=== PATIENT | male | born 1970 | race Caucasian/White ===

== ENCOUNTER 2021-10-25 16:20 | Outpatient (CLI) | payer OTHER, SELFPAY ==
[2021-10-25 17:32] LABS: Albumin* 4.8 g/dL (3.3-5.0); Chloride* 105 mmol/L (96-114)
[2021-10-25 17:33] LABS: Potassium* 3.9 mmol/L (3.6-5.1); Sodium* 141 mmol/L (135-149)
[2021-10-25 17:35] LABS: Aspartate Amino Transferase* 31 U/L (12-35); Bilirubin Total* 0.6 mg/dL (0.1-1.5); Blood Urea Nitrogen* 24 mg/dL (5-24); Carbon Dioxide* 27 mmol/L (20-32); Cholesterol* 173 mg/dL (90-199); Creatinine* 1.1 mg/dL (0.5-1.5); Estimated Glomerular Filt Rate 82 ml/min; Glucose* 106 mg/dL (60-115); Total Protein* 7.4 g/dL (6.0-8.3)
[2021-10-25 17:36] LABS: Alanine Aminotransferase* 27 U/L (4-50); Alkaline Phosphatase* 71 U/L (40-150); Calcium* 9.8 mg/dL (8.4-10.6); HDL Cholesterol* 31 mg/dL (>=40)
[2021-10-25 17:52] LABS: Triglycerides* 677 mg/dL (40-149)
[2021-10-25 17:53] LABS: LDL Cholesterol Calculated 7 mg/dL (<100)
== END 2021-10-25 16:21 | disposition home or self-care (01) ==
PROVIDERS: PCP Internal Medicine; Visit Provider Internal Medicine
DX: Z01.818 Encounter for other preprocedural examination (principal); E78.5 Hyperlipidemia, unspecified; N52.9 Male erectile dysfunction, unspecified; N40.0 Benign prostatic hyperplasia without lower urinary tract symptoms; F41.0 Panic disorder [episodic paroxysmal anxiety]; K21.9 Gastro-esophageal reflux disease without esophagitis
CPT/HCPCS: 80053; 80061

== ENCOUNTER 2021-11-01 07:24 | Day surgery (SDC) | payer OTHER, SELFPAY ==
[2021-11-01] VITALS (10 sets, daily range): BP systolic 113–134; BP diastolic 78–92; PULSE 59–663; RESP 14–18; TEMP 36.3–36.6; O2SAT 92–97; BMI 39.4
[2021-11-01] MEDS: LACTATED RINGERS 1000 ML 1,000 ML 100 ML IV (08:00)
[2021-11-01] MEDS: SODIUM CHLORIDE 0.9 % (FLUSH) 10 ML SYRINGE IVF (08:01)
[2021-11-01] MEDS: CEFAZOLIN 1 GM inj 3 GM IVP (09:32)
--- NOTE | 2021-11-01 10:17 | PM.ORPRC ---
Procedure Note Date of procedure: 11/01/21 Procedure: SURGEON: Hemant Armstrong MD LICENSED FUNERAL DIRECTOR AND EMBALMER: JANELLE Dodge PREOPERATIVE DIAGNOSIS: Right knee medial pain POSTOPERATIVE DIAGNOSIS: Right knee medial compartment osteoarthritis, degenerative fraying of the leading edge of the anterior horn of the medial meniscus NAME OF OPERATION: Right knee diagnostic arthroscopy, partial medial meniscectomy, medial femoral condyle chondroplasty ANESTHESIA: Spinal ESTIMATED BLOOD LOSS: 0 mL COMPLICATIONS: None SPECIMENS: None DRAINS: None PREOPERATIVE ANTIBIOTICS: Ancef 3 g INDICATIONS: The patient is a 51-year-old male with a history of right knee medial pain. MRI scan is normal. Despite appropriate nonoperative management, including activity modification, antiinflammatories, [id number] pain medication, bracing, physical therapy, and injections they continue to have pain and disability. Operative intervention was offered. The risks, benefits and expected outcomes were discussed in detail. These included but were not limited to: Infection, bleeding, injury to blood vessel or nerve, venous thromboembolism. All questions were answered to their satisfaction. PROCEDURE: Spinal anesthesia was administered. The patient was placed supine on the operating room table. The right lower extremity was prepped and draped in the usual sterile fashion. The limb was exsanguinated with the Alan bandage. The pneumatic tourniquet was inflated to 300 mmHg. A standard anterolateral portal was established. The arthroscope was introduced. The working portal was established anteromedially. Diagnostic arthroscopy was performed with findings as follows: The suprapatellar pouch is normal. Articular surface on the patella is normal. Articular surface on the trochlea is normal. The medial gutter is normal. The medial compartment shows some degenerative fraying of the leading edge of the anterior horn of the medial meniscus. Otherwise, the medial meniscus is normal. There is no undersurface tearing, there is no root tear. The notch shows the ACL to be intact. The lateral compartment shows normal articular cartilage on the lateral femoral condyle and lateral tibial plateau. The lateral meniscus is normal. The lateral gutter is normal. The leading edge of the anterior horn of the medial meniscus was debrided with the shaver through both portals. Unstable chondral flaps on the medial femoral condyle were debrided with the shaver through both portals, taken to a stable base. Arthroscopic instruments were removed, the portal sites were Steri-Stripped closed, the knee was infiltrated with 30 mL of 0.25% Marcaine without epinephrine. A dry dressing was applied, the tourniquet was released. Sponge and needle counts were correct x 2. The patient tolerated the procedure well. There were no apparent complications. They were carefully transferred to the hospital bed and taken to the postanesthesia care unit in satisfactory condition. PLAN: The patient will be discharged to home. They may weightbear as tolerates. Range of motion will be unrestricted. They will follow up in the office next week for a wound check.
--- NOTE | 2021-11-01 10:23 | PC.NURSE ---
CONTINUOUS IRRIGATION WITH NORMAL SALINE DURING KNEE SCOPE
--- NOTE | 2021-11-01 10:27 | W.ANESCHARGE ---
Anesthesia Charges Start Date/Time Anesthesia Start Date: 11/01/21 Anesthesia Start Time: 09:25 Stop Date/Time Anesthesia Stop Date: 11/01/21 Anesthesia Stop Time: 10:23 Summary Emergency: No
--- NOTE | 2021-11-01 10:38 | W.ANESCHARGE ---
Anesthesia Charges Start Date/Time Anesthesia Start Date: 11/01/21 Anesthesia Start Time: 09:25 Stop Date/Time Anesthesia Stop Date: 11/01/21 Anesthesia Stop Time: 10:23 Summary Emergency: No
== END 2021-11-01 12:00 | disposition home or self-care (01) ==
PROVIDERS: PCP Internal Medicine; Visit Provider Orthopaedic Surgery
PROC: (CPT 29870; principal; 2021-11-01 09:30)
DX: M25.561 Pain in right knee (principal); M23.211 Derangement of anterior horn of medial meniscus due to old tear or injury, right knee; M17.11 Unilateral primary osteoarthritis, right knee
CPT/HCPCS: 29881; 01400; 97116; 97161; J0690; J2250; J2400; J2704; J3010; J7120

== ENCOUNTER 2021-12-12 19:32 | Outpatient (CLI) | payer OTHER, SELFPAY ==
--- NOTE | 2022-01-08 11:43 | W.PM.SLEEP ---
Sleep Study Details Details Interpreting Provider: Anirudh Chase MD Date of Sleep Study: 12/12/21 Sleep Study Details: STUDY TYPE:? Home ? BMI:? Not recorded ORDERING PROVIDER:? Carole INDICATION:? Concerns about sleep apnea ? SLEEP SUMMARY:? Study marred by low monitoring time of 83 minutes, total recording time 401 minutes RESPIRATORY SUMMARY:? AHI of 20.9 with minimal positional variation Low oxygen 68 2.7% of study oxygen less than 90%, 0.1% of study oxygen less than 85% Snoring % is 1.6 PERIODIC LIMB MOVEMENTS OF SLEEP:? Not recorded CARDIAC:? Range 60 to 99, mean 80.2 IMPRESSION:? Moderate obstructive sleep apnea. This study was marred by low monitoring time of 83 minutes. However I believe this is adequate to demonstrate at least moderate obstructive apnea. RECOMMENDATION: Treatment options would consist of AutoSet CPAP at a pressure of 4-17 versus dental appliance. Would favor CPAP.
== END 2021-12-12 19:33 | disposition home or self-care (01) ==
LOC: SLEEP 19:32
PROVIDERS: PCP Internal Medicine; Visit Provider Internal Medicine
DX: G47.33 Obstructive sleep apnea (adult) (pediatric) (principal)
CPT/HCPCS: 95806

== ENCOUNTER 2021-12-26 13:45 | Outpatient (RCR) | payer OTHER, SELFPAY | END 2022-01-31 16:36 | disposition home or self-care (01) | PROVIDERS: PCP Internal Medicine; Visit Provider Orthopaedic Surgery | DX: M25.561 Pain in right knee (principal); M70.71 Other bursitis of hip, right hip; M25.551 Pain in right hip; Z51.89 Encounter for other specified aftercare | CPT/HCPCS: 97110; 97140; 97161; 97530 ==

== ENCOUNTER 2022-02-21 06:57 | Outpatient (CLI) | payer OTHER, SELFPAY ==
[2022-02-21 07:04] VITALS: BP 143/85; PULSE 94; RESP 18; TEMP 36.9; O2SAT 98
--- NOTE | 2022-02-21 07:31 | P.ORPRC_ITS ---
Procedure Note Date of procedure: 02/21/22 Procedure: SURGEON: Hemant Armstrong MD CHART WRITER: Miriam Meza PA-C PREOPERATIVE DIAGNOSIS: Right hip abductor tendinopathy/greater trochanteric bursitis POSTOPERATIVE DIAGNOSIS: Right hip abductor tendinopathy/greater trochanteric bursitis NAME OF OPERATION: Percutaneous tenotomy ANESTHESIA: Local ESTIMATED BLOOD LOSS: 2 mL. COMPLICATIONS: None. SPECIMENS: None. DRAINS: None. PREOPERATIVE ANTIBIOTICS: None INDICATIONS: The patient is a 51-year-old male with a history of right hip pain secondary to the above diagnoses. Despite appropriate non operative management, they continue to have symptoms. Operative intervention was recommended. The risks, benefits and expected outcomes were discussed in detail. These included but were not limited to: Infection, bleeding, injury to blood vessel or nerve, venous thromboembolism. All questions were answered to their satisfaction. PROCEDURE: The patient was placed in the lateral decubitus position. The right hip was imaged in the long and short axes with the ultrasound transducer. No rmal acoustic landmarks were identified. We then sterilely prepped and draped the skin, and used a sterile probe cover with sterile gel. Local anesthesia was established with 10 mL of a solution con taining 2 % lidocaine without epinephrine, 0.5% Marcaine without epinephrine and sodium bicarbonate. An 11 blade was used to incise the skin. The Tenex TX 2 micro tip was used to treat the abductor tendon for a total of 4 minutes and 2 seconds. The incision was Steri-Stripped closed. A dry dressing was applied. Sponge and needle counts were correct x2. The patient tolerated the procedure well. There were no apparent complications. They were discharged to home in satisfactory condition. PLAN: The patient may weightbear as tolerates. Tylenol can be used for pain/discomfort. They may ramp up activity as the hip will allow. They will follow up in the office in 6 weeks to assess their progress.
[2022-02-21 07:34] VITALS: BP 118/80; PULSE 96; RESP 18; O2SAT 98
== END 2022-02-21 07:43 | disposition home or self-care (01) ==
PROVIDERS: PCP Internal Medicine; Visit Provider Orthopaedic Surgery
DX: M70.61 Trochanteric bursitis, right hip (principal)
CPT/HCPCS: 27006; 76942

== ENCOUNTER 2022-06-05 08:14 | Outpatient (CLI) | payer OTHER, SELFPAY ==
--- NOTE | 2022-06-05 08:15 | CRLHL7_ITS ---
For Patients: As a result of the Century Cures Act, medical imaging exams and procedure reports are released immediately into your electronic medical record. You may view this report before your referring provider. If you have questions, please contact your health care provider. Indication: Right hip pain Procedure : Informed consent was obtained. The site was marked. Time-out was performed. The skin of the right hip was cleansed with ChloraPrep. A sterile drape was placed. 8 cc of 1 percent lidocaine was administered for superficial anesthesia. Subsequently a 22 gauge spinal needle was introduced into the right hip joint under intermittent fluoroscopic guidance. Injection of 2 cc nonionic Omnipaque 240 contrast confirmed intra-articular location. Subsequently 11 cc of dilute gadolinium were injected. The needle was removed and hemostasis achieved with direct pressure. A dressing was placed. The patient tolerated the procedure well without immediate complication and was immediately sent to MRI for imaging. Total fluoroscopy time 50 seconds. Impression: Successful fluoroscopically guided right hip arthrogram for MRI. Note is made that the injection procedure was difficult due to patient discomfort and movement. Some of contrast extended into the iliopsoas bursa although there is still adequate intra-articular contrast present. Dictated by Kingsley Prasad MD @ 06/05/2022 10:31:20 AM (Electronically Signed)
--- NOTE | 2022-06-05 09:15 | MR_ITS ---
[address] [address] Phone:?[phone] Fax:?[phone] Referring Physician Information: Hemant Armstrong M.D. [address] [facility] [address] Phone:?[phone] Fax:?[phone] Patient:Flaquito Miramontes D.O.B:?1970 Sex:?Male Phone:?[phone] [facility] MRN:?[id number] Exam Date:?06/05/2022 ? EXAM: MR ARTHROGRAM of the RIGHT HIP CLINICAL INFORMATION: Male, 52 years old, with right hip pain. INDICATION: Evaluate for labral tear. PRIOR SURGERY: None reported. PLAIN FILMS: None available. COMPARISONS: No prior MRIs available. TECHNICAL INFORMATION: Exam performed after injection of gadolinium-based contrast into the right hip joint, reported separately. Using a 1.5T MR scanner: coronals: PD, T2, T1FS sagittals: PD, T2, T1FS axial obliques: PD axials: PDFS coronals of pelvis: T1, STIR SEDATION: None. CONTRAST: No intravenous contrast was administered. FINDINGS: Hip joint: Gadolinium-based contrast distends the hip joint, reflecting successful arthrography. Mild thinning of the articular cartilage is present throughout the superior and lateral aspects of the right hip joint, without full-thickness chondral defect/loss. No intra-articular bodies. Labrum: Fraying and irregularity of the anterior and anterosuperior labrum is present, without more well-defined labral tear. Proximal femur: No femoral occult fracture, stress injury, marrow edema or osteonecrosis. Mild loss of normal femoral head/neck junction offset, without convincing femoral cam morphology. No fibrocystic change. Minimal marginal osteophytosis. Based on oblique axial series 8 image 12 at approximately 1:30 o'clock anterosuperiorly, the maximum femoral alpha angle measures approximately 59?. Acetabulum: Mild to moderate marginal osteophytosis. Minimal reactive osseous changes are present in the periphery of the acetabulum. No stress/occult fracture or periacetabular ossicle. Version: Normal acetabular anteversion. Coverage: Right lateral center edge (CE) angle measures approximately 29? (normal 25?-39?), midline coronal series 6 image 18, corrected for pelvic obliquity. Ligamentum teres: Ligamentum teres is intact and unremarkable. Iliofemoral ligament: The iliofemoral ligament is intact without thickening. Pelvis osseous structures: Sacrum: No stress/insufficiency fractures or marrow edema/pathology. Sacroiliac joints: No demonstrable sacroiliitis. Pubic rami and pubic symphysis: Moderate edema-like signal is present in the left greater than right parasymphyseal pubic bodies, with mild hypertrophy and irregularity of the pubic symphysis. No stress/occult fracture. Myotendinous structures: Gluteus abductors: Mild to moderate gluteus medius tendinopathy, without tear (axial PDFS series 9 images 7-15). Mild gluteus minimus tendinopathy. Adductors: No demonstrable tendinopathy or strain/tear. Hamstrings: Mild bilateral common hamstrings tendinopathy, without tear. Flexors: Intact iliopsoas and rectus femoris, without strain/tear. External rotators: Intact, without demonstrable ischiofemoral impingement. Gluteal aponeurotic fascia and IT band: Unremarkable. Bursae: No demonstrable trochanteric, iliopsoas, or iliopectineal bursitis. Intrapelvic contents: Free fluid: No free fluid seen within the pelvis. Pelvic viscera: No discrete intrapelvic mass is identified. Lymph nodes: No lymphadenopathy by MRI size criteria. Neurovascular structures: No discrete cyst, mass or other compression upon the portions visualized of sciatic or femoral nerves. Lumbar spine:?The visualized portions of the lower lumbar spine are unremarkable. IMPRESSION: 1. Mild-moderate gluteus medius and mild gluteus minimus tendinopathy, without tear. 2. Fraying and irregularity of the anterior and anterosuperior labrum, without more well-defined labral tear. 3. Slight approaching mild osteoarthritis of the right hip joint. 4. Mild-moderate findings of osteitis pubis with mild pubic symphysis arthrosis. 5. No fracture or osseous stress reaction. BC Electronically signed on 06/05/2022 11:54:00 AM by Wilfrido Aguilar M.D.
== END 2022-06-05 08:15 | disposition home or self-care (01) ==
PROVIDERS: PCP Internal Medicine; Visit Provider Orthopaedic Surgery
DX: M25.551 Pain in right hip (principal); M16.11 Unilateral primary osteoarthritis, right hip
CPT/HCPCS: 73525; 73722; 77002; A9575; Q9966

== ENCOUNTER 2022-11-12 09:23 | Outpatient (CLI) | payer OTHER, SELFPAY | END 2022-11-12 09:24 | disposition home or self-care (01) | LOC: INJ CL 09:23 | PROVIDERS: PCP Internal Medicine; Visit Provider Family Medicine | DX: M54.16 Radiculopathy, lumbar region (principal); M51.26 Other intervertebral disc displacement, lumbar region | CPT/HCPCS: 64483; J1100; Q9966 ==

== ENCOUNTER 2022-12-12 07:40 | Day surgery (SDC) | payer OTHER, SELFPAY ==
[2022-12-12] VITALS (11 sets, daily range): BP systolic 96–130; BP diastolic 54–81; PULSE 54–66; RESP 16–20; TEMP 36.1–36.6; O2SAT 93–98; BMI 38.5
[2022-12-12] MEDS: SODIUM CHLORIDE 0.9 % (FLUSH) 10 ML SYRINGE IVF (07:30)
[2022-12-12] MEDS: LACTATED RINGERS 1000 ML 1,000 ML 100 ML IV (07:30)
--- NOTE | 2022-12-12 08:15 | REH.PT ---
Pts own crutches were adjusted. Reviewed amb, transfers and stair amb with axillary crutches. Able to demo ind. No Billing.
--- NOTE | 2022-12-12 09:44 | W.ANESCHARGE ---
Anesthesia Charges Start Date/Time Anesthesia Start Date: 12/12/22 Anesthesia Start Time: 10:00 Stop Date/Time Anesthesia Stop Date: 12/12/22 Anesthesia Stop Time: 11:43
[2022-12-12] MEDS: CEFAZOLIN 1 GM inj 3 GM IVP (10:15)
--- NOTE | 2022-12-12 11:21 | PM.ORPRC ---
Procedure Note Date of procedure: 12/12/22 Procedure: PREOPERATIVE DIAGNOSIS: Right knee medial meniscus root tear POSTOPERATIVE DIAGNOSIS: Right knee medial meniscus root tear NAME OF OPERATION: Right knee arthroscopic medial meniscus root repair SURGEON: Hemant Armstrong MD [employer] INSTRUMENT REPAIRER: JANELLE Dodge ANESTHESIA: Spinal ESTIMATED BLOOD LOSS: 0 mL COMPLICATIONS: None SPECIMENS: None DRAINS: None PREOPERATIVE ANTIBIOTICS: Ancef 3 gram INDICATIONS: The patient is a 52-year-old male with a history of right knee medial pain. MRI scan is consistent with a medial meniscus root tear. Despite appropriate nonoperative management, including activity modification, antiinflammatories, jpkf-oql-[id number] pain medication, bracing, physical therapy, and injections they continue to have pain and disability. Operative intervention was offered. The risks, benefits and expected outcomes were discussed in detail. These included but were not limited to: Infection, bleeding, injury to blood vessel or nerve, venous thromboembolism. All questions were answered to their satisfaction. PROCEDURE: Spinal anesthesia was administered. The patient was placed supine on the operating room table. The right lower extremity was prepped and draped in the usual sterile fashion. The limb was exsanguinated with the Alan bandage. The pneumatic tourniquet was inflated to 300 mmHg. A standard anterolateral portal was established. The arthroscope was introduced. The working portal was established anteromedially. Diagnostic arthroscopy was performed with findings as follows: The suprapatellar pouch is normal. Articular surface on the patella is normal. Articular surface on the trochlea is normal. The medial gutter is normal. The medial compartment shows diffuse grade 1/2 change on the medial femoral condyle and medial tibial plateau. The posterior horn of the medial meniscus is detached from the tibia. The notch shows the ACL to be intact. The lateral compartment shows normal articular cartilage on the lateral femoral condyle and lateral tibial plateau. The lateral meniscus is normal. The lateral gutter is normal. The knee scorpion was used to pass a fiber link x 2 in the posterior horn of the medial meniscus. The tibial drill guide was used over the footprint of the root. A longitudinal incision over the anteromedial face of the tibia was placed. The flip cutter was drilled into the footprint. The flip cutter was flipped and back cut 10 mm. It was removed and exchanged for a fiber stick. The fiber stick was brought out the anteromedial portal and was used to shuttle both of the fiber link luggage tag sutures on the posterior horn out the anteromedial tibia. We then tensioned the sutures and fixed them to the tibia with a SwiveLock anchor. This provided an excellent repair of the posterior tibial attachment of the medial meniscus to its anatomic footprint. The power pick was used to microfracture the notch both medially and laterally. Arthroscopic instruments were removed, the portal sites were Steri-Stripped closed, the incision over the tibia was closed with 3-0 Vicryl and 4-0 Monocryl, the knee was infiltrated with 30 mL of 0.25% Marcaine without epinephrine. A dry dressing was applied, the tourniquet was released. Sponge and needle counts were correct x 2. The patient tolerated the procedure well. There were no apparent complications. They were carefully transferred to the hospital bed and taken to the postanesthesia care unit in satisfactory condition. PLAN: The patient will be discharged to home. They will be strict nonweightbearing on the lower extremity for 6 weeks postoperatively. Range of motion will be allowed from 0-90 degrees x 2 weeks then unrestricted range of motion. They will follow up in 2 weeks for a wound check.
--- NOTE | 2022-12-12 11:43 | W.ANESCHARGE ---
Anesthesia Charges Start Date/Time Anesthesia Start Date: 12/12/22 Anesthesia Start Time: 10:00 Stop Date/Time Anesthesia Stop Date: 12/12/22 Anesthesia Stop Time: 11:43
--- NOTE | 2022-12-12 12:12 | SUR.PHASEI ---
patient met discharge criteria per anesthesia
== END 2022-12-12 13:10 | disposition home or self-care (01) ==
PROVIDERS: PCP Internal Medicine; Visit Provider Orthopaedic Surgery
PROC: (CPT 29882; principal; 2022-12-12 09:45)
DX: M23.221 Derangement of posterior horn of medial meniscus due to old tear or injury, right knee (principal)
CPT/HCPCS: 29882; 01400; C1713; J0690; J1100; J2250; J2405; J2704; J2795; J3010; J7120; L1833

== ENCOUNTER 2023-03-11 13:03 | Outpatient (CLI) | payer OTHER, SELFPAY | END 2023-03-11 13:04 | disposition home or self-care (01) | LOC: INJ CL 13:03 | PROVIDERS: PCP Internal Medicine; Visit Provider Family Medicine | DX: M54.16 Radiculopathy, lumbar region (principal); M51.26 Other intervertebral disc displacement, lumbar region | CPT/HCPCS: 62323; J0702; Q9966 ==

== ENCOUNTER 2023-05-27 07:14 | Outpatient (CLI) | payer OTHER, SELFPAY ==
--- OUTSIDE RECORDS SUMMARY | 2023-05-27 07:16 | XMS_ITS | Clinical Summary ---
Author Name Unknown Organization [facility] Address [place], [place] [address] Care Team Providers Care Ready Mix Truck Driver Name Role Phone Mayo Lam MD Primary Care Provider Allergies No known active allergies Medications Medication Sig Dispensed Refills Start Date End Date Status PRILOSEC OTC 20 MG TAB take 1 tablet (20mg) by oral route daily 0 Active tamsulosin (FLOMAX) 0.4 mg capsule 0 05/12/19 23 Active venlafaxine (EFFEXOR XR) 150 mg Extended-Release capsule 0 10/06/19 23 Active simvastatin (ZOCOR) 80 mg tablet 0 07/15/19 23 Active celecoxib (CELEBREX) 100 mg capsule 0 07/30/19 23 Active pregabalin (LYRICA) 75 mg capsuleIndication s:Lumbar radiculopathy Take 1 Capsule (75 mg) by mouth two times daily. 60 Capsule 2 05/07/19 24 Active CYCLOBENZAPRINE 10 MG TAB Take 1 tablet by mouth every 8 hours as needed for muscle spasms. 30 0 05/23/19 09 024 Discontinued(*M ed complete/Regime n complete/Level of care change) OXYCODONE SR 10 MG 12 HR TAB take 1 tablet (10 mg) by oral route every 12 hours 16 0 05/23/19 09 2 024 Discontinued(*M ed complete/Regime n complete/Level of care change) DOCUSATE SODIUM 100 MG CAP take 1 capsule (100 mg) by oral route BID 50 0 05/23/19 09 024 Discontinued(*M ed complete/Regime n complete/Level of care change) gabapentin (NEURONTIN) 300 mg capsuleIndication s:Lumbar radiculopathy Take 1 Capsule (300 mg) by mouth at bedtime. 30 Capsule 3 12/31/19 23 024 Discontinued oxyCODONE-acetami nophen (Percocet) 5-325 mg per tabletIndications :Lumbar disc herniation,Lumbar radiculopathy Take 1 Tablet by mouth every 6 hours if needed for Pain. Max acetaminophen dose: 4000mg in 24 hrs. 24 Tablet 0 02/22/20 23 024 Discontinued(*M ed complete/Regime n complete/Level of care change) gabapentin (NEURONTIN) 300 mg capsuleIndication s:Lumbar radiculopathy TAKE ONE CAPSULE BY MOUTH AT BEDTIME 30 Capsule 3 04/29/19 24 024 Discontinued(*M ed complete/Regime n complete/Level of care change) Active Problems No known active problems Encounters Date Type Department Care Team Description 05/13/2023 Telephone [facility] [address] [place] [address] Arnol Sorto MD Prior Authorization (pregabalin (LYRICA) 75 mg capsule PA not needed (WORK COMP)) 05/07/2023 10:20 AM [employer]IST [employer] Office Visit [facility] [address] [place] [address] Arnol Sorto MD [facility] Med (/Work comp lumbar and right hip injury date of injury:06/28/21 with [facility]//) 05/07/2023 Travel 04/28/2023 Refill [facility] [address] [place] [address] Arnol Sorto MD Refill Request (Gabapentin) 03/11/2023 1:40 PM [employer]IST [employer] Office Visit [facility] at [facility] [address] [facility] [place] [address] Arnol Sorto MD Procedure (L4-5 ILESI) 03/10/2023 1:20 PM [employer] Office Visit [facility] [address] [place] [address] Arnol Sorto MD [facility] Med (Work comp lumbar and right hip injury date of injury:06/28/21 with [facility]) 03/10/2023 Travel 02/26/2023 Telephone [facility] [address] [facility] [place] [place] [address] Arnol Sorto MD Questions from Last 3 Months Social History Tobacco Use Types Packs/Day Years Used Date Smoking Tobacco: Every Day Cigarettes 1 36.1 Started: 1987 Smokeless Tobacco: Never Tobacco Cessation:Ready to Q uit: No; Counseling Given: Yes Social Connections Answer Date Recorded Frequency of Communication with Friends and Fami ly Not on file 10/09/2022 Sex and Gender Information Value Date Recorded Sex Assigned at Not on file Gender Identity Not on file Sexual Orientation Not on file Obstetrics History Last Filed Vital Signs Vital Sign Reading Time Taken Comments Blood Pressure 167/98 05/07/2023 10:28 AM [employer] Pulse 94 05/07/2023 10:28 AM [employer] Temperature 36.6 ??C (97.8 ??F) 05/07/2023 1 0:28 AM [employer] Respiratory Rate 14 05/23/2008 1:05 PM [employer] Oxygen Saturation 97% 05/07/2023 10: 28 AM [employer] Inhaled Oxygen Concentration - - Weight 139.1 kg (306 lb 9.6 oz) 05/07/2023 10:28 AM [employer]IST [employer] work boots on Height 187 cm (6' 1.62) 05/23/2008 5:0 0 AM [employer]IST [employer] Body Mass Index - - Plan of Treatment Upcoming Encounters Date Type Department Care Team (Late st Contact Info) Description 05/27/2023 7:40 AM [employer]IST [employer] Office Visit [facility] at [facility] [address] [place] [address] Arnol Sorto MD [address] [place] [address] 07/03/2023 10:00 AM CDT Office Visit [facility] [address] [place] [address] Arnol Sorto MD [address] [place] [address] Health Maintenance Due Date Last Done Comments Pneumococcal series for age 6-64 (1 of 2 - PCV) 1978 Tdap 1983 Depression screening for age 12+ 1984 HIV for age 15-65 1987 BMI (ht and wt on same day) for age 18+ 1990 Hepatitis C screening for age 18-79 1990 Tetanus booster 1992 Colonoscopy through age 75 2017 Lipids for age 45-75 2017 02/16/2010 Zoster (shingles) series for age 50+ (1 of 2) 2022 COVID-19 vaccine series (2022- season) 2022 08/25/2020, 08/04/2020 Influenza for age 50-64 12/13/2022 Medical Devices Implanted Type Area Wood Engraver Device Identifier Shelf Expiration Date Model / Serial / Lot Peek Tenodesis Screw 8x12 [[id number] Implanted:Qty: 1 on 05/23/2008 at [facility] Right: Shoulder [id number] / / [id number] Description:PEEK TENODESIS S CREW 8X12 Procedures Procedure Name Priority Date/Time Associated Diagnosis Comments AMB EPIDURAL STEROID INJECTION Routine 03/11/2023 12:00 AM [employer] Lumbar disc herniation Lumbar radiculopathy from Last 3 Months Results * AMB EPIDURAL STEROID INJECTION (03/11/2023 12:00 AM [employer]) Arnol Sorto MD NEUROLOGY ORD from Last 3 Months Advance Directives Latest Code Status on File Code Status Date Activated Date Inactivated Comments Full Code 05/23/2008 5:20 AM 05/23/2008 3:37 PM Care Teams Ready Mix Truck Driver Relationship Specialty Start Date End Date Mayo Lam MD [address] [place] [address] PCP - General Internal Medicine 10/09/22
== END 2023-05-27 07:15 | disposition home or self-care (01) ==
LOC: INJ CL 07:15
PROVIDERS: PCP Internal Medicine; Visit Provider Family Medicine
DX: M54.16 Radiculopathy, lumbar region (principal); M51.36 Other intervertebral disc degeneration, lumbar region
CPT/HCPCS: 62323; J0702; Q9966

== ENCOUNTER 2023-06-30 16:15 | Outpatient (RCR) | payer OTHER, SELFPAY ==
--- NOTE | 2023-05-14 13:58 | PT.OPDNX ---
PT [place] Outpatient Daily Note PROGRESS NOTE PT [facility] Daily Note Start: 12/19/22 11:43 Freq: Status: Active Protocol: Document 05/14/23 10:06 GULSHAN (Rec: 05/14/23 13:57 GULSHAN [id number]) E-signed By Darryl Baker DPT PT OP Daily Progress Note Visit Information Note Type Daily Note,Recert/Progress Note Visit Number [id number] Insurance Authorized Visits 12 +8 on 04/01/23 = 20 Insurance Information Insurance Name Maday See Medical Diagnosis Rt MMRR on 12/12/22 Treating Diagnosis Rt knee pain muscle weakness Referring MD Slater Subjective Subjective Ed comes in saying the knee is still very limited and he overall feels like 'something is not right in the knee' and states he feels like he needs an MRI. States he has more posterior knee pain along with buckling symptoms. States he has been doing therapy HEP once a day and exercises prescribed from 3-4 time a weeks but, does not feel like anything has changed at all. Pain Comments 11/21 Precautions Treatment Precautions/Contraindications na Weight Bearing Status Full Weight Bearing Home Exercise Home Exercise Comments [id number] Objective Other/Pertinent Objective GAIT/FUNCTIONAL MOBILITY step up- increased UE assisted needed as pt increased load on quad ambulates with decreased heel strike- landing more on toes ( could explain increased calf pain/cramping) R knee rom: 8-115 with overpressure RLE strength with slr lacks as he gets to 10 reps ~15-20 degrees extensor lag palpation- increased hamstring tenderness on medial side Functional Test Performed & Score 05/14/23- 22/80 ~27.5% LEFS Patient Instructed in Risks/Benefits Yes Therapeutic Exercise Therapeutic Exercise Minutes (minutes) 25 Therapeutic Exercise: To Restore SAQ x 20 Functional Status SLR flexion x 15 knee ext stretch with quad sets x 2 min heel slides x 10, with belt x10 step up 8 inch x 12 Treatment Minutes Untimed Code Treatment Minutes 15 Timed Code Treatment Minutes 25 Total Treatment Time 40 Billing Units Therapeutic Exercise Units 2 Assessment/Impression Assessment/Impression Patient is a 52 year old male that presents with R knee pain post meniscus surgery. Patient's LEFS scored 22/80 ~ 27.5%. Patient has shown minimal improvement in PT demonstrating increased range of motion with over pressure , and minimal increase in tolerance to activity. Patient continues to present with pain, decreased end range ROM, decreased objective strength and functional strength, and decreased tolerance to activity. Plan of Care Physical Therapy Goals STG Patient will demonstrate/ report ability to walk for 15- 20 minutes without AD pain level <1/10, to allow for community and household ambulation within 6-8 weeks nm (when walking pain 3/10) Patient will be able to demonstrate knee AROM 0-120 degrees without pain within 6- 8 weeks to allow for normal knee mechanics nm Patient will be able to demonstrate SLR knee flexion x 15 without lag within 6-8 weeks to demonstrate improved knee strength and control nm LTG Patient will demonstrate/ report ability to walk for 45- 60 minutes without AD pain level <1/10, to allow for community and household ambulation within 12-14 weeks nm Patient will demonstrate/ report ability to climb 12 steps with handrail in reciprocal fashion, to allow for household and community ambulation within 12-14 weeks nm (perform one at a time going sideways) Pt will be able to demonstrate / report ability to lift #30- 50 from floor to counter height without pain within 12- 14weeks, for household and work activity. nm Pt will be independent with HEP within 12-14 weeks to allow for independence and continued improvement past formal therapy Daily Plan of Care Continue per POC Discharge Note Date of First Visit for Therapy 12/19/22 Initial Primary Functional Limitations walking stairs lifting, driving Initial Pain Level 8/10
== END 2023-08-14 14:12 | disposition home or self-care (01) ==
PROVIDERS: PCP Internal Medicine; Visit Provider Orthopaedic Surgery
DX: M25.561 Pain in right knee (principal); M62.81 Muscle weakness (generalized); Z51.89 Encounter for other specified aftercare
CPT/HCPCS: 97110; 97112; 97116; 97140; 97161; 97535

== ENCOUNTER 2023-09-09 16:53 | Outpatient (CLI) | payer OTHER, SELFPAY ==
--- OUTSIDE RECORDS SUMMARY | 2023-09-10 07:26 | XMS_ITS | Clinical Summary ---
Author Organization [facility] Address [place], [place] [address] Care Team Providers Care Dock Worker Name Role Phone Mayo Lam MD Primary Care Provider Allergies No known active allergies Medications Medication Sig Dispensed Refills Start Date End Date Status PRILOSEC OTC 20 MG TAB take 1 tablet (20mg) by oral route daily Active tamsulosin (FLOMAX) 0.4 mg capsule 05/12/2022 Active venlafaxine (EFFEXOR XR) 150 mg Extended-Release capsule 10/05/2022 Active simvastatin (ZOCOR) 80 mg tablet 07/14/2022 Active celecoxib (CELEBREX) 100 mg capsule 07/29/2022 Active pregabalin (LYRICA) 75 mg capsuleIndications:Lum bar radiculopathy 1 po qam, 2 oral at bedtime. 90 Capsule 2 07/03/2023 Active Active Problems No known active problems Encounters Date Type Department Care Team Description 07/03/2023 10:00 AM CDT Office Visit [facility] [address] [place] [address] Arnol Sorto MD Follow Up (WC right hip injury); Occ Med 07/03/2023 Travel 06/24/[address] [facility] [address] [place] [address] Arnol Sorto MD Questions from Last 3 Months Social History Tobacco Use Types Packs/Day Years Used Date Smoking Tobacco: Every Day Cigarettes 1 36.4 Started: 1987 Smokeless Tobacco: Never Tobacco Cessation:Ready [...] Sign Reading Time Taken Comments Blood Pressure 139/89 07/03/2023 10:03 AM CDT Pulse 96 07/03/2023 10:03 AM CDT Temperature 36.6 ??C (97.8 ??F) 05/07/2023 10:[address] Respiratory Rate 14 05/23/2008 1:05 PM CROZER Oxygen Saturation 98% 07/03/2023 10:03 AM CDT Inhaled Oxygen Concentration - - Weight 138.3 kg (305 lb) 07/03/2023 10:03 AM CDT Height 187 cm (6' 1.62) 05/23/2008 5:00 AM CROZER Body Mass Index - - Plan of Treatment Health Maintenance Due Date Last Done Comments [...] 2022 08/25/2020, 08/04/2020 Influenza for age 50-64 12/14/2023 Medical Devices Implanted Type Area Crystal Inspector Device Identifier Shelf Expiration Date Model / Serial / Lot Peek Tenodesis Screw 8x12 [[id number] Implanted:Qty: 1 on 05/23/[address] [facility] Right: Shoulder [id number] / / [id number] Description:PEEK TENODESIS S CREW 8X12 Procedures Procedure Name Priority Date/Time Associated Diagnosis Comments LDL CHOLESTEROL,DIRECT Timed 02/16/2010 9:50 AM CDT from Last 3 Months or Most Recently Relevant to Health Maintenance Results * LDL CHOLESTEROL,DIRECT (02/16/2010 9:50 AM CDT) LDL CHOLESTEROL,D IRECT 56 Undefined mg/dL [facility] Comment: ?RISK CATEGORY LDL GOAL ?(mg/dL) ? Vascular disease and/or diabetes (<100) ? Multiple (2+) risk factors ? (<130) ? 0-1 risk factor ?(<160) 02/16/2010 9:50 AM CDT 02/16/2010 7:47 PM CDT Wing Kohli MD CHEMISTRY [facility] INTERNAL ZIP [address] [place] [id number] from Last 3 Months or Most Recently Relevant to Health Maintenance Advance Directives * Full Code (Latest Code Status on File) Date Activated Date Inactivated Comments 05/23/2008 5:20 AM 05/23/2008 3:37 PM Care Teams Dock Worker Relationship Specialty Start Date End Date Mayo Lam MD [address] [place] [address] PCP - General Internal Medicine 10/09/22
== END 2023-09-09 16:54 | disposition home or self-care (01) ==
LOC: NFLDREF 09-10 07:23
PROVIDERS: PCP Internal Medicine; Referring Provider Internal Medicine; Visit Provider Internal Medicine
DX: Z00.00 Encounter for general adult medical examination without abnormal findings (principal); D12.6 Benign neoplasm of colon, unspecified; E78.5 Hyperlipidemia, unspecified; I10 Essential (primary) hypertension; Z13.9 Encounter for screening, unspecified; Z12.5 Encounter for screening for malignant neoplasm of prostate
CPT/HCPCS: 80053; 80061; G0103

== ENCOUNTER 2023-11-10 07:02 | Emergency (ER) | payer OTHER, SELFPAY ==
[2023-11-10 07:06] VITALS: BP 164/91; PULSE 86; RESP 18; TEMP 36.6; O2SAT 98; BMI 39.6
--- NOTE | 2023-11-10 07:21 | ED_ITS ---
HPI - General Adult General Chief complaint: Abdominal Pain Stated complaint: coughing up blood Time Seen by Provider: 11/10/23 07:21 History of Present Illness HPI narrative: 53-year-old male with a past medical history of tobacco use, COPD, GERD, hypertension, osteoarthritis, BPH, hyperlipidemia Related Data Previous Rx's ?Medication ?Instructions ?Recorded omeprazole 40 mg capsule,delayed 40 mg PO DAILY GERD #90 caps 12/02/22 release simvastatin 80 mg tablet 80 mg PO DAILY Hyperlipidemia #90 12/02/22 tabs venlafaxine 150 mg 150 mg PO QDAY #90 caps 02/17/23 capsule,extended release 24 hr gemfibrozil 600 mg tablet 600 mg PO QDAY #30 tabs 09/12/23 tamsulosin 0.4 mg capsule 0.8 mg (2 x 0.4 mg) PO DAILY #180 09/19/23 caps Allergies Allergy/AdvReac Type Severity Reaction Status Date / Time No Known Allergies Allergy Verified 09/09/23 16:31 [facility] Medical History (Updated 09/09/23 @ 17:18 by Mayo Lam MD) Healthcare maintenance ?Z00.00 - Encounter for general adult medical examination without abnormal findings (ICD-10) HTN (hypertension) ?I10 - Essential (primary) hypertension (ICD-10) Screening due ?Z13.9 - Encounter for screening, unspecified (ICD-10) Tobacco use (02/16/10) ?Z72.0 - Tobacco use (ICD-10) Panic attack ?F41.0 - Panic disorder [episodic paroxysmal anxiety] (ICD-10) Obstructive sleep apnea syndrome ?G47.33 - Obstructive sleep apnea (adult) (pediatric) (ICD-10) Obesity with body mass index greater than 30 ?E66.9 - Obesity, unspecified (ICD-10) Hyperlipidemia ?E78.5 - Hyperlipidemia, unspecified (ICD-10) Generalized anxiety disorder ?F41.1 - Generalized anxiety disorder (ICD-10) Gastroesophageal reflux disease (06/18/11) ?K21.9 - Gastro-esophageal reflux disease without esophagitis (ICD-10) Erectile dysfunction ?N52.9 - Male erectile dysfunction, unspecified (ICD-10) Depression ?F32.A - Depression, unspecified (ICD-10) Carpal tunnel syndrome ?G56.00 - Carpal tunnel syndrome, unspecified upper limb (ICD-10) Benign prostatic hyperplasia ?N40.0 - Benign prostatic hyperplasia without lower urinary tract symptoms (ICD-10) Adenomatous polyp of colon ?D12.6 - Benign neoplasm of colon, unspecified (ICD-10) Surgical History Status post medial meniscus repair of right knee (12/12/22) ?Z98.890 - Other specified postprocedural states (ICD-10) Status post hip surgery (02/21/22) ?Z98.890 - Other specified postprocedural states (ICD-10) S/P right knee arthroscopy ?Z98.890 - Other specified postprocedural states (ICD-10) S/P arthroscopic partial medial meniscectomy (11/01/21) ?Z98.890 - Other specified postprocedural states (ICD-10) History of hernia repair (02/16/10) ?Z98.890 - Other specified postprocedural states (ICD-10) ?Z87.19 - Personal history of other diseases of the digestive system (ICD-10) History of cholecystectomy (02/16/10) ?Z90.49 - Acquired absence of other specified parts of digestive tract (ICD- 10) History of appendectomy (02/16/10) ?Z90.49 - Acquired absence of other specified parts of digestive tract (ICD- 10) Family History Mother Colon cancer Social History (Updated 09/10/23 @ 08:26 by Amy Thompson ~ [facility]) 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, 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, 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, no EtOH, , 2 kids What is your current living situation?: I presently have a place to live Problems where you live: no known problems In the past 12 months, utilities in danger of being shut off: no In past 12 months, lack of transportation kept you from medical appts, meetings, work, or getting things needed for daily living: no In the past 12 mos, have been you worried that your food would run out before you had money to buy more?: never true In the past 12 mos, the food you bought just didn't last and you didn't have money to buy more?: never true Smoking Status: Current every day smoker Do you use any of these nicotine containing products: None Second hand tobacco smoke exposure: Yes How often do you have a drink containing alcohol: never AUDIT-C Alcohol total score: 0 Non-prescribed substance use: denies use Caffeine: Yes How often does anyone, including family, friends and others, physically hurt you : never How often does anyone, including family, friends and others, insult or talk down to you: never How often does anyone, including family, friends and others, threaten you with harm: never How often does anyone, including family, friends and others, scream or curse at you: never Little interest or pleasure in doing things: not at all Feeling down, depressed, or hopeless: not at all Exam Const: Vital Signs, click to edit/add: Vital Signs - 24 hr 11/10/23 07:06 Temperature 97.8 F Pulse Rate [Right] 86 Respiratory Rate 18 Blood Pressure [Ri ght Upper Arm] 164/91 H Pulse Oximetry 98 Oxygen Delivery Me thod Room Air Course Vital Signs Vital signs: Initial Vital Signs Temperature 97.8 F 11/10/23 07:06 Temperature Source Temporal Artery Scan 11/10/23 07:06 Pulse Rate 86 11/10/23 07:06 Respiratory Rate 18 11/10/23 07:06 Blood Pressure 164/91 H 11/10/23 07:06 Blood Pressure Mean 115 H 11/10/23 07:06 Blood Pressure Position Sitting 11/10/23 07:06 Pulse Oximetry 98 11/10/23 07:06 Oxygen Delivery Method Room Air 11/10/23 07:06 Vital Signs Temperature 97.8 F 11/10/23 07:06 Pulse Rate 86 11/10/23 07:06 Respiratory Rate 18 11/10/23 07:06 Blood Pressure 164/91 H 11/10/23 07:06 Pulse Oximetry 98 11/10/23 07:06 Oxygen Delivery Method Room Air 11/10/23 07:06 Temperature 97.8 F 11/10/23 07:06 Pulse Rate 86 11/10/23 07:06 Respiratory Rate 18 11/10/23 07:06 Blood Pressure 164/91 H 11/10/23 07:06 Pulse Oximetry 98 11/10/23 07:06 Oxygen Delivery Method Room Air 11/10/23 07:06 Discharge Plan Discharge Prescriptions: No Action simvastatin 80 mg tablet 80 mg PO DAILY Qty: 90 3RF omeprazole 40 mg capsule,delayed release(DR/EC) 40 mg PO DAILY Qty: 90 2RF venlafaxine 150 mg capsule,extended release 24hr 150 mg PO QDAY Qty: 90 3RF Rx Instructions: Take with venlafaxine 75mg to equal total daily dose of 225mg. gemfibrozil 600 mg tablet 600 mg PO QDAY Qty: 30 4RF tamsulosin 0.4 mg capsule 0.8 mg PO DAILY Qty: 180 6RF Follow Up/Referrals: Mayo Lam MD [Primary Care Provider] -
--- NOTE | 2023-11-10 08:05 | CRLHL7_ITS ---
For Patients: As a result of the Cures Act, medical imaging exams and procedure reports are released immediately into your electronic medical record. You may view this report before your referring provider. If you have questions, please contact your health care provider. Indication: Abdominal pain. Technique: Two view(s) of the chest. Comparison: 09/09/2016. Findings: Unchanged cardiomediastinal silhouette and pulmonary vasculature. Lungs are well inflated. Unchanged hyperdense 9 mm nodule in the right lower lung, likely calcified granuloma. No focal consolidation, pleural effusion or pneumothorax. No acute osseous abnormality. Impression: No acute cardiopulmonary abnormality identified. No significant change from prior. Dictated by Lolita Sapp MD @ 11/10/2023 8:40:13 AM (Electronically Signed)
--- NOTE | 2023-11-10 08:06 | ED.GENADULT ---
HPI - General Adult General Chief complaint: Abdominal Pain Stated complaint: coughing up blood Time Seen by Provider: 11/10/23 07:21 History of Present Illness HPI narrative: This 53-year-old male comes in reporting cough that is productive of phlegm that has some blood mixed in at times. He has noted this over the past 3 weeks or so. He also reports chest discomfort when coughing. He also has reflux symptoms and is taking Prilosec 20 mg twice daily. He has a long history of smoking but quit smoking a month or 2 ago except he reports that he has taken a few cigarettes here and there since then. He did have a colonoscopy about 5 years ago which showed a sessile polyp and is scheduled to have a repeat colonoscopy soon. He does not report any fevers. He does not have nausea, vomiting, lightheadedness, shortness of breath, or exertional symptoms. Related Data Previous Rx's ?Medication ?Instructions ?Recorded omeprazole 40 mg capsule,delayed 40 mg PO DAILY GERD #90 caps 12/02/22 release simvastatin 80 mg tablet 80 mg PO DAILY Hyperlipidemia #90 12/02/22 tabs venlafaxine 150 mg 150 mg PO QDAY #90 caps 02/17/23 capsule,extended release 24 hr gemfibrozil 600 mg tablet 600 mg PO QDAY #30 tabs 09/12/23 tamsulosin 0.4 mg capsule 0.8 mg (2 x 0.4 mg) PO DAILY #180 09/19/23 caps pantoprazole 20 mg tablet,delayed 40 mg (2 x 20 mg) PO DAILY #20 tabs 11/10/23 release (Protonix) Allergies Allergy/AdvReac Type Severity Reaction Status Date / Time No Known Allergies Allergy Verified 09/09/23 16:31 Review of Systems Status of ROS: Reports: 10 or more systems reviewed and unremarkable except as noted in History and below Narrative: Constitutional: No fevers, no weight gain or loss. Eyes: No discharge. No vision changes. HENT: No congestion, no sore throat, no ear pain. Cardiovascular: No palpitations. Respiratory: No shortness of breath, no wheezes. He reports a productive cough. Gastrointestinal: No abdominal pain, no vomiting, no diarrhea. Genitourinary: No dysuria, no hematuria. Musculoskeletal: Normal range of motion. Skin: No rashes, no pruritis. Neurological: No dizziness, weakness, sensory change, speech change. Endo/Heme/Allergies: No bruising or bleeding. No polydipsia. Pysch: no suicidality, no anxiety, no insomnia. All other systems reviewed and are negative. [facility] Medical History (Updated 11/10/23 @ 09:29 by Saqib Goldstein MD) Healthcare maintenance ?Z00.00 - Encounter for general adult medical examination without abnormal findings (ICD-10) HTN (hypertension) ?I10 - Essential (primary) hypertension (ICD-10) Screening due ?Z13.9 - Encounter for screening, unspecified (ICD-10) Tobacco use (02/16/10) ?Z72.0 - Tobacco use (ICD-10) Panic attack ?F41.0 - Panic disorder [episodic paroxysmal anxiety] (ICD-10) Obstructive sleep apnea syndrome ?G47.33 - Obstructive sleep apnea (adult) (pediatric) (ICD-10) Obesity with body mass index greater than 30 ?E66.9 - Obesity, unspecified (ICD-10) Hyperlipidemia ?E78.5 - Hyperlipidemia, unspecified (ICD-10) Generalized anxiety disorder ?F41.1 - Generalized anxiety disorder (ICD-10) Gastroesophageal reflux disease (06/18/11) ?K21.9 - Gastro-esophageal reflux disease without esophagitis (ICD-10) Erectile dysfunction ?N52.9 - Male erectile dysfunction, unspecified (ICD-10) Depression ?F32.A - Depression, unspecified (ICD-10) Carpal tunnel syndrome ?G56.00 - Carpal tunnel syndrome, unspecified upper limb (ICD-10) Benign prostatic hyperplasia ?N40.0 - Benign prostatic hyperplasia without lower urinary tract symptoms (ICD-10) Adenomatous polyp of colon ?D12.6 - Benign neoplasm of colon, unspecified (ICD-10) Surgical History Status post medial meniscus repair of right knee (12/12/22) ?Z98.890 - Other specified postprocedural states (ICD-10) Status post hip surgery (02/21/22) ?Z98.890 - Other specified postprocedural states (ICD-10) S/P right knee arthroscopy ?Z98.890 - Other specified postprocedural states (ICD-10) S/P arthroscopic partial medial meniscectomy (11/01/21) ?Z98.890 - Other specified postprocedural states (ICD-10) History of hernia repair (02/16/10) ?Z98.890 - Other specified postprocedural states (ICD-10) ?Z87.19 - Personal history of other diseases of the digestive system (ICD-10) History of cholecystectomy (02/16/10) ?Z90.49 - Acquired absence of other specified parts of digestive tract (ICD-10) History of appendectomy (02/16/10) ?Z90.49 - Acquired absence of other specified parts of digestive tract (ICD-10) Family History Mother Colon cancer Social History (Updated 09/10/23 @ 08:26 by Amy Thompson ~ [facility]) 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, 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, 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, no EtOH, , 2 kids What is your current living situation?: I presently have a place to live Problems where you live: no known problems In the past 12 months, utilities in danger of being shut off: no In past 12 months, lack of transportation kept you from medical appts, meetings, work, or getting things needed for daily living: no In the past 12 mos, have been you worried that your food would run out before you had money to buy more?: never true In the past 12 mos, the food you bought just didn't last and you didn't have money to buy more?: never true Smoking Status: Current every day smoker Do you use any of these nicotine containing products: None Second hand tobacco smoke exposure: Yes How often do you have a drink containing alcohol: never AUDIT-C Alcohol total score: 0 Non-prescribed substance use: denies use Caffeine: Yes How often does anyone, including family, friends and others, physically hurt you: never How often does anyone, including family, friends and others, insult or talk down to you: never How often does anyone, including family, friends and others, threaten you with harm: never How often does anyone, including family, friends and others, scream or curse at you: never Little interest or pleasure in doing things: not at all Feeling down, depressed, or hopeless: not at all Exam Narrative: Exam Narrative: Constitutional: Well-developed, well-nourished, no acute distress. HEENT: Normocephalic, atraumatic. Neck: Normal range of motion. Nontender. Supple. Heart: Regular. No murmurs. Normal rate. Intact distal pulses. Lungs: Clear to auscultation. No chest discomfort. No wheezes, rhonchi, or rales. Abdomen: Normal bowel sounds. Nontender. No rebound tenderness. Genitalia: Deferred. Back: No midline tenderness. Normal range of motion. Extremities: Normal range of motion. No injury. Skin: Intact. No rash. Warm. No erythema or pallor. Neurologic: No altered sensation. No weakness. Alert and oriented. Psychiatric: No suicidality. No anxiety or depression. No insomnia. Nursing notes and vitals signs are reviewed. Const: Vital Signs, click to edit/add: Vital Signs - 24 hr 11/10/23 07:06 11/10/23 08:56 Temperature 97.8 F Pulse Rate [Right] 86 80 Respiratory Rate 18 18 Blood Pressure [Ri ght Upper Arm] 164/91 H 152/99 H Pulse Oximetry 98 95 Oxygen Delivery Me thod Room Air Room Air Course Vital Signs Vital signs: Initial Vital Signs Temperature 97.8 F 11/10/23 07:06 Temperature Source Temporal Artery Scan 11/10/23 07:06 Pulse Rate 86 11/10/23 07:06 Respiratory Rate 18 11/10/23 07:06 Blood Pressure 164/91 H 11/10/23 07:06 Blood Pressure Mean 115 H 11/10/23 07:06 Blood Pressure Position Sitting 11/10/23 07:06 Pulse Oximetry 98 11/10/23 07:06 Oxygen Delivery Method Room Air 11/10/23 07:06 Vital Signs Temperature 97.8 F 11/10/23 07:06 Pulse Rate 86 11/10/23 07:06 Respiratory Rate 18 11/10/23 07:06 Blood Pressure 164/91 H 11/10/23 07:06 Pulse Oximetry 98 11/10/23 07:06 Oxygen Delivery Method Room Air 11/10/23 07:06 Temperature 97.8 F 11/10/23 07:06 Pulse Rate 80 11/10/23 08:56 Respiratory Rate 18 11/10/23 08:56 Blood Pressure 152/99 H 11/10/23 08:56 Pulse Oximetry 95 11/10/23 08:56 Oxygen Delivery Method Room Air 11/10/23 08:56 Medications Administered Medications: Discontinued Medications Generic Name Dose Route Start Last Admin Trade Name Fadumo PRN Reason Stop Dose Admin Lidocaine/Aluminum/Magnesium/Simeth 30 ml 11/10/23 08:49 11/10/23 09:02 Gi Cocktail (Visc Lido/Antacid) 30 Ml PO 11/10/23 08:50 30 ml ONCE ONE Administration Medical Decision Making MDM Narrative Medical decision making narrative: This patient comes in reporting productive cough and states that there is occasions with her some blood mixed in. He also reports reflux symptoms and has been taking omeprazole 40 mg daily. He has quit smoking except for a few occasions where he has admitted to smoking some. He arrives here with normal vital signs. Chest x-ray is negative. Labs also are reassuring. The patient received a GI cocktail which brought great relief to his symptoms. This would indicate his primary symptoms are related to reflux esophagitis. He does have a follow-up appointment with Dr. Lam for a routine colonoscopy. I stated that if symptoms are not improving he may benefit from an upper GI endoscopy. He did receive a prescription for Protonix and I advised him to continue with the omeprazole in the morning intake Protonix in the evening for additional benefit hopefully of his reflux symptoms. I encouraged him to continue smoking cessation. Lab Data Labs: Lab Results 11/10/23 11/10/23 Range/Units 07:30 08:05 WBC 8.80 (4.50-11.00) K/uL RBC 4.91 (4.30-5.90) m/uL Hgb 14.4 (13.5-17.5) gm/dL Hct 44.1 (37.0-53.0) % MCV 90 (80-100) fL MCH 29 (26-34) pg MCHC 33 (32-36) gm/dL RDW Coeff of Negro 13.3 (11.5-15.5) % Plt Count 216 (140-440) K/uL Neut % (Auto) 65.9 (42.0-72.0) % Lymph % (Auto) 23.0 (20-44) % [place] % (Auto) 6.5 (0.0-11.0) % Eos % (Auto) 3.0 (0.0-7.0) % Baso % (Auto) 0.7 (0.0-3.0) % Neut # (Auto) 5.81 (1.7-7.0) K/uL Lymph # (Auto) 2.02 (0.90-2.90) K/uL [place] # (Auto) 0.60 (0.00-0.90) K/UL Eos # (Auto) 0.26 (0.00-0.50) K/uL Baso # (Auto) 0.06 (0.00-0.30) K/uL Abs Immat Gran (auto) 0.08 (0.00-0.30) K/uL Imm/Tot Granulo (auto) 0.9 % POC Troponin I 0.00 L (0.01-0.04) ng/ml Imaging Data Chest x-ray: Radiologist's impression: No acute cardiopulmonary abnormality identified. No significant change from prior. Discharge Plan Discharge Clinical Impression: Esophagitis, reflux Patient Disposition: Home, Self-Care Condition: Improved Additional Instructions: Take Protonix as prescribed. Continue other current medications. Follow up with MD as scheduled return if worsening. Prescriptions: New pantoprazole [Protonix] 20 mg tablet,delayed release (DR/EC) 40 mg PO DAILY Qty: 20 2RF No Action simvastatin 80 mg tablet 80 mg PO DAILY Qty: 90 3RF omeprazole 40 mg capsule,delayed release(DR/EC) 40 mg PO DAILY Qty: 90 2RF venlafaxine 150 mg capsule,extended release 24hr 150 mg PO QDAY Qty: 90 3RF Rx Instructions: Take with venlafaxine 75mg to equal total daily dose of 225mg. gemfibrozil 600 mg tablet 600 mg PO QDAY Qty: 30 4RF tamsulosin 0.4 mg capsule 0.8 mg PO DAILY Qty: 180 6RF Follow Up/Referrals: Mayo Lam MD [Primary Care Provider] - Stand Alone Forms: [employer] Info Instructions
--- OUTSIDE RECORDS SUMMARY | 2023-11-10 08:12 | XMS_ITS | Clinical Summary ---
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 Oxygen Saturation 98% 07/03/2023 10:03 AM CDT Inhaled Oxygen Concentration - - Weight 138.3 kg (305 lb) 07/03/2023 10:03 AM CDT Height 187 cm (6' 1.62) 05/23/2008 5:00 AM CASE LOADER OPERATOR Body Mass Index - - Plan of [...] (1 of 2) 2022 COVID-19 vaccine series (2022-24 season) 2022 08/25/2020, 08/04/2020 Influenza for age 50-64 12/14/2023 Medical Devices Implanted Type Area Supervisor Doping Device Identifier Shelf Expiration Date Model / Serial / Lot Peek Tenodesis Screw 8x12 [[id number]][ Implanted:Qty: 1 on 05/23/2008 at [facility] Right: Shoulder [id number] / / [id number] Description:PEEK TENODESIS S CREW 8X12 Procedures Procedure Name Priority Date/Time Associated Diagnosis Comments LDL CHOLESTEROL,DIRECT Timed 02/16/2010 9:50 AM CDT from Last 3 Months or Most Recently Relevant to Health Maintenance Results * LDL CHOLESTEROL,DIRECT (02/16/2010 9:50 AM CDT) LDL CHOLESTEROL,D IRECT 56 Undefined mg/dL [facility] Comment: ?RISK CATEGORY LDL GOAL ?(mg/dL) ? Vascular disease and/or diabetes (<100) ? Multiple (2+) risk factors ? (<130) ? 0-1 risk factor ?(<160) 02/16/2010 9:50 AM CDT 02/16/2010 7:47 PM CDT Wing Kohli MD CHEMISTRY [facility] INTERNAL [place] [id number] [place] [id number] from Last 3 Months or Most Recently Relevant to Health Maintenance Insurance Payer Benefit Plan / Group Subscriber ID Effective Dates Phone Address Type WC WORKERS COMP [employer] BILL PROCESSING [id number] 2022-Pres ent WC [employer]-INNOVATIVE CLAIM STRATEGIES [address] [facility] [phone] [place] [address] WC WORKERS COMP WC WORKERS COMP [id number] 2006-Pre sent [phone] [id number] [address] [address] [place] [address] WC WORKERS COMP WC [employer] BILL PROCESSING [id number] 2021-Pre sent WC TBG-INNOVATIVE CLAIM STRATEGIES [address] [facility] [phone] [place] [address] [facility] [id number] 2023-11/11 [address] [address] [place] [address] Advance Directives * Full Code (Latest Code Status on File) Date Activated Date Inactivated Comments 05/23/2008 5:20 AM 05/23/2008 3:37 PM Care Teams Electric Sign Assembler Relationship Specialty Start Date End Date Mayo Lam MD [address] [place] [address] PCP - General Internal Medicine 10/09/22
[2023-11-10 08:28] LABS: Basophils Absolute Auto 0.06 K/uL (0.00-0.30); Basophils Percent Auto 0.7 % (0.0-3.0); Eosinophils Absolute Auto 0.26 K/uL (0.00-0.50); Hematocrit 44.1 % (37.0-53.0); Hemoglobin* 14.4 gm/dL (13.5-17.5); Immature Granulocytes Abs Auto 0.08 K/uL (0.00-0.30); Immature Granulocytes Pct Auto 0.9 %; Lymphocytes Absolute Auto 2.02 K/uL (0.90-2.90); Mean Corpuscular HGB Conc 33 gm/dL (32-36); Mean Corpuscular Hemoglobin 29 pg (26-34); Mean Corpuscular Volume 90 fL (80-100); Monocytes Percent Auto 6.5 % (0.0-11.0); Neutrophils Absolute Auto 5.81 K/uL (1.7-7.0); Neutrophils Percent Auto 65.9 % (42.0-72.0); Platelet Count* 216 K/uL (140-440); RDW Coefficient of Variation % 13.3 % (11.5-15.5); Red Blood Count 4.91 m/uL (4.30-5.90)
[2023-11-10 08:33] LABS: Slide Review Reflex No
[2023-11-10 08:38] LABS: Chloride* 105 mmol/L (96-114); Sodium* 137 mmol/L (135-149)
[2023-11-10 08:41] LABS: Anion Gap 11 mEq/L (7-15); Blood Urea Nitrogen* 17 mg/dL (7-30); Carbon Dioxide* 21 mmol/L (20-32); Creatinine* 0.9 mg/dL (0.5-1.5); Est. Creatinine Clearance* 109.74; Estimated Glomerular Filt Rate 103 ml/min; Glucose* 173 mg/dL (60-115)
[2023-11-10 08:42] LABS: Calcium* 9.3 mg/dL (8.4-10.6)
[2023-11-10 08:56] VITALS: BP 152/99; PULSE 80; RESP 18; O2SAT 95
[2023-11-10] MEDS: GI COCKTAIL (VISC LIDO/ANTACID) 30 ML PO (09:02)
== END 2023-11-10 10:43 | disposition home or self-care (01) ==
PROVIDERS: Emergency Provider Emergency Medicine Emergency Medical Services; PCP Internal Medicine
DX: K21.00 Gastro-esophageal reflux disease with esophagitis, without bleeding (principal)
CPT/HCPCS: 36415; 71046; 80048; 84484; 85025; 99283; 99284; A9270

== ENCOUNTER 2023-12-09 11:10 | Outpatient (CLI) | payer OTHER, SELFPAY ==
--- OUTSIDE RECORDS SUMMARY | 2023-12-12 07:13 | XMS_ITS | Clinical Summary ---
Author Organization [facility] Address [place], [place] [address] Care Team Providers Care Ham Facer Name Role Phone Mayo Lam MD Primary [...] Date Smoking Tobacco: Every Day Cigarettes 1 36.7 Started: 1987 Smokeless Tobacco: Never Tobacco Cessation:Ready [...] ST Respiratory Rate 14 05/23/2008 1:05 PM NURSING TECHNICIAN Oxygen Saturation 98% 07/03/2023 10:03 AM CDT Inhaled Oxygen Concentration - - Weight 138.3 kg (305 lb) 07/03/2023 10:03 AM CDT Height 187 cm (6' 1.62) 05/23/2008 5:00 AM NURSING TECHNICIAN Body Mass Index - - Plan of [...] 50-64 12/14/2023 Medical Devices Implanted Type Area Laborer Construction Or Leak Gang Device Identifier Shelf Expiration Date Model / Serial / Lot Peek Tenodesis Screw 8x12 [[id number]][ Implanted:Qty: 1 on 05/23/2008 at [facility] Right: Shoulder [id number] / / [id number] Description:PEEK TENODESIS S CREW 8X12 Procedures Procedure Name Priority Date/Time Associated Diagnosis Comments LDL CHOLESTEROL,DIRECT Timed 02/16/2010 9:50 AM CDT from Last 3 Months or Most Recently Relevant to Health Maintenance Results * LDL CHOLESTEROL,DIRECT (02/16/2010 9:50 AM CDT) LDL CHOLESTEROL,D IRECT 56 Undefined mg/dL [facility] Comment: ?RISK CATEGORY LDL GOAL ?(mg/dL) ? Vascular disease and/or diabetes (<100) ? Multiple (2+) risk factors ? (<130) ? 0-1 risk factor ?(<160) 02/16/2010 9:50 AM CDT 02/16/2010 7:47 PM CDT Wing Kohli MD CHEMISTRY [facility] INTERNAL [address] [address] from Last 3 Months or Most Recently Relevant to Health Maintenance Advance Directives * Full Code (Latest Code Status on File) Date Activated Date Inactivated Comments 05/23/2008 5:20 AM 05/23/2008 3:37 PM Care Teams Ham Facer Relationship Specialty Start Date End Date Mayo Lam MD [address] [place] [address] PCP - General Internal Medicine 10/09/22
== END 2023-12-09 11:11 | disposition home or self-care (01) ==
LOC: NFLDREF 12-12 07:11
PROVIDERS: PCP Internal Medicine; Referring Provider Internal Medicine; Visit Provider Internal Medicine
DX: E78.5 Hyperlipidemia, unspecified (principal)
CPT/HCPCS: 80061

== ENCOUNTER 2024-01-08 11:16 | Outpatient (CLI) | payer OTHER, SELFPAY ==
--- OUTSIDE RECORDS SUMMARY | 2024-01-08 11:18 | XMS_ITS | Clinical Summary ---
Author Organization [facility] Address [place], [place] [address] Care Team Providers Care Exercise Rider Name Role Phone Mayo Lam MD Primary Care Provider [phone] Allergies No known active allergies Medications Medication [...] ST Respiratory Rate 14 05/23/2008 1:05 PM ANALYTICS DEVELOPER Oxygen Saturation 98% 07/03/2023 10:03 AM CDT Inhaled Oxygen Concentration - - Weight 138.3 kg (305 lb) 07/03/2023 10:03 AM CDT Height 187 cm (6' 1.62) 05/23/2008 5:00 AM ANALYTICS DEVELOPER Body Mass Index - - Plan of [...] (1 of 2) 2022 COVID-19 vaccine series (2023- season) 2023 08/25/2020, 08/04/2020 Influenza for age 50-64 12/14/2023 Medical Devices Implanted Type Area Direct Mail Coordinator Device Identifier Shelf Expiration Date Model / Serial / Lot Peek Tenodesis Screw 8x12 [[id number]][ Implanted:Qty: 1 on 05/23/2008 at [facility] Right: Shoulder AR-[id number] / / [id number] Description:PEEK TENODESIS S CREW 8X12 Procedures Procedure Name Priority Date/Time Associated Diagnosis Comments LDL CHOLESTEROL,DIRECT Timed 02/16/2010 9:50 AM CDT from Last 3 Months or Most Recently Relevant to Health Maintenance Results * LDL CHOLESTEROL,DIRECT (02/16/2010 9:50 AM CDT) LDL CHOLESTEROL,D IRECT 56 Undefined mg/dL [facility] Comment: ?RISK CATEGORY LDL GOAL ?(mg/dL) ? Vascular disease and/or diabetes (<100) ? Multiple (2+) risk factors ? (<130) ? 0-1 risk factor ?(<160) 02/16/2010 9:50 AM CDT 02/16/2010 7:47 PM CDT Wing Kohli MD CHEMISTRY [facility] INTERNAL ZIP [address] [address] from Last 3 Months or Most Recently Relevant to Health Maintenance Advance Directives * Full Code (Latest Code Status on File) Date Activated Date Inactivated Comments 05/23/2008 5:20 AM 05/23/2008 3:37 PM Care Teams Exercise Rider Relationship Specialty Start Date End Date Mayo Lam MD [address] [place] [address] PCP - General Internal Medicine 10/09/22
--- NOTE | 2024-01-08 12:03 | W.ANESCHARGE ---
Anesthesia Charges Start Date/Time Anesthesia Start Date: 01/08/24 Anesthesia Start Time: 12:00 Stop Date/Time Anesthesia Stop Date: 01/08/24 Anesthesia Stop Time: 12:47
--- NOTE | 2024-01-08 12:54 | W.ANESCHARGE ---
Anesthesia Charges Start Date/Time Anesthesia Start Date: 01/08/24 Anesthesia Start Time: 12:00 Stop Date/Time Anesthesia Stop Date: 01/08/24 Anesthesia Stop Time: 12:47
== END 2024-01-08 11:17 | disposition home or self-care (01) ==
LOC: OP CLINIC 11:16
PROVIDERS: PCP Internal Medicine; Visit Provider Surgery
DX: R19.8 Other specified symptoms and signs involving the digestive system and abdomen (principal)
CPT/HCPCS: 00813; 43239; 45385; 88305; J2704; J3010

== ENCOUNTER 2024-01-20 06:30 | Emergency (ER) | payer OTHER, SELFPAY ==
[2024-01-20 06:39] VITALS: BP 142/92; PULSE 90; RESP 18; TEMP 36.7; O2SAT 98; BMI 36.9
--- NOTE | 2024-01-20 06:40 | ED.GENADULT ---
HPI - General Adult General Time Seen by Provider: 06:40 <Sterling Dubose MD - Last Filed: 01/20/24 08:09> Date Seen: 01/20/24 <Sterling Dubose MD - Last Filed: 01/20/24 08:09> Chief complaint: Sore Throat <Sterling Dubose MD - Last Filed: 01/20/24 08:09> Stated complaint: Hard to breathe, headaches, throat swelling <Sterling Dubose MD - Last Filed: 01/20/24 08:09> Time Seen by Provider: 01/20/24 06:39 <Sterling Dubose MD - Last Filed: 01/20/24 08:09> Source: patient, RN notes reviewed and old records reviewed <Sterling Dubose MD - Last Filed: 01/20/24 08:09> Mode of arrival: ambulatory <Sterling Dubose MD - Last Filed: 01/20/24 08:09> Limitations: no limitations <Sterling Dubose MD - Last Filed: 01/20/24 08:09> History of Present Illness HPI narrative: 53-year-old male who presents today with about 6 weeks of hoarse voice, sore throat, headaches. Has been seen by GI for this and EGD which is normal. Scheduled to see ENT. Has been on antibiotics with no improvement. Denies weight loss, does have a history of smoking. Presents today with ongoing symptoms but no specific change in symptoms. <Sterling Dubose MD - Last Filed: 01/20/24 08:09> Related Data Home medications: Previous Rx's ?Medication ?Instructions ?Recorded venlafaxine 150 mg 150 mg PO QDAY #90 caps 02/17/23 capsule,extended release 24 hr gemfibrozil 600 mg tablet 600 mg PO QDAY #30 tabs 09/12/23 tamsulosin 0.4 mg capsule 0.8 mg (2 x 0.4 mg) PO DAILY #180 09/19/23 caps pantoprazole 20 mg tablet,delayed 40 mg (2 x 20 mg) PO DAILY #20 tabs 11/10/23 release (Protonix) omeprazole 40 mg capsule,delayed 40 mg PO DAILY GERD #90 caps 11/21/23 release simvastatin 80 mg tablet 80 mg PO DAILY Hyperlipidemia #90 12/22/23 tabs peg 3350-electrolytes 236 240 ml PO ONCE #4,000 mL 01/05/24 gram-22.74 gram-6.74 gram-5.86 gram solution (Golytely) albuterol sulfate 90 mcg/actuation 2 puff inhalation Q6H PRN 01/06/24 aerosol inhaler shortness of breath or wheezing #6.7 grams prednisone 20 mg tablet See Rx Instructions PO QDAY Cough 01/06/24 #12 tabs <Sterling Dubose MD - Last Filed: 01/20/24 08:09> Allergies/adverse reactions: Allergies Allergy/AdvReac Type Severity Reaction Status Date / Time No Known Allergies Allergy Verified 01/20/24 07:42 <Sterling Dubose MD - Last Filed: 01/20/24 08:09> [facility] Medical History: Medical History (Updated 01/20/24 @ 08:10 by Sterling Dubose MD) Healthcare maintenance ?Z00.00 - Encounter for general adult medical examination without abnormal findings (ICD-10) HTN (hypertension) ?I10 - Essential (primary) hypertension (ICD-10) Screening due ?Z13.9 - Encounter for screening, unspecified (ICD-10) Tobacco use (02/16/10) ?Z72.0 - Tobacco use (ICD-10) Panic attack ?F41.0 - Panic disorder [episodic paroxysmal anxiety] (ICD-10) Obstructive sleep apnea syndrome ?G47.33 - Obstructive sleep apnea (adult) (pediatric) (ICD-10) Obesity with body mass index greater than 30 ?E66.9 - Obesity, unspecified (ICD-10) Hyperlipidemia ?E78.5 - Hyperlipidemia, unspecified (ICD-10) Generalized anxiety disorder ?F41.1 - Generalized anxiety disorder (ICD-10) Gastroesophageal reflux disease (06/18/11) ?K21.9 - Gastro-esophageal reflux disease without esophagitis (ICD-10) Erectile dysfunction ?N52.9 - Male erectile dysfunction, unspecified (ICD-10) Depression ?F32.A - Depression, unspecified (ICD-10) Carpal tunnel syndrome ?G56.00 - Carpal tunnel syndrome, unspecified upper limb (ICD-10) Benign prostatic hyperplasia ?N40.0 - Benign prostatic hyperplasia without lower urinary tract symptoms (ICD-10) Adenomatous polyp of colon ?D12.6 - Benign neoplasm of colon, unspecified (ICD-10) <Sterling Dubose MD - Last Filed: 01/20/24 08:09> Surgical History: Surgical History Status post medial meniscus repair of right knee (12/12/22) ?Z98.890 - Other specified postprocedural states (ICD-10) Status post hip surgery (02/21/22) ?Z98.890 - Other specified postprocedural states (ICD-10) S/P right knee arthroscopy ?Z98.890 - Other specified postprocedural states (ICD-10) S/P arthroscopic partial medial meniscectomy (11/01/21) ?Z98.890 - Other specified postprocedural states (ICD-10) History of hernia repair (02/16/10) ?Z98.890 - Other specified postprocedural states (ICD-10) ?Z87.19 - Personal history of other diseases of the digestive system (ICD-10) History of cholecystectomy (02/16/10) ?Z90.49 - Acquired absence of other specified parts of digestive tract (ICD-10) History of appendectomy (02/16/10) ?Z90.49 - Acquired absence of other specified parts of digestive tract (ICD-10) <Sterling Dubose MD - Last Filed: 01/20/24 08:09> Family History: Family History Mother Colon cancer <Sterling Dubose MD - Last Filed: 01/20/24 08:09> Social History: Social History (Updated 09/10/23 @ 08:26 by Amy Thompson ~ CTA) 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, 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, 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, no 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, , 2 kids What is your current living situation?: I presently have a place to live Problems where you live: no known problems In the past 12 months, utilities in danger of being shut off: no In past 12 months, lack of transportation kept you from medical appts, meetings, work, or getting things needed for daily living: no In the past 12 mos, have been you worried that your food would run out before you had money to buy more?: never true In the past 12 mos, the food you bought just didn't last and you didn't have money to buy more?: never true Smoking Status: Current every day smoker What tobacco products do you use: cigarettes Smoking packs per day: 1 Smoking cigarettes per day: 20.0 Do you use any of these nicotine containing products: None Second hand tobacco smoke exposure: Yes How often do you have a drink containing alcohol: never AUDIT-C Alcohol total score: 0 Non-prescribed substance use: denies use Caffeine: Yes How often does anyone, including family, friends and others, physically hurt you: never How often does anyone, including family, friends and others, insult or talk down to you: never How often does anyone, including family, friends and others, threaten you with harm: never How often does anyone, including family, friends and others, scream or curse at you: never Little interest or pleasure in doing things: not at all Feeling down, depressed, or hopeless: not at all service: No <Sterling Dubose MD - Last Filed: 01/20/24 08:09> Exam Narrative: Exam Narrative: General: Well-developed and well-nourished, no acute distress Head: Atraumatic and normocephalic Eyes: Pupils are equal reactive, extraocular motions intact, conjunctiva clear ENT: External nose and ears are normal, posterior pharynx without erythema or exudate, hoarse voice Neck: No midline cervical tenderness, full spontaneous range of motion the neck, trachea midline, no adenopathy Heart: Regular rate and rhythm no murmurs or thrills Lungs: Clear to auscultation bilaterally without wheezes or crackles Abdomen: Soft, nontender, nondistended with active bowel sounds Musculoskeletal: No tenderness, deformity, or edema Neurologic: Awake, alert, and oriented x3, no gross focal neurologic deficits, cranial nerves intact as tested Psych: Mood and affect are appropriate Skin: No rashes <Sterling Dubose MD - Last Filed: 01/20/24 08:09> Const: Vital Signs, click to edit/add: Vital Signs - 24 hr 01/20/24 06:39 01/20/24 07:53 Temperature 98.1 F 98.1 F Pulse Rate [Pulse Oximeter] 90 78 Respiratory Rate 18 16 Blood Pressure [Le ft Upper Arm] 142/92 H 132/85 Pulse Oximetry 98 97 Oxygen Delivery Me thod Room Air Room Air <Sterling Dubose MD - Last Filed: 01/20/24 08:09> Vital Signs, click to edit/add: Vital Signs - 24 hr 01/20/24 06:39 01/20/24 07:53 Temperature 98.1 F 98.1 F Pulse Rate [Pulse Oximeter] 90 78 Respiratory Rate 18 16 Blood Pressure [Le ft Upper Arm] 142/92 H 132/85 Pulse Oximetry 98 97 Oxygen Delivery Me thod Room Air Room Air <lEias Gutierrez MD - Last Filed: 01/20/24 09:11> Course Course ED Course: Patient seen examined, presents today with several weeks of hoarse voice, headaches, sore throat. Pain with swallowing. On exam here, voice is hoarse, no breathing or swallowing difficulty, no stridor. Labs ordered along with CT scan of the head neck. Will also perform at bedside fiberoptic exam. <Sterling Dubose MD - Last Filed: 01/20/24 08:09> Reevaluation(s) Time of Reevaluation #1: 07:01 <Sterling Dubose MD - Last Filed: 01/20/24 08:09> Reevaluation #1: Procedure- fiberoptic nasal laryngoscopy to evaluate for hoarseness. Viscous lidocaine swish and swallow was given as well as Uro jet in the right nostril. 3.8 mm fiberoptic scope was introduced in the right nostril and advanced. Unable to see past the base of the tongue, patient was pushing my hands away and moving his head, procedure terminated due to poor patient tolerance of the procedure. <Sterling Dubose MD - Last Filed: 01/20/24 08:09> Time of Reevaluation #2: 07:37 <Sterling Dubose MD - Last Filed: 01/20/24 08:09> Reevaluation #2: Labs ordered and independently interpreted by me with normal basic panel, mild leukocytosis. CT scan of the chest independently interpreted by me demonstrates the mediastinal mass causing displacement of the trachea to the left. 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 Updated findings in introduced patient to Dr. Gutierrez who will be taking over care, they would like to go to [facility] for further evaluation. <Sterling Dbuose MD - Last Filed: 01/20/24 08:09> Vital Signs Vital signs: Initial Vital Signs Temperature 98.1 F 01/20/24 06:39 Temperature Source Temporal Artery Scan 01/20/24 06:39 Pulse Rate 90 01/20/24 06:39 Respiratory Rate 18 01/20/24 06:39 Blood Pressure 142/92 H 01/20/24 06:39 Blood Pressure Mean 108 H 01/20/24 06:39 Blood Pressure Position Sitting 01/20/24 06:39 Pulse Oximetry 98 01/20/24 06:39 Oxygen Delivery Method Room Air 01/20/24 06:39 Vital Signs Temperature 98.1 F 01/20/24 06:39 Pulse Rate 90 01/20/24 06:39 Respiratory Rate 18 01/20/24 06:39 Blood Pressure 142/92 H 01/20/24 06:39 Pulse Oximetry 98 01/20/24 06:39 Oxygen Delivery Method Room Air 01/20/24 06:39 Temperature 98.1 F 01/20/24 07:53 Pulse Rate 78 01/20/24 07:53 Respiratory Rate 16 01/20/24 07:53 Blood Pressure 132/85 01/20/24 07:53 Pulse Oximetry 97 01/20/24 07:53 Oxygen Delivery Method Room Air 01/20/24 07:53 <Sterling Dubose MD - Last Filed: 01/20/24 08:09> Initial Vital Signs Temperature 98.1 F 01/20/24 06:39 Temperature Source Temporal Artery Scan 01/20/24 06:39 Pulse Rate 90 01/20/24 06:39 Respiratory Rate 18 01/20/24 06:39 Blood Pressure 142/92 H 01/20/24 06:39 Blood Pressure Mean 108 H 01/20/24 06:39 Blood Pressure Position Sitting 01/20/24 06:39 Pulse Oximetry 98 01/20/24 06:39 Oxygen Delivery Method Room Air 01/20/24 06:39 Vital Signs Temperature 98.1 F 01/20/24 06:39 Pulse Rate 90 01/20/24 06:39 Respiratory Rate 18 01/20/24 06:39 Blood Pressure 142/92 H 01/20/24 06:39 Pulse Oximetry 98 01/20/24 06:39 Oxygen Delivery Method Room Air 01/20/24 06:39 Temperature 98.1 F 01/20/24 07:53 Pulse Rate 78 01/20/24 07:53 Respiratory Rate 16 01/20/24 07:53 Blood Pressure 132/85 01/20/24 07:53 Pulse Oximetry 97 01/20/24 07:53 Oxygen Delivery Method Room Air 01/20/24 07:53 <Elias Gutierrez MD - Last Filed: 01/20/24 09:11> Medications Administered Medications: Discontinued Medications Generic Name Dose Route Start Last Admin Trade Name Freq PRN Reason Stop Dose Admin Dexamethasone 10 mg 01/20/24 07:04 01/20/24 07:12 Dexamethasone 10 Mg/Ml Inj IVP 01/20/24 07:05 10 mg ONCE ONE Administration Ketorolac Tromethamine 15 mg 01/20/24 07:04 01/20/24 07:12 Ketorolac 15 Mg/Ml Inj IVP 01/20/24 07:05 15 mg ONCE ONE Administration Lidocaine HCl 6 ml 01/20/24 06:49 01/20/24 06:54 Lidocaine Hcl 2 % Jelly (Top) Sterile TOPICAL 01/20/24 06:50 6 ml ONCE ONE Administration Lidocaine HCl 15 ml 01/20/24 06:49 01/20/24 06:51 Lidocaine Viscous 2% 15 Ml Solution SWISH/SWAL 01/20/24 06:50 15 ml ONCE ONE Administration <Sterling Dubose MD - Last Filed: 01/20/24 08:09> Discontinued Medications Generic Name Dose Route Start Last Admin Trade Name Freq PRN Reason Stop Dose Admin Dexamethasone 10 mg 01/20/24 07:04 01/20/24 07:12 Dexamethasone 10 Mg/Ml Inj IVP 01/20/24 07:05 10 mg ONCE ONE Administration Ketorolac Tromethamine 15 mg 01/20/24 07:04 01/20/24 07:12 Ketorolac 15 Mg/Ml Inj IVP 01/20/24 07:05 15 mg ONCE ONE Administration Lidocaine HCl 6 ml 01/20/24 06:49 01/20/24 06:54 Lidocaine Hcl 2 % Jelly (Top) Sterile TOPICAL 01/20/24 06:50 6 ml ONCE ONE Administration Lidocaine HCl 15 ml 01/20/24 06:49 01/20/24 06:51 Lidocaine Viscous 2% 15 Ml Solution SWISH/SWAL 01/20/24 06:50 15 ml ONCE ONE Administration <Elias Gutierrez MD - Last Filed: 01/20/24 09:11> Medical Decision Making MDM Narrative Medical decision making narrative: Dr. Gutierrez took over care of this patient at shift change-8:[address] scans show signs concerning for malignancy which is a new diagnosis for the patient. He has a mediastinal mass and mediastinal lymphadenopathy and also a possible endobronchial tumor in the lung. Needs oncology workup. Discussed with the patient and his family. They would prefer oncology at [facility]. We called down to the [facility] transfer line. The [facility] is at capacity and not except any inpatient transfers. The [facility] transfer line will not allow me to consult with Oncology even for an outpatient follow-up. I was able to get through to the [facility] physician referral line. I discussed with staff through the referral line who put me through to the [facility] pulmonology triage center. I spoke with Ranulfo from the pulmonology triage center [phone]. We were able to transmit the patient's CT scans electronically to [facility]. Ranulfo will have the dural mechanic from [facility] review the images. That person will then contact the patient on his home cellphone number to arrange a follow-up plan for this patient. Although he does have a mediastinal mass with some compression his trachea, he has been having the symptoms now for the past several weeks. He is not having any difficulty breathing, stridor, hypoxia. There is no signs of any impending airway compromise that would necessitate hospitalization today. However it is clear that he needs expeditious outpatient workup (within the next couple of days, not weeks). Discussed the plan in detail with the patient, his , his daughter. They will be sure to answer the phone call from [facility] this morning. I provided them with the [facility] pulmonology clinic triage number so that if [facility] fails to call by lunch, and the patient will call [facility] himself. I also informed the patient's primary care provider here in [place]. <Elias Gutierrez MD - Last Filed: 01/20/24 09:11> Lab Data Labs: Lab Results 01/20/24 Range/Units 07:02 WBC 11.30 H (4.50-11.00) K/uL RBC 4.71 (4.30-5.90) m/uL Hgb 13.6 (13.5-17.5) gm/dL Hct 41.7 (37.0-53.0) % MCV 89 (80-100) fL MCH 29 (26-34) pg MCHC 33 (32-36) gm/dL RDW Coeff of Negro 13.1 (11.5-15.5) % Plt Count 282 (140-440) K/uL Neut % (Auto) 72.1 H (42.0-72.0) % Lymph % (Auto) 16.9 L (20-44) % Adams % (Auto) 6.6 (0.0-11.0) % Eos % (Auto) 3.7 (0.0-7.0) % Baso % (Auto) 0.6 (0.0-3.0) % Neut # (Auto) 8.10 H (1.7-7.0) K/uL Lymph # (Auto) 1.90 (0.90-2.90) K/uL Adams # (Auto) 0.70 (0.00-0.90) K/UL Eos # (Auto) 0.40 (0.00-0.50) K/uL Baso # (Auto) 0.10 (0.00-0.30) K/uL Abs Immat Gran (auto) 0.00 (0.00-0.30) K/uL Imm/Tot Granulo (auto) 0.1 % Sodium 140 (135-149) mmol/L Potassium 4.0 (3.6-5.1) mmol/L Chloride 107 (96-114) mmol/L Carbon Dioxide 23 (20-32) mmol/L Anion Gap 10 (7-15) mEq/L BUN 16 (7-30) mg/dL Creatinine 0.8 (0.5-1.5) mg/dL Estimated Creat Clear 123.46 Estimated GFR 107 ml/min Glucose 135 H (60-115) mg/dL Calcium 9.7 (8.4-10.6) mg/dL <Sterling Dubose MD - Last Filed: 01/20/24 08:09> Lab Results 01/20/24 Range/Units 07:02 WBC 11.30 H (4.50-11.00) K/uL RBC 4.71 (4.30-5.90) m/uL Hgb 13.6 (13.5-17.5) gm/dL Hct 41.7 (37.0-53.0) % MCV 89 (80-100) fL MCH 29 (26-34) pg MCHC 33 (32-36) gm/dL RDW Coeff of Negro 13.1 (11.5-15.5) % Plt Count 282 (140-440) K/uL Neut % (Auto) 72.1 H (42.0-72.0) % Lymph % (Auto) 16.9 L (20-44) % Adams % (Auto) 6.6 (0.0-11.0) % Eos % (Auto) 3.7 (0.0-7.0) % Baso % (Auto) 0.6 (0.0-3.0) % Neut # (Auto) 8.10 H (1.7-7.0) K/uL Lymph # (Auto) 1.90 (0.90-2.90) K/uL Adams # (Auto) 0.70 (0.00-0.90) K/UL Eos # (Auto) 0.40 (0.00-0.50) K/uL Baso # (Auto) 0.10 (0.00-0.30) K/uL Abs Immat Gran (auto) 0.00 (0.00-0.30) K/uL Imm/Tot Granulo (auto) 0.1 % Sodium 140 (135-149) mmol/L Potassium 4.0 (3.6-5.1) mmol/L Chloride 107 (96-114) mmol/L Carbon Dioxide 23 (20-32) mmol/L Anion Gap 10 (7-15) mEq/L BUN 16 (7-30) mg/dL Creatinine 0.8 (0.5-1.5) mg/dL Estimated Creat Clear 123.46 Estimated GFR 107 ml/min Glucose 135 H (60-115) mg/dL Calcium 9.7 (8.4-10.6) mg/dL <Elias Gutierrez MD - Last Filed: 01/20/24 09:11> Discharge Plan Discharge Clinical Impression: Hoarseness of voice, History of cigarette smoking, Mediastinal mass, Pulmonary nodules <Sterling Dubose MD - Last Filed: 01/20/24 08:09> Patient Disposition: Home, Self-Care <Sterling Dubose MD - Last Filed: 01/20/24 08:09> Condition: Stable <Sterling Dubose MD - Last Filed: 01/20/24 08:09> Additional Instructions: Your CT scan this morning shows signs that you have a mass as well as some lymph nodes in your chest cavity. This is very concerning for some form of cancer, possibly a lung cancer or possibly a lymphoma. It is very important for you to have follow-up and further workup for this. You should receive a phone call from the pulmonology Department at the [facility] this morning to arrange your follow-up. If you do not receive a phone call from them by noon, call [phone]. We have electronically transmitted your CT scans to the [facility] already. I have also printed at digital copy of your CT on a disc. Keep this disc with you and bring it with you to your appointments. Also please paper copies of your lab tests to your appointment. monitor your condition carefully. If you are having worsening trouble breathing, worsening cough, trouble swallowing, chest pain, high fever, or any problems, either see your doctors immediately or return to the ER. <Sterling Dubose MD - Last Filed: 01/20/24 08:09> Prescriptions: No Action prednisone 20 mg tablet See Rx Instructions PO QDAY Qty: 12 0RF Rx Instructions: 3 po as single dose days 1-2, 2 po as single dose days 3-4, 1 po days 5-6, then discontinue. albuterol sulfate 90 mcg/actuation HFA aerosol inhaler 2 puff inhalation Q6H PRN (Reason: shortness of breath or wheezing) Qty: 6.7 0RF pantoprazole [Protonix] 20 mg tablet,delayed release (DR/EC) 40 mg PO DAILY Qty: 20 2RF venlafaxine 150 mg capsule,extended release 24hr 150 mg PO QDAY Qty: 90 3RF Rx Instructions: Take with venlafaxine 75mg to equal total daily dose of 225mg. gemfibrozil 600 mg tablet 600 mg PO QDAY Qty: 30 4RF tamsulosin 0.4 mg capsule 0.8 mg PO DAILY Qty: 180 6RF omeprazole 40 mg capsule,delayed release(DR/EC) 40 mg PO DAILY Qty: 90 0RF simvastatin 80 mg tablet 80 mg PO DAILY Qty: 90 3RF peg 3350-electrolytes [Golytely] 236-22.74-6.74 -5.86 gram recon soln 240 ml PO ONCE Qty: 4000 0RF Rx Instructions: 4pm day prior to procedure. Drink 8oz glass every 15 minutes until 1/2 of solution is gone. 6 hours prior to procedure drink 8 oz glass every 15 minutes until remaining solution gone. <Sterling Dubose MD - Last Filed: 01/20/24 08:09> Follow Up/Referrals: Mayo Lam MD [Primary Care Provider] - <Sterling Dubose MD - Last Filed: 01/20/24 08:09> Stand Alone Forms: [employer] Info Instructions <Sterling Dubose MD - Last Filed: 01/20/24 08:09>
--- NOTE | 2024-01-20 06:49 | CRLHL7_ITS ---
For Patients: As a result of the Century Cures Act, medical imaging exams and procedure reports are released immediately into your electronic medical record. You may view this report before your referring provider. If you have questions, please contact your health care provider. INDICATION: Sore throat. Hoarse voice. History of smoking. TECHNIQUE: Performed with IV contrast. Contrast: 137 cc of Isovue 370. COMPARISON: CT chest from the same day. FINDINGS: There is bulky hypoenhancing right paratracheal lymphadenopathy which protrudes cephalad behind the right thyroid lobe and trachea at the level of the thoracic inlet, with mild transverse narrowing of the trachea to a diameter of 10 mm. No additional lymphadenopathy is identified in the neck. There is mild asymmetry of the vocal folds, without evidence for discrete laryngeal mass. No mucosal pathology is identified in the pharynx or larynx. The parotid and submandibular glands are symmetric and unremarkable. No additional abnormal contrast enhancement is identified. No worrisome skeletal lesions are identified. The visualized portions of the intracranial contents are unremarkable. IMPRESSION: 1. Right paratracheal lymphadenopathy, bulging cephalad into the base of the neck posterior to the right thyroid lobe. The lower cervical trachea is displaced laterally towards the left, and is narrowed in its transverse dimension to 10 mm. 2. Asymmetry of the vocal folds. Please note that all CT scans at this facility use dose modulation, iterative reconstruction, and/or weight-based dosing when appropriate to reduce radiation dose to as low as reasonably achievable. Dictated by Douglas Martins MD @ 01/20/2024 8:42:42 AM (Electronically Signed)
--- NOTE | 2024-01-20 06:49 | CT_ITS ---
Patient: CAROLE MUÑIZ Facility:?[facility] Patient ID:?[id number] Site Patient ID:?[id number]. Site :?[id number] Study:?CT-Chest 137CC ISOVUE 370-01/20/2024 7:41:40 AM Ordering Physician:Guillermo Katz Final Report: INDICATION: Sore throat. Hoarse voice. Tobacco use history COMPARISON: None TECHNIQUE: : CT examination of the chest was performed following the uneventful intravenous administration of 137 cc of Isovue 3 7.Thin axial sections were obtained from the thoracic inlet through the lung bases. Please note that all CT scans at this facility use dose modulation, iterative reconstruction, and/or weight-based dosing when appropriate to reduce radiation dose to as low as reasonably achievable. FINDINGS: : HEART and MEDIASTINUM: The heart size is normal. There is no pericardial effusion. There is a hiatal hernia noted. There is extensive mediastinal lymphadenopathy or mass. This extends from approximately the level of the thoracic inlet to the level of the oskar. This either represents central mass or more likely metastatic lymphadenopathy. The mass has mild mass effect and narrowing of the trachea is specially at the thoracic inlet LUNGS and PLEURAL SPACES: There is a COPD pattern. There are too numerous to count bilateral nodules. Some of these are tree-in-bud nodules which may be inflammatory. However, I favor that the majority of them are malignant associated with widespread metastatic disease likely of a lung primary. The largest nodules surround the right. For example, right upper lobe image 17, 7 millimeters. There is also a cylindrical structure identified in the right lower lobe that corresponds to either the bronchi or the vasculature. This is probably endobronchial tumor within lower lobe bronchi though it is possible that this is intravascular tumor emboli. VISUALIZED UPPER ABDOMEN: Hepatic steatosis. The adrenal glands as visualized appear normal. The gallbladder is surgically absent OSSEOUS STRUCTURES: No destructive process of bone TUBES and LINES: None. IMPRESSION: 1. Extensive mediastinal lymphadenopathy/mass extending from the thoracic inlet to the level of the right hilum. This either represents central tumor as can be seen in small-cell carcinoma or malignant lymphadenopathy. 2. Too numerous to count lung nodules bilaterally probably extensive metastatic disease probably of a lung primary. Normal pleural spaces 3. Branching cylindrical structure in the superior segment of the right lower lobe favored to represent intra bronchiolar tumor rather than intravascular tumor emboli. 4. No visible metastatic disease to bone or the limited visualized upper abdomen. Please note that all CT scans at this facility use dose modulation, iterative reconstruction, and/or weight-based dosing when appropriate to reduce radiation dose to as low as reasonably achievable. Dictated by Wilfrido Levine MD @ 01/20/2024 7:51:30 AM Signed by:?Wilfrido Levine MD @01/20/2024 7:51:30 AM (Electronic Signature)
[2024-01-20] MEDS: lidocaine HCL 2 % JELLY (TOP) STERILE 6 ML TOPICAL (06:54)
[2024-01-20 07:09] LABS: Basophils Percent Auto 0.6 % (0.0-3.0); Eosinophils Percent Auto 3.7 % (0.0-7.0); Hematocrit 41.7 % (37.0-53.0); Hemoglobin* 13.6 gm/dL (13.5-17.5); Immature Granulocytes Pct Auto 0.1 %; Lymphocytes Percent Auto 16.9 % (20-44); Mean Corpuscular HGB Conc 33 gm/dL (32-36); Mean Corpuscular Hemoglobin 29 pg (26-34); Mean Corpuscular Volume 89 fL (80-100); Monocytes Percent Auto 6.6 % (0.0-11.0); Neutrophils Percent Auto 72.1 % (42.0-72.0); Platelet Count* 282 K/uL (140-440); RDW Coefficient of Variation % 13.1 % (11.5-15.5); Red Blood Count 4.71 m/uL (4.30-5.90)
--- OUTSIDE RECORDS SUMMARY | 2024-01-20 07:10 | XMS_ITS | Clinical Summary ---
Author Organization [facility] Address [place], [place] [address] Care Team Providers Care Project Management It Specialist Name Role Phone Mayo Lam MD Primary Care Provider [phone] Allergies No known active allergies Medications Medication [...] Date Smoking Tobacco: Every Day Cigarettes 1 36.8 Started: 1987 Smokeless Tobacco: Never Tobacco Cessation:Ready [...] ST Respiratory Rate 14 05/23/2008 1:05 PM [facility] [employer] Oxygen Saturation 98% 07/03/2023 10:03 AM CDT Inhaled Oxygen Concentration - - Weight 138.3 kg (305 lb) 07/03/2023 10:03 AM CDT Height 187 cm (6' 1.62) 05/23/2008 5:00 AM [facility] [employer] [facility] Body Mass Index - - Plan of [...] 50-64 12/14/2023 Medical Devices Implanted Type Area Carton Forming Machine Helper Device Identifier Shelf Expiration Date Model / Serial / Lot Peek Tenodesis Screw 8x12 [[id number]][ Implanted:Qty: 1 on 05/23/2008 at [facility] Right: Shoulder [id number] / / [id number] Description:PEEK TENODESIS S CREW 8X12 Procedures Procedure Name Priority Date/Time Associated Diagnosis Comments LDL CHOLESTEROL,DIRECT Timed 02/16/2010 9:50 AM CDT from Last 3 Months or Most Recently Relevant to Health Maintenance Results * LDL CHOLESTEROL,DIRECT (02/16/2010 9:50 AM CDT) LDL CHOLESTEROL,D IRECT 56 Undefined mg/dL [facility] Comment: ?RISK CATEGORY LDL GOAL ?(mg/dL) ? Vascular disease and/or diabetes (<100) ? Multiple (2+) risk factors ? (<130) ? 0-1 risk factor ?(<160) 02/16/2010 9:50 AM CDT 02/16/2010 7:47 PM CDT Wing Kohli MD CHEMISTRY [facility] INTERNAL ZIP [phone] [address] from Last 3 Months or Most Recently Relevant to Health Maintenance Advance Directives * Full Code (Latest Code Status on File) Date Activated Date Inactivated Comments 05/23/2008 5:20 AM 05/23/2008 3:37 PM Care Teams Project Management It Specialist Relationship Specialty Start Date End Date Mayo Lam MD [address] [place] [address] PCP - General Internal Medicine 10/09/22
[2024-01-20] MEDS: KETOROLAC 15 MG/ML inj IVP (07:12)
[2024-01-20] MEDS: dexAMETHasone 10 MG/ML inj IVP (07:12)
[2024-01-20 07:18] LABS: Slide Review Reflex No
[2024-01-20 07:23] LABS: Chloride* 107 mmol/L (96-114); Sodium* 140 mmol/L (135-149)
[2024-01-20 07:26] LABS: Anion Gap 10 mEq/L (7-15); Blood Urea Nitrogen* 16 mg/dL (7-30); Carbon Dioxide* 23 mmol/L (20-32); Creatinine* 0.8 mg/dL (0.5-1.5); Est. Creatinine Clearance* 123.46; Estimated Glomerular Filt Rate 107 ml/min; Glucose* 135 mg/dL (60-115)
[2024-01-20 07:27] LABS: Calcium* 9.7 mg/dL (8.4-10.6)
[2024-01-20 07:53] VITALS: BP 132/85; PULSE 78; RESP 16; TEMP 36.7; O2SAT 97
== END 2024-01-20 09:22 | disposition home or self-care (01) ==
PROVIDERS: Family Medicine; Emergency Provider Emergency Medicine; PCP Internal Medicine
DX: R49.0 Dysphonia (principal); R93.89 Abnormal findings on diagnostic imaging of other specified body structures; R91.1 Solitary pulmonary nodule; Z87.891 Personal history of nicotine dependence
CPT/HCPCS: 36415; 70491; 71260; 80048; 85025; 96374; 96375; 99284; 99285; A9270; J1100; J1885; Q9967

== ENCOUNTER 2024-04-09 20:59 | Emergency (ER) | payer OTHER, SELFPAY ==
[2024-04-09] VITALS (13 sets, daily range): BP systolic 116–138; BP diastolic 78–100; PULSE 88–120; RESP 14–28; TEMP 36.6; O2SAT 93–98; BMI 33.0
--- NOTE | 2024-04-09 21:22 | CRLHL7_ITS ---
For Patients: As a result of the Century Cures Act, medical imaging exams and procedure reports are released immediately into your electronic medical record. You may view this report before your referring provider. If you have questions, please contact your health care provider. INDICATION: Lung cancer, shortness of breath. TECHNIQUE: CT chest PE was acquired with 100 cc Omnipaque 350 IV contrast. COMPARISON: Chest CT 01/20/2024. FINDINGS: Heart and vasculature: Contrast opacification of the pulmonary arterial tree is adequate. No sign of pulmonary embolism. Heart size is normal. Thoracic aorta and pulmonary artery are normal in caliber. Lungs and pleura: 1 cm right upper lobe pulmonary nodule, slightly increased in size compared to the prior exam (50). Unchanged 5 mm subpleural pulmonary nodule within the posterior right upper lobe (52). 8 mm pulmonary nodule within the right lower lobe superior segment, again suspicious for an intrabronchial lesion (). Multiple calcified granulomata in the right lower lobe. No pleural effusion or pneumothorax. Lymph nodes/mediastinum: Interval increased size of a right paratracheal mass extending from the thoracic inlet to the right hilum, measuring up to 5.5 x 4.9 cm in greatest transaxial dimension (previously 4.0 x 4.2 cm). The mass causes severe focal narrowing of the trachea. Multiple calcified right hilar lymph nodes. Chest wall: No masses. Upper abdomen: Prior cholecystectomy. Bones: Unremarkable for age. IMPRESSION: 1. No pulmonary embolism. 2. Interval enlargement of a right paratracheal mass extending from the thoracic inlet to the right hilum, now measuring up to 5.5 x 4.9 cm causing severe focal narrowing of the trachea. Findings compatible with worsened malignancy/metastatic disease. 3. Unchanged 8 mm nodule within the right lower lobe superior segment, again suspicious for an intrabronchial lesion/tumor. 4. Multiple additional scattered pulmonary nodules throughout the lungs,, some of which may represent metastatic disease. Recommend attention on follow-up imaging. Please note that all CT scans at this facility use dose modulation, iterative reconstruction, and/or weight-based dosing when appropriate to reduce radiation dose to as low as reasonably achievable. Dictated by Elias Jones MD @ 04/09/2024 11:08:22 PM (Electronically Signed)
--- NOTE | 2024-04-09 21:45 | ED_ITS ---
HPI - General Adult General Date Seen: 04/09/24 Chief complaint: Shortness of Breath/Dyspnea Stated complaint: Difficulty breathing Time Seen by Provider: 04/09/24 21:17 Source: patient History of Present Illness HPI narrative: Patient is a 53-year-old male here for shortness of breath which he says started yesterday and his family feels it got worse today. He does have a diagnosis of lung cancer, started chemotherapy plea a couple of weeks ago at [facility] I believe. He has had some hoarseness for quite a while, this looks like it is related to his lung cancer and he says it actually seems a little bit better than usual. No immediate airway concerns. He denies fevers, minimal cough, has a little bit of pain in his back when he coughs. He has not had any lower extremity swelling or pain, denies prior history of DVT or PE, denies prior cardiac history. He quit smoking in January. Related Data Previous Rx's ?Medication ?Instructions ?Recorded venlafaxine 150 mg 150 mg PO QDAY #90 caps 02/17/23 capsule,extended release 24 hr gemfibrozil 600 mg tablet 600 mg PO QDAY #30 tabs 09/12/23 tamsulosin 0.4 mg capsule 0.8 mg (2 x 0.4 mg) PO DAILY #180 09/19/23 caps pantoprazole 20 mg tablet,delayed 40 mg (2 x 20 mg) PO DAILY #20 tabs 11/10/23 release (Protonix) omeprazole 40 mg capsule,delayed 40 mg PO DAILY GERD #90 caps 11/21/23 release simvastatin 80 mg tablet 80 mg PO DAILY Hyperlipidemia #90 12/22/23 tabs peg 3350-electrolytes 236 240 ml PO ONCE #4,000 mL 01/05/24 gram-22.74 gram-6.74 gram-5.86 gram solution (Golytely) albuterol sulfate 90 mcg/actuation 2 puff inhalation Q6H PRN 01/06/24 aerosol inhaler shortness of breath or wheezing #6.7 grams Allergies Allergy/AdvReac Type Severity Reaction Status Date / Time No Known Allergies Allergy Verified 01/20/24 07:42 Review of Systems Status of ROS: Reports: 10 or more systems reviewed and unremarkable except as noted in History and below [facility] Medical History Healthcare maintenance ?Z00.00 - Encounter for general adult medical examination without abnormal findings (ICD-10) HTN (hypertension) ?I10 - Essential (primary) hypertension (ICD-10) Screening due ?Z13.9 - Encounter for screening, unspecified (ICD-10) Tobacco use (02/16/10) ?Z72.0 - Tobacco use (ICD-10) Panic attack ?F41.0 - Panic disorder [episodic paroxysmal anxiety] (ICD-10) Obstructive sleep apnea syndrome ?G47.33 - Obstructive sleep apnea (adult) (pediatric) (ICD-10) Obesity with body mass index greater than 30 ?E66.9 - Obesity, unspecified (ICD-10) Hyperlipidemia ?E78.5 - Hyperlipidemia, unspecified (ICD-10) Generalized anxiety disorder ?F41.1 - Generalized anxiety disorder (ICD-10) Gastroesophageal reflux disease (06/18/11) ?K21.9 - Gastro-esophageal reflux disease without esophagitis (ICD-10) Erectile dysfunction ?N52.9 - Male erectile dysfunction, unspecified (ICD-10) Depression ?F32.A - Depression, unspecified (ICD-10) Carpal tunnel syndrome ?G56.00 - Carpal tunnel syndrome, unspecified upper limb (ICD-10) Benign prostatic hyperplasia ?N40.0 - Benign prostatic hyperplasia without lower urinary tract symptoms (ICD-10) Adenomatous polyp of colon ?D12.6 - Benign neoplasm of colon, unspecified (ICD-10) Surgical History Status post medial meniscus repair of right knee (12/12/22) ?Z98.890 - Other specified postprocedural states (ICD-10) Status post hip surgery (02/21/22) ?Z98.890 - Other specified postprocedural states (ICD-10) S/P right knee arthroscopy ?Z98.890 - Other specified postprocedural states (ICD-10) S/P arthroscopic partial medial meniscectomy (11/01/21) ?Z98.890 - Other specified postprocedural states (ICD-10) History of hernia repair (02/16/10) ?Z98.890 - Other specified postprocedural states (ICD-10) ?Z87.19 - Personal history of other diseases of the digestive system (ICD-10) History of cholecystectomy (02/16/10) ?Z90.49 - Acquired absence of other specified parts of digestive tract (ICD- 10) History of appendectomy (02/16/10) ?Z90.49 - Acquired absence of other specified parts of digestive tract (ICD- 10) Family History Mother Colon cancer Social History 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, 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, 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, no 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, , 2 k ids What is your current living situation?: I presently have a place to live Problems where you live: no known problems In the past 12 months, utilities in danger of being shut off: no In past 12 months, lack of transportation kept you from medical appts, meetings, work, or getting things needed for daily living: no In the past 12 mos, have been you worried that your food would run out before you had money to buy more?: never true In the past 12 mos, the food you bought just didn't last and you didn't have money to buy more?: never true Smoking Status: Former smoker What tobacco products do you use: cigarettes Smoking packs per day: 1.5 Smoking cigarettes per day: 30.0 Smoking quit date/years: <= 15 years ago Do you use any of these nicotine containing products: None Second hand tobacco smoke exposure: Yes How often do you have a drink containing alcohol: never AUDIT-C Alcohol total score: 0 Non-prescribed substance use: denies use Caffeine: Yes How often does anyone, including family, friends and others, physically hurt you : never How often does anyone, including family, friends and others, insult or talk down to you: never How often does anyone, including family, friends and others, threaten you with harm: never How often does anyone, including family, friends and others, scream or curse at you: never service: No Exam Narrative: Exam Narrative: Vital signs reviewed In general, alert, nontoxic male, looks older than his stated age, breathing is mildly labored. Head: Normocephalic, atraumatic. Eyes: Sclera clear. Pupils equal and reactive. ENT: Mucous membranes moist. Neck: Supple without adenopathy. Heart: Regular rate and rhythm without murmur. Lungs: Breath sounds are decreased, particularly on the right, but I do not hear wheezing or crackles. Abdomen: Soft, nontender to palpation. Extremities: Well perfused, pulses intact. No significant edema. Neurologic: Alert, conversant. Speech fluent, face symmetric. Moves all extremities equally. Skin: Warm, dry well perfused. Affect: Normal. Const: Vital Signs, click to edit/add: Vital Signs - 24 hr 04/09/24 21:03 04/09/24 21:30 04/09/24 22:00 Temperature 97.9 F Pulse Rate Pulse Rate [Pulse Oximeter] 120 H 90 Respiratory Rate 28 H 14 Blood Pressure Blood Pressure [Ri ght Upper Arm] 118/89 138/100 H Pulse Oximetry 98 96 96 Oxygen Delivery Me thod Room Air 04/09/24 22:36 04/09/24 22:37 04/09/24 22:38 Temperature Pulse Rate 93 105 H 91 Pulse Rate [Pulse Oximeter] Respiratory Rate 16 Blood Pressure 128/89 Blood Pressure [Ri ght Upper Arm] Pulse Oximetry 94 93 94 Oxygen Delivery Me thod Room Air 04/09/24 22:45 04/09/24 23:00 04/09/24 23:02 Temperature Pulse Rate 91 90 88 Pulse Rate [Pulse Oximeter] Respiratory Rate 16 Blood Pressure 125/88 Blood Pressure [Ri ght Upper Arm] Pulse Oximetry 96 94 95 Oxygen Delivery Me thod Room Air 04/09/24 23:15 04/09/24 23:30 04/09/24 23:32 Temperature Pulse Rate 88 89 91 Pulse Rate [Pulse Oximeter] Respiratory Rate Blood Pressure 116/78 Blood Pressure [Ri ght Upper Arm] Pulse Oximetry 96 95 95 Oxygen Delivery Me thod 04/09/24 23:45 04/10/24 00:00 04/10/24 00:02 Temperature Pulse Rate 89 89 88 Pulse Rate [Pulse Oximeter] Respiratory Rate Blood Pressure 114/73 Blood Pressure [Ri ght Upper Arm] Pulse Oximetry 95 96 94 Oxygen Delivery Me thod 04/10/24 00:02 04/10/24 00:02 04/10/24 00:15 Temperature Pulse Rate 88 88 90 Pulse Rate [Pulse Oximeter] Respiratory Rate Blood Pressure 114/73 114/73 Blood Pressure [Ri ght Upper Arm] Pulse Oximetry 94 94 95 Oxygen Delivery Me thod 04/10/24 00:30 04/10/24 00:32 04/10/24 00:46 Temperature Pulse Rate 95 93 93 Pulse Rate [Pulse Oximeter] Respiratory Rate Blood Pressure 138/100 H Blood Pressure [Ri ght Upper Arm] Pulse Oximetry 97 96 95 Oxygen Delivery Me thod 04/10/24 00:47 Temperature Pulse Rate Pulse Rate [Pulse Oximeter] Respiratory Rate 20 Blood Pressure 127/72 Blood Pressure [Ri ght Upper Arm] Pulse Oximetry Oxygen Delivery Me thod Documenting provider has reviewed patient's vital signs: yes Course Course ED Course: EKG by my review shows a mild sinus tachycardia ventricular rate of 102. He has a QT corrected of 427 milliseconds and a normal ND, no acute ST segment changes, T-waves are unremarkable. I reviewed prior records including visit from last January when his cancer was found. Diagnostic considerations would include pneumonia, pleural effusion, pulmonary embolism, congestive heart failure, anemia, sepsis among others. Trachea was somewhat compressed by this mass back in January, but this apparently had not been causing problems with breathing. Labs and imaging to include CT scan of the chest to rule out PE are ordered. He is oxygenating well at this time and appears to be breathing comfortably after resting for a little bit. Workup here showed overall reassuring labs. White blood cell count was 4.7, hemoglobin of 10.8. He has a sodium of 136, potassium is low at 3.1. BUN creatinine are unremarkable. Blood sugar 150, normal LFTs, normal procalcitonin, BNP less than 20. COVID negative. Point of care troponin 0. CT scan read by myself shows no evidence of PE, no consolidation. He has this central mass with compression of the trachea. Final radiology read was reviewed, they describes severe narrowing of the trachea, and comparison with his CT scan from January shows that the trachea has decreased in patency since that time. Following this, images were sent to [facility], I called and spoke with Dr. Fonseca initially who was on-call for the oncology service. He then spoke with the ICU service, and ultimately I was called back by Dr. Vickers, ICU, who accepted the patient for transfer there. We did speak about this significantly narrowed trachea and whether airway management prior to transfer would be prudent. The compressed area is below the vocal cords but above the oskar, however, I have significant concerns about intubation into such a narrow space with possible damage to the trachea, bleeding, and more immediate obstruction. Given that he is breathing comfortably, oxygen saturations are no rmal, I think it is more yun to transfer him to a larger center where if airway management needs to be entertained there are more options. This is understanding that there is a small risk that he could obstruct EN route, and if so our only option would be to tried intubated at that time. I did give dexamethasone 10 mg IV here, there may be a component of edema around this in terms of inflammation related to response to chemotherapy. Patient will be transferred Code 3 to the [facility] ICU. Vital Signs Vital signs: Initial Vital Signs Temperature 97.9 F 04/09/24 21:03 Temperature Source Temporal Artery Scan 04/09/24 21:03 Pulse Rate 120 H 04/09/24 21:03 Respiratory Rate 28 H 04/09/24 21:03 Blood Pressure 118/89 04/09/24 21:03 Blood Pressure Mean 98 04/09/24 21:03 Blood Pressure Position Sitting 04/09/24 21:03 Pulse Oximetry 98 04/09/24 21:03 Oxygen Delivery Method Room Air 04/09/24 21:03 Vital Signs Temperature 97.9 F 04/09/24 21:03 Pulse Rate 120 H 04/09/24 21:03 Respiratory Rate 28 H 04/09/24 21:03 Blood Pressure 118/89 04/09/24 21:03 Pulse Oximetry 98 04/09/24 21:03 Oxygen Delivery Method Room Air 04/09/24 21:03 Temperature 97.9 F 04/09/24 21:03 Pulse Rate 93 04/10/24 00:46 Respiratory Rate 20 04/10/24 00:47 Blood Pressure 127/72 04/10/24 00:47 Pulse Oximetry 95 04/10/24 00:46 Oxygen Delivery Method Room Air 04/09/24 23:02 Medications Administered Medications: Generic Name Dose Route Start Last Admin Trade Name Freq PRN Reason Stop Dose Admin Dexamethasone 4 mg 04/10/24 00:21 04/10/24 00:30 Dexamethasone 4 Mg/Ml Vial IV 04/10/24 00:22 4 mg ONCE ONE Administration Sodium Chloride 500 mls @ 500 mls/hr 04/09/24 22:48 04/09/24 23:31 0.9 % Sodium Chloride 500 Ml IV 04/09/24 23:47 Infused .Q1H ONE Infusion Medical Decision Making Lab Data Labs: Lab Results 04/09/24 04/09/24 Range/Units 21:22 21:35 WBC 4.71 (4.50-11.00) K/uL RBC 3.79 L (4.30-5.90) m/uL Hgb 10.8 L (13.5-17.5) gm/dL Hct 32.6 L (37.0-53.0) % MCV 86 (80-100) fL MCH 29 (26-34) pg MCHC 33 (32-36) gm/dL RDW Coeff of Negro 15.3 (11.5-15.5) % Plt Count 147 (140-440) K/uL Neut % (Auto) 54.4 (42.0-72.0) % Lymph % (Auto) 38.4 (20-44) % Gilchrist % (Auto) 5.1 (0.0-11.0) % Eos % (Auto) 1.1 (0.0-7.0) % Baso % (Auto) 0.6 (0.0-3.0) % Neut # (Auto) 2.56 (1.7-7.0) K/uL Lymph # (Auto) 1.81 (0.90-2.90) K/uL Gilchrist # (Auto) 0.20 (0.00-0.90) K/UL Eos # (Auto) 0.05 (0.00-0.50) K/uL Baso # (Auto) 0.03 (0.00-0.30) K/uL Abs Immat Gran (auto) 0.02 (0.00-0.30) K/uL Imm/Tot Granulo (auto) 0.4 % Sodium 136 (135-149) mmol/L Potassium 3.1 L (3.6-5.1) mmol/L Chloride 102 (96-114) mmol/L Carbon Dioxide 24 (20-32) mmol/L Anion Gap 10 (7-15) mEq/L BUN 5 L (7-30) mg/dL Creatinine 0.7 (0.5-1.5) mg/dL Estimated Creat Clear 141.09 Estimated GFR 112 ml/min Glucose 150 H (60-115) mg/dL Calcium 8.7 (8.4-10.6) mg/dL Total Bilirubin 0.7 (0.1-1.5) mg/dL Direct Bilirubin 0.2 (0.0-0.5) mg/dL AST 22 (12-35) U/L ALT 24 (4-50) U/L Alkaline Phosphatase 74 (40-150) U/L NT-Pro-B Natriuret Pep < 20 pg/mL Total Protein 7.0 (6.0-8.3) g/dL Albumin 3.9 (3.3-5.0) g/dL Procalcitonin 0.09 (<0.50) ng/mL SARS-CoV-2 (PCR) Negative SARS-CoV-2 (Negative) Influenza Type A (PCR) Negative PCR FLU A (Negative) Influenza Type B (PCR) Negative PCR FLU B (Negative) RSV (PCR) Negative PCR RSV (Negative) POC Troponin I 0.00 L (0.01-0.04) ng/ml Imaging Data CT scan - chest: Attestation: I have reviewed the pertinent imaging results. Radiologist's impression: Patient: CAROLE MUÑIZ Facility: [facility] . Site : 1970 Study: CT-Chest Angio PE W/IV-04/09/2024 10:11:26 PM Ordering Physician: Susanne Flynn Final Report: INDICATION: Lung cancer, shortness of breath. TECHNIQUE: CT chest PE was acquired with 100 cc Omnipaque 350 IV contrast. COMPARISON: Chest CT 01/20/2024. FINDINGS: Heart and vasculature: Contrast opacification of the pulmonary arterial tree is adequate. No sign of pulmonary embolism. Heart size is normal. Thoracic aorta and pulmonary artery are normal in caliber. Lungs and pleura: 1 cm right upper lobe pulmonary nodule, slightly increased in size compared to the prior exam (). Unchanged 5 mm subpleural pulmonary nodule within the posterior right upper lobe (). 8 mm pulmonary nodule within the right lower lobe superior segment, again suspicious for an intrabronchial lesion (). Multiple calcified granulomata in the right lower lobe. No pleural effusion or pneumothorax. Lymph nodes/mediastinum: Interval increased size of a right paratracheal mass extending from the thoracic inlet to the right hilum, measuring up to 5.5 x 4.9 cm in greatest transaxial dimension (previously 4.0 x 4.2 cm). The mass causes severe focal narrowing of the trachea. Multiple calcified right hilar lymph nodes. Chest wall: No masses. Upper abdomen: Prior cholecystectomy. Bones: Unremarkable for age. IMPRESSION: 1. No pulmonary embolism. 2. Interval enlargement of a right paratracheal mass extending from the thoracic inlet to the right hilum, now measuring up to 5.5 x 4.9 cm causing severe focal narrowing of the trachea. Findings compatible with worsened malignancy/metastatic disease. 3. Unchanged 8 mm nodule within the right lower lobe superior segment, again suspicious for an intrabronchial lesion/tumor. 4. Multiple additional scattered pulmonary nodules throughout the lungs,, some of which may represent metastatic disease. Recommend attention on follow-up imaging. Please note that all CT scans at this facility use dose modulation, iterative reconstruction, and/or weight-based dosing when appropriate to reduce radiation dose to as low as reasonably achievable. Discharge Plan Discharge Clinical Impression: Tracheal compression, Lung mass Patient Disposition: Xfer [facility] Condition: Guarded Prescriptions: No Action albuterol sulfate 90 mcg/actuation HFA aerosol inhaler 2 puff inhalation Q6H PRN (Reason: shortness of breath or wheezing) Qty: 6.7 0RF pantoprazole [Protonix] 20 mg tablet,delayed release (DR/EC) 40 mg PO DAILY Qty: 20 2RF venlafaxine 150 mg capsule,extended release 24hr 150 mg PO QDAY Qty: 90 3RF Rx Instructions: Take with venlafaxine 75mg to equal total daily dose of 225mg. gemfibrozil 600 mg tablet 600 mg PO QDAY Qty: 30 4RF tamsulosin 0.4 mg capsule 0.8 mg PO DAILY Qty: 180 6RF omeprazole 40 mg capsule,delayed release(DR/EC) 40 mg PO DAILY Qty: 90 0RF simvastatin 80 mg tablet 80 mg PO DAILY Qty: 90 3RF peg 3350-electrolytes [Golytely] 236-22.74-6.74 -5.86 gram recon soln 240 ml PO ONCE Qty: 4000 0RF Rx Instructions: 4pm day prior to procedure. Drink 8oz glass every 15 minutes until 1/2 of solution is gone. 6 hours prior to procedure drink 8 oz glass every 15 minutes until remaining solution gone. Stand Alone Forms: [employer] Info Instructions
[2024-04-09 21:49] LABS: Basophils Absolute Auto 0.03 K/uL (0.00-0.30); Basophils Percent Auto 0.6 % (0.0-3.0); Eosinophils Absolute Auto 0.05 K/uL (0.00-0.50); Eosinophils Percent Auto 1.1 % (0.0-7.0); Hematocrit 32.6 % (37.0-53.0); Hemoglobin* 10.8 gm/dL (13.5-17.5); Immature Granulocytes Abs Auto 0.02 K/uL (0.00-0.30); Immature Granulocytes Pct Auto 0.4 %; Lymphocytes Absolute Auto 1.81 K/uL (0.90-2.90); Lymphocytes Percent Auto 38.4 % (20-44); Mean Corpuscular HGB Conc 33 gm/dL (32-36); Mean Corpuscular Hemoglobin 29 pg (26-34); Mean Corpuscular Volume 86 fL (80-100); Monocytes Percent Auto 5.1 % (0.0-11.0); Neutrophils Absolute Auto 2.56 K/uL (1.7-7.0); Neutrophils Percent Auto 54.4 % (42.0-72.0); Platelet Count* 147 K/uL (140-440); RDW Coefficient of Variation % 15.3 % (11.5-15.5); Red Blood Count 3.79 m/uL (4.30-5.90); White Blood Count* 4.71 K/uL (4.50-11.00)
[2024-04-09 21:58] LABS: Slide Review Reflex No
[2024-04-09 22:03] LABS: Albumin* 3.9 g/dL (3.3-5.0); Chloride* 102 mmol/L (96-114); Potassium* 3.1 mmol/L (3.6-5.1); Sodium* 136 mmol/L (135-149)
[2024-04-09 22:05] LABS: Creatinine* 0.7 mg/dL (0.5-1.5); Est. Creatinine Clearance* 141.09; Estimated Glomerular Filt Rate 112 ml/min
[2024-04-09 22:06] LABS: Alanine Aminotransferase* 24 U/L (4-50); Alkaline Phosphatase* 74 U/L (40-150); Anion Gap 10 mEq/L (7-15); Aspartate Amino Transferase* 22 U/L (12-35); Bilirubin Direct* 0.2 mg/dL (0.0-0.5); Bilirubin Total* 0.7 mg/dL (0.1-1.5); Blood Urea Nitrogen* 5 mg/dL (7-30); Carbon Dioxide* 24 mmol/L (20-32); Glucose* 150 mg/dL (60-115)
[2024-04-09 22:07] LABS: Calcium* 8.7 mg/dL (8.4-10.6)
[2024-04-09 22:22] LABS: Procalcitonin* 0.09 ng/mL (<0.50)
[2024-04-09 22:25] LABS: PCR FLU A Negative PCR FLU A (Negative); PCR FLU B Negative PCR FLU B (Negative); PCR RSV Negative PCR RSV (Negative); SARS PCR* Negative SARS-CoV-2 (Negative)
[2024-04-09 22:41] LABS: NT Pro B Type NatriureticPept* < 20 pg/mL
[2024-04-09] MEDS: 0.9 % SODIUM CHLORIDE 500 ML 500 ML IV (23:00)
[2024-04-10] VITALS (7 sets, daily range): BP systolic 114–138; BP diastolic 72–100; PULSE 88–95; RESP 20; O2SAT 94–97
[2024-04-10] MEDS: dexAMETHasone 4 MG/ML VIAL IV (00:30)
== END 2024-04-10 01:21 | disposition short-term general hospital (02) ==
PROVIDERS: Emergency Provider Emergency Medicine; PCP Internal Medicine
DX: J39.8 Other specified diseases of upper respiratory tract (principal); R91.8 Other nonspecific abnormal finding of lung field
CPT/HCPCS: 36415; 71275; 80048; 80076; 83880; 84145; 84484; 85025; 87631; 93005; 94761; 96374; 99284; 99285; J1100; J7030; Q9967

== ENCOUNTER 2024-04-10 01:16 | Outpatient (CLI) | payer OTHER, SELFPAY | END 2024-04-10 01:17 | disposition home or self-care (01) | LOC: AMB 04-11 11:34 | PROVIDERS: PCP Internal Medicine; Visit Provider Family Medicine | DX: R22.1 Localized swelling, mass and lump, neck (principal) | CPT/HCPCS: A0425; A0429 ==

== ENCOUNTER 2024-09-26 06:13 | Outpatient (CLI) | payer OTHER, SELFPAY | END 2024-09-26 06:14 | disposition home or self-care (01) | PROVIDERS: PCP Internal Medicine; Visit Provider Family Medicine | DX: R06.09 Other forms of dyspnea (principal) | CPT/HCPCS: A0425; A0427 ==

== ENCOUNTER 2024-09-26 06:45 | Emergency (ER) | payer OTHER, SELFPAY ==
--- OUTSIDE RECORDS SUMMARY | 2001-12-01 19:00 | XMS_ITS | Continuity of Care Document ---
Author Organization [facility] Address [address] [address] [place] [address] Phone Care Team Providers Care Asset Card Clerk Name Role Phone Tariq Conn MD Unavailable Unavailable Advance Directives Directive Yes / No Effective Date File Name No Information Encounters Encounter Description Practice Location Reason(s) For Visit Diagnoses Date Provider Providers Copied on Encounter [facility], [address] [address], [place], [place], [id number], [place] tel:[phone] [facility] No Information Senia Potter. [address] [facility], [facility] [address], [place], [place], [id number], [place]. tel:[phone] Family History Family Member Type Diagnosis Age At Onset No Information Payers Payer name Insurance type Covered alliance party ID Authoriza tion(s) No Information Social History Type Description Quantity Date Captured Comments Sex Male Smoking Status No Information Chief Complaint And Reason For Visit No Information Reason For Referral Reason For Referral No Information History Of Present Illness Encounter Date Complaint History Of Prese nt Illness No Information Functional Status Date Functional Assessmen t No Information Instructions Date Instruction Additional Infor mation No Information Assessments Type Assessment Date No Information Patient Care Teams Name Effective Dates (start - stop) Status Members No Information
--- OUTSIDE RECORDS SUMMARY | 2024-06-14 16:00 | XMS_ITS | Encounter Summary ---
Author Organization [facility] Address [address] [place] [id number] Care Team Providers Care Cistern Room Operator Name Role Phone Unavailable Primary Care Provider Unavailabl e Reason for Referral * MRI/CAT/PET Scan (Routine) - Closed Specialty Diagnoses / Procedures Referred By Lyleac t Referred To Contact Radiology Diagnoses Malignant Neoplasm Of Lung Lower Lobe Or Bronchus Right (HCC) Procedures CT Chest without IV Contrast Elizabeth Warner APRN, C.N.P., M.S. [address] [place] [phone] Phone: tel: fax: [facility] Referral ID Status Reason Start Date Expiration Date Visits Re quested Visits Authorized [id number] Closed 06/15/2024 09/15/2025 1 1 SIVE MIXER HELPER * Outpatient (Routine) - Closed Specialty Diagnoses / Procedures Referred By Contac t Referred To Contact Oncology Elizabeth Warner APRN, C.N.P., M.S. [address] [place] [phone] Phone: tel: fax: Elizabeth Warner APRN, C.N.P., M.S. [address] [place] [phone] Phone: tel: fax: Referral ID Status Reason Start Date Expiration Date Visits Re quested Visits Authorized [id number] Closed 06/15/2024 12/15/2025 1 1 Scheduling Instructions Timmy (RUBA alone OK) or Samantha SIVE MIXER HELPER Reason for Visit * Outpatient (Routine) - Closed Specialty Diagnoses / Procedures Referred By Contadia t Referred To Contact Oncology Elizabeth Warner APRN, C.N.P., M.S. [address] [place] [phone] Phone: tel: fax: Elizabeth Warner APRN, C.N.Hilaria., M.S. [address] [place] [phone] Phone: tel: fax: Referral ID Status Reason Start Date Expiration Date Visits Re quested Visits Authorized [id number] Closed 04/26/2024 10/26/2025 1 1 Encounter Details Date Type Department Care Team (Latest Contact Info) Description 06/14/2024 3:00 PM ABRASIVE MIXER HELPER Office Visit Department of Oncology in [address] [phone] Elizabeth Warner APRN, C.N.P., M.S. [address] [place] [phone] Malignant Neoplasm Of Lung Lower Lobe Or Bronchus Right (HCC) (Primary Dx); Medication Therapy Intermediate Not 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 Social History Tobacco Use Types Packs/Day Years Used Date Smoking Tobacco: Former Cigarettes 1 35 0 04/14/2023 - 01/20/2024 Passive Smoke Exposure: Never Smokeless Tobacco: Never Alcohol Use Standard Drinks/Week Comments Never 0 (1 standard drink = 0.6 oz pur e alcohol) [facility] Utilities Answer Date Recorded In the past 12 months has [employer], gas, oil, or water [employer] threatened to shut off services in your home? No 05/16/2024 Humiliation, Afraid, Rape, and Kick questionnair e Answer Date Recorded Within the last year, have y ou been afraid of your partner or ex-partner? No 04/10/2024 Within the last year, have y ou been humiliated or emotionally abused in other ways by your partner or ex-partner? No Within the last year, have y ou been kicked, hit, slapped, or otherwise physically hurt by your partner or ex-partner? No 04/10/2024 Within the last year, have y ou been raped or forced to have any kind of sexual activity by your partner or ex-partner? No 04/10/2024 Exercise Vital Sign Answer Date Recorde d On average, how many days pe r week do you engage in moderate to strenuous exercise (like a brisk walk)? 3 days 05/16/2024 On average, how many minutes do you engage in exercise at this level? 30 min 05/16/2024 Hunger Vital Sign Answer Date Recorded Within the past 12 months, y ou worried that your food would run out before you got the money to buy more. Never true 05/16/19 25 Within the past 12 months, t he food you bought just didn't last and you didn't have money to get more. Never true 05/16/2024 PRAPARE - Transportation Answer Date Re corded In the past 12 months, has l ack of transportation kept you from medical appointments or from getting medications? No 05/2024 In the past 12 months, has l ack of transportation kept you from meetings, work, or from getting things needed for daily living? No 05/16/2024 Nutrition Answer Date Recorded On average, how many serving s of fruits and vegetables do you eat per day (serving size is equal to 1 cup or approximately the size of a tennis ball)? 0-2 05/16/2024 Dental Answer Date Recorded Dental: Regular Dentist Yes 05/16/19 Employment Answer Date Recorded Employment status Employed but not working due t o illness or injury 05/16/2024 Housing Stability Answer Date Recorded What is your living situation today? I have a [facility] place to live 05/16/2024 Sex and Gender Information Value Date Recorded Sex Assigned at Male 01/28/2024 10:26 AM CDT Legal Sex Male 10:09 PM ABRASIVE MIXER HELPER Gender Identity Male 01/28/2024 10:26 AM CDT Sexual Orientation Straight 01/28/2024 10 :26 AM CDT documented as of this encounter Last Filed Vital Signs Vital Sign Reading Time Taken Comments Blood Pressure 124/88 06/14/2024 2:57 PM ABRASIVE MIXER HELPER Pulse 108 06/14/2024 2:57 PM ABRASIVE MIXER HELPER Temperature 36 C (96.8 F) 06/14/2024 2:57 PM ABRASIVE MIXER HELPER Respiratory Rate 17 06/14/2024 2:57 PM ABRASIVE MIXER HELPER Oxygen Saturation 96% 06/14/2024 2:57 PM ABRASIVE MIXER HELPER Inhaled Oxygen Concentration - - Weight 115 kg (253 lb 8.5 oz) 06/14/2024 2:57 PM ABRASIVE MIXER HELPER Height - - Body Mass Index 34.19 04/20/2024 10:49 AM ABRASIVE MIXER HELPER documented in this encounter Progress Notes * Elizabeth Warner APRN, C.N.P., M.S. - 06/14/2024 3:00 PM CST CHIEF COMPLAINT/PURPOSE OF VISIT Primary Oncology Team (Lung Care Team RED): Elizabeth Warner APRN, C.N.P., M.S. Marquise Singh M.D. 1. 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 SUBJECTIVE HISTORY OF PRESENT ILLNESS Mr. Miramontes is a 54 y.o. former smoker with an approximate 35 pack year history (quit January 2024). Medical history includes: GERD, anxiety, hyperlipidemia. Oncology history is as follows: Oncology History Malignant Neoplasm Of Lung Lower Lobe Or Bronchus Right (HCC) 12/06/2023 Initial Diagnosis Developed acute dysphonia. He was treated with antibiotics for presumed infectious etiology. Therewas mild improvement in symptoms followed by worsening. Ultimately, workup led to CT chest on 01/20/2024 demonstrating bulky thoracic adenopathy and bilateral pulmonary nodules. 01/16/2024 Genetic Testing and Tumor Genotyping PD-L1 TPS: 5% 01/22/2024 Critical Imaging PET-CT: Intensely FDG avid bulky lymphadenopathy and a moderate FDG avid right pulmonary nodularity; Asymmetric FDG uptake of the left vocal cord without masslike lesion suggests right cord paralysissecondary to bulky right mediastinal lymphadenopathy. 01/23/[address] Head: no evidence of intracranial mass (MR unable to perform due to claustrophobia). 01/26/2024 Biopsy/Pathology Lymph node, station 4R, EBUS FNA: positive for squamous cell carcinoma. 01/26/2024 Clinical Stage Staging form: Lung, AJCC 8th Edition - Clinical stage from 01/26/2024: Stage IIIB (cT4, cN2, cM0) Histopathologic type: Squamous cell carcinoma, NOS Stage prefix: Initial diagnosis 01/28/2024 Tumor Board Review of imaging with consensus of proceeding with induction systemic therapy followed by consolidation radiation treatment pending response. Noted symptom of dysphagia which may require work-up / palliation. 02/02/2024 Genetic Testing and Tumor Genotyping Irwxtgic599: TP53 R158L, CDKN2A A100P, TS 02/11/2024 - 03/23/2024 Chemotherapy Carboplatin AUC 6 / Paclitaxel / Pembrolizumab (Lung) Start Date: 02/11/2024 (Planned) Carboplatin AUC 5 Paclitaxel empirically dose reduced to 160 mg/m2 (high BSA) 03/23/24: Cycle 3 04/09/2024 Progression/Relapse Pt presented to his local ER with stridor and difficulty breathing on exertion. CTA showed no PE but progression of a large paratracheal mass causing tracheal stenosis. PET-CT from 04/13/2024 showed a mixed response to systemic therapy with improvement of his 4R disease and RLL nodule but progression of a large paratracheal mass. MR brain from the same day showed nointracranial disease. 04/12/2024 Surgery and Procedures Bronchoscopy and tracheal stent placement with biopsies of paratracheal mass pending (4R). However,tracheal stent was displaced same day and repeat bronchoscopy on 04/13/2024 was performed to removethe stent. No stent was replaced due to risk of migration. Biopsy of large paratracheal mass also pe rformed. A. Lymph node, Station 4 right, fine needle aspiration (ThinPrep/cell block): Atypical. Rare groupsof atypical squamous cells, cannot rule out involvement by carcinoma. Scanty cellularity. Immunohistochemical stains were performed at [facility] (block A1). p40 highlights predominately benign elements within the cell block. 04/13/2024 Tumor Board Discussion at tumor board recommended definitive chemoradiation given no distant recurrence, limited systemic options due to squamous cell histology. 04/13/2024 Surgery and Procedures Bronchoscopy with removal of migrated stent was performed. A. Lung, Right paratracheal mass, fine needle aspiration (ThinPrep/cell block): Positive for malignancy. Squamous cell carcinoma. Immunohistochemical stains were performed at [facility] (block A1). p40 is immunoreactive in neoplastic cells. TTF1 is negative. 04/13/2024 Genetic Testing and Tumor Genotyping Insufficient tissue for Tempus 04/20/2024 - 2024 Radiation Therapy Radiation Therapy Treatment Details (04/20/2024 - 2024) Site: Right Lung Fractions: 30 Technique: IMRT Dose: 6600 cGy Goal: Curative Planned Treatment Start Date: 04/20/2024 04/21/2024 - 05/27/2024 Chemotherapy CARBOplatin AUC 2 Weekly / PACLitaxel 50 mg/m2 ( with Radiation ) ( Lung ) Start Date: 04/21/2024 06/14/2024 - Chemotherapy Pembrolizumab ( Every 3 weeks ) ( Oncology ) Start Date: 06/14/2024 (Planned) INTERVAL HISTORY Mr. Miramontes presents today accompanied by his , daughter, and mother following imaging. He completed chemoradiation (weekly carboplatin + paclitaxel) on 2024 under the direction of colleagues at [facility]. Reports ongoing discomfort with swallowing for which he is using first mouthwash and oxycodone 10 mg as needed (taking 1-2 doses per 24 hours). He lost weight during treatment. Appetite is slowly improving. Shortness of breath has improved and stridor resolved. ROS Pertinent items are noted in HPI; all other systems reviewed and negative. OBJECTIVE No data recorded VITAL SIGNS Vitals: 06/14/24 1457 BP: 124/88 BP Location: Right arm Patient Position: Sitting Cuff Size: Large Pulse: 108 Resp: 17 Temp: 36 ??C TempSrc: Tympanic SpO2: 96% Weight: 115 kg PHYSICAL EXAM General: Alert, oriented. Responds appropriately to questions. No acute distress. Skin: No rashes. No jaundice. Complete alopecia. Eyes: Anicteric. Lymph: No palpable cervical or supraclavicular lymphadenopathy. Heart: S1, S2. Regular rate and rhythm. No murmurs or extra sounds appreciated. Lungs: Clear to auscultation bilaterally. DIAGNOSTICS Laboratory studies of 06/14/[address] chest of 06/13/2024 demonstrates response to therapy with decrease in mediastinal adenopathy. Pulmonary nodules are stable. 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 Miramontes ws diagnosed with squamous cell carcinoma of the lung in January 2024 and received three cycles of induction carboplatin, paclitaxel, pembrolizumab. In March 2024 (after 3 cycles of therapy), he was hospitalized from 04/10-04/15/2024 with respiratory distress and stridor due to progression of mediastinal adenopathy. Tracheal stent placement was attempted, however, stent subsequently migrated and was removed. Imaging demonstrated progression of bulky right paratracheal adenopathy with narrowing of trachea, though decrease in right lower lobe endobronchial lesion and mixed changes in bilateral pulmonary nodules. He proceeded to chemoradiation with weekly carboplatin + paclitaxel ( 6000 cGy in 30 fractions), completed 2024. We reviewed together images demonstrating partial response to therapy with decrease in thoracic adenopathy. There is no clear evidence of progressive disease. Clinically, stridor has resolved and shortness of breath improved. I reviewed the case with Dr. Singh, Mr. Miramontes's staff oncologist. Will proceed with adjuvant immunotherapy, treating with pembrolizumab as he received this during induction. Would consider at least 12 months of therapy and may wish to continue through 24 months (query metastatic disease with bilateral pulmonary nodules). He will receive therapy in [place], returning to [place] for imaging approximately every 3 months. PLAN -begin adjuvant pembrolizumab (received pembrolizumab with chemotherapy at diagnosis) for a [id number] months of therapy -treatment in [place] -return to [place] in ~3 months for imaging Cancer Staging Malignant Neoplasm Of Lung Lower Lobe Or Bronchus Right (HCC) Staging form: Lung, AJCC 8th Edition - Clinical stage from 01/26/2024: Stage IIIB (cT4, cN2, cM0) Current Therapy: Pembrolizumab ( Every 3 weeks ) ( Oncology ) Current Disease Status: Responding ECOG Performance Status: 1 Intent of Therapy: Control Intent to Change Therapy: Yes-other PATIENT EDUCATION Ready to learn, no apparent learning barriers were identified; learning preferences include listening. Explained diagnosis and treatment plan; patient expressed understanding of the content. I personally spent 45 minutes in care of the patient today. Time includes both sax-zedw-bo-face gumrlse-ui-dbek patient care. SIVE MIXER HELPER documented in this encounter Plan of Treatment Upcoming Encounters Date Type Department Care Team (Latest Contact Info) Description 09/28/2024 3:20 PM CDT Office Visit Division of Gastroenterology in [address] [phone] Pratik Fishman M.D. [address] [place] [phone] 10/18/2024 10:15 AM CDT Clinical Communication Virtual Review in [address] [phone] 10/18/2024 11:45 AM CDT Appointment Division of Gastroenterology in [address] [phone] Torres Estrella M.D., Ph.D. [address] [place] [phone] 10/20/2024 1:15 PM CDT Appointment Department of Radiology, [facility], in [address] [phone] Elizabeth Warner APRN, C.N.Hilaria., M.S. [address] [place] [phone] 10/20/2024 3:00 PM CDT Office Visit Department of Palliative Care in [address] [phone] Jacinda Cruz M.D. [address] [place] [phone] 10/21/2024 7:50 AM CDT Appointment Department of Laboratory Medicine and Pathology, [facility], in [place], [place] [address] [place] [phone] Elizabeth Warner APRN, C.N.P., M.S. [address] [place] [phone] 10/21/2024 10:20 AM CDT Office Visit Department of Oncology in [place], [place] [address] [place] [phone] Marquise Singh M.D. [address] [place] [phone] 10/25/2024 12:00 PM CDT Virtual Visit Division of Gastroenterology in [place], [place] [address] [place] [phone] Torres Estrella M.D., Ph.D. [address] [place] [phone] Scheduled Referrals Name Type Priority Associated Diagnoses Orde r Schedule Oncology office visit (clinic) Outpatient Referral Routine Expected: 09/15/2024 (Approximate), Expires: 09/15/2025 documented as of this encounter Results * (ABNORMAL) Thyroid Function Taylor (08/26/2024 12:02 PM CDT) TSH, Sensitive <0.01(L) 0.3 - 4.2 mIU/L 08/26/2024 1:20 PM CDT DTL Blood (Blood, Venous) 08/26/2024 12:02 PM CDT 08/26/2024 12:45 PM CDT Elizabeth Warner APRN, C.N.P., M.S. LAB BLOOD ADD -ON Final Result [facility] - [facility] [address] [place] [address], [facility] DTL [facility] [address] [place] [address] * (ABNORMAL) Comprehensive Metabolic Panel (08/26/2024 12:02 PM CDT) [facility] Potassium, S 3.5(L) 3.6 - 5.2 mmol/L 08/26/2024 1:20 PM CDT DTL Sodium, S 141 135 - 145 mmol/L 08/26/2024 1:20 PM CDT DTL Chloride, S 106 98 - 107 mmol/L 08/26/2024 1:20 PM CDT DTL Bicarbonate, S 26 22 - 29 mmol/L 08/26/2024 1:20 PM CDT DTL Anion Gap 9 7 - 15 08/26/2024 1:20 PM CDT DTL BUN (Blood Urea Nitrogen), S 9 8 - 24 mg/dL 08/26/2024 1:20 PM CDT DTL Creatinine 0.83 0.74 - 1.35 mg/dL 08/26/2024 1:20 PM CDT DTL Estimated GFR (eGFR) >90 >=60 mL/min/BS A 08/26/2024 1:20 PM CDT DTL Comment: Estimated GFR calculated using the 2020 CKD_EPI creatinine equation. Calcium, Total, S 9.3 8.6 - 10.0 mg/dL 08/26/2024 1:20 PM CDT DTL Glucose, S 98 70 - 140 mg/dL 08/26/2024 1:20 PM CDT DTL Protein, Total, S 6.1(L) 6.3 - 7.9 g/dL 08/26/2024 1:20 PM CDT DTL Albumin, S 4.1 3.5 - 5.0 g/dL 08/26/2024 1:20 PM CDT DTL Aspartate Aminotransferase (AST), S 18 8 - 48 U/L 08/26/2024 1:20 PM CDT DTL Alkaline Phosphatase, S 60 40 - 129 U/L 08/26/2024 1:20 PM CDT DTL Alanine Aminotransferase (ALT), S 18 7 - 55 U/L 08/26/2024 1:20 PM CDT DTL Bilirubin, Total, S 0.5 0.0 - 1.2 mg/dL 08/26/2024 1:20 PM CDT DTL Blood (Blood, Venous) 08/26/2024 12:02 PM CDT 08/26/2024 12:45 PM CDT us Elizabeth Warner APRN, C.N.P., M.S. LAB BLOOD ADD -ON Final Result [facility] [address] [place] [address], [facility] [address] [place] [address] * (ABNORMAL) CBC with Differential, Blood (08/26/2024 12:02 PM CDT) Pathologist [facility] Hemoglobin 11.3(L) 13.2 - 16.6 g/dL 08/26/2024 12:43 PM CDT DTL Hematocrit 35.3(L) 38.3 - 48.6 % 08/26/2024 12:43 PM CDT DTL Erythrocytes 3.82(L) 4.35 - 5.65 x10(12)/L 08/26/2024 12:43 PM CDT DTL MCV 92.4 78.2 - 97.9 fL 08/26/2024 12:43 PM CDT DTL RBC Distrib Width 12.3 11.8 - 14.5 % 08/26/2024 12:43 PM CDT DTL Platelet Count 172 135 - 317 x10(9)/L 08/26/2024 12:43 PM CDT DTL Leukocytes 3.7 3.4 - 9.6 x10(9)/L 08/26/2024 12:43 PM CDT DTL Neutrophils 2.21 1.56 - 6.45 x10(9)/L 08/26/2024 12:42 PM CDT DHPM Lymphocytes 0.85(L) 0.95 - 3.07 x10(9)/L 08/26/2024 12:43 PM CDT DTL Monocytes 0.50 0.26 - 0.81 x10(9)/L 08/26/2024 12:43 PM CDT DTL Eosinophils 0.13 0.03 - 0.48 x10(9)/L 08/26/2024 12:43 PM CDT DTL Basophils 0.04 0.01 - 0.08 x10(9)/L 08/26/2024 12:43 PM CDT DTL Blood (Blood, Venous) 08/26/2024 12:02 PM CDT 08/26/2024 12:31 PM CDT us Elizabeth Warner APRN, C.N.P., M.S. LAB BLOOD ADD -ON Final Result [facility] [address] [place] [address], [facility] DTL [facility] [address] [place] [address] DHPM [facility] [address] [place] [address] * CT Chest without IV Contrast (08/26/2024 11:46 AM CDT) Anatomical Region Laterality Modality Chest, Thoracic RST LOS, Tho racic ARZ LOS, Thoracic FLA LOS N/A Computed Tomography, Compute d Tomography Impressions 08/26/2024 12:51 PM CDT 1. Multiple bilateral pulmonary nodules two of which have increased in size. 2. Extensive right paratracheal adenopathy has not changed significantly. 3. New small right pleural effusion and small pericardial effusion. 4. New radiation pneumonitis in the medial right lung. Narrative 08/26/2024 12:51 PM CDT EXAM: CT CHEST WITHOUT IV CONTRAST COMPARISON: CT chest 06/13/2024 FINDINGS: Multiple bilateral pulmonary nodules. The 5 mm nodule in the right upper lobe posterolaterally (series 3, image 227) measured 3 mm on 06/13/2024 and the 4 mm nodule in the left lower lobe posteriorly (image 499) measured 2 mm previously. Remainder of the bilateral pulmonary nodules have not changed significantly. Calcified granulomas. New patchy groundglass, reticular and consolidative opacities in the right mid and upper lung medially with new associated bronchial wall thickening in these regions. Emphysematous changes bilaterally. Extensive right paratracheal adenopathy is stable to minimally decreased. Some of the nodes are partially calcified. No new adenopathy in the chest. Calcified right hilar and subcarinal nodes. Coronary artery calcification. New small right pleural effusion. New small pericardial effusion. Cholecystectomy. Negative adrenal glands. Mild hypertrophic changes in the spine. 3D maximum intensity projection (MIP) images were created on a dependent workstation as ordered by the treating provider and reviewed by the radiologist to increase sensitivity for detection of pulmonary nodules. Procedure Note Finesse Glaser M.D. - 08/26/2024 EXAM: CT CHEST WITHOUT IV CONTRAST COMPARISON: CT chest 06/13/2024 FINDINGS: Multiple bilateral pulmonary nodules. The 5 mm nodule in the right upperlobe posterolaterally (series 3, image 227) measured 3 mm on 06/13/2024 andthe 4 mm nodule in the left lower lobe posteriorly (image 499) measured 2mm previously. Remainder of the bilateral pulmonary nodules have not changed significantly. Calcifiedgranulomas. New patchy groundglass, reticular and consolidative opacities in the rightmid and upper lung medially with new associated bronchial wall thickeningin these regions. Emphysematous changes bilaterally. Extensive right paratracheal adenopathy is stable to minimally decreased.Some of the nodes are partially calcified. No new adenopathy in the chest.Calcified right hilar and subcarinal nodes. Coronary arterycalcification. New small right pleural effusion. New small pericardial effusion.Cholecystectomy. Negative adrenal glands. Mild hypertrophic changes in the spine. 3D maximum intensity projection (MIP) images were created on a dependentworkstation as ordered by the treating provider and reviewed by theradiologist to increase sensitivity for detection of pulmonary nodules. IMPRESSION: 1. Multiple bilateral pulmonary nodules two of which have increased insize. 2. Extensive right paratracheal adenopathy has not changedsignificantly. 3. New small right pleural effusion and small pericardial effusion. 4. New radiation pneumonitis in the medial right lung. us Elizabeth Warner APRN CMicaelaN.P., M.S. 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)- Primary Medication Therapy Honest [employer] Member Not 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 Malignant Neoplasm Of Lung Lower Lobe Or Bronchus Right (HCC) documented in this encounter
--- OUTSIDE RECORDS SUMMARY | 2024-08-19 15:30 | XMS_ITS | Encounter Summary ---
Author Organization [facility] Address [address] [place] [address] Care Team Providers Care Assembly Line Inspector Name Role Phone Unavailable Primary Care Provider Unavailabl e Reason for Visit * Reason Onset Date Comments Pre-visit Intake 08/19/2024 Encounter Details Date Type Department Care Team (Latest Contact Info) Description 08/19/2024 3:30 PM CDT Clinical Communication Virtual Review in [place], [place] [address] [place] [phone] Pre-visit Intake Social History Tobacco Use Types Packs/Day Years Used Date Smoking Tobacco: Former Cigarettes 1 35 0 04/14/2023 - 01/20/2024 Passive Smoke Exposure: Never Smokeless Tobacco: Never Alcohol Use Standard Drinks/Week Comments Not Currently 0 (1 standard drink = 0.6 oz pur e alcohol) [facility] Utilities Answer Date Recorded In the past 12 months has [facility] [employer], gas, oil, or water [employer] threatened to shut off services in your [...] your living situation today? 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 [address] [place] [phone] 10/18/2024 10:15 AM CDT Clinical Communication Virtual Review in [place], [place] [address] [place] [phone] 10/18/2024 11:45 AM CDT Appointment Division of Gastroenterology in [place], [place] [address] [place] [phone] Torres Estrella M.D., Ph.D. [address] [place] [phone] 10/20/2024 1:15 PM CDT Appointment Department of Radiology, [facility], in [place], [place] [address] [place] [phone] Elizabeth Warner APRN, C.N.P., M.S. [address] [place] [phone] 10/20/2024 3:00 PM CDT Office Visit Department of Palliative Care in [place], [place] [address] [place] [phone] Jacinda Cruz M.D. [address] [place] [phone] 10/21/2024 7:50 AM CDT Appointment Department of Laboratory Medicine and Pathology, [facility], in [address] [phone] Elizabeth Warner APRN, C.N.P., M.S. [address] [place] [phone] 10/21/2024 10:20 AM CDT Office Visit Department of Oncology in [place], [place] [address] [place] [phone] Marquise Singh M.D. [address] [place] [phone] 10/25/2024 12:00 PM CDT Virtual Visit Division of Gastroenterology in [place], [place] [address] [place] [phone] Torres Estrella M.D., Ph.D. [address] [place] [phone] documented as of this encounter Visit Diagnoses Not on filedocumented in this encounter
--- OUTSIDE RECORDS SUMMARY | 2024-08-23 13:00 | XMS_ITS | Encounter Summary ---
Author Organization [facility] Address [address] [place] [phone] Care Team Providers Care Wool And Pelt Grader Name Role Phone Unavailable Primary Care Provider Unavailabl e Reason for Referral * Outpatient (Routine) - Closed Specialty Diagnoses / Procedures Referred By Cinthia trinidad Referred To Contact Palliative Medicine Emperatriz Gonzales APRN, C.N.P., D.N.P. [address] [place] [phone] Phone: tel: fax: [facility] Referral ID Status Reason Start Date Expiration Date Visits Re quested Visits Authorized [id number] Closed 08/23/2024 02/22/2026 1 1 Scheduling Instructions Make f2f for now to coordinate with onc appts but if appts change, ok to see virtually. 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 [address] [place] [phone] Phone: tel: fax: [facility] Referral ID Status Reason Start Date Expiration Date Visits Re quested Visits Authorized [id number] Closed 08/23/2024 11/23/2025 1 1 Reason for Visit * Outpatient (Routine) - Closed Specialty Diagnoses / Procedures Referred By Cinthia trinidad Referred To Contact Palliative Medicine Diagnoses Malignant Neoplasm Of Lung Lower Lobe Or Bronchus Right (HCC) Ariella Ruiz APRN, C.N.PMicaela, D.N.P. [address] [place] [phone] Phone: tel: fax: [facility] Referral ID Status Reason Start Date Expiration Date Visits Re quested Visits Authorized [id number] Closed 08/05/2024 02/04/2026 1 1 Encounter Details Date Type Department Care Team (Latest Contact Info) Description 08/23/2024 1:00 PM CDT Comprehensive Visit Department of Palliative Care in [place], [place] [address] [place] [phone] Emperatriz Gonzales APRN, C.N.PMicaela, D.N.P. [address] [place] [phone] Zoe Olivares R.N. [address] [place] [phone] Odynophagia; Edema; Malignant Neoplasm Of Lung Lower Lobe Or Bronchus Right (HCC); Palliative Care; Hyperthyroidism; Anxiety Social History Tobacco Use Types Packs/Day Years Used Date Smoking Tobacco: Former Cigarettes 1 35 0 04/14/2023 - 01/20/2024 Passive Smoke Exposure: Never Smokeless Tobacco: Never Alcohol Use Standard Drinks/Week Comments Not Currently 0 (1 standard drink = 0.6 oz pur e alcohol) [facility] Utilities Answer Date Recorded In the past 12 months has e [employer], gas, oil, or water [employer] threatened to shut off services in your [...] money to buy more. Never true 05/16/19 Within the past 12 months, t he [...] your living situation today? 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 - 08/23/2024 1:00 PM CDT PAIN STOP oxycodone Start Acetaminophen 500 mg tablet 1-2 tablets every six hours as needed ( Max of 6 tablets, 3000 mgper day) Ultrasound neck, Thursday 08/24 Emperatriz to follow up with Medical Oncology to see if able to move up appointments Will reach out to get to EGD scheduled documented in this encounter Progress Notes * Zoe Olivares RMicaelaN. - 08/23/2024 1:00 PM CDT Palliative Care Introduction I introduced the patient and spouse to role of palliative medicine in the care of patients with serious illness, namely expertise in pain and non-pain symptom management, psychosocial, and spiritual support for patients and families as well as assistance in broader medical decision making. Palliative Medicine Clinic team sheet and contact information was reviewed with the patient. Chief Complaint/Purpose of Visit Patient was here for patient education. Patient was referred by Emperatriz Gonzales DNP Impression/Report/Plan Please see After Visit Summary for specific patient instructions. Patient Education: Education provided to patient and spouse For details involving the learning needs assessment, teaching methods used, and evaluation of learning, please refer to the patient education flowsheet. Education topics covered in this visit include: Clinic Care Team/Contacting the Clinic, Pain, and Clinic Integrative and Supportive Therapies Palliative Medicine Clinic face sheet & contact information, Palliative Care: Care for People with Serious Illness [id number] and Integrative and Supportive Therapies for Palliative Care Patients [id number] provided at this visit. Follow-up as per the consult note of Emperatriz Gonzales DNP Provider follow-up on September 15. documented in this encounter Consult Notes * Emperatriz Gonzales APRN, C.N.P., D.N.P. - 08/23/2024 1:00 PM CDT Images from the original note were not included. [facility] Outpatient Palliative Care Consult Note Patient: Rene Miramontes; 54 y.o.male REFERRING SERVICE Radiation Oncology LOCATION [facility] SUBJECTIVE CHIEF COMPLAINT / REASON FOR CONSULT Rene Miramontes is a 54 y.o. male with localized lung cancer s/p chemoradiation with restaging scheduled for 09/15 Reason for referral includes symptom management and providing support to patient/family. HISTORY OF PRESENT ILLNESS Mr. Miramontes present with acute dysphonia in November 2023 which led to diagnosis of squamous cell carcinoma. Received carboplatin, paclitaxel, and pembrolizumab. Restaging found a large paratracheal mass. Was treated with 30 fractions of curative intent treatment to right lung completed 2024, given concurrently with carboplatin and paclitaxel. Was on pembrolizumab, held due to hyperthyroidism referred to endocrinology but has not yet heard about scheduling. Continues to have upper esophagealpain with swallowing. Deferred EGD in favor of swallow study which finds normal swallow mechanism but moderate esophageal dysmotility. Was referred to palliative care by radiation oncology to assist with chronic pain and anxiety. Mr. Miramontes indicates feeling terrible. Describes feeling nauseated much of the time, unsettled (?anxiety), and has ongoing pain with swallowing. Nausea resolves with use of antiemetic but is worried about ongoing use as he does not want to become constipated. Denies vomiting. Pain with swallowing has been an ongoing concern. Describes feeling like a chronic sore throat witha stretching sensation when food bolus passes. Uses oxycodone 10 mg intermittently, generally once daily at this time. Unclear if this is beneficial for pain but in general leaves him feeling better. Denies pain in other locations today. EMR does indicate a prior work related lumbar and right hip injury (06/2021) with epidural steroid injections and neuropathic use. Has longstanding history of anxiety. On Effexor XR 150 mg once daily for past 6- 7 years managed by primary care, Dr. Lam with [facility]. The following portions of the patient's history were reviewed and updated as appropriate: Allergies, Current Medications, Medical History, Surgical History, Family History, and Social History Patient's Primary Caregiver: Spouse or Partner. Advance Care Planning Documents No documents on file. Did not discuss today Palliative Functional Assessment 100%-Full ambulation, Normal activity and work with no evidence of disease, Full self-care, Normal intake, Full level of consciousness OBJECTIVE PHYSICAL EXAM Temperature: [36.8 ??C] 36.8 ??C Blood Pressure: (140)/(84) 140/84 SpO2: [99 %] 99 % Pulse Rate: [102] 102 Neck Cardiovascular Rate and Rhythm: Regular rhythm. Tachycardia present. Pulmonary Effort: Pulmonary effort is normal. Musculoskeletal Cervical back: Normal range of motion. Edema present. Lymphadenopathy Cervical: No cervical adenopathy. Skin General: Skin is warm. Neurological General: No focal deficit present. Mental Status: He is alert and oriented to person, place, and time. Psychiatric Mood and Affect: Mood normal. 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 At this time, I do not recommend ongoing use of oxycodone for pain with swallowing. I further instructed to discontinue attempts with Magic Mouthwash. I do recommend he reconsider EGD to better understand etiology of pain, consider stricture, esophagitis, gastritis, candidiasis s/p radiation, etc. During visit I visualized edema of mid to left lower neck, most noticeable when patient is turning head toward the right. Soft to palpation, without pain. Mild lymphadenopathy. Contacted radiation oncologist, Dr. Moss to discuss case given recent radiation; consider soft tissue edema, disease progression, less likely superior vena cava syndrome. Attempts to contact oncology for further work-up ([place]) unsuccessful today. Ordered neck ultrasound as first step to be obtained in 1 day. Consider restaging sooner than 09/15 but defer to oncology. In terms of hyperthyroidism, I spoke with endocrinology doctor of the day who recommended repeat TSH as she was unable to see labs beyond 06/14/2024 collection showing TSH 0.2. Repeat today indicates TSH <0.01. Patient today is symptomatic (nausea, anxiety) with tachycardia and hypertension. I seeorder pended for endocrinology to open for scheduling in 1 day. Again, left message for Dr. Perry to consider expediting the endocrinology consult. RECOMMENDATIONS: Pain: - Continue Tylenol 1000 mg three times daily as needed - Hold oxycodone at this time - Continue a soft diet taking small bites - Apply ice to neck as needed, do not place ice directly on skin - continue omeprazole 40 mg taken first thing in the morning on an empty stomach at least 30 minutes before first meal - EGD per oncology Nausea: - ok to continue antiemetic Hyperthyroidism: - agree with endocrinology consult Thank you for the opportunity to see this patient. Patient has our contact information and understands to call with new/worsening symptoms or concerns. We will work alongside the primary outpatient team to address these issues. Palliative care outpatient clinic will continue to follow along. The palliative care nursing team has been directed to provide ongoing assessment, education, and therapy for symptom management according to the plan of care I have outlined. Follow up visit: 3 weeks Total time spent was 108 minutes. Emperatriz Gonzales APRN, C.N.P., D.N.P. documented in this encounter Plan of Treatment Upcoming Encounters Date Type Department Care Team (Latest Contact Info) Description 09/28/2024 3:20 PM CDT Office Visit Division of Gastroenterology in [place], [place] [address] [place] [phone] Pratik Fishman M.D. [address] [place] [phone] 10/18/2024 10:15 AM CDT Clinical Communication Virtual Review in [place], [place] 200 [place] [phone] 10/18/2024 11:45 AM CDT Appointment Division of Gastroenterology in [place], [place] [address] [place] [phone] Torres Estrella M.D., Ph.D. [address] [place] [phone] 10/20/2024 1:15 PM CDT Appointment Department of Radiology, [facility], in [place], [place] [address] [place] [phone] Elizabeth Warner APRN, C.N.P., M.S. [address] [place] [phone] 10/20/2024 3:00 PM CDT Office Visit Department of Palliative Care in [place], [place] [address] [place] [phone] Jacinda Cruz M.D. [address] [place] [phone] 10/21/2024 7:50 AM CDT Appointment Department of Laboratory Medicine and Pathology, [facility], in [place], [place] [address] [place] [phone] Elizabeth Warner APRN, C.N.P., M.S. [address] [place] [phone] 10/21/2024 10:20 AM CDT Office Visit Department of Oncology in [place], [place] [address] [place] [phone] Marquise Singh M.D. [address] [place] [phone] 10/25/2024 12:00 PM CDT Virtual Visit Division of Gastroenterology in [place], [place] [address] [place] [phone] Torres Estrella M.D., Ph.D. [address] [place] [phone] Scheduled Referrals Name Type Priority Associated Diagnoses Order Schedule Palliative Care office visit (clinic) Outpatient Referral Routine Expected: 09/15/2024, Expires: 11/23/2025 documented as of this encounter Results * US Head Neck Soft Tissue (08/24/2024 8:55 AM CDT) Anatomical Region Laterality Modality Head and Neck, Ultrasound RS T LOS, Ultrasound ARZ LOS, Ultrasound FLA LOS N/A Ultrasound Impressions 08/24/2024 9:04 AM CDT No cervical adenopathy. No findings explaining new left neck edema. Narrative 08/24/2024 9:04 AM CDT EXAM: US HEAD NECK SOFT TISSUE COMPARISON: None Procedure Note Jhonatan Ponce M.D. - 08/24/2024 EXAM: US HEAD NECK SOFT TISSUE COMPARISON: None IMPRESSION: No cervical adenopathy. No findings explaining new left neck edema. Emperatriz Gonzales APRN, C.N.P., D.N.P. IM US WA OCEDURES Final Result * (ABNORMAL) Thyroid Function [place] (08/23/2024 2:42 PM CDT) TSH, Sensitive <0.01(L) 0.3 - 4.2 mIU/L 08/23/2024 3:42 PM CDT DTL Blood (Blood, Venous) 08/23/2024 2:42 PM CDT 08/23/2024 3:18 PM CDT us Emperatriz Gonzales APRN, C.N.P., D.N.P. LAB BLOOD ADD-ON Final Result [facility] [place] [address] [place] [address], [facility] DTL [facility] [address] [place] [address] documented in this encounter Visit Diagnoses Diagnosis Odynophagia Edema Malignant Neoplasm Of Lung Lower Lobe Or Bronchus Right (HCC) Palliative Care Hyperthyroidism Anxiety Malignant Neoplasm Of Lung Lower Lobe Or Bronchus Right (HCC) Edema documented in this encounter
--- OUTSIDE RECORDS SUMMARY | 2024-08-23 14:27 | XMS_ITS | Encounter Summary ---
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 [address] [phone] Malignant Neoplasm Of Lung Lower Lobe Or Bronchus Right (HCC); Hyperthyroidism Discharge Disposition: Home or Self Care Social History Tobacco Use Types Packs/Day Years Used Date Smoking Tobacco: Former Cigarettes 1 35 0 04/14/2023 - 01/20/2024 Passive Smoke Exposure: Never Smokeless Tobacco: Never Alcohol Use Standard Drinks/Week Comments Not Currently 0 (1 standard drink = 0.6 oz pur e alcohol) [facility] Utilities Answer Date Recorded In the past 12 months has e electric, gas, oil, or water company threatened to shut off services in your [...] your living situation today? 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 8 g 3 01/23/2024 OLANZapine (ZyPREXA) 5 mg tabletIndication s:Medication Therapy Machine Setup Operator Not 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,Ma lignant Neoplasm Of Lung Lower Lobe Or Bronchus Right (HCC) Take 1 tablet (5 mg total) by mouth as directed. Take daily starting at bedtime first day of chemotherapy continuing for 4 days after each chemotherapy dose. May take as needed at bedtime after fourth day if nausea/vomiting persists. If you experience nausea/vomiting during Cycle 1, start the night prior to chemotherapy for Cycle 2 and beyond. 30 tablet 3 02/10/2024 omeprazole (PriLOSEC) [address] capsule Take 40 mg by mouth 2 (two) times a day before morning and evening meals. 11/21/2023 ondansetron (Zofran) 8 mg tabletIndication s:Medication Therapy Nursing Home Not 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,Ma lignant Neoplasm Of Lung Lower Lobe Or Bronchus Right (HCC) Take 1 tablet (8 mg total) by mouth every 8 (eight) hours as needed for nausea or vomiting (use second for nausea). 30 tablet 3 02/10/2024 5 prochlorperazine (Compazine) 10 mg tabletIndication s:Medication Therapy Machine Setup Operator Not 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,Ma lignant Neoplasm Of Lung Lower Lobe Or Bronchus Right (HCC) Take 1 tablet (10 mg total) by mouth every 6 (six) hours as needed for nausea or vomiting (use first nausea). 30 tablet 3 02/10/2024 5 sodium chloride (NebuSaL) 3 % nebulizer solution Inhale 4 mL by nebulization 3 (three) times a day. 750 mL 11 04/15/2024 tiotropium (Spiriva Respimat) 2.5 mcg/actuation inhaler Inhale 2 puffs daily. 4 g 3 01/23/2024 venlafaxine XR (Effexor-XR) 150 mg 24 hr capsule Take 150 mg by mouth daily with morning meal. 10/05/2022 documented as of this encounter Plan of Treatment Upcoming Encounters Date Type Department Care Team (Latest Contact Info) Description 09/28/2024 3:20 PM CDT Office Visit Division of Gastroenterology in [place], [place] [address] [place] [phone] Pratik Fishman M.D. [address] [place] [phone] 10/18/2024 10:15 AM CDT Clinical Communication Virtual Review in [place], [place] 200 [place] [phone] 10/18/2024 11:45 AM CDT Appointment Division of Gastroenterology in [place], [place] [address] [place] [phone] Torres Estrella M.D., Ph.D. [address] [place] [phone] 10/20/2024 1:15 PM CDT Appointment Department of Radiology, [facility], in [place], [place] [address] [place] [phone] Elizabeth Warner APRN, C.N.P., M.S. [address] [place] [phone] 10/20/2024 3:00 PM CDT Office Visit Department of Palliative Care in [place], [place] [address] [place] [phone] Jacinda Cruz M.D. [address] [place] [phone] 10/21/2024 7:50 AM CDT Appointment Department of Laboratory Medicine and Pathology, [facility], in [place], [place] [address] [place] [phone] Elizabeth Warner APRN, C.N.P., M.S. [address] [place] [phone] 10/21/2024 10:20 AM CDT Office Visit Department of Oncology in [place], [place] [address] [place] [phone] Marquise Singh M.D. [address] [place] [phone] 10/25/2024 12:00 PM CDT Virtual Visit Division of Gastroenterology in [place], [place] [address] [place] [phone] Torres Estrella M.D., Ph.D. [address] [place] [phone] documented as of this encounter Procedures Procedure Name Priority Date/Time Associated Diagnosis Comments ME T4 FREE Routine 08/23/2024 2:42 PM CDT THYROID FUNCTION CASCADE, S Routine 08/23/2024 2:42 PM CDT Malignant Neoplasm Of Lung Lower Lobe Or Bronchus Right (HCC) Hyperthyroidism documented in this encounter Results * (ABNORMAL) T4 (Thyroxine), Free, Serum (08/23/2024 2:42 PM CDT) T4 (Thyroxine), Free, S 3.2(H) 0.9 - 1.7 ng/dL 08/23/2024 4:02 PM CDT DTL Blood 08/23/2024 2:42 PM CDT 08/23/2024 3:18 PM CDT Emperatriz Gonzales APRN, C.N.P., D.N.P. LAB BLOOD ADD-ON Final Result [facility] [address] [place] [address], [facility] 200 [place] [address] * (ABNORMAL) Thyroid Function [place] (08/23/2024 2:42 PM CDT) TSH, Sensitive <0.01(L) 0.3 - 4.2 mIU/L 08/23/2024 3:42 PM CDT DTL Blood (Blood, Venous) 08/23/2024 2:42 PM CDT 08/23/2024 3:18 PM CDT Emperatriz Gonzales APRN, C.N.P., D.N.P. LAB BLOOD ADD-ON Final Result [facility] [address] [place] [address], [facility] DTL [facility] [address] [place] [address] documented in this encounter Visit Diagnoses Diagnosis Malignant Neoplasm Of Lung Lower Lobe Or Bronchus Right (HCC) Hyperthyroidism documented in this encounter
--- OUTSIDE RECORDS SUMMARY | 2024-08-24 08:21 | XMS_ITS | Encounter Summary ---
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 [address] [place] [phone] Phone: tel: fax: [facility] Referral ID Status Reason Start Date Expiration Date Visits Re quested Visits Authorized [id number] Closed 08/23/2024 11/23/2025 1 1 Encounter Details Date Type Department Care Team (Latest Contact Info) Description 08/24/2024 8:21 AM CDT - 08/24/2024 11:59 PM CDT Hospital Encounter Department of Radiology, [facility], in [place], [place] 200 [place] [address] Emperatriz Gonzales APRN, C.N.P., D.N.P. 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 8 g 3 01/23/2024 OLANZapine (ZyPREXA) 5 mg tabletIndication s:Medication Therapy Information Clerk Not 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,Ma lignant Neoplasm Of Lung Lower [...] ondansetron (Zofran) 8 mg tabletIndication s:Medication Therapy Skilled Nursing Not 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,Ma lignant Neoplasm Of Lung Lower Lobe Or Bronchus Right (HCC) Take 1 tablet (8 mg total) by mouth every 8 (eight) hours as needed for nausea or vomiting (use second for nausea). 30 tablet 3 02/10/2024 5 prochlorperazine (Compazine) 10 mg tabletIndication s:Medication Therapy Skilled Nursing Not 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,Ma lignant Neoplasm Of Lung Lower Lobe Or Bronchus Right (HCC) Take 1 tablet (10 mg total) by mouth every 6 (six) hours as needed for nausea or vomiting (use first nausea). 30 tablet 3 02/10/2024 sodium chloride (NebuSaL) 3 % nebulizer solution [...] CDT Office Visit Division of Gastroenterology in [address] [phone] Pratik Fishman M.D. [address] [place] [phone] 10/18/2024 10:15 AM CDT Clinical Communication Virtual Review in [place], [place] 200 [place] [phone] 10/18/2024 11:45 AM CDT Appointment Division of Gastroenterology in [address] [phone] Torres Estrella M.D., Ph.D. [address] [place] [phone] 10/20/2024 1:15 PM CDT Appointment Department of Radiology, [facility], in [place], [place] [address] [place] [phone] Elizabeth Warner APRN, Itzel.N.P., M.S. [address] [place] [phone] 10/20/2024 3:00 PM CDT Office Visit Department of Palliative Care in [place], [place] [address] [place] [phone] Jacinda Cruz M.D. [address] [place] [phone] 10/21/2024 7:50 AM CDT Appointment Department of Laboratory Medicine and Pathology, [facility], in [place], [place] [address] [place] [phone] Elizabeth Warner APRN, C.N.P., M.S. [address] [place] [phone] 10/21/2024 10:20 AM CDT Office Visit Department of Oncology in [address] [phone] Marquise Singh M.D. [address] [place] [phone] 10/25/2024 12:00 PM CDT Virtual Visit Division of Gastroenterology in [address] [phone] Torres Estrella M.D., Ph.D. 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 us Emperatriz Gonzales APRN, C.N.P., D.N.P. 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
--- OUTSIDE RECORDS SUMMARY | 2024-08-26 10:43 | XMS_ITS | Encounter Summary ---
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 [address] [place] [phone] Phone: tel: fax: [facility] Referral ID Status Reason Start Date Expiration Date Visits Re quested Visits Authorized [id number] Closed 06/15/2024 09/15/2025 1 1 Encounter Details Date Type Department Care Team (Latest Contact Info) Description 08/26/2024 10:43 AM CDT - 08/26/2024 11:44 AM CDT Hospital Encounter Department of Radiology, [facility] in [place], [place] [address] [place] [phone] Elizabeth Warner APRN, C.N.P., M.S. 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 8 g 3 01/23/2024 OLANZapine (ZyPREXA) 5 mg tabletIndication s:Medication Therapy Long-Term Not 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,Ma lignant Neoplasm Of Lung Lower [...] ondansetron (Zofran) 8 mg tabletIndication s:Medication Therapy Long-Term Not 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,Ma lignant Neoplasm Of Lung Lower Lobe Or Bronchus Right (HCC) Take 1 tablet (8 mg total) by mouth every 8 (eight) hours as needed for nausea or vomiting (use second for nausea). 30 tablet 3 02/10/2024 5 prochlorperazine (Compazine) 10 mg tabletIndication s:Medication Therapy Long-Term Not 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,Ma lignant Neoplasm Of Lung Lower [...] CDT Office Visit Division of Gastroenterology in [place], [place] [address] [place] [phone] Pratik Fishman M.D. [address] [place] [phone] 10/18/2024 10:15 AM CDT Clinical Communication Virtual Review in [place], [place] 200 [place] [phone] 10/18/2024 11:45 AM CDT Appointment Division of Gastroenterology in [place], [place] [address] [place] [phone] Torres Estrella M.D., Ph.D. [address] [place] [phone] 10/20/2024 1:15 PM CDT Appointment Department of Radiology, [facility], in [place], [place] [address] [place] [phone] Elizabeth Warner APRN, C.N.P., M.S. [address] [place] [phone] 10/20/2024 3:00 PM CDT Office Visit Department of Palliative Care in [place], [place] [address] [place] [phone] Jacinda Cruz M.D. [address] [place] [phone] 10/21/2024 7:50 AM CDT Appointment Department of Laboratory Medicine and Pathology, [facility], in [place], [place] [address] [place] [phone] Elizabeth Warner APRN, C.N.P., M.S. [address] [place] [phone] 10/21/2024 10:20 AM CDT Office Visit Department of Oncology in [place], [place] [address] [place] [address] [place] [phone] Marquise Singh M.D. [address] [place] [phone] 10/25/2024 12:00 PM CDT Virtual Visit Division of Gastroenterology in [place], [place] [address] [place] [phone] Torres Estrella M.D., Ph.D. 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 No new cervical mass lesions or cervical adenopathy. No venous thrombosis or external compression of the veins of the neck. 2. The previously seen right paratracheal mass has decreased in size compared to PET/CT 04/13/2024. The trachea is displaced to the left without significant narrowing. Narrative 08/26/2024 12:57 PM CDT EXAM: CT NECK SOFT TISSUE WITH IV CONTRAST COMPARISON: PET/CT 04/13/2024. CT scan of the neck 01/20/2024. FINDINGS: The large right paratracheal mass has decreased in size compared to PET/CT 04/13/2024 with less mass effect on the trachea which, along with the esophagus, remains deviated to the left. Obliteration of the fat planes between the mass lesion, trachea, and esophagus. No other cervical mass lesions or enlarged lymph nodes. No venous thrombosis or external compression. Arteries of the neck are widely patent. Subcentimeter areas of decreased enhancement within the thyroid lobes bilaterally. Visualized intracranial contents are normal. Membrane thickening throughout the paranasal sinuses without air-fluid levels. Procedure Note Shannon Chavez M.D. - 08/26/2024 EXAM: CT NECK SOFT TISSUE WITH IV CONTRAST COMPARISON: PET/CT 04/13/2024. CT scan of the neck 01/20/2024. FINDINGS: The large right paratracheal mass has decreased in size comparedto PET/CT 04/13/2024 with less mass effect on the trachea which, alongwith the esophagus, remains deviated to the left. Obliteration of the fatplanes between the mass lesion, trachea, and esophagus. No other cervical mass lesions or enlarged lymphnodes. No venous thrombosis or external compression. Arteries of the neckare widely patent. Subcentimeter areas of decreased enhancement within thethyroid lobes bilaterally. Visualized intracranial contents are normal. Membrane thickeningthroughout the paranasal sinuses without air-fluid levels. IMPRESSION: 1. No new cervical mass lesions or cervical adenopathy. No venousthrombosis or external compression of the veins of the neck. 2. The previously seen right paratracheal mass has decreased in sizecompared to PET/CT 04/13/2024. The trachea is displaced to the leftwithout significant narrowing. Elizabeth Warner APRN, C.N.P., M.S. IMG CT PROCED URES Final Result * CT Chest without IV Contrast (08/26/2024 [...] medial right lung. us Elizabeth Warner APRN C.N.P., M.S. 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) documented in this encounter Administered Medications Inactive Administered Medications - up to 3 most recent administrations Medication Order MAR Action Action Date Dose Rate Site iohexoL 300 mg iodine/mL solution 1-200 mL (Omnipaque) 1-200 mL, intravenous, Once in imaging, contrast, Starting on Michelle 08/26/24 at 1107, For 1 dose, Imaging Protocol Orders, Dose per Radiant Medication Guidelines Given 08/26/2024 11:10 AM CDT 120 mL sodium chloride (PF) 0.9 % injection 1-100 mL 1-100 mL, intravenous, Once, On Michelle 08/26/24 at 1130, For 1 dose, Imaging Protocol Orders, Dose per Radiant Medication Guidelines Given 08/26/2024 11:10 AM CDT 35 mL documented in this encounter
--- OUTSIDE RECORDS SUMMARY | 2024-08-26 11:45 | XMS_ITS | Encounter Summary ---
Author Organization [facility] Address [address] [place] [address] Care Team Providers Care Cafeteria Supervisor Name Role Phone Unavailable Primary Care Provider Unavailabl e Encounter Details Date Type Department Care Team (Latest Contact Info) Description 08/26/2024 11:45 AM CDT - 08/26/2024 11:59 PM CDT Hospital Encounter Department of Laboratory Medicine and Pathology, [facility] in [place], [place] [address] [place] [phone] Elizabeth Warner APRN, C.N.P., M.S. 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 8 g 3 01/23/2024 OLANZapine (ZyPREXA) 5 mg tabletIndication s:Medication Therapy Tea Tree Farmer Not 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,Ma lignant Neoplasm Of Lung Lower [...] ondansetron (Zofran) 8 mg tabletIndication s:Medication Therapy Prison Not 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,Ma lignant Neoplasm Of Lung Lower Lobe Or Bronchus Right (HCC) Take 1 tablet (8 mg total) by mouth every 8 (eight) hours as needed for nausea or vomiting (use second for nausea). 30 tablet 3 02/10/2024 5 prochlorperazine (Compazine) 10 mg tabletIndication s:Medication Therapy Tea Tree Farmer Not 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,Ma lignant Neoplasm Of Lung Lower [...] CDT Office Visit Division of Gastroenterology in [place], [place] [address] [place] [phone] Pratik Fishman M.D. [address] [place] [phone] 10/18/2024 10:15 AM CDT Clinical Communication Virtual Review in [place], [place] 200 [place] [phone] 10/18/2024 11:45 AM CDT Appointment Division of Gastroenterology in [place], [place] [address] [place] [phone] Torres Estrella M.D., Ph.D. [address] [place] [phone] 10/20/2024 1:15 PM CDT Appointment Department of Radiology, [facility], in [place], [place] [address] [place] [phone] Elizabeth Warner APRN, C.N.P., M.S. [address] [place] [phone] 10/20/2024 3:00 PM CDT Office Visit Department of Palliative Care in [place], [place] [address] [place] [phone] Jacinda Cruz M.D. [address] [place] [phone] 10/21/2024 7:50 AM CDT Appointment Department of Laboratory Medicine and Pathology, [facility], in [place], [place] [address] [place] [phone] Elizabeth Warner APRN, C.N.P., M.S. [address] [place] [phone] 10/21/2024 10:20 AM CDT Office Visit Department of Oncology in [place], [place] [address] [place] [phone] Marquise Singh M.D. [address] [place] [phone] 10/25/2024 12:00 PM CDT Virtual Visit Division of Gastroenterology in [place], [place] [address] [place] [phone] Torres Estrella M.D., Ph.D. 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 LAB BLOOD ADD -ON Final Result [facility] 200 [place] [address], [facility] 200 [place] [address] * (ABNORMAL) Thyroid Function [place] (08/26/2024 12:02 PM CDT) Pathologist [facility] [place] TSH, Sensitive <0.01(L) 0.3 - 4.2 mIU/L 08/26/2024 1:20 PM CDT DTL Blood (Blood, Venous) 08/26/2024 12:02 PM CDT 08/26/2024 12:45 PM CDT Elizabeth Warner APRN, C.N.P., M.S. LAB BLOOD ADD -ON Final Result Performing Organization Address City/State/[facility] Co de Phone Number [facility] 200 [place] [address], [facility] 200 [place] [address] * (ABNORMAL) Comprehensive Metabolic Panel (08/26/2024 12:02 PM CDT) Pathologist [facility] [place] Potassium, S 3.5(L) 3.6 - 5.2 mmol/L [...] M.S. LAB BLOOD ADD -ON Final Result [facility] [address] [place] [address], [facility] [address] [place] [address] * (ABNORMAL) CBC with Differential, Blood (08/26/2024 12:02 PM CDT) Hemoglobin 11.3(L) 13.2 - 16.6 g/dL 08/26/2024 [...] M.S. 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
--- OUTSIDE RECORDS SUMMARY | 2024-08-26 13:40 | XMS_ITS | Encounter Summary ---
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 [address] [place] [phone] Phone: tel: fax: Elizabeth Warner APRN, C.N.P., M.S. [address] [place] [phone] Phone: tel: fax: Referral ID Status Reason Start Date Expiration Date Visits Re quested Visits Authorized [id number] Closed 08/29/2024 02/28/2026 1 1 Scheduling Instructions Timmy phone visit to dis uss path results. Please suppress from portal and I will call, as able. * Gastrointestinal (Routine) - Closed Specialty Diagnoses / Procedures Referred By Cinthia trinidad Referred To Contact Diagnoses Dysphagia Procedures EGD (EsophagoGastroDuodenoscopy) Elizabeth Warner APRN, C.N.P., M.S. [address] [place] [phone] Phone: tel: fax: [facility] Referral ID Status Reason Start Date Expiration Date Visits Re quested Visits Authorized [id number] Closed 08/26/2024 11/26/2025 1 1 Reason for Visit * Outpatient (Routine) - Closed Specialty Diagnoses / Procedures Referred By Contadia t Referred To Contact Oncology Elizabeth Warner APRN, C.N.P., M.S. [address] [place] [phone] Phone: tel: fax: Elizabeth Warner APRN, C.N.P., M.S. [address] [place] [phone] Phone: tel: fax: Referral ID Status Reason Start Date Expiration Date Visits Re quested Visits Authorized [id number] Closed 06/15/2024 12/15/2025 1 1 Encounter Details Date Type Department Care Team (Late st Contact Info) Description 08/26/2024 1:40 PM CDT Office Visit Department of Oncology in [address] [phone] Elizabeth Warner APRN, C.N.P., M.S. [address] [place] [phone] Malignant Neoplasm Of Lung Lower Lobe Or Bronchus Right (HCC) (Primary Dx); Dysphagia; Medication Therapy Half-Way Not 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; Fatigue; Hyperthyroidism Social History Tobacco Use Types Packs/Day Years Used Date Smoking Tobacco: Former Cigarettes 1 35 0 04/14/2023 - 01/20/2024 Passive Smoke Exposure: Never Smokeless Tobacco: Never Alcohol Use Standard Drinks/Week Comments Not Currently 0 (1 standard drink = 0.6 oz pur e alcohol) [facility] Utilities Answer Date Recorded In the past 12 months has [employer], gas, oil, or water [employer] threatened to shut off services in your [...] your living situation today? 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 Gender Identity Male 01/28/2024 10:26 AM CDT Sexual Orientation Straight 01/28/2024 10 :26 AM CDT documented as of this encounter Last Filed Vital Signs Vital Sign Reading Time Taken Comments Blood Pressure 138/82 08/26/2024 1:33 PM CDT Pulse 11 08/26/2024 1:33 PM CDT Temperature 37 C (98.6 F) 08/26/2024 1:33 PM CDT Respiratory Rate - - Oxygen Saturation 96% 08/26/2024 1:33 PM CDT Inhaled Oxygen Concentration - - Weight 118 kg (260 lb 5.8 oz) 08/26/2024 1:33 PM CDT Height - - Body Mass Index 35.11 04/20/2024 10:49 AM 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 - 08/26/2024 1:40 PM CDT CHIEF COMPLAINT/PURPOSE OF VISIT Primary Oncology Team [...] treated with antibiotics for presumed infectious etiology. There was mild improvement in symptoms followed by worsening. [...] palliation. 02/02/2024 Genetic Testing and Tumor Genotyping [id number]: TP53 R158L, CDKN2A A100P, TS 02/11/2024 - [...] Scanty cellularity. Immunohistochemical stains were performed at [facility] (block A1). p40 highlights predominately benign elements [...] cell carcinoma. Immunohistochemical stains were performed at [facility] (block A1). p40 is immunoreactive in neoplastic cells. TTF1 is negative. 04/13/2024 Genetic Testing and Tumor Genotyping Insufficient tissue for Tempus 04/20/2024 - 2024 Radiation Therapy Radiation Therapy Treatment Details (04/20/2024 - 2024) Site: Right Lung Fractions: 30 Technique: IMRT Dose: 6600 cGy Goal: Curative 04/21/2024 - 05/27/2024 Chemotherapy CARBOplatin AUC 2 Weekly / PACLitaxel 50 mg/m2 ( with Radiation ) ( Lung ) Start Date: 04/21/2024 Under the care of Dr. Perry 06/13/[address] Chest IMPRESSION: 1. Slight decrease in the extensive right paratracheal adenopathy is since prior exam. 2. Overall stable pulmonary nodules with decrease in the right lower lobe endobronchial lesion. 3. Resolution of the previously noted subtle hazy groundglass opacities in both lungs. 06/14/2024 - Chemotherapy Pembrolizumab ( Every 3 weeks ) ( Oncology ) Start Date: 06/14/2024 (Planned) INTERVAL HISTORY Mr. Miramontes presents today accompanied by his earlier than scheduled after reporting neck swelling and dysphagia to colleagues in palliative medicine earlier this week. He is receiving consolidative pembrolizumab per direction of colleagues at [facility]. History of Present Illness Reports difficulty swallowing, describing this as painful and sore, primarily on the left side. Thepain worsens with head movement and feels tender and scratchy, especially during eating or drinking. He experiences a sensation of gagging and increased swallowing even when not eating. Weight is largely stable. He is not using any pain medications or magic mouthwash for the discomfort. He remains on omeprazole 40 mg once daily; he sometimes takes this twice daily. Most recent cycle of pembrolizumab was omitted for thyroid dysfunction; suppressed TSH with elevated free T4. Denies anxiety, diaphorases, unintentional weight loss, palpitations. He has intermittentloose stools, no more that 2 per day. He reports feeling generally unwell and fatigued. He experiences diarrhea with loose stools a couple of times a day, no bowel movements overnight, and no blood or mucus in the stools. Socially, he works part-time and wishes to maintain his work schedule while managing his health issues. He feels supported by his workplace, which accommodates his medical appointments. ROS Pertinent items are noted in HPI; all other systems reviewed and negative. OBJECTIVE No data recorded VITAL SIGNS Vitals: 08/26/24 1333 BP: 138/82 BP Location: Right arm Patient Position: Sitting Pulse: (!) 11 Temp: 37 ??C TempSrc: Tympanic SpO2: 96% Weight: 118 kg PHYSICAL EXAM General: Alert, oriented. Responds appropriately to questions. No acute distress. Skin: No rashes. No jaundice. Eyes: Anicteric. ENT: Oral mucosa pink and moist. No oral lesions. No evidence of oral candidiasis. Lymph: No palpable cervical or supraclavicular lymphadenopathy. Heart: S1, S2. Regular rate and rhythm. No murmurs or extra sounds appreciated. Lungs: Clear to auscultation bilaterally. DIAGNOSTICS Laboratory studies of 08/26/[address] neck and chest of 08/26/2024 reviewed and demonstrates stability of right paratracheal adenopathy. There is minimal increase in at least 2 bilateral pulmonary nodules and new, small pleural and pericardial effusions, indeterminate. There is radiation change in medial right lung. 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 Miramontes was diagnosed with squamous cell carcinoma of the lung in January 2024 and received three cycles of induction carboplatin, paclitaxel, pembrolizumab. In March 2024 (after 3 cycles of therapy), he was hospitalized from 04/10-04/15/2024 with respiratory distress and stridor due to progression of mediastinal adenopathy. Tracheal stent placement was attempted, however, stent subsequentlymigrated and was removed. Imaging demonstrated progression of bulky right paratracheal adenopathy with narrowing of trachea, though decrease in right lower lobe endobronchial lesion and mixed changesin bilateral pulmonary nodules. He proceeded to chemoradiation with weekly carboplatin + paclitaxel (6000 cGy in 30 fractions), completed 2024. He resumed pembrolizumab as consolidative therapy in June 2024. We reviewed together CT images demonstrating no clear etiology of dysphagia and odynophagia. There is stability of right paratracheal adenopathy and new medial right lung pneumonitis. New small rightpleural and pericardial effusions are stable. Majority of known bilateral pulmonary nodules are stable, two have minimally increased in size. These are worrisome for metastatic disease Prior to the visit, I reviewed the case at thoracic oncology tumor board. Present were colleagues from thoracic radiology, radiation oncology, pulmonary medicine, and medical oncology. There is ricky structural or anatomic abnormality to explain odynophagia and dysphagia. I reviewed the case and imaging with Dr. Gil, my collaborating physician. Will proceed with EGD to evaluate for tumor invasion, infection, immunotherapy esophagitis (less likely). If no evidence of progressive malignancy or immunotherapy toxicity, would continue pembrolizumab with imaging in [facility] 2 months. Our team will abi Mr. Miramontes with EGD pathology results, once available. PLAN -EGD to evaluate for tumor invasion, infection, and immunotherapy induce esophagitis (less likely).Please obtain random biopsies if no visualized abnormalities. -phone call to discuss EGD results -if no evidence of tumor invasion, will continue immunotherapy for 2 additional months followed by imaging in [place] #Hyperthyroidism Asymptomatic; will not begin beta blockade. Likely related to immunotherapy. Common presentation isasymptomatic hyperthyroidism followed by rebound hypothyroidism requiring replacement. Levothyroxine replacement is then generally required lifelong. Free T4 is mildly downtrending. He has consultation with colleagues in endocrinology next week. Would not hold immunotherpy for asymptotic hyperthyroidism. Cancer Staging Malignant Neoplasm Of Lung Lower Lobe Or Bronchus Right (HCC) Staging form: Lung, AJCC 8th Edition - Clinical stage from 01/26/2024: Stage IIIB (cT4, cN2, cM0) Current Therapy: Pembrolizumab ( Every 3 weeks ) ( Oncology ) Current Disease Status: Stable ECOG Performance Status: 1 Intent of Therapy: Palliative Intent to Change Therapy: No PATIENT EDUCATION Ready to learn, no apparent learning barriers were identified; learning preferences include listening. Explained diagnosis and treatment plan; patient expressed understanding of the content. I personally spent 75 minutes in care of the patient today. Time includes both [id number] [id number] patient care. documented in this encounter Plan of Treatment Upcoming Encounters Date Type Department Care Team (Latest Contact Info) Description 09/28/2024 3:20 PM CDT Office Visit Division of Gastroenterology in [address] [phone] Pratik Fishman M.D. [address] [place] [phone] 10/18/2024 10:15 AM CDT Clinical Communication Virtual Review in [address] [phone] 10/18/2024 11:45 AM CDT Appointment Division of Gastroenterology in [address] [phone] Torres Estrella M.D., Ph.D. [address] [place] [phone] 10/20/2024 1:15 PM CDT Appointment Department of Radiology, [facility], in [address] [phone] Elizabeth Warner APRN, C.N.P., M.S. [address] [place] [phone] 10/20/2024 3:00 PM CDT Office Visit Department of Palliative Care in [address] [phone] Jacinda Cruz M.D. [address] [place] [phone] 10/21/2024 7:50 AM CDT Appointment Department of Laboratory Medicine and Pathology, [facility], in [place], [place] [address] [place] [phone] Elizabeth Warner APRN, C.N.P., M.S. [address] [place] [phone] 10/21/2024 10:20 AM CDT Office Visit Department of Oncology in [place], [place] [address] [place] [phone] Marquise Singh M.D. [address] [place] [phone] 10/25/2024 12:00 PM CDT Virtual Visit Division of Gastroenterology in [place], [place] [address] [place] [phone] Torres Estrella M.D., Ph.D. [address] [place] [phone] Scheduled Referrals Name Type Priority Associated Diagnoses Orde r Schedule Oncology office visit (clinic) Outpatient Referral Routine Expected: 09/02/2024, Expires: 11/29/2025 documented as of this encounter Procedures Procedure Name Priority Date/Time Associated Diagnosis Comments CORTISOL, S Routine 08/26/2024 12:00 PM CDT Malignant Neoplasm Of Lung Lower Lobe Or Bronchus Right (HCC) Medication Therapy Half-Way Not 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 Fatigue documented in this encounter Results * Cortisol (08/26/2024 12:00 PM CDT) Cortisol, Random, S 7.8 mcg/dL 08/26/2024 3:08 PM CDT DTL Comment: ----REFERENCE VALUE---- AM ([id number]): 4.8-20 PM ([phone]): 2.5-12 Blood (Blood, Venous) 08/26/2024 12:00 PM CDT 08/26/2024 2:32 PM CDT us Elizabeth Warner APRN C.N.P., M.S. LAB BLOOD ADD -ON Final Result [facility] [address] [place] [address], [facility] DTL [facility] [address] [place] [address] documented in this encounter Visit Diagnoses Diagnosis Malignant Neoplasm Of Lung Lower Lobe Or Bronchus Right (HCC)- Primary Dysphagia Medication Therapy Half-Way Not 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 Fatigue Hyperthyroidism documented in this encounter
--- OUTSIDE RECORDS SUMMARY | 2024-08-30 12:13 | XMS_ITS | Encounter Summary ---
Author Organization [facility] Address [address] [place] [id number] Care Team Providers Care Song Plugger Name Role Phone Unavailable Primary Care Provider Unavailabl e Reason for Referral * Gastrointestinal (Routine) - Closed Specialty Diagnoses / Procedures Referred By Cinthia trinidad Referred To Contact Diagnoses Dysphagia Procedures EGD (EsophagoGastroDuodenoscopy) Elizabeth Warner APRN, C.N.P., M.S. [address] [place] [phone] Phone: tel: fax: [facility] Referral ID Status Reason Start Date Expiration Date Visits Re quested Visits Authorized [id number] Closed 08/26/2024 11/26/2025 1 1 Reason for Visit * Gastrointestinal (Routine) - Closed Specialty Diagnoses / Procedures Referred By Cinthia trinidad Referred To Contact Diagnoses Dysphagia Procedures EGD (EsophagoGastroDuodenoscopy) Elizabeth Warner APRN, C.N.P., M.S. [address] [place] [phone] Phone: tel: fax: [facility] Referral ID Status Reason Start Date Expiration Date Visits Re quested Visits Authorized [id number] Closed 08/26/2024 11/26/2025 1 1 Encounter Details Date Type Department Care Team (Latest Contact Info) Description 08/30/2024 12:13 PM CDT - 08/30/2024 11:59 PM CDT Hospital Encounter Division of Gastroenterology in [place], [place] [address] [place] [address] Elizabeth Warner APRN C.N.P., M.S. [address] [place] [address] Dysphagia Discharge Disposition: Home or Self Care Social History Tobacco Use Types Packs/Day Years Used Date Smoking Tobacco: Former Cigarettes 1 35 0 04/14/2023 - 01/20/2024 Passive Smoke Exposure: Never Smokeless Tobacco: Never Alcohol Use Standard Drinks/Week Comments Not Currently 0 (1 standard drink = 0.6 oz pur e alcohol) [facility] [employer] Answer Date Recorded In the past 12 months has e [employer] gas, oil, or water [employer] threatened to shut off services in your [...] your living situation today? 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 Gender Identity Male 01/28/2024 10:26 AM CDT Sexual Orientation Straight 01/28/2024 10 :26 AM CDT documented as of this encounter Last Filed Vital Signs Vital Sign Reading Time Taken Comments Blood Pressure 120/80 08/30/2024 2:52 PM CDT Pulse 87 08/30/2024 2:52 PM CDT Temperature 36.5 C (97.7 F) 08/30/2024 2:22 PM CDT Respiratory Rate 19 08/30/2024 2:52 PM CDT Oxygen Saturation 95% 08/30/2024 2:52 PM CDT Inhaled Oxygen Concentration - - Weight - - Height - - Body Mass Index - - documented in this encounter Medications at Time of Discharge albuterol 90 mcg/actuation inhaler Inhale 2 puffs every 6 (six) hours as needed for wheezing. 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 10/05/2022 documented as of this encounter H&P Notes * Wilfrido Wilburn M.D. - 08/30/2024 1:15 PM CDT ASSESSMENT / PLAN Patient Name: Rene Miramontes Upper Endoscopy Procedure Department : DIVISION OF GASTROENTEROLOGY IN [place], [place] SUBJECTIVE Medical History[1] Surgical History[2] Social History[3] OBJECTIVE Pain Score: 0 - No pain Consents Obtained: written The benefits, risks and alternatives of sedation or anesthesia, as well as the names, roles, and responsibilities of the healthcare team members, were discussed with the patient and/or decision maker: yes Procedure / Reason for visit: The planned surgery or procedure was verified with the patient and/ordecision maker The following portions of the patient's history were reviewed and updated as appropriate: allergies, current medications, family history, medical history, surgical history, social history and problemlist. yes Review of systems: pertinent ROS negative Mallampati: III - soft palate, base of uvula visible Heart: normal Lung: normal General / Constitutional: normal ASA physical exam: Class 3 - patient with severe systemic disease Patient seen, evaluated and approved for sedation Sedation plan: moderate sedation Baseline Behavior: Psychosocial (WDL): Within Defined Limits Abdominal Exam: Gastrointestinal (WDL): Within Defined Limits Abdomen Inspection: Soft [1] Past Medical History: Diagnosis Date Anxiety Gastroesophageal Reflux Disease Hyperlipidemia [2] Past Surgical History: Procedure Laterality Date ARTHROSCOPY KNEE MENISCUS Right 02/2023 BRONCHOSCOPY FLEXIBLE: EBUS TBNA ENDOBRONCHIAL ULTRASOUND NEEDLE ASPIRATION N/A 04/12/2024 Procedure: BRONCHOSCOPY FLEXIBLE: ENDOBRONCHIAL ULTRASOUND GUIDED TRANSBRONCHIAL NEEDLE ASPIRATION;Surgeon: Mac Coreas M.D.; Location: [facility] OR BRONCHOSCOPY RIGID N/A 04/12/2024 Procedure: BRONCHOSCOPY RIGID, stent placement, jet ventilation; Surgeon: Mac Coreas M.D.; Location: [facility] BRONCHOSCOPY RIGID N/A 04/13/2024 Procedure: BRONCHOSCOPY RIGID - stent explantation, EBUS; Surgeon: Mac Coreas M.D.; Location: [facility] OR OTHER SURGICAL HISTORY [3] Social History Socioeconomic History Marital status: Tobacco Use Smoking status: Former Current packs/day: 0.00 Average packs/day: 1 pack/day for 35.0 years (35.0 ttl pk-yrs) Types: Cigarettes Start date: 04/14/2023 Quit date: 01/20/2024 Years since quittin.6 Passive exposure: Never Smokeless tobacco: Never Vaping Use Vaping status: never used Substance and Sexual Activity Alcohol use: Not Currently Drug use: Not Currently Sexual activity: Yes Partners: Female control/protection: I.U.D. documented in this encounter Nursing Notes * Jeannette Beaulieu, R.N. - 08/30/2024 1:[address] Wilburn (doctor of the day) notified about pt's procedure. 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 Pt denies any breathing difficulties and hasn't used inhaler in 3 weeks. 02 96% on room air. Per Dr. Wilburn ok to proceed with moderate sedation for EGD on Gonda 9. documented in this encounter Plan of Treatment Upcoming Encounters Date Type Department Care Team (Latest Contact Info) Description 09/28/2024 3:20 PM CDT Office Visit Division of Gastroenterology in [address] [phone] Pratik Fishman M.D. [address] [place] [phone] 10/18/2024 10:15 AM CDT Clinical Communication Virtual Review in [address] [phone] 10/18/2024 11:45 AM CDT Appointment Division of Gastroenterology in [address] [phone] Torres Estrella M.D., Ph.D. [address] [place] [phone] 10/20/2024 1:15 PM CDT Appointment Department of Radiology, [facility], in [address] [phone] Elizabeth Warner APRN, C.N.P., M.S. [address] [place] [phone] 10/20/2024 3:00 PM CDT Office Visit Department of Palliative Care in [address] [phone] Jacinda Cruz M.D. [address] [place] [phone] 10/21/2024 7:50 AM CDT Appointment Department of Laboratory Medicine and Pathology, [facility] in [place], [place] [address] [place] [phone] Elizabeth Warner APRN, C.NMicaelaP., M.S. [address] [place] [phone] 10/21/2024 10:20 AM CDT Office Visit Department of Oncology in [place], [place] [address] [place] [phone] Marquise Singh M.D. [address] [place] [phone] 10/25/2024 12:00 PM CDT Virtual Visit Division of Gastroenterology in [place], [place] [address] [place] [phone] Torres Estrella M.D., Ph.D. [address] [place] [phone] documented as of this encounter Procedures Procedure Name Priority Date/Time Associated Diagnosis Comments SURGICAL PATHOLOGY Routine 08/30/2024 2: 08 PM CDT UPPER GI ENDOSCOPY Routine 08/30/2024 12 :51 PM CDT Dysphagia EGD (ESOPHAGOGASTRODUOD ENOSCOPY) Routine 08/30/2024 12:51 PM CDT Dysphagia documented in this encounter Results * Surgical Pathology (08/30/2024 2:08 PM CDT) 08/31/2024 1:57 PM CDT DTL Report electronically signed by Debra Jo M.D. I verify that I have examined all relevant slides/materials for the specimen(s) and rendered or confirmed the diagnosis. 08/31/2024 1:57 PM CDT DTL Gross Description A: Received in formalin labeled with the patient's name, medical record number, and duodenum, second part, duodenal bulb are fourpale isaacs-pink irregular soft tissues, ranging from 0.2-0.3 cm in greatest dimension. The specimens are submitted en toto in cassette A1.Grossed by AJD. B: Received in formalin labeled with the patient's name, medical record number, and esophagus, random sites are five pink-translucentir regular soft tissues, ranging from 0.3-0.5 cm in greatest dimension. The specimens are submitted en toto in cassette B1. Grossed byMARK. 08/31/2024 1:57 PM CDT DTL Interpretation FINAL DIAGNOSIS A. Duodenum, 2nd part, Duodenal bulb, endoscopic biopsy: Partially blunted duodenal mucosa with patchy increased intraepithelial lymphocytes (40 lymphocytes per 100 epithelial cells). Plasma cells are present. See comment. COMMENT These changes are not entirely specific, but suggest celiac sprue in the appropriate clinical context after exclusion of other possibilities including; medication induced (including NSAIDS and immune check point inhibitors), hypersensitivity reaction to non-gluten proteins, tropical sprue, or protein calorie malnutrition among others. B. Esophagus, Random sites, Lower third, Middle third, endoscopic biopsy: Hyperplastic squamous esophageal mucosa with intraepithelial eosinophils (28 per high power field). This pattern is somewhat nonspecific and could represent eosinophilic esophagitis, reflux esophagitis, or other forms of esophageal injury. See synoptic report Synoptic Report Peak eosinophil count: Grade 2 Stage 1 Basal hyperplasia: Grade 2 Stage 1 Dilated intercellular spaces: Grade 1 Stage 1 Lamina propria fibrosis: Grade 0 Stage 0 Eosinophilic abscesses: Not identified Surface layering: Not identified Sum of EoEHSS 6/24 Additional Information Remission is achieved for Index Scores < 0.125 and Peak eosinophil count of < 15/hpf EoEHSS Index Scores less than 4 are likely to be in remission. Digital imaging was used in the diagnostic assessment of this case. 08/31/2024 1:57 PM CDT DTL Biopsy (Duodenum) 08/30/2024 2:08 PM CDT Biopsy (Esophagus) 08/30/2024 2:10 PM CDT us Pratik Fishman M.D. LAB SURG PATH ORDERABLES Fi nal Result [facility] [address] [place] [address], [facility] [address] [place] [address] * Upper GI Endoscopy (08/30/2024 12:51 PM CDT) 08/30/2024 12:5 1 PM CDT Impressions [facility] - 08/30/2024 2:25 PM CDT Post-op Diagnoses: - Erythematous and congested duodenal mucosa. Biopsied. - Normal stomach. - Normal esophagus, no clear areas of compression, obstruction or abnormal mucosa. Biopsied. Narrative [facility] - 08/30/2024 2:25 PM CDT Gonda 9 GI GI Patient Name: Rene Miramontes Date of : 1970 Age: 54 Procedure Date: 08/30/2024 Procedure: Upper GI endoscopy Providers: Jamison Wilburn MD, Pratik Fishman MD (Fellow) Referring Provider: Elizabeth Warner Pre-op Diagnoses: Dysphagia Recommendation: - Await pathology results. - Return to referring provider as previously scheduled. Findings: Patchy mildly erythematous and congested/edematous mucosa was found in the entire duodenum. Biopsies for histology were taken with a cold forceps for evaluation of celiac disease from the bulb and second portion (bottle A). The entire examined stomach was normal. The examined esophagus was normal with no areas of abnormal mucosa or clear extrinsic compression noted. GE junction and diaphragmatic pinch both at 45 cm. Biopsies were taken with a cold forceps for histology from the entire esophagus. Procedural Details: The patient was seen, evaluated, history reviewed, airway and heart-lung exams were performed by licensed provider and were satisfactory for planned level of sedation care. The risks, benefits and alternatives for the procedure and sedation were discussed and informed consent was obtained. A procedural pause was conducted in the presence of assisting personnel to verify the correct patient identity and procedure to be performed. Throughout the procedure, the patient's blood pressure, pulse, and oxygen saturations were monitored continuously. The Gastroscope was introduced under direct vision through the mouth, and advanced to the second part of duodenum. The upper GI endoscopy was accomplished without difficulty. The patient tolerated the procedure. Estimated Blood Loss: Estimated blood loss: none. Complications: No immediate complications. Sedation: Moderate (conscious) sedation was administered by the nurse and supervised by the endoscopist. The patient's oxygen saturation, heart rate, blood pressure and response to care were monitored. Total physician intraservice time was 20 minutes. Attending Participation: I was present and participated during the entire procedure, including non-ledesma portions. Jamison Wilburn MD 08/30/2024 2:25:36 PM This report has been signed electronically. Number of Addenda: 0 us Elizabeth Warner APRN, C.N.P., M.S. GI PROCEDURE ORDERABLES Final Result [facility] NA documented in this encounter Visit Diagnoses Diagnosis Dysphagia documented in this encounter Administered Medications Inactive Administered Medications - up to 3 most recent administrations Medication Order MAR Action Action Date Dose Rate Site fentaNYL injection (Sublimaze) intravenous, As needed, Starting on Fri08/30/24 at 1357, Intra-Op Given 08/30/2024 1:57 PM CDT 50 mcg fentaNYL injection (Sublimaze) intravenous, As needed, Starting on Fri08/30/24 at 1359, Intra-Op Given 08/30/2024 1:59 PM CDT 25 mcg fentaNYL injection (Sublimaze) intravenous, As needed, Starting on Fri08/30/24 at 1402, Intra-Op Given 08/30/2024 2:02 PM CDT 25 mcg fentaNYL injection (Sublimaze) intravenous, As needed, Starting on Fri08/30/24 at 1403, Intra-Op Given 08/30/2024 2:03 PM CDT 25 mcg fentaNYL injection (Sublimaze) intravenous, As needed, Starting on Fri08/30/24 at 1406, Intra-Op Given 08/30/2024 2:06 PM CDT 25 mcg midazolam (PF) injection (Versed) As needed, Starting on Fri08/30/24 at 1357, Intra-Op Given 08/30/2024 1:57 PM CDT 3 mg midazolam (PF) injection (Versed) As needed, Starting on Fri08/30/24 at 1359, Intra-Op Given 08/30/2024 1:59 PM CDT 2 mg midazolam (PF) injection (Versed) As needed, Starting on Fri08/30/24 at 1403, Intra-Op Given 08/30/2024 2:03 PM CDT 2 mg midazolam (PF) injection (Versed) As needed, Starting on Fri08/30/24 at 1406, Intra-Op Given 08/30/2024 2:06 PM CDT 2 mg midazolam (PF) injection (Versed) As needed, Starting on Fri08/30/24 at 1409, Intra-Op Given 08/30/2024 2:09 PM CDT 1 mg sodium chloride 0.9 % injection As needed, Starting on Fri08/30/24 at 1357, Intra-Op Given 08/30/2024 1:57 PM CDT 3 mL sodium chloride 0.9 % injection As needed, Starting on Fri08/30/24 at 1359, Intra-Op Given 08/30/2024 1:59 PM CDT 3 mL sodium chloride 0.9 % injection As needed, Starting on Fri08/30/24 at 1409, Intra-Op Given 08/30/2024 2:09 PM CDT 3 mL documented in this encounter
--- OUTSIDE RECORDS SUMMARY | 2024-08-30 12:55 | XMS_ITS | Encounter Summary ---
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 Name Role Phone Unavailable Primary Care Provider Unavailabl e Encounter Details Date Type Department Care Team (Latest Contact Info) Description 08/30/2024 12:55 PM CDT Ancillary Procedure Department of Gastroenterology Social History Tobacco Use Types Packs/Day Years Used Date Smoking Tobacco: Former Cigarettes 1 35 0 04/14/2023 - 01/20/2024 Passive Smoke Exposure: Never Smokeless Tobacco: Never Alcohol Use Standard Drinks/Week Comments Not Currently 0 (1 standard drink = 0.6 oz pur e alcohol) [facility] Utilities Answer Date Recorded In the [...] your living situation today? 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 [address] [place] [phone] 10/18/2024 10:15 AM CDT Clinical Communication Virtual Review in [place], [place] [address] [place] [phone] 10/18/2024 11:45 AM CDT Appointment Division of Gastroenterology in [place], [place] [address] [place] [phone] Torres Estrella M.D., Ph.D. [address] [place] [phone] 10/20/2024 1:15 PM CDT Appointment Department of Radiology, [facility], in [place], [place] [address] [place] [address] Elizabeth Warner APRN, C.N.P., M.S. [address] [place] [phone] 10/20/2024 3:00 PM CDT Office Visit Department of Palliative Care in [place], [place] [address] [place] [phone] Jacinda Cruz M.D. [address] [place] [phone] 10/21/2024 7:50 AM CDT Appointment Department of Laboratory Medicine and Pathology, [facility] in [place], [place] [address] [place] [phone] Elizabeth Warner APRN, C.N.P., M.S. [address] [place] [phone] 10/21/2024 10:20 AM CDT Office Visit Department of Oncology in [place], [place] [address] [place] [phone] Marquise Singh M.D. [address] [place] [phone] 10/25/2024 12:00 PM CDT Virtual Visit Division of Gastroenterology in [place], [place] [address] [place] [phone] Torres Estrella M.D., Ph.D. [address] [place] [address] documented as of this encounter Procedures Procedure Name Priority Date/Time Associated Diagnosis Comments GASTROENTEROLOGY IMAGE EXAM Routine 08/30/2024 12:55 PM CDT documented in this encounter Results * Upper GI endoscopy-Gastroenterology Image Exam (08/30/2024 12:55 PM CDT) 08/30/2024 12:5 1 PM CDT Narrative [facility] - 08/30/2024 2:36 PM CDT This order has been created and auto-finalized to support the import of images acquired without order. The clinical documentation to support these images can be found on the encounter that produced images. us Provider Not In System IMG NON RAD IMAGING PROCE DURES Final Result [facility] NA documented in this encounter Visit Diagnoses Not on filedocumented in this encounter
--- OUTSIDE RECORDS SUMMARY | 2024-08-31 09:30 | XMS_ITS | Encounter Summary ---
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 [address] [place] [address] Phone: tel: fax: [facility] Referral ID Status Reason Start Date Expiration Date Visits Re quested Visits Authorized [id number] Closed 08/17/2024 02/16/2026 1 1 Encounter Details Date Type Department Care Team (Latest Contact Info) Description 08/31/2024 9:30 AM CDT Comprehensive Visit Division of Endocrinology in [place], [place] [address] [place] [address] Svetlana Perry M.D. [address] [place] [address] Shira Méndez M.D. 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 Utilities Answer Date Recorded In the past 12 months has e [employer], gas, oil, or water [employer] threatened to shut off services in your [...] your living situation today? I have a elemr place to live 05/16/2024 Sex and Gender Information Value Date Recorded Sex Assigned at Male 01/28/2024 10:26 AM CDT Legal Sex Male 10:09 PM [employer] Gender Identity Male 01/28/2024 10:26 AM CDT Sexual Orientation Straight 01/28/2024 10 :26 AM CDT documented as of this encounter Consult Notes * Shira Méndez M.D. - 08/31/2024 9:30 AM CDT Images from the original note were not included. [facility] Endocrinology, Diabetes, and Nutrition Thyroid Clinic SUBJECTIVE HISTORY OF PRESENT ILLNESS Rene Miramontes is a 54 y.o. male who presents for evaluation of thyrotoxicosis. 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 First diagnosed due to dysphonia which did not improve with antibiotics leading to imaging of chest 01/20/2024 that showed pulmonary nodules and adenopathy. Lymph node, station 4R, EBUS FNA: positive for squamous cell c arcinoma. Started on chemotherapy and ICI with pembrolizumab -03/2024. Had mixed response went onthe have radiation to right lung restarted on chemotherapy and immunotherapy 06/14/2024. He was seen due to neck swelling and dysphagia Last pembrolizumab was held due to thyroid function tests being abnormal Plan was to obtain EGD to elucidate cause of the dysphagia Patient reports he received two doses of pembrolizumab and then they halted due to concern regarding the thyroid lab tests. Thyroid history: Denies known prior thyroid history Latest Reference Range & Units 02/10/24 15:57 03/02/24 11:07 03/23/24 07:37 04/20/24 08:05 06/14/24 12:41 08/23/24 14:42 08/26/24 12:00 08/26/24 12:02 TSH, Sensitive 0.3 - 4.2 mIU/L 1.0 0.8 1.0 1.0 0.2 (L) <0.01 (L) <0.01 (L) T4 (Thyroxine), Free, S 0.9 - 1.7 ng/dL 1.0 3.2 (H) 2.7 (H) Thyrotropin Receptor Ab, S 0.00 - 1.75 IU/L <1.10 (L): Data is abnormally low (H): Data is abnormally high Review of symptoms: Anterior neck pain or swelling: right side sensitive where radiation occurred Dysphagia: endorses and is having ongoing workup with EGD Dysphonia: better than at the time of diagnosis Fatigue: endorses Weight change: Wt Readings from Last 3 Encounters: 08/26/24 118 kg 08/05/24 120 kg 06/14/24 115 kg Appetite: reduced Cold/heat intolerance: once in a while heat intolerance Palpitations: denies Tremor: denies Changes in bowel habits: denies Additional history: History of radiation to the head/neck: yes for his sq ca mets Prior history of neck surgery: denies Family history of thyroid disease: hyperthyroidism sister took methimzaole and mother unknown Smoking History: former 35 pck year Recent exposure to contrast: 08/26/2024 Recent viral illness: denies Use of thyrotoxic medications: denies amiodarone or lithium Relevant imaging: CT neck 08/26/2024 Subcentimeter areas of decreased enhancement within the thyroid lobes bilaterally. 202 OBJECTIVE VITAL SIGNS There were no vitals taken for this visit. PHYSICAL EXAMINATION General Examination: The patient examined in the clinic noted to be in no obvious distress and is comfortable at rest. 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 -Muscle mass normal -No tremors HEENT: No proptosis Neck: Supple, anterior neck symmetric in appearance. No discrete nodules are palpable Cardiovascular: HR 90s Respiratory: Respirations are non-labored on room air. DIAGNOSTICS Pertinent labs and imaging as per HPI. ASSESSMENT / PLAN # Immune checkpoint inhibitor induced thyrotoxicosis Mr Miramontes is asymptomatic in the setting of hyperthyroxinemia outside of potentially some tachycardia that is not bothersome to the patient. He has received pembrolizumab for his squamous cell carcinoma of the lung and they had stopped it due to abnormal thyroid lab values. We discussed that given he was euthyroid and TRAb was negative it is likely the abnormalities in thyroid labs are due to use of an ICI. It is not uncommon and for hyperthyroidism/thyrotoxicosis our approach generally is to treat what is symptomatic and then consider anti-thyroid drugs/glucocorticoids if there is severe/symptomatic disease. Fortunately, the patient is essentially asymptomatic. As such, we would favor a low dose beta charline. Patient reports he is using his albuterol 1/week so heis aware that if his respiratory symptoms worsen on a beta charline he should cease taking the beta charline given theoretical interaction. We plan to recheck labs in 3-4 weeks when he returns for his next labs before his next cycle of pembrolizumab. 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 Patient expressed satisfaction and is in agreement with the plan. Patient staffed with Dr Charlton Signed: Shira Méndez M.D. Endocrinology fellow PGY-4 Cosigned by Ghulam Charlton M.D. at 08/31/2024 12:09 PM CDT * Ghulam Charlton M.D. - 08/31/2024 9:30 AM CDT SUBJECTIVE Supervising Dr. Méndez in Thyroid Clinic. I have reviewed history and interviewed patient. REASON FOR CONSULT Rene Miramontes is a 54-year-old patient who is referred by Dr. Svetlana Perry for a Thyroid consultation. HISTORY OF PRESENT ILLNESS He is currently treated with pembrolizumab for metastatic lung CA. Recent abnormal thyroid test results likely related to this treatment. TSH is 0.01, and free T4 2.7, consistent with mild hyperthyroidism. He has few or no symptoms of hyperthyroidism. His anticancer therapy was discontinued because of thyroid dysfunction. ASSESSMENT / PLAN Our recommendations are summarized by Dr. Méndez, but we feel that Oncology can proceed with treatment of cancer and continue pembrolizumab; recheck thyroid tests [id number] month; and start betablocker for the time being. No need for ATD therapy now, but should be followed closely. 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 CT CT Job ID: [id number] documented in this encounter Plan of Treatment Upcoming Encounters Date Type Department Care Team (Latest Contact Info) Description 09/28/2024 3:20 PM CDT Office Visit Division of Gastroenterology in [address] [phone] Pratik Fishman M.D. [address] [place] [phone] 10/18/2024 10:15 AM CDT Clinical Communication Virtual Review in [address] [address] 10/18/2024 11:45 AM CDT Appointment Division of Gastroenterology in [address] [phone] Torres Estrella M.D., Ph.D. [address] [place] [phone] 10/20/2024 1:15 PM CDT Appointment Department of Radiology, [facility], in [address] [phone] Elizabeth Warner, ADRI, C.N.P., M.S. [address] [place] [phone] 10/20/2024 3:00 PM CDT Office Visit Department of Palliative Care in [place], [place] [address] [place] [address] Jacinda Cruz M.D. [address] [place] [phone] 10/21/2024 7:50 AM CDT Appointment Department of Laboratory Medicine and Pathology, [facility] in [place], [place] [address] [place] [address] Elizabeth Warner, ADRI, C.N.P., M.S. [address] [place] [phone] 10/21/2024 10:20 AM CDT Office Visit Department of Oncology in [place], [place] [address] [place] [address] Marquise Singh M.D. [address] [place] [phone] 10/25/2024 12:00 PM CDT Virtual Visit Division of Gastroenterology in [place], [place] [address] [place] [address] Torres Estrella M.D., Ph.D. 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
--- OUTSIDE RECORDS SUMMARY | 2024-09-02 14:00 | XMS_ITS | Encounter Summary ---
Author Organization [facility] Address [address] [place] [address] Care Team Providers Care Color Shop Helper Name Role Phone Unavailable Primary Care Provider Unavailabl e Reason for Referral * Outpatient (Routine) - Authorized Specialty Diagnoses / Procedures Referred By Contac t Referred To Contact Oncology Brody Araya APRN, C.N.P., M.S. [address] [place] [phone] Phone: tel: fax: Brody Araya APRN, C.N.P., M.S. 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 [address] [place] [phone] Phone: tel: fax: [facility] Referral ID Status Reason Start Date Expiration Date V isits Requested Visits Authorized [id number] Authorized 09/02/2024 03/04/2026 1 1 Scheduling Instructions GIH consult should be scheduled after all testing Reason for Visit * Outpatient (Routine) - Closed Specialty Diagnoses / Procedures Referred By Cinthia t Referred To Contact Oncology Brody Araya APRN, C.N.P., M.S. [address] [place] [phone] Phone: tel: fax: Brody Araya APRN, C.N.P., M.S. [address] [place] [phone] Phone: tel: fax: Referral ID Status Reason Start Date Expiration Date Visits Re quested Visits Authorized [id number] Closed 08/29/2024 02/28/2026 1 1 Encounter Details Date Type Department Care Team (Late st Contact Info) Description 09/02/2024 2:00 PM CDT Virtual Visit Department of Oncology in [place], [place] [address] [place] [phone] Brody Araya APRN, C.N.P., M.S. 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 Utilities Answer Date Recorded In the past 12 months has th e electric, gas, oil, or water [employer] threatened to shut off services in your [...] your living situation today? 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 Miramontes to discuss results of EGD performed on 08/30/2024 for workup of dysphagia and odynophagia. The procedural report describes normal esophagus and stomach. There was mildlyerythematous and congested/edematous mucosa in entire duodenum. Pathology from duodenal biopsy demonstrated partially blunted mucosa with patchy increase intraepithelial lymphocytes. Plasma cells present. Pathology from random esophagus biopsies demonstrated hyperplastic squamous esophageal mucosa with intraepithelial eosinophils. Findings are nonspecific from both sites and could represent immunotherapy toxicity. Within the differential is celiac disease and eosinophilic esophagitis; these diagnoses could also be related to cancer immunotherapy (pembrolizumab). Will obtain celiac serology and HLA testing and refer for GI consultation. As further workup and management impacts management of underlying malignancy, will work to expedite consultation. Would holdimmunotherapy until there is further diagnostic clarity. If immune checkpoint inhibitor toxicity is diagnosed, would treat with high dose steroids and consider second line chemotherapy. Our team will see Mr. Miramontes following GI consultation. Total Time: 8 minutes spent in conversation with patient over the phone (11:05-11:13). ADDENDUM 16:30 I discussed the case with the oncall GI physician, Dr. Farias. Appreciate assistance expediting consultation. Dr. 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 Nursing will call Mr. Miramontes to provide education and instructions, including drinkslowly, twice daily after breakfast and at bedtime, with nothing to eat or drink for two hours afterward. This will be filled at a [place] pharmacy. Mr. Miramontes will let our team know if budesonide is cost-prohibitive. Will draw celiac serologies. If negative, will refer to general GI (instead of celiac clinic). documented in this encounter Miscellaneous Notes * Addendum Note - Brody Araya APRN, C.N.P., M.S. - 09/02/2024 2:00 PM CDT Addended by: BRODY ARAYA on: 09/02/2024 04:45 PM Modules accepted: Orders documented in this encounter Plan of Treatment Upcoming Encounters Date Type Department Care Team (Latest Contact Info) Description 09/28/2024 3:20 PM CDT Office Visit Division of Gastroenterology in [address] [phone] Pratik Fishman M.D. [address] [place] [phone] 10/18/2024 10:15 AM CDT Clinical Communication Virtual Review in [address] [phone] 10/18/2024 11:45 AM CDT Appointment Division of Gastroenterology in [address] [phone] Torres Estrella M.D., Ph.D. [address] [place] [phone] 10/20/2024 1:15 PM CDT Appointment Department of Radiology, [facility], in [address] [phone] Brody Araya APRN, C.N.P., M.S. [address] [place] [phone] 10/20/2024 3:00 PM CDT Office Visit Department of Palliative Care in [place], [place] [address] [place] [phone] Jacinda Cruz M.D. [address] [place] [phone] 10/21/2024 7:50 AM CDT Appointment Department of Laboratory Medicine and Pathology, [facility] in [place], [place] [address] [place] [phone] Brody Araya APRN, C.N.P., M.S. [address] [place] [phone] 10/21/2024 10:20 AM CDT Office Visit Department of Oncology in [place], [place] [address] [place] [phone] Marquise Singh M.D. [address] [place] [phone] 10/25/2024 12:00 PM CDT Virtual Visit Division of Gastroenterology in [address] [phone] Torres Estrella M.D., Ph.D. 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) Medication Therapy Unemployment Examiner Not 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 Esophagitis Eosinophilic Toxicity Drug Initial Dysphagia Expected: 09/02/2024, Expires: 12/03/2025 Oncology office visit (clinic) Outpatient Referral Routine 1 Occurrences starting 09/02/2024 until 12/03/2025 documented as of this encounter Results * Zinc (09/07/2024 1:54 PM CDT) Zinc, S 68 60 - 106 mcg/dL 09/08/2024 11:11 AM CDT [facility] Comment: ----ADDITIONAL INFORMATION---- This test was developed and its performance characteristics determined by [facility] in a manner consistent with CLIA requirements. This test has not been cleared or approved by the U.S. Food and Drug Administration. Blood (Blood, Venous) 09/07/2024 1:54 PM CDT 09/08/2024 7:32 AM CDT Itzel Subramanian APRN.Frida.Hilaria., M.S. LAB BLOOD NON ADD-ON Final Result Performing Organization Address City/[facility]/ZIP Co de Phone Number [facility] [address] [place] [address] [facility] [address] [place] [address] [place] [address] * Vitamin B12 Assay (09/07/2024 1:54 PM CDT) Pathologist [facility] Vitamin B12 Assay, S 536 232 - 1245 ng/L 09/07/2024 5:19 PM CDT [facility] Comment: Biotin has been identified by the senior group manager as a potential interfering substance. Higher concentrations of biotin may be found in multivitamins, hair/nail supplements, and workout supplements. If the result does not match clinical observations, repeat testing after patient refrains from the use of supplements for at least 12 hours. Blood (Blood, Venous) 09/07/2024 1:54 PM CDT 09/07/2024 4:37 PM CDT us Itzel Subramanian APRN.N.Hilaria., M.S. LAB BLOOD ADD -ON Final Result Performing Organization Address City/[facility]/ZIP Co de Phone Number [facility] [address] [place] [address], [facility] in [address] [address] * (ABNORMAL) Vitamin A and Vitamin E (09/07/2024 1:54 PM CDT) Vitamin A 41.7 32.5 - 78.0 mcg/dL 09/09/2024 7:59 PM CDT [facility] Comment: ----ADDITIONAL INFORMATION---- This test was developed and its performance characteristics determined by [facility] in a manner consistent with CLIA requirements. This test has not been cleared or approved by the U.S. Food and Drug Administration. A-Tocopherol, Vitamin E 20.7(H) 5.5 - 17.0 mg/L 09/09/2024 10:54 AM CDT [facility] Blood (Blood, Venous) 09/07/2024 1:54 PM CDT 09/08/2024 10:51 AM CDT us Itzel Subramanian APRN.N.Hilaria., M.S. LAB BLOOD NON ADD-ON Final Result [facility] [address] [place] [address] [facility] [address] [place] [address] [place] [address] * Folate (09/07/2024 1:54 PM CDT) Folate, S 12.6 >=4.0 mcg/L 09/07/2024 5:19 PM CDT [facility] Comment: Biotin has been identified by the senior group manager as a potential interfering substance. Higher concentrations of biotin may be found in multivitamins, hair/nail supplements, and workout supplements. If the result does not match clinical observations, repeat testing after patient refrains from the use of supplements for at least 12 hours. Blood (Blood, Venous) 09/07/2024 1:54 PM CDT 09/07/2024 4:37 PM CDT us Itzel Subramanian APRN.N.Hilaria., M.S. LAB BLOOD ADD -ON Final Result Performing Organization Address City/[facility]/ZIP Co de Phone Number [facility] [address] [place] [address], [place] [facility] in [place] [address] [place] [address] * Copper (09/07/2024 1:54 PM CDT) Copper, S 84 73 - 129 mcg/dL 09/08/2024 11:11 AM CDT [facility] Comment: ----ADDITIONAL INFORMATION---- This test was developed and its performance characteristics determined by [facility] in a manner consistent with CLIA requirements. This test has not been cleared or approved by the U.S. Food and Drug Administration. Blood (Blood, Venous) 09/07/2024 1:54 PM CDT 09/08/2024 7:32 AM CDT Brody Araya APRN C.N.P., M.S. LAB BLOOD NON ADD-ON Final Result [facility] [address] [place] [address] [facility] [address] [place] [address] [place] [address] * 25-Hydroxyvitamin D2 and D3 (09/07/2024 1:54 PM CDT) 25-Hydroxy D2 <4.0 ng/mL 09/12/2024 3:14 PM CDT [facility] 25-Hydroxy D3 30 ng/mL 09/12/2024 3:14 PM CDT [facility] 25-Hydroxy D Total 30 ng/mL 2024 3:14 PM CDT [facility] Comment: ----REFERENCE VALUE---- 25-HYDROXY D TOTAL (D2+D3) Optimum levels in the healthy population are 20-50. ----ADDITIONAL INFORMATION---- This test was developed and its performance characteristics determined by [facility] in a manner consistent with CLIA requirements. This test has not been cleared or approved by the U.S. Food and Drug Administration. Blood (Blood, Venous) 09/07/2024 1:54 PM CDT 09/08/2024 7:29 AM CDT us Brody Araya APRN, C.N.P., M.S. LAB BLOOD ADD -ON Final Result [facility] [address] [place] [address] [facility] [address] [place] [address] [place] [address] * (ABNORMAL) Iron and Total Iron-Binding Capacity (09/07/2024 1:53 PM CDT) Iron 40(L) 50 - 150 mcg/dL 09/07/2024 5:07 PM CDT [facility] Total Iron Binding Capacity 270 250 - 400 mcg/dL 09/07/2024 5:07 PM CDT [facility] Percent Saturation 15 14 - 50 % 09/07/2024 5:07 PM CDT [facility] Blood (Blood, Venous) 09/07/2024 1:53 PM CDT 09/07/2024 4:37 PM CDT us Brody Araya APRN, C.N.P., M.S. LAB BLOOD ADD -ON Final Result Performing Organization Address City/[facility]/ZIP Co de Phone Number [facility] [address] [place] [address], [facility] [place] [address] * Ferritin (09/07/2024 1:53 PM CDT) Ferritin, S 356 31 - 409 mcg/L 09/07/2024 5:07 PM CDT [facility] Comment: Biotin has been identified by the senior group manager as a potential interfering substance. Higher concentrations of biotin may be found in multivitamins, hair/nail supplements, and workout supplements. If the result does not match clinical observations, repeat testing after patient refrains from the use of supplements for at least 12 hours. Blood (Blood, Venous) 09/07/2024 1:53 PM CDT 09/07/2024 4:37 PM CDT us Brody Araya APRN C.N.P., M.S. LAB BLOOD ADD -ON Final Result [facility] [address] [place] [address], [facility] [place] [address] [place] [address] * Celiac Disease Gluten-Free Wesley (09/07/2024 1:53 PM CDT) HLA-DQA1 Locus Molecular 01:02, 02:01 Not Applicable 09/12/2024 8:32 PM CDT [facility] HLA-DQB1 Locus Molecular 02:02, 06:02 Not Applicable 09/12/2024 8:32 PM CDT [id number] Comment: DQ Serologic Equivalent: 2, 6 Celiac Gene Pairs Present? Equivocal 09/12/2024 8:32 PM CDT [id number] Comment: Method: Molecular typing of HLA antigens performed using reverse SSOP and/or sequencing methods, reported as serological equivalents and low to intermediate resolution molecular values. For convenience, when not defined in the WHO Nomenclature a laboratory defined serologic equivalent has been provided. Based on the catalog of common, intermediate, and well-documented alleles in the world population(CIWD 3.0 Tonie FERMIN et.al, HLA. 2020:516-531), certain intermediate or common alleles in some ethnicities may not be resolved. Kindly contact laboratory if ethnic specific resolution is required. This test has been modified from the manufacturers instructions. Its performance characteristics were determined by [facility] in a manner consistent with CLIA requirements. This test has not been cleared or approved by the U.S. Food and Drug Administration. CLIA: [id number] CLIA Population Health Coach: MARILY KINSEY,Ph.D. Celiac Disease Interpretation See Comment: Celiac disease possible. Consider biopsy. 09/13/2024 10:38 PM CDT [facility] Blood (Blood, Venous) 09/07/2024 1:53 PM CDT 09/08/2024 8:08 AM CDT Narrative [facility] - 09/13/2024 10:38 PM CDT Specimen Information: Specimen ID: [id number] Specimen Type: Blood Specimen Collection Start Date: 09/07/2024 1:53 PM Specimen Received Date: 09/08/2024 8:08 AM Specimen ID: [id number] Specimen Type: Blood Specimen Collection Start Date: 09/07/2024 1:53 PM Specimen Received Date: 09/08/2024 6:27 AM Brody Araya APRN, C.N.P., M.S. LAB BLOOD NON ADD-ON Final Result [facility] [address] [place] [address] [id number] [address] [place] [address] [facility] [address] [place] [address] [place] [address] * Celiac Disease Serology Wesley (09/07/2024 1:53 PM CDT) [facility] Immunoglobulin A (IgA), S 104 61 - 356 mg/dL 09/08/2024 1:42 PM CDT [facility] Celiac Disease Interpretation See Comment: Negative serology. Celiac disease unlikely. However, approximately 10% of patients with celiac disease are seronegative. Also, patients who are already adhering to a gluten-free diet may be seronegative. If celiac disease is highly clinically suspected, consider HLA-DQ typing. 09/08/2024 10:41 PM CDT [facility] Blood (Blood, Venous) 09/07/2024 1:53 PM CDT 09/08/2024 6:27 AM CDT Narrative [facility] - 09/08/2024 10:41 PM CDT Specimen Information: Specimen ID: [id number] Specimen Type: Blood Specimen Collection Start Date: 09/07/2024 1:53 PM Specimen Received Date: 09/08/2024 6:27 AM Specimen ID: [id number] Specimen Type: Blood Specimen Collection Start Date: 09/07/2024 1:53 PM Specimen Received Date: 09/08/2024 6:29 AM Brody Araya APRN C.N.P., M.S. LAB BLOOD ADD -ON Final Result [facility] [address] [place] [address] [facility] [address] [place] [address] [facility] [address] [place] [address] 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
--- OUTSIDE RECORDS SUMMARY | 2024-09-07 13:42 | XMS_ITS | Encounter Summary ---
Author Organization [facility] Address [address] [place] [address] Care Team Providers Care Clay Preparation Supervisor Name Role Phone Unavailable Primary Care Provider Unavailabl e Encounter Details Date Type Department Care Team (Latest Contact Info) Description 09/07/2024 1:42 PM CDT - 09/07/2024 11:59 PM CDT Hospital Encounter Department of Laboratory Medicine in [place], [place] [address] [place] [phone] Elizabeth Warner APRN, C.N.P., M.S. 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 8 g 3 01/23/2024 atenoloL (Tenormin) 25 mg tablet Take 1 tablet (25 mg total) by mouth daily. 90 tablet 3 08/31/2024 budesonide (Pulmicort) 1 mg/2 mL nebulizer solution Inhale 2 mL (1 mg total) by nebulization 2 (two) times a day. Rinse mouth with water after use to reduce aftertaste and incidence of candidiasis. Do not swallow. 120 mL 09/03/2024 budesonide 3 mg/10 mL (0.03%) oral suspension Swish and swallow 10 mL 2 (two) times a day. Swallow 10 ml slowly by mouth two times a day (after breakfast and at bedtime).Rinse with water and spit.Do not eat/drink for 2 hours. 280 mL 2 09/02/2024 OLANZapine (ZyPREXA) 5 mg tabletIndication s:Medication Therapy Gunner'S Mate M Not 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,Ma lignant Neoplasm Of Lung Lower [...] ondansetron (Zofran) 8 mg tabletIndication s:Medication Therapy Care Home Not 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,Ma lignant Neoplasm Of Lung Lower Lobe Or Bronchus Right (HCC) Take 1 tablet (8 mg total) by mouth every 8 (eight) hours as needed for nausea or vomiting (use second for nausea). 30 tablet 3 02/10/2024 prochlorperazine (Compazine) 10 mg tabletIndication s:Medication Therapy Care Home Not 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,Ma lignant Neoplasm Of Lung [...] CDT Office Visit Division of Gastroenterology in [address] [phone] Pratik Fishman M.D. [address] [place] [phone] 10/18/2024 10:15 AM CDT Clinical Communication Virtual Review in [place], [place] 200 [place] [address] 10/18/2024 11:45 AM CDT Appointment Division of Gastroenterology in [address] [phone] Torres Estrella M.D., Ph.D. [address] [place] [phone] 10/20/2024 1:15 PM CDT Appointment Department of Radiology, [facility], in [address] [phone] Elizabeth Warner APRN, C.N.P., M.S. [address] [place] [phone] 10/20/2024 3:00 PM CDT Office Visit Department of Palliative Care in [address] [phone] Jacinda Cruz M.D. [address] [place] [phone] 10/21/2024 7:50 AM CDT Appointment Department of Laboratory Medicine and Pathology, [facility], in [place], [place] [address] [place] [phone] Elizabeth Warner APRN, C.NMiley., M.S. [address] [place] [phone] 10/21/2024 10:20 AM CDT Office Visit Department of Oncology in [place], [place] [address] [place] [phone] Marquise Singh M.D. [address] [place] [phone] 10/25/2024 12:00 PM CDT Virtual Visit Division of Gastroenterology in [place], [place] [address] [place] [phone] Torres Estrella M.D., Ph.D. 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) Medication Therapy Gunner'S Mate M Not 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 Esophagitis Eosinophilic Toxicity Drug Initial Dysphagia COPPER, S Routine 09/07/2024 1:54 PM CDT Malignant Neoplasm Of Lung Lower Lobe Or Bronchus Right (HCC) Medication Therapy Care Home Not 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 Esophagitis Eosinophilic Toxicity Drug Initial Dysphagia ZINC, S Routine 09/07/2024 1:54 PM CDT Malignant Neoplasm Of Lung Lower Lobe Or Bronchus Right (HCC) Medication Therapy Gunner'S Mate M Not 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 Esophagitis Eosinophilic Toxicity Drug Initial Dysphagia 25-HYDROXYVITAMIN D2 AND D3, S Routine 09/07/2024 1:54 PM CDT Malignant Neoplasm Of Lung Lower Lobe Or Bronchus Right (HCC) Medication Therapy Gunner'S Mate M Not 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 Esophagitis Eosinophilic Toxicity Drug Initial Dysphagia FOLATE, S Routine 09/07/2024 1:54 PM CDT Malignant Neoplasm Of Lung Lower Lobe Or Bronchus Right (HCC) Medication Therapy Gunner'S Mate M Not 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 Esophagitis Eosinophilic Toxicity Drug Initial Dysphagia VITAMIN B12 ASSAY, S Routine 09/07/2024 1:54 PM CDT Malignant Neoplasm Of Lung Lower Lobe Or Bronchus Right (HCC) Medication Therapy Gunner'S Mate M Not 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 Esophagitis Eosinophilic Toxicity Drug Initial Dysphagia CELIAC DISEASE SEROLOGY CASCADE, S Routine 09/07/2024 1:53 PM CDT Malignant Neoplasm Of Lung Lower Lobe Or Bronchus Right (HCC) Medication Therapy Gunner'S Mate M Not 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 Esophagitis Eosinophilic Toxicity Drug Initial Dysphagia CELIAC DISEASE GLUTEN-FREE CASCADE Routine 09/07/2024 1:53 PM CDT Malignant Neoplasm Of Lung Lower Lobe Or Bronchus Right (HCC) Medication Therapy Care Home Not 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 Esophagitis Eosinophilic Toxicity Drug Initial Dysphagia GLIADIN (DEAMIDATED) AB, IGG, S Routine 09/07/2024 1:53 PM CDT GLIADIN (DEAMIDATED) AB, IGA, S Routine 09/07/2024 1:53 PM CDT IRON AND TOT IRON-BINDING CAPACITY, S/P Routine 09/07/2024 1:53 PM CDT Malignant Neoplasm Of Lung Lower Lobe Or Bronchus Right (HCC) Medication Therapy Gunner'S Mate M Not 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 Esophagitis Eosinophilic Toxicity Drug Initial Dysphagia TISSUE TRANSGLUTAMINASE (TTG) AB, IGA, S Routine 09/07/2024 1:53 PM CDT TISSUE TRANSGLUTAMINASE (TTG) AB, IGG, S Routine 09/07/2024 1:53 PM CDT FERRITIN, S Routine 09/07/2024 1:53 PM CDT Malignant Neoplasm Of Lung Lower Lobe Or Bronchus Right (HCC) Medication Therapy Gunner'S Mate M Not 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 Esophagitis Eosinophilic Toxicity Drug Initial Dysphagia documented in this encounter Results * Zinc (09/07/2024 1:54 PM CDT) Zinc, S 68 60 - 106 mcg/dL 09/08/2024 11:11 AM CDT [facility] Comment: ----ADDITIONAL INFORMATION---- This test was developed and its performance characteristics determined by [facility] in a manner consistent with CLIA requirements. This test has not been cleared or approved by the U.S. Food and Drug Administration. Blood (Blood, Venous) 09/07/2024 1:54 PM CDT 09/08/2024 7:32 AM CDT Itzel Subramanian APRN.N.Hilaria., M.S. LAB BLOOD NON ADD-ON Final Result [facility] [address] [place] [address] [facility] [address] [place] [address] [place] [address] * Vitamin B12 Assay (09/07/2024 1:54 PM CDT) Vitamin B12 Assay, S 536 232 - 1245 ng/L 09/07/2024 5:19 PM CDT TO Comment: Biotin has been identified by the wet mixer as a potential interfering substance. Higher concentrations of biotin may be found in multivitamins, hair/nail supplements, and workout supplements. If the result does not match clinical observations, repeat testing after patient refrains from the use of supplements for at least 12 hours. Blood (Blood, Venous) 09/07/2024 1:54 PM CDT 09/07/2024 4:37 PM CDT Itzel Subramanian APRN.N.Hilaria., M.S. LAB BLOOD ADD -ON Final Result [facility] [address] [place] [address], [facility] MKTO [facility] in [place] [address] [place] [address] * (ABNORMAL) Vitamin A and Vitamin E (09/07/2024 1:54 PM CDT) Vitamin A 41.7 32.5 - 78.0 mcg/dL 09/09/2024 7:59 PM CDT [facility] Comment: ----ADDITIONAL INFORMATION---- This test was developed and its performance characteristics determined by [facility] in a manner consistent with CLIA requirements. This test has not been cleared or approved by the U.S. Food and Drug Administration. A-Tocopherol, Vitamin E 20.7(H) 5.5 - 17.0 mg/L 09/09/2024 10:54 AM CDT [facility] Blood (Blood, Venous) 09/07/2024 1:54 PM CDT 09/08/2024 10:51 AM CDT us Familia Subramanian APRNN.Hilaria., M.S. LAB BLOOD NON ADD-ON Final Result [facility] [address] [place] [address] [facility] [address] [place] [address] [place] [address] * Folate (09/07/2024 1:54 PM CDT) Folate, S 12.6 >=4.0 mcg/L 09/07/2024 5:[address] [facility] Comment: Biotin has been identified by the wet mixer as a potential interfering substance. Higher concentrations of biotin may be found in multivitamins, hair/nail supplements, and workout supplements. If the result does not match clinical observations, repeat testing after patient refrains from the use of supplements for at least 12 hours. Blood (Blood, Venous) 09/07/2024 1:54 PM CDT 09/07/2024 4:37 PM CDT us Elizabeth Warner APRN, C.N.P., M.S. LAB BLOOD ADD -ON Final Result [facility] [address] [place] [address], [place] MKTO [facility] in [place] [address] [place] [address] * Copper (09/07/2024 1:54 PM CDT) Pathologist [facility] Copper, S 84 73 - 129 mcg/dL 09/08/2024 11:11 AM CDT [facility] Comment: ----ADDITIONAL INFORMATION---- This test was developed and its performance characteristics determined by [facility] in a manner consistent with CLIA requirements. This test has not been cleared or approved by the U.S. Food and Drug Administration. Blood (Blood, Venous) 09/07/2024 1:54 PM CDT 09/08/2024 7:32 AM CDT us Elizabeth Warner APRN, C.N.P., M.S. LAB BLOOD NON ADD-ON Final Result [facility] [place] [address] [place] [address] [facility] [address] [place] [address] [place] [address] * 25-Hydroxyvitamin D2 and D3 (09/07/2024 1:54 PM CDT) 25-Hydroxy D2 <4.0 ng/mL 09/12/2024 3:14 PM CDT SDS 25-Hydroxy D3 30 ng/mL 09/12/2024 3:14 PM CDT SDS 25-Hydroxy D Total 30 ng/mL 2024 3:14 PM CDT [facility] Comment: ----REFERENCE VALUE---- 25-HYDROXY D TOTAL (D2+D3) Optimum levels in the healthy population are 20-50. ----ADDITIONAL INFORMATION---- This test was developed and its performance characteristics determined by [facility] in a manner consistent with CLIA requirements. This test has not been cleared or approved by the U.S. Food and Drug Administration. Blood (Blood, Venous) 09/07/2024 1:54 PM CDT 09/08/2024 7:29 AM CDT Susan Subramanian APRN.Hilaria., M.S. LAB BLOOD ADD -ON Final Result Performing Organization Address City[facility] Co de Phone Number [facility] [address] [place], [place] [phone] [place] [address] [place] [address] [place] [address] * Gliadin (Deamidated) Antibody, IgA (09/07/2024 1:53 PM CDT) Gliadin(Deamida saundra) Ab, IgA, S <10.0 <20.0 (Negative) U 09/13/2024 8:13 PM CDT [facility] Blood 09/07/2024 1:53 PM CDT 09/13/2024 12:49 PM CDT Itzel Subramanian APRN.N.Hilaria., M.S. LAB BLOOD ADD -ON Final Result Performing Organization Address [facility] Co de Phone Number [facility] [address] [place] [address] [facility] [address] [place] [address] * (ABNORMAL) Gliadin (Deamidated) Antibody, IgG (09/07/2024 1:53 PM CDT) Gliadin(Deamid ated) Ab, IgG, S 21.8(H) <20.0 (Negative) U 09/13/2024 8:13 PM CDT [facility] Comment:Interpretation: Weak Positive (20.0-30.0) Blood 09/07/2024 1:53 PM CDT 09/13/2024 12:49 PM CDT Elizabeth Warner APRN, C.N.P., M.S. LAB BLOOD ADD -ON Final Result [facility] [address] [place] [address] [facility] [address] [place] [address] * (ABNORMAL) tTG (Tissue Transglutaminase) Antibody, IgG (09/07/2024 1:53 PM CDT) Tissue Transglutaminase Ab, IgG, S 7.7(H) <6.0 (Negative ) U/mL 09/13/2024 5:04 PM CDT [facility] Comment:Interpretation: Weak Positive (6.0-9.0) Blood 09/07/2024 1:53 PM CDT 09/08/2024 1:51 PM CDT Familia Subramanian APRNNMiley., M.S. LAB BLOOD ADD -ON Final Result Performing Organization Address City/[facility]/ZIP Co de Phone Number [facility] [address] [place] [address] [facility] [address] [place] [address] * tTG (Tissue Transglutaminase), Antibody, IgA (09/07/2024 1:53 PM CDT) Tissue Transglutaminase Ab, IgA, S 1.6 <4.0 (Negative ) U/mL 09/08/2024 7:42 PM CDT [facility] Blood 09/07/2024 1:53 PM CDT 09/08/2024 1:51 PM CDT Familia Subramanian APRNNMiley., M.S. LAB BLOOD ADD -ON Final Result [facility] [address] [place] [address] [facility] [address] [place] [address] * (ABNORMAL) Iron and Total Iron-Binding Capacity (09/07/2024 1:53 PM CDT) Iron 40(L) 50 - 150 mcg/dL 09/07/2024 5:07 PM CDT MKTO Total Iron Binding Capacity 270 250 - 400 mcg/dL 09/07/2024 5:07 PM CDT MKTO Percent Saturation 15 14 - 50 % 09/07/2024 5:07 PM CDT MKTO Blood (Blood, Venous) 09/07/2024 1:53 PM CDT 09/07/2024 4:37 PM CDT Itzel Subramanian APRN.N.Hilaria., M.S. LAB BLOOD ADD -ON Final Result Performing Organization Address [facility] [place] [address] * Ferritin (09/07/2024 1:53 PM CDT) Ferritin, S 356 31 - 409 mcg/L 09/07/2024 5:07 PM CDT MKTO Comment: Biotin has been identified by the wet mixer as a potential interfering substance. Higher concentrations of biotin may be found in multivitamins, hair/nail supplements, and workout supplements. If the result does not match clinical observations, repeat testing after patient refrains from the use of supplements for at least 12 hours. Blood (Blood, Venous) 09/07/2024 1:53 PM CDT 09/07/2024 4:37 PM CDT us Itzel Subramanian APRN.N.P., M.S. LAB BLOOD ADD -ON Final Result Performing Organization Address [facility] Co de Phone Number [facility] [address] [place] [address], [place] [address] * Celiac Disease Gluten-Free [place]quin (09/07/2024 1:53 PM CDT) HLA-DQA1 Locus Molecular [...] world population(CIWD 3.0 Tonie FERMIN et.al, HLA. 2020:911-531), certain intermediate or common alleles in some ethnicities may not be resolved. Kindly contact laboratory if ethnic specific resolution is required. This test has been modified from the manufacturers instructions. Its performance characteristics were determined by [facility] in a manner consistent with CLIA requirements. This test has not been cleared or approved by the U.S. Food and Drug Administration. CLIA: [id number] CLIA Consumer Experience Consultant: MARILY KINSEY,Ph.D. Celiac Disease Interpretation See Comment: Celiac disease possible. Consider biopsy. 09/13/2024 10:38 PM CDT [facility] Blood (Blood, Venous) 09/07/2024 1:53 PM CDT 09/08/2024 8:08 AM CDT Narrative [facility] - 09/13/2024 10:38 PM CDT Specimen Information: Specimen ID: [id number] Specimen Type: Blood Specimen Collection Start Date: 09/07/2024 1:53 PM Specimen Received Date: 09/08/2024 8:08 AM Specimen ID: [id number] Specimen Type: Blood Specimen Collection Start Date: 09/07/2024 1:53 PM Specimen Received Date: 09/08/2024 6:27 AM us Elizabeth J Schwecke BUSINESS BROKER, C.N.P., M.S. LAB BLOOD NON ADD-ON Final Result [facility] [address] [place] [address] [id number] [facility] [address] [place] [address] [facility] [address] [place] [address] [place] [address] * Celiac Disease Serology Manquin (09/07/2024 1:53 PM CDT) [facility] Immunoglobulin A (IgA), S 104 61 - 356 mg/dL 09/08/2024 1:42 PM CDT [facility] Celiac Disease Interpretation See Comment: Negative serology. Celiac disease unlikely. However, approximately 10% of patients with celiac disease are seronegative. Also, patients who are already adhering to a gluten-free diet may be seronegative. If celiac disease is highly clinically suspected, consider HLA-DQ typing. 09/08/2024 10:41 PM CDT [facility] Blood (Blood, Venous) 09/07/2024 1:53 PM CDT 09/08/2024 6:27 AM CDT Narrative [facility] - 09/08/2024 10:41 PM CDT Specimen Information: Specimen ID: [id number] Specimen Type: Blood Specimen Collection Start Date: 09/07/2024 1:53 PM Specimen Received Date: 09/08/2024 6:27 AM Specimen ID: [id number] Specimen Type: Blood Specimen Collection Start Date: 09/07/2024 1:53 PM Specimen Received Date: 09/08/2024 6:29 AM us Elizabeth Warner APRN, C.N.P., M.S. LAB BLOOD ADD -ON Final Result [facility] [address] [place] [address] [facility] [address] [place] [address] [facility] [address] 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
--- OUTSIDE RECORDS SUMMARY | 2024-09-15 08:00 | XMS_ITS | Encounter Summary ---
Author Organization [facility] Address [address] [place] [address] Care Team Providers Care Front Desk Associate Name Role Phone Unavailable Primary Care Provider Unavailabl e Reason for Referral * Outpatient (Routine) - Authorized Specialty Diagnoses / Procedures Referred By Cinthia trinidad Referred To Contact Palliative Medicine Ana Gupta B.M.B.S., Mratín, B.Ch. [address] [place] [phone] Phone: tel: fax: [facility] Referral ID Status Reason Start Date Expiration Date V isits Requested Visits Authorized [id number] Authorized 09/15/2024 03/17/2026 1 1 Scheduling Instructions F/u 3-4 weeks, try to co-ordinate with other appointments in [place] Reason for Visit * Outpatient (Routine) - Closed Specialty Diagnoses / Procedures Referred By Cinthia trinidad Referred To Contact Palliative Medicine Emperatriz Gonzales APRN, C.N.P., D.N.P. [address] [place] [phone] Phone: tel: fax: [facility] Referral ID Status Reason Start Date Expiration Date Visits Re quested Visits Authorized [id number] Closed 08/23/2024 02/22/2026 1 1 Encounter Details Date Type Department Care Team (Late st Contact Info) Description 09/15/2024 8:00 AM CDT Office Visit Department of Palliative Care in [place], [place] 200 [place] [address] Ana Gupta B.M.B.S., B.M., B.Ch. 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 - 09/15/2024 8:00 AM CDT [facility] OUTPATIENT PALLIATIVE CARE PROGRESS NOTE PATIENT: Rene Miramontes; 54 y.o.male LOCATION: Palliative Care Clinic SUBJECTIVE CHIEF COMPLAINT/REASON FOR VISIT Rene Miramontes is a 54 y.o. male with localized lung cance who is followed in the outpatient Palliative Care Clinic for non-pain symptoms and pain and providing support for pt/family. Date of Last Visit: 08/23/2024 INTERVAL HISTORY: At last visit, plan was pt to go forward with EGD to ascertain etiology for his dysphagia/odynophagia. EGD was done 08/30. 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 GI has recommended budesonide solution but due to costs, he was then prescribed budesonide nebulizer. He has just filled this and only started using this yesterday. Has not noticed a significant difference yet Continues to report pain when swallowing. Has tried tylenol, oxycodone but has found neither helpful. He still manages to keep up on oral intake and does not feel dehydrated. Has not noticed any weight loss. The following portions of the patient's history were reviewed and updated as appropriate: Allergies, Current Medications, Medical History, Surgical History, Family History, and Social History Additionally, if completed, [facility] Reviewed as relevant to current encounter. OBJECTIVE PHYSICAL EXAMINATION Temperature: [36.6 ??C] 36.6 ??C Blood Pressure: (148)/(92) 148/92 SpO2: [98 %] 98 % Pulse Rate: [78] 78 Physical Exam Gen: sitting in chair, not in acute distress Neuro: awake, alert Resp: non-labored breathing able to converse, hoarse voice Psych: calm demeanor PALLIATIVE FUNCTIONAL ASSESSMENT: 70%-Reduced ambulation, Unable to do normal job/work with significant evidence of disease, Full self-care, Normal or reduced intake, Full level of consciousness DIAGNOSTICS MEDICATIONS/DIAGNOSTICS: Relevant results for this consult include Cr 0.83 ASSESSMENT / PLAN Rene Miramontes is a 54 y.o. male with localized lung cancer who is followed in the outpatient Palliative Care Clinic for non-pain symptoms and pain and providing support for pt/family. 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 Has only started the budesonide nebulizer yesterday, and has not noted an improvement yet. Encouraged him to use this as prescribed (BID); he is also waiting to hear if he is able to obtain the budenoside solution. Will plan to call him early next week-- if pain is improved with budesonide nebulizers, we may not need to add any further analgesics. If pain is not improved, would consider using an agent like transdermal Butrans patch. OPIOID SUMMARY: Opioid Need: This patient has a condition that necessitates treatment with an opioid for longer than 7 days. Additionally, a non-opioid alternative was not appropriate or inadequate to manage patient???s pain. We have reviewed risks, benefits and alternatives related to opioid prescribing as well as relevant mitigation strategies. Diagnosis related to controlled substance prescribing: lung cancer [place] [employer] P[employer] Review: We have reviewed the patient's record in the [place] prescription monitoring program 09/15/2024. Opioid Toxicity Review: We have reviewed the risks of opioid therapy and completed an assessment oftoxicities. Opioid Aberrant Use Concerns: None Opioid Risk Score: Naloxone prescribed: no, MEDD< 90 and no concurrent sedating medications Thank you for the opportunity to see [...] the plan of care I have outlined. Follow-up visit: provider 3-4 weeks, clinic visit Juan M Sutherland., B.M., B.Ch. documented in this encounter Plan of Treatment Upcoming Encounters Date Type Department Care Team (Latest Contact Info) Description 09/28/2024 3:20 PM CDT Office Visit Division of Gastroenterology in [place], [place] [address] [place] [phone] Pratik Fishman M.D. [address] [place] [phone] 10/18/2024 10:15 AM CDT Clinical Communication Virtual Review in [place], [place] 200 [place] [address] 10/18/2024 11:45 AM CDT Appointment Division of Gastroenterology in [address] [phone] Torres Estrella M.D., Ph.D. [address] [place] [phone] 10/20/2024 1:15 PM CDT Appointment Department of Radiology, [facility], in [place], [place] [address] [place] [address] Elizabeth Warner APRN, C.N.P., M.S. [address] [place] [phone] 10/20/2024 3:00 PM CDT Office Visit Department of Palliative Care in [place], [place] [address] [place] [address] Jacinda Cruz M.D. [address] [place] [phone] 10/21/2024 7:50 AM CDT Appointment Department of Laboratory Medicine and Pathology, [facility], in [place], [place] [address] [place] [address] Elizabeth Warner APRN, C.N.P., M.S. [address] [place] [phone] 10/21/2024 10:20 AM CDT Office Visit Department of Oncology in [place], [place] [address] [place] [address] Marquise Singh M.D. [address] [place] [phone] 10/25/2024 12:00 PM CDT Virtual Visit Division of Gastroenterology in [place], [place] [address] [place] [address] Torres Estrella M.D., Ph.D. [address] [place] [phone] Scheduled Referrals Name Type Priority Associated Diagnoses Order Schedule Palliative Care office visit (clinic) Outpatient Referral Routine Expected: 10/15/2024 (Approximate), Expires: 12/16/2025 documented as of this encounter Visit Diagnoses Diagnosis Malignant Neoplasm Of Lung Lower Lobe Or Bronchus Right (HCC)- Primary Odynophagia documented in this encounter
--- OUTSIDE RECORDS SUMMARY | 2024-09-16 13:00 | XMS_ITS | Encounter Summary ---
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 [address] [place] [phone] Phone: tel:[phone] fax:[phone] [facility] Referral ID Status Reason Start Date Expiration Date Visits Re quested Visits Authorized [id number] Closed 09/16/2024 03/18/2026 1 1 Scheduling Instructions GIH consult should be scheduled after all testing Reason for Visit * Outpatient (Routine) - Closed Specialty Diagnoses / Procedures Referred By Contac t Referred To Contact Oncology Brody Araya APRN, C.N.P., M.S. [address] [place] [phone] Phone: tel: fax: ONC NURSE LUNG RED 01 ROGO Referral ID Status Reason Start Date Expiration Date Visits Re quested Visits Authorized [id number] Closed 09/09/2024 03/11/2026 1 1 Encounter Details Date Type Department Care Team ([facility] st Contact Info) Description 09/16/2024 1:00 PM CDT Virtual Visit Department of Oncology in [place], [place] 200 [place] [phone] Brody Araya, ADRI, C.N.P., M.S. 200 [place] [phone] Karina Chavarria R.N. Malignant Neoplasm Of Unspecified Part Of Lung Laterality Unknown Squamous Cell (HCC) (Primary Dx); Esophagitis Eosinophilic; Dysphagia Social History Tobacco Use Types Packs/Day Years Used Date Smoking Tobacco: Former Cigarettes 1 35 0 04/14/2023 - 01/20/2024 Passive Smoke Exposure: Never Smokeless Tobacco: Never Alcohol Use Standard Drinks/Week Comments Not Currently 0 (1 standard drink = 0.6 oz pur e alcohol) [facility] [employer] Answer Date Recorded In the past 12 months has [facility] [employer], gas, oil, or water [employer] threatened to shut off services in your [...] your living situation today? 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 He is still having some trouble with swallowing, particularly with eating. I shared with Rene that I would discuss this with the care team and we would be in touch with himbalain on how to proceed. Juanitoanabelle was agreeable to this plan and was thankful for the call. documented in this encounter Miscellaneous Notes * Addendum Note - Brody Araya APRN, C.N.P., M.S. - 09/16/2024 1:00 PM CDT Addended by: BRODY ARAYA on: 09/16/2024 03:30 PM Modules accepted: Orders documented in this encounter Plan of Treatment Upcoming Encounters Date Type Department Care Team (Latest Contact Info) Description 09/28/2024 3:20 PM CDT Office Visit Division of Gastroenterology in [address] [phone] Pratik Fishman M.D. [address] [place] [phone] 10/18/2024 10:15 AM CDT Clinical Communication Virtual Review in [address] [phone] 10/18/2024 11:45 AM CDT Appointment Division of Gastroenterology in [address] [phone] Torres Estrella M.D., Ph.D. [address] [place] [phone] 10/20/2024 1:15 PM CDT Appointment Department of Radiology, [facility], in [address] [phone] Brody Araya APRN, C.N.P., M.S. [address] [place] [phone] 10/20/2024 3:00 PM CDT Office Visit Department of Palliative Care in [address] [phone] Jacinda Cruz M.D. [address] [place] [phone] 10/21/2024 7:50 AM CDT Appointment Department of Laboratory Medicine and Pathology, [facility] in [place], [place] [address] [place] [address] Brody Araya, ADRI CMicaelaN.P., M.S. [address] [place] [phone] 10/21/2024 10:20 AM CDT Office Visit Department of Oncology in [place], [place] [address] [place] [phone] Marquise Singh M.D. [address] [place] [phone] 10/25/2024 12:00 PM CDT Virtual Visit Division of Gastroenterology in [place], [place] [address] [place] [phone] Torres Estrella M.D., Ph.D. [address] [place] [phone] Scheduled Referrals Name Type Priority Associated Diagnoses Order Schedule Gastroenterology and Hepatology - Eosinophilic esophagitis consult (clinic) Outpatient Referral Routine Malignant Neoplasm Of Unspecified Part Of Lung Laterality Unknown Squamous Cell (HCC) Esophagitis Eosinophilic Dysphagia Expected: 09/17/2024, Expires: 12/17/2025 documented as of this encounter Visit Diagnoses Diagnosis Malignant Neoplasm Of Unspecified Part Of Lung Laterality Unknown Squamous Cell (HCC)- Primary Esophagitis Eosinophilic Dysphagia documented in this encounter
--- OUTSIDE RECORDS SUMMARY | 2024-09-20 10:40 | XMS_ITS | Encounter Summary ---
Author Organization [facility] Address [address] [place] [address] Care Team Providers Care Manager Exchange Name Role Phone Unavailable Primary Care Provider Unavailabl e Reason for Referral * Outpatient (Routine) - Authorized Specialty Diagnoses / Procedures Referred By Contact Referred To Contact Gastroenterology and Hepatology Torres Estrella M.D., Ph.D. [address] [place] [phone] Phone: tel: fax: [facility] Referral ID Status Reason Start Date Expiration Date V isits Requested Visits Authorized [id number] Authorized 09/20/2024 03/22/2026 1 1 * Gastrointestinal (Routine) - Authorized Specialty Diagnoses / Procedures Referred By Contac t Referred To Contact Diagnoses Dysphagia Procedures EGD (EsophagoGastroDuodenoscopy) Restricted Torres Estrella M.D., Ph.D. [address] [place] [phone] Phone: tel: fax: [facility] Referral ID Status Reason Start Date Expiration Date V isits Requested Visits Authorized [id number] Authorized 09/20/2024 12/21/2025 1 1 Reason for Visit * Outpatient (Routine) - Closed Specialty Diagnoses / Procedures Referred By Contact Referred To Contact Gastroenterology and Hepatology Diagnoses Malignant Neoplasm Of Unspecified Part Of Lung Laterality Unknown Squamous Cell (HCC) Esophagitis Eosinophilic Dysphagia Elizabeth Warner APRN, C.N.P., M.S. [address] [place] [phone] Phone: tel:[phone] fax:[phone] [facility] Referral ID Status Reason Start Date Expiration Date Visits Re quested Visits Authorized [id number] Closed 09/16/2024 03/18/2026 1 1 Encounter Details Date Type Department Care Team (Latest Contact Info) Description 09/20/2024 10:40 AM CDT Virtual Visit Division of Gastroenterology in [place], [place] [address] [place] [phone] Elizabeth Warner APRN, C.N.P., M.S. [address] [place] [phone] Torres Estrella M.D., Ph.D. [address] [place] [phone] Malignant Neoplasm Of Unspecified Part Of Lung Laterality Unknown Squamous Cell (HCC); Esophagitis Eosinophilic; Dysphagia Social History Tobacco Use Types Packs/Day Years Used Date Smoking Tobacco: Former Cigarettes 1 35 0 04/14/2023 - 01/20/2024 Passive Smoke Exposure: Never Smokeless Tobacco: Never Alcohol Use Standard Drinks/Week Comments Not Currently 0 (1 standard drink = 0.6 oz pur e alcohol) [facility] Utilities Answer Date Recorded In the past 12 months has [facility] [employer], gas, oil, or water [employer] threatened to shut off services in your [...] your living situation today? 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 - 09/20/2024 10:40 AM CDT Referring Provider: Elizabeth Warner APRN C.N.P., M.S. Primary Care Provider: No primary care provider on file. Subjective: Chief Complaint/Reason for Consult: Issue Odynophagia 2. Celiac disease - HLA celiac genotyping equivocal - TTG 7.7 and Deaminated Gliadin 21.8 IgA 104 - Duodenal Hp 08/30/24: partially blunted duodenal mucosa. Increased intra- epithelial lymphocytes. Plasma cells present. HPI: I had the pleasure of reviewing Rene Miramontes. Mode of Consultation: This consultation was initially scheduled as a video visit; however, due to technical difficulties,it was conducted via telephone. 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 He received three cycles of carboplatin and paclitaxel from January through March 2024. A PET-CT performed in March demonstrated a mixed response to systemic therapy. His course was complicated by the development of a large paratracheal mass causing tracheal stenosis, necessitating bronchoscopy with tracheal stent placement. He subsequently underwent definitive radiation therapy (30 fractions) from April through mid-May 2024, along with concurrent chemotherapy. Pembrolizumab was reinitiated in June 2024 following completion of chemoradiation. Approximately 2-3 weeks following the completion of radiation, he began experiencing localized irritation near the sternal notch, particularly associated with odynophagia. He describes sharp discomfort with both solids and liquids, more pronounced with cold temperatures. Lukewarm food and drink are better tolerated. He denies dysphagia, regurgitation, or chest spasms. His weight has remained stable over the past 3 months at approximately 250 lbs. He has trialed magic mouthwash as well as PPI therapy which has not helped with his symptoms. He has also trialed peppermint with limited benefit. He was commenced on Budesonide 1mg BID via nebulized solution that was commenced 1 week ago. Previous Investigations and Interventions: Esophagram and Videofluoroscopic Swallow Study: Demonstrated a normal swallowing mechanism, but moderate esophageal dysmotility was noted. Findings included breakup of the primary peristaltic wave and tertiary contractions in the distal esophagus. A 13 mm tablet passed without delay. EGD (August 2024): Normal esophageal mucosa with no evidence of stricture, compression, or obstructivelesion. Duodenal mucosa was mildly erythematous and congested. Biopsies showed partially blunted villi with increased intraepithelial lymphocytosis (40 lymphocytes per 100 epithelial cells) and plasma cells, suggestive of mild duodenitis. No evidence of eosinophilic esophagitis was seen. Past GI History: The patient has a longstanding history of gastroesophageal reflux disease, managed with omeprazole 40 mg twice daily for over 3-5 years with good symptomatic control. He reports adherence to reflux precautions including avoiding late meals and elevating the head of the bed. Patient Active Problem List Diagnosis Date Noted Odynophagia 09/15/2024 Medication Therapy Institutional Commodity Analyst Not 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 06/03/2024 Respiratory Failure With Hypoxia (HCC) 04/10/2024 Medication Therapy Institutional Commodity Analyst Not 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 02/02/2024 Malignant Neoplasm Of Lung Lower Lobe Or Bronchus Right (HCC) 01/28/2024 Allergies[1] Prior to Admission medications Medication Sig Start Date End Date Taking? Authorizing Provider albuterol 90 mcg/actuation inhaler Inhale 2 puffs every 6 (six) hours as needed for wheezing. 01/23/24 Leroy Coreas APRN, C.N.P., D.N.P. atenoloL (Tenormin) 25 mg tablet Take 1 tablet (25 mg total) by mouth daily. 08/31/24 Shira Méndez M.D. budesonide (Pulmicort) 1 mg/2 mL nebulizer solution Inhale 2 mL (1 mg total) by nebulization 2 (two) times a day. Rinse mouth with water after use to reduce aftertaste and incidence of candidiasis. Do not swallow. 09/03/24 Akil Savage M.D. budesonide 3 mg/10 mL (0.03%) oral suspension Swish and swallow 10 mL 2 (two) times a day. Swallow 10 ml slowly by mouth two times a day (after breakfast and at bedtime).Rinse with water and spit.Do not eat/drink for 2 hours. 09/02/24 Elizabeth Warner APRN, C.N.P., M.S. OLANZapine (ZyPREXA) 5 mg tablet Take 1 tablet (5 mg total) by mouth as directed. Take daily starting at bedtime first day of chemotherapy continuing for 4 days after each chemotherapy dose. May takeas needed at bedtime after fourth day if nausea/vomiting persists. If you experience nausea/vomiting during Cycle 1, start the night prior to chemotherapy for Cycle 2 and beyond. Patient not taking: Reported on 09/15/2024 02/10/24 Elizabeth Warner APRN, C.N.P., M.S. omeprazole (PriLOSEC) [address] capsule Take 40 mg by mouth 2 (two) times a day before morning and evening meals. 11/21/23 Provider, Historical ondansetron (Zofran) 8 mg tablet Take 1 tablet (8 mg total) by mouth every 8 (eight) hours as needed for nausea or vomiting (use second for nausea). Patient not taking: Reported on 09/15/2024 02/10/24 02/09/25 Elizabeth Warner APRN, Itzel.N.P., M.S. prochlorperazine (Compazine) 10 mg tablet Take 1 tablet (10 mg total) by mouth every 6 (six) hours as needed for nausea or vomiting (use first nausea). Patient not taking: Reported on 09/15/2024 02/10/24 02/09/25 Elizabeth Warner APRN, Itzel.N.P., M.S. sodium chloride (NebuSaL) 3 % nebulizer solution Inhale 4 mL by nebulization 3 (three) times a day.04/15/24 Brent Iqbal M.D. tiotropium (Spiriva Respimat) 2.5 mcg/actuation inhaler Inhale 2 puffs daily. 01/23/24 Leroy Coreas APRN, C.N.P., D.N.P. venlafaxine XR (Effexor-XR) 150 mg 24 hr capsule Take 150 mg by mouth daily with morning meal. 10/05/22 Provider, Historical Assessment/Plan: I discussed this case with Dr Maloney. The overall clinic appointment was limited by being a phone call as the first review in the esophageal clinic. This is a patient with post-radiation esophageal irritation contributing to odynophagia, particularly with cold substances. There is no evidence of structural obstruction or mucosal ulceration on EGD. Our plan is to trial the Pulmicort for another 1-2 months and then reassess with upper endoscopy. I suspect his raised eosinophils is consistent with general non-specific inflammation most likely inthe context of his previous treatment for his lung SCC. Pembrolizumab associated esophagitis remains a differential however there was no evidence of active inflammation seen on upper endoscopy. We suspect that his symptoms will improve over time; however if it does not we would increase his budesonide therapy or trial him on Carafate. I wanted to trial Carafate today however Rene Miramontes is limited by financial constraints. Of note there was suggestion of developing dysmotility on barium esophagram however a 13mm tablet was able to pass. Rene Miramontes did not want to have further testing for this given financial limitations currently due to his ongoing treatment for lung squamous cell cancer. Currently based on his symptoms I do not suspect a dysmotility disorder however esophageal manometry may need to be considered in the future to characterise the dysmotility that was seen on his esophagram. . Rene Miramontes has returned equivocal HLA genotyping, very mildly raised celiac serology and evidence of partial villous blunting. This may all be consistent with celiac disease. In this context I would advise him to be on a strict gluten free diet and repeat serology and upper endsocopy in6 months time. In the interim all his first degree relatives should be screened for celiac disease.This will need to be re-discussed at the next appointment, as it was not adequately covered due to the limitations of our phone consultation. I will follow him up following all of his investigations. Electronically signed by: Torres Estrella M.D., Ph.D. 09/20/2024 7:22 AM CDT [1] No Known Allergies * Douglas Maloney M.D. - 09/20/2024 10:40 AM CDT SUBJECTIVE HISTORY OF PRESENT ILLNESS Mr. Miramontes's virtual consult did not work, it was done by phone. He discussed this with Dr. Estrella. I discussed the case with Dr. Estrella. I did not specifically talk to the patient. In summary, he is a patient with T4N2 squamous cell carcinoma of the lung, got chemotherapy, a couple weeks into radiation therapy, he began to develop odynophagia where it was uncomfortable to swallow. Warm liquids were the best. This continued throughout his radiation course and continued throughhis immunotherapy course unaltered. He has been on Magic mouthwash and his omeprazole increased from 40 mg once a day to 40 mg b.i.d. without benefit. A swallowing study was normal, video swallow wasnormal. Esophagram did show some tertiary contractions, questionable esophageal motility disorder. Upper endoscopy of the esophagus looked fairly normal. Biopsy showed 32 eos per high- power field. Hehas been on Pulmicort 3 mg b.i.d. now for a week without improvement. ASSESSMENT / PLAN #1 Odynophagia It really sounds to me like this is radiation induced by the timing of it and it certainly would bethe most likely possibility. Immunotherapy can certainly cause odynophagia, but the timing was not right. There is no evidence of pill esophagitis and no evidence of infection, particularly herpes grossly looking at the esophagus or on biopsy. We discussed the possibly of Carafate. Patient was not interested due to the cost. I think giving him a month of steroid therapy and then reviewing his situation with him and possibly consider another repeat endoscopy. This would be a very unusual story for eosinophilic esophagitis. Douglas Maloney M.D. CT CT Job ID: [id number] documented in this encounter Plan of Treatment Upcoming Encounters Date Type Department Care Team (Latest Contact Info) Description 09/28/2024 3:20 PM CDT Office Visit Division of Gastroenterology in [address] [phone] Pratik Fishman M.D. [address] [place] [phone] 10/18/2024 10:15 AM CDT Clinical Communication Virtual Review in [place], [place] 200 [place] [phone] 10/18/2024 11:45 AM CDT Appointment Division of Gastroenterology in [place], [place] [address] [place] [phone] Torres Estrella M.D., Ph.D. [address] [place] [phone] 10/20/2024 1:15 PM CDT Appointment Department of Radiology, [facility], in [place], [place] [address] [place] [phone] Elizabeth Warner APRN, C.N.P., M.S. [address] [place] [phone] 10/20/2024 3:00 PM CDT Office Visit Department of Palliative Care in [place], [place] [address] [place] [phone] Jacinda Cruz M.D. [address] [place] [phone] 10/21/2024 7:50 AM CDT Appointment Department of Laboratory Medicine and Pathology, [facility] in [place], [place] [address] [place] [phone] Elizabeth Warner APRN, C.N.P., M.S. [address] [place] [phone] 10/21/2024 10:20 AM CDT Office Visit Department of Oncology in [place], [place] [address] [place] [phone] Marquise Singh M.D. [address] [place] [phone] 10/25/2024 12:00 PM CDT Virtual Visit Division of Gastroenterology in [place], [place] [address] [place] [phone] Torres Estrella M.D., Ph.D. [address] [place] [phone] Scheduled Orders Name Type Priority Associated Diagnoses Orde r Schedule EGD (EsophagoGastroDuodenoscop y) Restricted GI Routine Dysphagia Expected: 10/20/2024, Expires: 12/21/2025 Scheduled Referrals Name Type Priority Associated Diagnoses Order Schedule Gastroenterology and Hepatology office visit (clinic) Outpatient Referral Routine 1 Occurrences starting 09/20/2024 until 12/21/2025 documented as of this encounter Visit Diagnoses Diagnosis Malignant Neoplasm Of Unspecified Part Of Lung Laterality Unknown Squamous Cell (HCC) Esophagitis Eosinophilic Dysphagia documented in this encounter Additional Health Concerns Active Problems Noted Date Diagnosed Date Autogenerated Problem 09/20/2024 documented as of this encounter
[2024-09-26] VITALS (7 sets, daily range): BP systolic 136; BP diastolic 86; PULSE 85–95; RESP 14–16; TEMP 36.6; O2SAT 93–94; BMI 34.3
--- OUTSIDE RECORDS SUMMARY | 2024-09-26 06:47 | XMS_ITS | Encounter Summary ---
Author Organization [facility] Address [address] [place] [address] Care Team Providers Care Soap Tender Name Role Phone Unavailable Primary Care Provider Unavailabl e Encounter Details Date Type Department Care Team (Late st Contact Info) Description 08/24/2024 Results Follow-Up Department of Palliative Care in [place], [place] [address] [place] [phone] Emperatriz Gonzales, ADRI, C.N.P., D.N.P. [address] [place] [phone] Head Neck Soft Tissue, Thyroid Function [place] Social History Tobacco Use Types Packs/Day Years Used Date Smoking Tobacco: Former Cigarettes 1 35 0 04/14/2023 - 01/20/2024 Passive Smoke Exposure: Never Smokeless Tobacco: Never Alcohol Use Standard Drinks/Week Comments Not Currently 0 (1 standard drink = 0.6 oz pur e alcohol) [facility] Utilities Answer Date Recorded In the past 12 months has [employer], gas, oil, or water [employer] threatened to shut off services in your [...] your living situation today? 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 [address] [place] [phone] 10/18/2024 10:15 AM CDT Clinical Communication Virtual Review in [place], [place] 200 [place] [phone] 10/18/2024 11:45 AM CDT Appointment Division of Gastroenterology in [place], [place] [address] [place] [phone] Torres Estrella M.D., Ph.D. [address] [place] [phone] 10/20/2024 1:15 PM CDT Appointment Department of Radiology, [facility], in [place], [place] [address] [place] [phone] Elizabeth Warner APRN, C.N.P., M.S. [address] [place] [phone] 10/20/2024 3:00 PM CDT Office Visit Department of Palliative Care in [place], [place] [address] [place] [phone] Jacinda Cruz M.D. [address] [place] [phone] 10/21/2024 7:50 AM CDT Appointment Department of Laboratory Medicine and Pathology, [facility] in [place], [place] [address] [place] [phone] Elizabeth Warner APRN, C.N.P., M.S. [address] [place] [phone] 10/21/2024 10:20 AM CDT Office Visit Department of Oncology in [place], [place] [address] [place] [phone] Marquise Singh M.D. [address] [place] [phone] 10/25/2024 12:00 PM CDT Virtual Visit Division of Gastroenterology in [place], [place] [address] [place] [phone] Torres Estrella M.D., Ph.D. [address] [place] [phone] documented as of this encounter Visit Diagnoses Not on filedocumented in this encounter
--- OUTSIDE RECORDS SUMMARY | 2024-09-26 06:47 | XMS_ITS | Encounter Summary ---
Author Organization [facility] Address [address] [place] [address] Care Team Providers Care Mineralogy Professor Name Role Phone Unavailable Primary Care Provider Unavailabl e Reason for Referral * MRI/CAT/PET Scan (Routine) - Closed Specialty Diagnoses / Procedures Referred By Contac t Referred To Contact Radiology Diagnoses Malignant Neoplasm Of Lung Lower Lobe Or Bronchus Right (HCC) Procedures CT Neck Soft Tissue with IV Contrast Elizabeth Warner APRN, C.N.P., M.S. [address] [place] [phone] Phone: tel: fax: [facility] Referral ID Status Reason Start Date Expiration Date Visits Re quested Visits Authorized [id number] Closed 08/25/2024 11/25/2025 1 1 Encounter Details Date Type Department Care Team (Late st Contact Info) Description 08/25/2024 Clinical Communication Department of Oncology in [place], [place] [address] [place] [phone] Elizabeth Warner APRN, C.N.P., M.S. [address] [place] [phone] Social History Tobacco Use Types Packs/Day Years Used Date Smoking Tobacco: Former Cigarettes 1 35 0 04/14/2023 - 01/20/2024 Passive Smoke Exposure: Never Smokeless Tobacco: Never Alcohol Use Standard Drinks/Week Comments Not Currently 0 (1 standard drink = 0.6 oz pur e alcohol) [facility] Utilities Answer Date Recorded In the past 12 months has e [employer], gas, oil, or water [employer] threatened to shut off services in your [...] Answer Date Recorded Dental: Regular Dentist Yes 02/02/20 25 Employment Answer Date Recorded Employment status Employed but not working due t o illness or injury 05/16/2024 Housing Stability Answer Date Recorded What is your living situation today? 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 [address] [place] [phone] 10/18/2024 10:15 AM CDT Clinical Communication Virtual Review in [place], [place] 200 [place] [phone] 10/18/2024 11:45 AM CDT Appointment Division of Gastroenterology in [address] [phone] Torres Estrella M.D., Ph.D. [address] [place] [phone] 10/20/2024 1:15 PM CDT Appointment Department of Radiology, [facility], in [place], [place] [address] [place] [phone] Elizabeth Warner, ADRI, C.N.P., M.S. [address] [place] [phone] 10/20/2024 3:00 PM CDT Office Visit Department of Palliative Care in [address] [phone] Jacinda Cruz M.D. [address] [place] [phone] 10/21/2024 7:50 AM CDT Appointment Department of Laboratory Medicine and Pathology, [facility], in [place], [place] [address] [place] [phone] Elizabeth Warner APRN, C.N.P., M.S. [address] [place] [phone] 10/21/2024 10:20 AM CDT Office Visit Department of Oncology in [place], [place] [address] [place] [phone] Marquise Singh M.D. [address] [place] [phone] 10/25/2024 12:00 PM CDT Virtual Visit Division of Gastroenterology in [place], [place] [address] [place] [phone] Torres Estrella M.D., Ph.D. [address] [place] [phone] documented as of this encounter Results * CT Neck Soft Tissue with IV Contrast (08/26/2024 11:46 AM CDT) Anatomical Region Laterality Modality Neck, Neuroradiology [facility] , Neuroradiology [facility], Neuroradiology [facility] N/A Computed Tomography, Compute d Tomography 08/26/2024 [...] Lower Lobe Or Bronchus Right (HCC)- Primary Malignant Neoplasm Of Lung Lower Lobe Or Bronchus Right (HCC) documented in this encounter
--- OUTSIDE RECORDS SUMMARY | 2024-09-26 06:47 | XMS_ITS | Encounter Summary ---
Author Organization [facility] Address [address] [place] [address] Care Team Providers Care Machinist Mate Name Role Phone Unavailable Primary Care Provider Unavailabl e Encounter Details Date Type Department Care Team (Late st Contact Info) Description 07/13/2024 Clinical Communication Department of Radiation Oncology in [place], [place] [address] [place] [phone] Wilfrido Chua M.D. [address] [place] [phone] Social History Tobacco Use Types Packs/Day Years Used Date Smoking Tobacco: Former Cigarettes 1 35 0 04/14/2023 - 01/20/2024 Passive Smoke Exposure: Never Smokeless Tobacco: Never Alcohol Use Standard Drinks/Week Comments Never 0 (1 standard drink = 0.6 oz pur e alcohol) [facility] Utilities Answer Date Recorded In the past 12 months has [facility] [employer], [employer], oil, or water [employer] threatened to shut off services in your [...] your living situation today? 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 Pharmacy to send the prescription to: [facility] in [place] Patient preferences for being notified when prescription is sent to the pharmacy: The patient does not wish to be notified. documented in this encounter Plan of Treatment Upcoming Encounters Date Type Department Care Team (Latest Contact Info) Description 09/28/2024 3:20 PM CDT Office Visit Division of Gastroenterology in [address] [phone] Pratik Fishman M.D. [address] [place] [phone] 10/18/2024 10:15 AM CDT Clinical Communication Virtual Review in [place], [place] [address] [place] [address] 10/18/2024 11:45 AM CDT Appointment Division of Gastroenterology in [address] [phone] Torres Estrella M.D., Ph.D. [address] [place] [phone] 10/20/2024 1:15 PM CDT Appointment Department of Radiology, [facility], in [address] [phone] Elizabeth Warner, ACQUISITION SPECIALIST, C.N.P., M.S. [address] [place] [phone] 10/20/2024 3:00 PM CDT Office Visit Department of Palliative Care in [address] [phone] Jacinda Cruz M.D. [address] [place] [phone] 10/21/2024 7:50 AM CDT Appointment Department of Laboratory Medicine and Pathology, [facility] in [place], [place] [address] [place] [phone] Elizabeth Warner, ADRI, C.N.P., M.S. [address] [place] [phone] 10/21/2024 10:20 AM CDT Office Visit Department of Oncology in [place], [place] [address] [place] [phone] Marquise Singh M.D. [address] [place] [phone] 10/25/2024 12:00 PM CDT Virtual Visit Division of Gastroenterology in [place], [place] [address] [place] [phone] Torres Estrella M.D., Ph.D. [address] [place] [phone] documented as of this encounter Visit Diagnoses Not on filedocumented in this encounter
--- OUTSIDE RECORDS SUMMARY | 2024-09-26 06:47 | XMS_ITS | Encounter Summary ---
Author Organization 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 [address] [place] [address] Phone: tel: fax: [facility] Referral ID Status Reason Start Date Expiration Date Visits Re quested Visits Authorized [id number] Closed 08/17/2024 02/16/2026 1 1 Encounter Details Date Type Department Care Team (Late st Contact Info) Description 08/17/2024 Orders Only Department of Oncology in [place], [place] [address] [place] [phone] Svetlana Perry M.D. 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 [address] [place] [phone] 10/18/2024 10:15 AM CDT Clinical Communication Virtual Review in [place], [place] 200 [place] [phone] 10/18/2024 11:45 AM CDT Appointment Division of Gastroenterology in [address] [phone] Torres Estrella M.D., Ph.D. [address] [place] [phone] 10/20/2024 1:15 PM CDT Appointment Department of Radiology, [facility], in [place], [place] [address] [place] [phone] Elizabeth Warner, ADRI, C.N.P., M.S. [address] [place] [phone] 10/20/2024 3:00 PM CDT Office Visit Department of Palliative Care in [place], [place] [address] [place] [phone] Jacinda Cruz M.D. [address] [place] [phone] 10/21/2024 7:50 AM CDT Appointment Department of Laboratory Medicine and Pathology, [facility] in [place], [place] [address] [place] [phone] Elizabeth Warner, ADRI, C.N.P., M.S. [address] [place] [phone] 10/21/2024 10:20 AM CDT Office Visit Department of Oncology in [place], [place] [address] [place] [phone] Marquise Singh M.D. [address] [place] [phone] 10/25/2024 12:00 PM CDT Virtual Visit Division of Gastroenterology in [place], [place] [address] [place] [address] Torres Estrella M.D., Ph.D. 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
--- OUTSIDE RECORDS SUMMARY | 2024-09-26 06:47 | XMS_ITS | Encounter Summary ---
Author Organization [facility] Address [address] [place] [address] Care Team Providers Care Industrial Sewer Name Role Phone Unavailable Primary Care Provider Unavailabl e Encounter Details Date Type Department Care Team (Late st Contact Info) Description 08/25/2024 Orders Only Division of Endocrinology in [place], [place] [address] [place] [phone] Shira Méndez M.D. [address] [place] [phone] Hyperthyroidism (Primary Dx) Social History Tobacco Use Types Packs/Day Years Used Date Smoking Tobacco: Former Cigarettes 1 35 0 04/14/2023 - 01/20/2024 Passive Smoke Exposure: Never Smokeless Tobacco: Never Alcohol Use Standard Drinks/Week Comments Not Currently 0 (1 standard drink = 0.6 oz pur e alcohol) [facility] Utilities Answer Date Recorded In the past 12 months has [facility] [employer], gas, oil, or water [employer] threatened to shut off services in your [...] living situation today? 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 [address] [place] [phone] 10/18/2024 10:15 AM CDT Clinical Communication Virtual Review in [place], [place] 200 [place] [phone] 10/18/2024 11:45 AM CDT Appointment Division of Gastroenterology in [place], [place] [address] [place] [phone] Torres Estrella M.D., Ph.D. [address] [place] [phone] 10/20/2024 1:15 PM CDT Appointment Department of Radiology, [facility], in [place], [place] [address] [place] [phone] Elizabeth Warner APRN, C.N.P., M.S. [address] [place] [phone] 10/20/2024 3:00 PM CDT Office Visit Department of Palliative Care in [place], [place] [address] [place] [phone] Jacinda Cruz M.D. [address] [place] [phone] 10/21/2024 7:50 AM CDT Appointment Department of Laboratory Medicine and Pathology, [facility] in [place], [place] [address] [place] [phone] Elizabeth Warner APRN, C.N.P., M.S. [address] [place] [phone] 10/21/2024 10:20 AM CDT Office Visit Department of Oncology in [place], [place] [address] [place] [phone] Marquise Singh M.D. [address] [place] [phone] 10/25/2024 12:00 PM CDT Virtual Visit Division of Gastroenterology in [place], [place] [address] [place] [phone] Torres Estrella M.D., Ph.D. [address] [place] [phone] documented as of this encounter Results * Thyrotropin Receptor Antibody (08/26/2024 12:00 PM CDT) Thyrotropin Receptor Ab, S <1.10 0.00 - 1.75 IU/L 08/27/2024 5:08 PM CDT [facility] Comment: ----ADDITIONAL INFORMATION---- At a decision limit of 1.75 IU/L, this assay has 97% sensitivity and 99% specificity for detection of Graves' disease. In healthy individuals and in patients with thyroid disease without diagnosis of Graves' disease, the upper limit of anti-TSHR values are 1.22 IU/L and 1.58 IU/L, respectively (97.5th percentiles). Blood (Blood, Venous) 08/26/2024 12:00 PM CDT 08/27/2024 4:15 PM CDT Shira Méndez M.D. LAB BLOOD ADD-ON Final Result [facility] [address] [place] [address] [facility] [address] [place] [address] documented in this encounter Visit Diagnoses Diagnosis Hyperthyroidism- Primary documented in this encounter
--- OUTSIDE RECORDS SUMMARY | 2024-09-26 06:47 | XMS_ITS | Encounter Summary ---
Author Organization [facility] Address [address] [place] [address] Care Team Providers Care Mule Tender Name Role Phone Unavailable Primary Care Provider Unavailabl e Reason for Referral * Outpatient (Routine) - Closed Specialty Diagnoses / Procedures Referred By Contadia t Referred To Contact Radiation Oncology Wilfrido Chua M.D. [address] [place] [phone] Phone: tel: fax: Wilfrido Chua M.D. [address] [place] [phone] Phone: tel: fax: Referral ID Status Reason Start Date Expiration Date Visits Re quested Visits Authorized [id number] Closed 08/04/2024 02/03/2026 1 1 Scheduling Instructions Please schedule at 1:00 Encounter Details Date Type Department Care Team (Late st Contact Info) Description 08/02/2024 Clinical Communication Department of Radiation Oncology in [address] [phone] Wilfrido Chua M.D. [address] [place] [phone] Social History Tobacco Use Types Packs/Day Years Used Date Smoking Tobacco: Former Cigarettes 1 35 0 04/14/2023 - 01/20/2024 Passive Smoke Exposure: Never Smokeless Tobacco: Never Alcohol Use Standard Drinks/Week Comments Never 0 (1 standard drink = 0.6 oz pur e alcohol) [facility] Utilities Answer Date Recorded In the past 12 months has e [employer], gas, oil, or water [employer] threatened to shut off services in your [...] your living situation today? 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 - 08/04/2024 1:41 PM CDT PHONE-CALL FOLLOW UP HISTORY OF PRESENT ILLNESS Mr. Rene Miramontes is a 54 y.o. 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 REASON FOR CALL Oxycodone Refill ASSESSMENT Patient called in to report that he continue to ongoing esophageal pain post radiation treatment. He continues to take Oxycodone 10 mg every 4-5 hours, ES Tylenol 1000 and Ibuprofen 400 mg twice daily and Magic Mouthwash 2-3 times daily. He rates his pain 8 out of 10 when with swallowing and eating. He reports that the pain can occur even with just drinking water. He reports when he takes the Oxycodone it brings his pain down to a 3-4. He notes no improvement in esophageal pain . PLAN Discussed symptoms with Dr. Chua. He would like the patient to come in for an office visit to have the pain further assessed prior to refilling the Oxycodone prescription. Patient is able to come in for an appointment tomorrow afternoon. Appointment has been ordered and patient was in agreement with this plan. Disposition/Recommendation: self-care - appropriate at this time, patient encouraged to call back with questions Information/Education: patient/caller able to teach back Caller agreeable to plan of care: yes The following references were used: provider Dr. Chua * Telephone Encounter - Angelia García - 08/04/2024 12:23 PM CDT Other Reason for Call Caller: Ed Relationships to patient: Self Reason for call: Patient called as he said he called in a few days ago for a refill. He said he hasn't heard anything in regards to it and his throat is really sore. * Telephone Encounter - Chin Cruz - 08/02/2024 10:42 AM CDT Refill Medication Request: Medication: Oxycodone The patient is currently taking this medication (frequency/dosage): 10mg PRN The patient has 6 pills remaining. The refill is pended. Please review and modify as needed. documented in this encounter Plan of Treatment Upcoming Encounters Date Type Department Care Team (Latest Contact Info) Description 09/28/2024 3:20 PM CDT Office Visit Division of Gastroenterology in [address] [phone] Pratik Fishman M.D. [address] [place] [phone] 10/18/2024 10:15 AM CDT Clinical Communication Virtual Review in [place], [place] 200 [place] [phone] 10/18/2024 11:45 AM CDT Appointment Division of Gastroenterology in [address] [phone] Torres Estrella M.D., Ph.D. [address] [place] [phone] 10/20/2024 1:15 PM CDT Appointment Department of Radiology, [facility], in [place], [place] [address] [place] [phone] Elizabeth Warner, ADRI, C.N.P., M.S. [address] [place] [phone] 10/20/2024 3:00 PM CDT Office Visit Department of Palliative Care in [place], [place] [address] [place] [address] Jacinda Cruz M.D. [address] [place] [phone] 10/21/2024 7:50 AM CDT Appointment Department of Laboratory Medicine and Pathology, [facility] in [place], [place] [address] [place] [phone] Elizabeth Warner APRN, C.N.P., M.S. [address] [place] [phone] 10/21/2024 10:20 AM CDT Office Visit Department of Oncology in [place], [place] [address] [place] [address] Marquise Singh M.D. [address] [place] [phone] 10/25/2024 12:00 PM CDT Virtual Visit Division of Gastroenterology in [place], [place] [address] [place] [phone] Torres Estrella M.D., Ph.D. [address] [place] [phone] Scheduled Referrals Name Type Priority Associated Diagnoses Orde r Schedule Radiation Oncology office visit (clinic) Outpatient Referral Routine Expected: 08/05/2024, Expires: 11/03/2025 documented as of this encounter Visit Diagnoses Not on filedocumented in this encounter
--- OUTSIDE RECORDS SUMMARY | 2024-09-26 06:48 | XMS_ITS | Encounter Summary ---
Author Organization [facility] Address [address] [place] [address] Care Team Providers Care Strap Machine Operator Name Role Phone Unavailable Primary Care Provider Unavailabl e Encounter Details Date Type Department Care Team (Late st Contact Info) Description 09/02/2024 Clinical Communication Department of Oncology in [place], [place] [address] [place] [phone] Elizabeth Warner, ADRI, C.N.P., M.S. [address] [place] [phone] Social History Tobacco Use Types Packs/Day Years Used Date Smoking Tobacco: Former Cigarettes 1 35 0 04/14/2023 - 01/20/2024 Passive Smoke Exposure: Never Smokeless Tobacco: Never Alcohol Use Standard Drinks/Week Comments Not Currently 0 (1 standard drink = 0.6 oz pur e alcohol) [facility] Utilities Answer Date Recorded In the past 12 months has [facility] [employer], gas, oil, or water [employer] threatened to shut off services in your [...] your living situation today? I have a [facility] place to live 05/16/2024 Sex and Gender Information Value Date Recorded Sex Assigned at Male 01/28/2024 10:26 AM CDT Legal Sex Male 10:09 PM MEDICAL RECORDS COORDINATOR Gender Identity Male 01/28/2024 10:26 AM CDT Sexual Orientation Straight 01/28/2024 10 :26 AM CDT documented as of this encounter Plan of Treatment Upcoming Encounters Date Type Department Care Team (Latest Contact Info) Description 09/28/2024 3:20 PM CDT Office Visit Division of Gastroenterology in [place], [place] [address] [place] [address] Pratik Fishman M.D. [address] [place] [phone] 10/18/2024 10:15 AM CDT Clinical Communication Virtual Review in [place], [place] 200 [place] [phone] 10/18/2024 11:45 AM CDT Appointment Division of Gastroenterology in [place], [place] [address] [place] [phone] Torres Estrella M.D., Ph.D. [address] [place] [phone] 10/20/2024 1:15 PM CDT Appointment Department of Radiology, [facility], in [address] [phone] Elizabeth Warner APRN, C.N.P., M.S. [address] [place] [phone] 10/20/2024 3:00 PM CDT Office Visit Department of Palliative Care in [address] [phone] Jacinda Cruz M.D. [address] [place] [phone] 10/21/2024 7:50 AM CDT Appointment Department of Laboratory Medicine and Pathology, [facility] in [place], [place] [address] [place] [phone] Elizabeth Warner APRN, C.N.P., M.S. [address] [place] [phone] 10/21/2024 10:20 AM CDT Office Visit Department of Oncology in [address] [phone] Marquise Singh M.D. [address] [place] [phone] 10/25/2024 12:00 PM CDT Virtual Visit Division of Gastroenterology in [place], [place] [address] [place] [phone] Torres Estrella M.D., Ph.D. [address] [place] [phone] documented as of this encounter Visit Diagnoses Not on filedocumented in this encounter
--- OUTSIDE RECORDS SUMMARY | 2024-09-26 06:48 | XMS_ITS | Encounter Summary ---
Author Organization [facility] Address [address] [place] [address] Care Team Providers Care Aperture Mask Etcher Name Role Phone Unavailable Primary Care Provider Unavailabl e Reason for Referral * Outpatient (Routine) - Authorized Specialty Diagnoses / Procedures Referred By Cinthia trinidad Referred To Contact Oncology Brody Araya APRN, C.N.P., M.S. [address] [place] [phone] Phone: tel: fax: Brody Araya APRN, C.N.P., M.S. [address] [place] [phone] Phone: tel: fax: Referral ID Status Reason Start Date Expiration Date V isits Requested Visits Authorized [id number] Authorized 09/07/2024 03/09/2026 1 1 Scheduling Instructions Timmy Patel OR Samantha * MRI/CAT/PET Scan (Routine) - Authorized Specialty Diagnoses / Procedures Referred By Cinthia trinidad Referred To Contact Radiology Diagnoses Malignant Neoplasm Of Lung Lower Lobe Or Bronchus Right (HCC) Nodules Pulmonary Multiple Procedures CT Abdomen Pelvis with IV Contrast Brody Araya APRN, C.N.P., M.S. [address] [place] [phone] Phone: tel: fax: [facility] Referral ID Status Reason Start Date Expiration Date V isits Requested Visits Authorized [id number] Authorized 09/07/2024 12/08/2025 1 1 * MRI/CAT/PET Scan (Routine) - Authorized Specialty Diagnoses / Procedures Referred By Contac t Referred To Contact Radiology Diagnoses Malignant Neoplasm Of Lung Lower Lobe Or Bronchus Right (HCC) Nodules Pulmonary Multiple Procedures CT Chest with IV Contrast Brody Araya APRN, C.N.P., M.S. [address] [place] [phone] Phone: tel: fax: [facility] Referral ID Status Reason Start Date Expiration Date V isits Requested Visits Authorized [id number] Authorized 09/07/2024 12/08/2025 1 1 Encounter Details Date Type Department Care Team (Late st Contact Info) Description 09/02/2024 Clinical Communication Department of Oncology in [place], [place] [address] [place] [phone] Brody Araya APRN, C.N.P., M.S. [address] [place] [phone] Social History Tobacco Use Types Packs/Day Years Used Date Smoking Tobacco: Former Cigarettes 1 35 0 04/14/2023 - 01/20/2024 Passive Smoke Exposure: Never Smokeless Tobacco: Never Alcohol Use Standard Drinks/Week Comments Not Currently 0 (1 standard drink = 0.6 oz pur e alcohol) [facility] Utilities Answer Date Recorded In the past 12 months has e electric, gas, oil, or water [employer] threatened to shut off services in your [...] your living situation today? 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 - 09/07/2024 7:31 AM CDT Addended by: BRODY ARAYA on: 09/07/2024 07:31 AM Modules accepted: Orders documented in this encounter Plan of Treatment Upcoming Encounters Date Type Department Care Team (Latest Contact Info) Description 09/28/2024 3:20 PM CDT Office Visit Division of Gastroenterology in [address] [phone] Pratik Fishman M.D. [address] [place] [phone] 10/18/2024 10:15 AM CDT Clinical Communication Virtual Review in [address] [phone] 10/18/2024 11:45 AM CDT Appointment Division of Gastroenterology in [address] [phone] Torres Estrella M.D., Ph.D. [address] [place] [phone] 10/20/2024 1:15 PM CDT Appointment Department of Radiology, [facility], in [address] [phone] Brody Araya APRN, C.N.P., M.S. [address] [place] [phone] 10/20/2024 3:00 PM CDT Office Visit Department of Palliative Care in [address] [phone] Jacinda Cruz M.D. [address] [place] [phone] 10/21/2024 7:50 AM CDT Appointment Department of Laboratory Medicine and Pathology, [facility], in [place], [place] [address] [place] [phone] Brody Araya APRN, C.NMiley., M.S. [address] [place] [phone] 10/21/2024 10:20 AM CDT Office Visit Department of Oncology in [place], [place] [address] [place] [phone] Marquise Singh M.D. [address] [place] [phone] 10/25/2024 12:00 PM CDT Virtual Visit Division of Gastroenterology in [place], [place] [address] [place] [phone] Torres Estrella M.D., Ph.D. [address] [place] [phone] Scheduled Orders Name Type Priority Associated Diagnoses Orde r Schedule CT Chest with IV Contrast Imaging RAD - Routine (most inpatients and all outpatients) Malignant Neoplasm Of Lung Lower Lobe Or Bronchus Right (HCC) Nodules Pulmonary Multiple Expected: 10/19/2024 (Approximate), Expires: 12/08/2025 CT Abdomen Pelvis with IV Contrast Imaging RAD - Routine (most inpatients and all outpatients) Malignant Neoplasm Of Lung Lower Lobe Or Bronchus Right (HCC) Nodules Pulmonary Multiple Expected: 10/19/2024 (Approximate), Expires: 12/08/2025 CBC with Differential, Blood Lab Routine Malignant Neoplasm Of Lung Lower Lobe Or Bronchus Right (HCC) Nodules Pulmonary Multiple Expected: 10/19/2024 (Approximate), Expires: 12/08/2025 Comprehensive Metabolic Panel Lab Routine Malignant Neoplasm Of Lung Lower Lobe Or Bronchus Right (HCC) Nodules Pulmonary Multiple Expected: 10/19/2024 (Approximate), Expires: 12/08/2025 Thyroid Function [place] [facility] Routine Malignant Neoplasm Of Lung Lower Lobe Or Bronchus Right (HCC) Nodules Pulmonary Multiple Medication Therapy Correction Not 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 Expected: 10/19/2024, Expires: 12/08/2025 Scheduled Referrals Name Type Priority Associated Diagnoses Orde r Schedule Oncology office visit (clinic) Outpatient Referral Routine Expected: 10/19/2024 (Approximate), Expires: 12/08/2025 documented as of this encounter Visit Diagnoses Diagnosis 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
--- OUTSIDE RECORDS SUMMARY | 2024-09-26 06:48 | XMS_ITS | Encounter Summary ---
Author Organization [facility] Address [address] [place] [address] Care Team Providers Care Alteration Specialist Name Role Phone Unavailable Primary Care Provider Unavailabl e Encounter Details Date Type Department Care Team (Late st Contact Info) Description 08/23/2024 Clinical Communication Department of Palliative Care in [place], [place] [address] [place] [phone] Emperatriz Gonzales, HOSPITAL STAFF PHARMACIST, C.N.P., D.N.P. [address] [place] [phone] Social History Tobacco Use Types Packs/Day Years Used Date Smoking Tobacco: Former Cigarettes 1 35 0 04/14/2023 - 01/20/2024 Passive Smoke Exposure: Never Smokeless Tobacco: Never Alcohol Use Standard Drinks/Week Comments Not Currently 0 (1 standard drink = 0.6 oz pur e alcohol) [facility] Utilities Answer Date Recorded In the past 12 months has [facility] [employer], oil, or water [employer] threatened to shut off services in your [...] your living situation today? 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 [address] [place] [phone] 10/18/2024 10:15 AM CDT Clinical Communication Virtual Review in [place], [place] 200 [place] [phone] 10/18/2024 11:45 AM CDT Appointment Division of Gastroenterology in [place], [place] [address] [place] [phone] Torres Estrella M.D., Ph.D. [address] [place] [phone] 10/20/2024 1:15 PM CDT Appointment Department of Radiology, [facility], in [place], [place] [address] [place] [phone] Elizabeth Warner APRN, C.N.P., M.S. [address] [place] [phone] 10/20/2024 3:00 PM CDT Office Visit Department of Palliative Care in [place], [place] [address] [place] [phone] Jacinda Cruz M.D. [address] [place] [phone] 10/21/2024 7:50 AM CDT Appointment Department of Laboratory Medicine and Pathology, [facility] in [address] [phone] Elizabeth Warner APRN, C.N.P., M.S. [address] [place] [phone] 10/21/2024 10:20 AM CDT Office Visit Department of Oncology in [place], [place] [address] [place] [phone] Marquise Singh M.D. [address] [place] [phone] 10/25/2024 12:00 PM CDT Virtual Visit Division of Gastroenterology in [place], [place] [address] [place] [phone] Torres Estrella M.D., Ph.D. [address] [place] [phone] documented as of this encounter Visit Diagnoses Not on filedocumented in this encounter
--- OUTSIDE RECORDS SUMMARY | 2024-09-26 06:48 | XMS_ITS | Encounter Summary ---
Author Organization [facility] Address [address] [place] [address] Care Team Providers Care Rehab Aid Name Role Phone Unavailable Primary Care Provider Unavailabl e Reason for Visit * Reason Onset Date Comments After Visit Question 08/23/2024 Encounter Details Date Type Department Care Team (Latest Contact Info) Description 08/23/2024 Clinical Communication Department of Oncology in [place], [place] [address] [place] [phone] Svetlana Perry M.D. [address] [place] [phone] After Visit Question Social History Tobacco Use Types Packs/Day Years Used Date Smoking Tobacco: Former Cigarettes 1 35 0 04/14/2023 - 01/20/2024 Passive Smoke Exposure: Never Smokeless Tobacco: Never Alcohol Use Standard Drinks/Week Comments Not Currently 0 (1 standard drink = 0.6 oz pur e alcohol) [facility] Utilities Answer Date Recorded In the past 12 months has e [employer], gas, oil, or water [employer] threatened to shut off services in your [...] your living situation today? 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 He is asking for the endocrinology order to be for [facility]. Emperatriz would like to discuss the swelling in his mid to left neck. Please call [phone] and have her paged. documented in this encounter Plan of Treatment Upcoming Encounters Date Type Department Care Team (Latest Contact Info) Description 09/28/2024 3:20 PM CDT Office Visit Division of Gastroenterology in [address] [phone] Pratik Fishman M.D. [address] [place] [phone] 10/18/2024 10:15 AM CDT Clinical Communication Virtual Review in [address] [phone] 10/18/2024 11:45 AM CDT Appointment Division of Gastroenterology in [address] [phone] Torres Estrella M.D., Ph.D. [address] [place] [phone] 10/20/2024 1:15 PM CDT Appointment Department of Radiology, [facility], in [address] [phone] Elizabeth Warner APRN, C.N.P., M.S. [address] [place] [phone] 10/20/2024 3:00 PM CDT Office Visit Department of Palliative Care in [address] [phone] Jacinda Cruz M.D. [address] [place] [phone] 10/21/2024 7:50 AM CDT Appointment Department of Laboratory Medicine and Pathology, [facility], in [place], [place] [address] [place] [phone] Elizabeth Warner APRN, C.N.P., M.S. [address] [place] [phone] 10/21/2024 10:20 AM CDT Office Visit Department of Oncology in [place], [place] [address] [place] [phone] Marquise Singh M.D. [address] [place] [phone] 10/25/2024 12:00 PM CDT Virtual Visit Division of Gastroenterology in [place], [place] [address] [place] [phone] Torres Estrella M.D., Ph.D. [address] [place] [phone] documented as of this encounter Visit Diagnoses Not on filedocumented in this encounter
--- OUTSIDE RECORDS SUMMARY | 2024-09-26 06:48 | XMS_ITS | Encounter Summary ---
Author Organization [facility] Address [address] [place] [address] Care Team Providers Care Television Production Technician Name Role Phone Unavailable Primary Care Provider Unavailabl e Encounter Details Date Type Department Care Team (Late st Contact Info) Description 09/03/2024 Orders Only Department of Oncology in [place], [place] [address] [place] [phone] Cece Gr, Pharm.D., R.Ph., [facility] [address] [place] [address] Social History Tobacco Use Types Packs/Day Years Used Date Smoking Tobacco: Former Cigarettes 1 35 0 04/14/2023 - 01/20/2024 Passive Smoke Exposure: Never Smokeless Tobacco: Never Alcohol Use Standard Drinks/Week Comments Not Currently 0 (1 standard drink = 0.6 oz pur e alcohol) [facility] Utilities Answer Date Recorded In the past 12 months has [facility] [employer] gas, oil, or water [employer] threatened to shut off services in your [...] living situation today? 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 [address] [place] [phone] 10/18/2024 10:15 AM CDT Clinical Communication Virtual Review in [place], [place] 200 [place] [phone] 10/18/2024 11:45 AM CDT Appointment Division of Gastroenterology in [place], [place] [address] [place] [phone] Torres Estrella M.D., Ph.D. [address] [place] [phone] 10/20/2024 1:15 PM CDT Appointment Department of Radiology, [facility], in [place], [place] [address] [place] [phone] Elizabeth Warner APRN, C.N.P., M.S. [address] [place] [phone] 10/20/2024 3:00 PM CDT Office Visit Department of Palliative Care in [place], [place] [address] [place] [phone] Jacinda Cruz M.D. [address] [place] [phone] 10/21/2024 7:50 AM CDT Appointment Department of Laboratory Medicine and Pathology, [facility] in [place], [place] [address] [place] [phone] Elizabeth Warner APRN, C.N.P., M.S. [address] [place] [phone] 10/21/2024 10:20 AM CDT Office Visit Department of Oncology in [place], [place] [address] [place] [phone] Marquise Singh M.D. [address] [place] [phone] 10/25/2024 12:00 PM CDT Virtual Visit Division of Gastroenterology in [place], [place] [address] [place] [phone] Torres Estrella M.D., Ph.D. [address] [place] [phone] documented as of this encounter Visit Diagnoses Not on filedocumented in this encounter
--- OUTSIDE RECORDS SUMMARY | 2024-09-26 06:48 | XMS_ITS | Encounter Summary ---
Author Organization [facility] Address [address] [place] [address] Care Team Providers Care Waste Machine Offbearer Name Role Phone Unavailable Primary Care Provider Unavailabl e Encounter Details Date Type Department Care Team (Late st Contact Info) Description 09/03/2024 Orders Only Department of Oncology in [place], [place] [address] [place] [phone] Cece Gr, Pharm.D., R.Ph., [facility] [address] [place] [address] Social History Tobacco Use Types Packs/Day Years Used Date Smoking Tobacco: Former Cigarettes 1 35 0 04/14/2023 - 01/20/2024 Passive Smoke Exposure: Never Smokeless Tobacco: Never Alcohol Use Standard Drinks/Week Comments Not Currently 0 (1 standard drink = 0.6 oz pur e alcohol) [facility] Utilities Answer Date Recorded In the past 12 months has [facility] [employer], gas, oil, or water [employer] threatened to shut off services in your [...] CDT Legal Sex Male 10: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 [address] [place] [phone] 10/18/2024 10:15 AM CDT Clinical Communication Virtual Review in [place], [place] 200 [place] [phone] 10/18/2024 11:45 AM CDT Appointment Division of Gastroenterology in [place], [place] [address] [place] [phone] Torres Estrella M.D., Ph.D. [address] [place] [phone] 10/20/2024 1:15 PM CDT Appointment Department of Radiology, [facility], in [place], [place] [address] [place] [phone] Elizabeth Warner APRN, C.N.P., M.S. [address] [place] [phone] 10/20/2024 3:00 PM CDT Office Visit Department of Palliative Care in [place], [place] [address] [place] [phone] Jacinda Cruz M.D. [address] [place] [phone] 10/21/2024 7:50 AM CDT Appointment Department of Laboratory Medicine and Pathology, [facility] in [place], [place] [address] [place] [phone] Elizabeth Warner APRN, C.N.P., M.S. [address] [place] [phone] 10/21/2024 10:20 AM CDT Office Visit Department of Oncology in [place], [place] [address] [place] [phone] Marquise Singh M.D. [address] [place] [phone] 10/25/2024 12:00 PM CDT Virtual Visit Division of Gastroenterology in [place], [place] [address] [place] [phone] Torres Estrella M.D., Ph.D. [address] [place] [phone] documented as of this encounter Visit Diagnoses Not on filedocumented in this encounter
--- OUTSIDE RECORDS SUMMARY | 2024-09-26 06:48 | XMS_ITS | Clinical Summary ---
Author Organization [facility] Address [address] [place] [address] Care Team Providers Care Curriculum Director Name Role Phone Mayo Lam MD Primary Care Provider Allergies No known active allergies Medications PRILOSEC OTC 20 MG TAB take 1 tablet (20mg) by oral route daily Active tamsulosin (FLOMAX) 0.4 mg capsule 3 Active venlafaxine (EFFEXOR XR) 150 mg Extended-Release capsule 3 Active simvastatin (ZOCOR) 80 mg tablet 3 Active celecoxib (CELEBREX) 100 mg capsule 3 Active pregabalin (LYRICA) 75 mg capsuleIndications :Lumbar radiculopathy 1 po qam, 2 oral at bedtime. 90 Capsule 2 4 Active Active Problems No known active problems Social History Tobacco Use Types Packs/Day Years Used Date Smoking Tobacco: Every Day Cigarettes 1 37.5 Started: 1987 Smokeless Tobacco: Never Tobacco Cessation:Ready to Q uit: No; Counseling Given: Yes Sex and Gender Information Value Date Recorded Sex Assigned at Not on file Legal Sex Male 5:52 AM CLINICAL RESEARCH ASSISTANT Gender Identity Not on file Sexual Orientation Not on file Obstetrics History Last Filed Vital Signs Vital Sign Reading Time Taken Comments Blood Pressure 139/89 07/03/2023 10:03 AM CDT Pulse 96 07/03/2023 10:03 AM CDT Temperature 36.6 C (97.8 F) 05/07/2023 10:28 AM CLINICAL RESEARCH ASSISTANT Respiratory Rate 14 05/23/2008 1:05 PM CLINICAL RESEARCH ASSISTANT Oxygen Saturation 98% 07/03/2023 10:03 AM CDT Inhaled Oxygen Concentration - - Weight 138.3 kg (305 lb) 07/03/2023 10:03 AM CDT Height 187 cm (6' 1.62) 05/23/2008 5:00 AM CLINICAL RESEARCH ASSISTANT Body Mass Index - - Plan of Treatment Health Maintenance Due Date Last Done Comments Tdap 1983 Depression screening for age 12+ 1984 HIV for age 15-65 1987 BMI (ht and wt on same day) for age 18+ 1990 Hepatitis C screening for age 18-79 1990 Hepatitis B series for 19+ ( 1 of 3 - 19+ 3-dose series) 1991 Pneumococcal series for age 50+ (1 of 2 - PCV) 1991 Tetanus booster 1992 Colonoscopy through age 75 2017 Lipids for age 45-75 2017 02/16/2010 Zoster (shingles) series for age 50+ (1 of 2) 2022 COVID-19 vaccine series ( - 2023- season) 2023 08/25/2020, 08/04/2020 Influenza Vaccine (Season Ended) 2024 Medical Devices Implanted Type Area Natural Resources Instructor Device Identifier Shelf Expiration Date Model / Serial / Lot Peek Tenodesis Screw 8x12 [[id number]][ Implanted:Qty: 1 on 05/23/2008 at [facility] Right: Shoulder [id number] / / [id number] Description:PEEK TENODESIS S CREW 8X12 Procedures Procedure Name Priority Date/Time Associated Diagnosis Comments LDL CHOLESTEROL,DIRECT Timed 02/16/2010 9:50 AM CDT from Last 3 Months or Most Recently Relevant to Health Maintenance Results * LDL CHOLESTEROL,DIRECT (02/16/2010 9:50 AM CDT) LDL CHOLESTEROL,D IRECT 56 Undefined mg/dL [facility] Comment: RISK CATEGORY LDL GOAL (mg/dL) Vascular disease and/or diabetes (<100) Multiple (2+) risk factors (<130) 0-1 risk factor (<160) 02/16/2010 9:50 AM CDT 02/16/2010 7:47 PM CDT Wing Kohli MD CHEMISTRY Final Result [facility] INTERNAL ZIP [address] [address] from Last 3 Months or Most Recently Relevant to Health Maintenance Insurance WORKERS COMP Member Subscriber Plan / Payer (Ef fective 2006-Present) Name:Rene Miramontes Relation to Subscriber:Self Name:Rene Miramontes Payer ID:Not on file Group ID:[id number] Type:Not on file [phone] Address: [address] [address] [employer] * Guarantor: LEO BAILEY DS [employer] BAT ONLY Account Type Relation to Patient Date of Phone Billing Address [facility] [address] DE[address] [id number] [place] [address] Advance Directives * Full Code (Latest Code Status on File) Date Activated Date Inactivated Comments 05/23/2008 5:20 AM 05/23/2008 3:37 PM Care Teams Curriculum Director Relationship Specialty Start Date End Date Mayo Lam MD [address] [place] [address] PCP - General Internal Medicine 10/09/22
--- OUTSIDE RECORDS SUMMARY | 2024-09-26 06:48 | XMS_ITS | Clinical Summary ---
Author Organization [facility] Address [address] [place] [address] Care Team Providers Care Pourer Bull Ladle Name Role Phone Unavailable Primary Care Provider Unavailabl e Source Comments Patient records contain information from all sites at [facility]. For routine questions regarding patient records, call [phone] during business hours, M-F 8:00 AM - 5:00 PM Central Time. Record requests for emergency care only can be directed to [phone] at any time.[facility] Allergies No known active allergies Medications * This document contains information received from the source organization and may not represent a complete record from that organization. venlafaxine XR (Effexor-XR) 150 mg 24 hr capsule Take 150 mg by mouth daily with morning meal. 3 Active omeprazole (PriLOSEC) [address] capsule Take 40 mg by mouth 2 (two) times a day before morning and evening meals. 4 Active tiotropium (Spiriva Respimat) 2.5 mcg/actuation inhaler Inhale 2 puffs daily. 4 g 3 4 Active albuterol 90 mcg/actuation inhaler Inhale 2 puffs every 6 (six) hours as needed for wheezing. 8 g 3 4 Active OLANZapine (ZyPREXA) 5 mg tabletIndicati ons:Medication Therapy Dev Manager Not 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, Malignant Neoplasm Of Lung Lower Lobe Or [...] Cycle 2 and beyond. 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 30 tablet 3 4 025 Active Additional Information Patient not taking.Reported on 09/15/2024 sodium chloride (NebuSaL) 3 % nebulizer solution Inhale 4 mL by nebulization 3 (three) times a day. 750 mL 11 5 Active atenoloL (Tenormin) 25 mg tablet Take 1 tablet (25 mg total) by mouth daily. 90 tablet 3 5 Active budesonide 3 mg/10 mL (0.03%) oral suspension Swish and swallow 10 mL 2 (two) times a day. Swallow 10 ml slowly by mouth two times a day (after breakfast and at bedtime).Rinse with water and spit.Do not eat/drink for 2 hours. 280 mL 2 5 Active budesonide (Pulmicort) 1 mg/2 mL nebulizer solution Inhale 2 mL (1 mg total) by nebulization 2 (two) times a day. Rinse mouth with water after use to reduce aftertaste and incidence of candidiasis. Do not swallow. 120 mL 5 Active budesonide 3 mg/10 mL (0.03%) oral suspension Swish and swallow 10 mL 2 (two) times a day. Swallow 10 ml slowly by mouth two times a day (after breakfast and at bedtime).Rinse with water and spit.Do not eat/drink for 2 hours. 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 on 02/10/2024 Encounters * This document contains information received from the source organization and may not represent a complete record from that organization. Date Type Department Care Team Description 09/20/2024 10:40 AM CDT Virtual Visit Division of Gastroenterology in [address] [phone] Elizabeth Warner APRN, C.N.P., M.S. Torres Estrella M.D., Ph.D. 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 Karina Chavarria, R.N. 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 Malignant Neoplasm Of Lung Lower Lobe Or Bronchus Right (HCC); Medication Therapy Dev Manager Not 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; Esophagitis Eosinophilic; Toxicity Drug Initial; Dysphagia Discharge Disposition: Home or Self Care 09/07/2024 Clinical Communication Department of Oncology in [place], [place] [address] [place] [phone] Elizabeth Warner APRN, C.N.P., M.S. 09/03/2024 Orders Only Department of Oncology in [place], [place] [address] [place] [phone] Cece Gr PharmMicaelaDMicaela, R.Ph., OP 09/03/2024 Orders Only Department of Oncology in [place], [place] [address] [place] [phone] Cece Gr PharmMicaelaD., R.Ph., BCOP 09/02/2024 2:00 PM CDT Virtual Visit Department of Oncology in [place], [place] [address] [place] [phone] Elizabeth Warner APRN, C.N.P., M.S. 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 09/02/2024 Orders Only Division of Gastroenterology in [place], [place] [address] [place] [phone] Zachary Farias M.D. 09/02/2024 Clinical Communication Department of Oncology in [place], [place] [address] [place] [phone] Elizabeth Warner APRN, C.N.P., M.S. 08/31/2024 9:30 AM CDT Comprehensive Visit Division of Endocrinology in [place], [place] [address] [place] [phone] Svetlana Perry M.D. Paknikar, Sujaytha S, M.D. Malignant Neoplasm Of Lung Lower Lobe Or Bronchus Right (HCC); Hyperthyroidism 08/30/2024 12:55 PM CDT Ancillary Procedure Department of Gastroenterology 08/30/2024 12:13 PM CDT - 08/30/2024 11:59 PM CDT Hospital Encounter Division of Gastroenterology in [place], [place] [address] [place] [phone] Elizabeth Warner APRN, C.N.P., M.S. Dysphagia Discharge Disposition: Home or Self Care 08/26/2024 1:40 PM CDT Office Visit Department of Oncology in [place], [place] [address] [place] [phone] Elizabeth Warner APRN, C.N.P., M.S. Malignant Neoplasm Of Lung Lower Lobe Or Bronchus Right (HCC) (Primary Dx); Dysphagia; Medication Therapy Fpc Not 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; Fatigue; Hyperthyroidism 08/26/2024 11:45 AM CDT - 08/26/2024 11:59 PM CDT Hospital Encounter Department of Laboratory Medicine and Pathology, [place], [place] [address] [place] [phone] Elizabeth Warner APRN, C.N.P., M.S. Malignant Neoplasm Of Lung Lower Lobe Or Bronchus Right (HCC); Medication Therapy Fpc Not 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 Discharge Disposition: Home or Self Care 08/26/2024 10:43 AM CDT - 08/26/2024 11:44 AM CDT Hospital Encounter Department of Radiology, [facility], [place] [address] [place] [address] Elizabeth Warner APRN, C.N.P., M.S. Malignant Neoplasm Of Lung Lower Lobe Or Bronchus Right (HCC) Discharge Disposition: Home or Self Care 08/25/2024 Orders Only Division of Endocrinology in [place], [place] [address] [place] [address] Shira Méndez M.D. Hyperthyroidism (Primary Dx) 08/25/2024 Clinical Communication Department of Oncology in [place], [place] [address] [place] [address] Elizabeth Warner APRN, C.N.P., M.S. 08/24/2024 8:21 AM CDT - 08/24/2024 11:59 PM CDT Hospital Encounter Department of Radiology, [facility] in [place], [place] [address] [place] [address] Emperatriz Gonzales APRN C.N.P., D.N.P. Malignant Neoplasm Of Lung Lower Lobe Or Bronchus Right (HCC); Edema Discharge Disposition: Home or Self Care 08/24/2024 Results Follow-Up Department of Palliative Care in [place], [place] [address] [place] [phone] Emperatriz Gonzales APRN C.N.P., D.N.P. US Head Neck Soft Tissue, Thyroid Function [place] 08/23/2024 2:27 PM CDT - 08/23/2024 11:59 PM CDT Hospital Encounter Department of Laboratory Medicine and Pathology, [facility] in [place], [place] [address] [place] [address] Emperatriz Gonzales APRN, C.N.P., D.N.P. Malignant Neoplasm Of Lung Lower Lobe Or Bronchus Right (HCC); Hyperthyroidism Discharge Disposition: Home or Self Care 08/23/2024 1:00 PM CDT Comprehensive Visit Department of Palliative Care in [place], [place] [address] [place] [address] Emperatriz Gonzales APRN, C.N.P., D.N.P. Zoe Olivares R.N. Odynophagia; Edema; Malignant Neoplasm Of Lung Lower Lobe Or Bronchus Right (HCC); Palliative Care; Hyperthyroidism; Anxiety 08/23/2024 Clinical Communication Department of Palliative Care in [place], [place] [address] [place] [phone] Emperatriz Gonzales APRN, C.NEmilee, D.N.P. 08/23/2024 Clinical Communication Department of Oncology in [place], [place] [address] [place] [phone] Svetlana Perry M.D. After Visit Question 08/19/2024 3:30 PM CDT Clinical Communication Virtual Review in [place], [place] [address] [place] [address] Pre-visit Intake 08/17/2024 Orders Only Department of Oncology in [place], [place] [address] [place] [address] Svetlana Perry M.D. 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, in [place], [place] [address] [place] [phone] Wilfrido Chua M.D. Meverden, Julia K, M.S., CCC-[employer] Malignant Neoplasm Of Lung Lower Lobe Or Bronchus Right (HCC); Odynophagia Discharge Disposition: Home or Self Care 08/10/2024 9:00 AM CDT Comprehensive Visit Department of Neurology in [place], [place] [address] [place] [phone] Wilfrido Chua M.D. Meverden, Julia K, M.S., CCC-[employer] Dysphagia Oropharyngeal Phase (Primary Dx); Malignant Neoplasm Of Lung Lower Lobe Or Bronchus Right (HCC); Odynophagia 08/05/2024 12:55 PM CDT - 08/05/2024 4:24 PM CDT Hospital Encounter Department of Radiation Oncology in [address] [phone] Wilfrido Chua M.D. 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 07/13/2024 1:00 PM CDT Virtual Visit Department of Oncology in [place], [place] [address] [place] [phone] Paris Manley M.D. Kruger, Margaret B, D.N.P., R.N., O.C.N. 07/13/2024 Clinical Communication Department of Radiation Oncology in [address] [phone] Wilfrido Chua M.D. 06/28/2024 1:20 PM CDT Comprehensive Visit Department of Oncology in [place], [place] [address] [place] [phone] Paris Manley M.D. 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 (HCC); Respiratory Failure With Hypoxia (HCC); Secondary Malignant Neoplasm Lymph Node Intrathoracic (HCC) from Last 3 Months Family History Medical History Relation Name Comments Colon cancer Mother sirmaria teresa Relation Name Status Comments Mother sirmaria teresa Alive Social History Tobacco Use Types Packs/Day Years Used Date Smoking Tobacco: Former Cigarettes 1 35 0 04/14/2023 - 01/20/2024 Passive Smoke Exposure: Never Smokeless Tobacco: Never Tobacco Cessation:Counseling Given: Not Answered Alcohol Use Standard Drinks/Week Comments Not Currently 0 (1 standard drink = 0.6 oz pur e alcohol) [facility] Utilities Answer Date Recorded In the past 12 months has [employer], gas, oil, or water [employer] threatened to shut off services in your [...] your living situation today? [facility] live 05/16/2024 Sex and Gender Information Value Date Recorded Sex Assigned at Male 01/28/2024 10:26 AM CDT Legal Sex Male 10:09 PM RESIDENTIAL CAREGIVER Gender Identity Male 01/28/2024 10:26 AM CDT Sexual Orientation Straight 01/28/2024 10 :26 AM CDT Last Filed Vital Signs Vital Sign Reading Time Taken Comments Blood Pressure 148/92 09/15/2024 7:49 AM CDT Pulse 78 09/15/2024 7:49 AM CDT Temperature 36.6 C (97.9 F) 09/15/2024 7:49 AM CDT Respiratory Rate 19 08/30/2024 2:52 PM CDT Oxygen Saturation 98% 09/15/2024 7:49 AM CDT Inhaled Oxygen Concentration - - Weight 118 kg (260 lb 5.8 oz) 08/26/2024 1:33 PM CDT Height 183.4 cm (6' 0.21) 04/20/2024 10:[address] Body Mass Index 35.11 04/20/2024 10:49 AM RESIDENTIAL CAREGIVER Plan of Treatment Upcoming Encounters Date Type Department Care Team (Latest Contact Info) Description 09/28/2024 3:20 PM CDT Office Visit Division of Gastroenterology in [address] [phone] Pratik Fishman M.D. [address] [place] [phone] 10/18/2024 10:15 AM CDT Clinical Communication Virtual Review in [place], [place] [address] [place] [address] 10/18/2024 11:45 AM CDT Appointment Division of Gastroenterology in [address] [phone] Torres Estrella M.D., Ph.D. [address] [place] [phone] 10/20/2024 1:15 PM CDT Appointment Department of Radiology, [facility], in [place], [place] [address] [place] [phone] Elizabeth Warner APRN, C.N.P., M.S. [address] [place] [address] 10/20/2024 3:00 PM CDT Office Visit Department of Palliative Care in [place], [place] [address] [place] [address] Jacinda Cruz M.D. [address] [place] [phone] 10/21/2024 7:50 AM CDT Appointment Department of Laboratory Medicine and Pathology, [facility] in [place], [place] [address] [place] [phone] Elizabeth Warner APRN, Itzel.N.P., M.S. [address] [place] [phone] 10/21/2024 10:20 AM CDT Office Visit Department of Oncology in [place], [place] [address] [place] [phone] Marquise Singh M.D. [address] [place] [phone] 10/25/2024 12:00 PM CDT Virtual Visit Division of Gastroenterology in [place], [place] [address] [place] [phone] Torres Estrella M.D., Ph.D. [address] [place] [phone] Health Maintenance Due Date Last Done Comments CT Colonography 1972 Cologuard 1972 Colonoscopy 1972 Colorectal Cancer Surveillance 1972 HIV Screening 1972 Hepatitis C Screening 1972 Lipid (Cholesterol) Screening 1972 Hepatitis B Vaccines (1 of 3 - 19+ 3-dose series) 1991 Pneumococcal vaccine (50+ years) (1 of 2 - PCV) 1991 Zoster Vaccines (1 of 2) 1991 DTaP,Tdap,and Td Vaccines (1 - Tdap) 05/09/2017 05/08/2017 COVID-19 Vaccine (3 - Pfizer risk series) 09/22/2020 08/25/2020, 08/04/2020 Influenza Vaccine (#1) 2024 9, 06/04/2018, 01/24/2016, Additional history exists Depression Screening (Annual PHQ-2) 04/14/2024 Fasting Glucose for Diabetes Screening 08/27/2027 08/26/2024, 06/14/2024, 04/20/2024, Additional history exists HPV Vaccines Aged Out No longer eligi ble based on patient's age to complete this topic IPV Vaccines Aged Out No longer eligi ble based on patient's age to complete this topic Medical Devices Explanted Type Area Vibrating Screen Operator Device Identifier Shelf Expiration Date Model / Serial / Lot Bonastent Implanted: (Quantity not on file) Explanted:Qty : 1 on 04/13/2024 by Mac Coreas M.D. at [facility] Respiratory Stent Trachea Description:MRI Conditional 1.5 or 3T. Normal operating mode. Consult physicist prior to scanning due to low JESSICA limits. Benita Aldrich 04/13/24 [email or web address] 04/13/2024 Explanted due to stent migration. Bonastent [id number] Implanted:Qty : 1 on 04/12/2024 by Mac Coreas M.D. at [facility] Stent Other N/A: Trachea [facility] Medical [id number] 08/30/2026 [id number] Procedures Procedure Name Priority Date/Time Associated Diagnosis Comments ZINC, S Routine 09/07/2024 1:54 PM CDT Malignant Neoplasm Of Lung Lower Lobe Or Bronchus Right (HCC) Medication Therapy Fpc Not 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 Esophagitis Eosinophilic Toxicity Drug Initial Dysphagia VITAMIN B12 ASSAY, S Routine 09/07/2024 1:54 PM CDT Malignant Neoplasm Of Lung Lower Lobe Or Bronchus Right (HCC) Medication Therapy Fpc Not 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 Esophagitis Eosinophilic Toxicity Drug Initial Dysphagia VITAMIN A AND VITAMIN E, S Routine 09/07/2024 1:54 PM CDT Malignant Neoplasm Of Lung Lower Lobe Or Bronchus Right (HCC) Medication Therapy Dev Manager Not 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 Esophagitis Eosinophilic Toxicity Drug Initial Dysphagia FOLATE, S Routine 09/07/2024 1:54 PM CDT Malignant Neoplasm Of Lung Lower Lobe Or Bronchus Right (HCC) Medication Therapy Fpc Not 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 Esophagitis Eosinophilic Toxicity Drug Initial Dysphagia COPPER, S Routine 09/07/2024 1:54 PM CDT Malignant Neoplasm Of Lung Lower Lobe Or Bronchus Right (HCC) Medication Therapy Dev Manager Not 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 Esophagitis Eosinophilic Toxicity Drug Initial Dysphagia 25-HYDROXYVITAMIN D2 AND D3, S Routine 09/07/2024 1:54 PM CDT Malignant Neoplasm Of Lung Lower Lobe Or Bronchus Right (HCC) Medication Therapy Fpc Not 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 Esophagitis Eosinophilic Toxicity Drug Initial Dysphagia GLIADIN (DEAMIDATED) AB, IGA, S Routine 09/07/2024 1:53 PM CDT GLIADIN (DEAMIDATED) AB, IGG, S Routine 09/07/2024 1:53 PM CDT TISSUE TRANSGLUTAMINASE (TTG) AB, IGG, S Routine 09/07/2024 1:53 PM CDT TISSUE TRANSGLUTAMINASE (TTG) AB, IGA, S Routine 09/07/2024 1:53 PM CDT IRON AND TOT IRON-BINDING CAPACITY, S/P Routine 09/07/2024 1:53 PM CDT Malignant Neoplasm Of Lung Lower Lobe Or Bronchus Right (HCC) Medication Therapy Fpc Not 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 Esophagitis Eosinophilic Toxicity Drug Initial Dysphagia FERRITIN, S Routine 09/07/2024 1:53 PM CDT Malignant Neoplasm Of Lung Lower Lobe Or Bronchus Right (HCC) Medication Therapy Dev Manager Not 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 Esophagitis Eosinophilic Toxicity Drug Initial Dysphagia CELIAC DISEASE GLUTEN-FREE CASCADE Routine 09/07/2024 1:53 PM CDT Malignant Neoplasm Of Lung Lower Lobe Or Bronchus Right (HCC) Medication Therapy Fpc Not 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 Esophagitis Eosinophilic Toxicity Drug Initial Dysphagia CELIAC DISEASE SEROLOGY CASCADE, S Routine 09/07/2024 1:53 PM CDT Malignant Neoplasm Of Lung Lower Lobe Or Bronchus Right (HCC) Medication Therapy Dev Manager Not 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 Esophagitis Eosinophilic Toxicity Drug Initial Dysphagia SURGICAL PATHOLOGY Routine 08/30/2024 2:08 PM CDT GASTROENTEROLOGY IMAGE EXAM Routine 08/30/2024 12:55 PM CDT UPPER GI ENDOSCOPY Routine 08/30/2024 12:51 PM CDT Dysphagia EGD (ESOPHAGOGASTRODUODENO SCOPY) Routine 08/30/2024 12:51 PM CDT Dysphagia TN T4 FREE Routine 08/26/2024 12:02 PM CDT THYROID FUNCTION CASCADE, S Routine 08/26/2024 12:02 PM CDT Malignant Neoplasm Of Lung Lower Lobe Or Bronchus Right (HCC) Medication Therapy Dev Manager Not 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 COMPREHENSIVE METABOLIC PANEL, S/P Routine 08/26/2024 12:02 PM CDT Malignant Neoplasm Of Lung Lower Lobe Or Bronchus Right (HCC) CBC WITH DIFFERENTIAL, B Routine 08/26/2024 12:02 PM CDT Malignant Neoplasm Of Lung Lower Lobe Or Bronchus Right (HCC) THYROTROPIN RECEPTOR AB, S Routine 08/26/2024 12:00 PM CDT Hyperthyroidism CORTISOL, S Routine 08/26/2024 12:00 PM CDT Malignant Neoplasm Of Lung Lower Lobe Or Bronchus Right (HCC) Medication Therapy Dev Manager Not 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 Fatigue CT NECK SOFT TISSUE WITH IV CONTRAST RAD - Routine (most inpatients and all outpatients) 08/26/2024 11:46 AM CDT Malignant Neoplasm Of Lung Lower Lobe Or Bronchus Right (HCC) CT CHEST WITHOUT IV CONTRAST RAD - Routine (most inpatients and all outpatients) 08/26/2024 11:46 AM CDT Malignant Neoplasm Of Lung Lower Lobe Or Bronchus Right (HCC) US HEAD NECK SOFT TISSUE RAD - Routine (most inpatients and all outpatients) 08/24/2024 8:55 AM CDT Malignant Neoplasm Of Lung Lower Lobe Or Bronchus Right (HCC) Edema TN T4 FREE Routine 08/23/2024 2:42 PM CDT THYROID FUNCTION CASCADE, S Routine 08/23/2024 2:42 PM CDT Malignant Neoplasm Of Lung Lower Lobe Or Bronchus Right (HCC) Hyperthyroidism FL ESOPHAGRAM DOUBLE CONTRAST RAD - Routine (most inpatients and all outpatients) 08/10/2024 9:49 AM CDT Malignant Neoplasm Of Lung Lower Lobe Or Bronchus Right (HCC) Odynophagia FL SWALLOW FUNCTION WITH VIDEO AND SPEECH OR OT FOR RST RAD - Routine (most inpatients and all outpatients) 08/10/2024 9:49 AM CDT Malignant Neoplasm Of Lung Lower Lobe Or Bronchus Right (HCC) Odynophagia from Last 3 Months Results * (ABNORMAL) Vitamin A and Vitamin E (09/07/2024 1:54 PM CDT) [facility] Vitamin A 41.7 32.5 - 78.0 mcg/dL 09/09/2024 7:59 PM CDT [facility] Comment: ----ADDITIONAL INFORMATION---- This test was developed and its performance characteristics determined by [facility] in a manner consistent with CLIA requirements. This test has not been cleared or approved by the U.S. Food and Drug Administration. A-Tocopherol, Vitamin E 20.7(H) 5.5 - 17.0 mg/L 09/09/2024 10:54 AM CDT [facility] Blood (Blood, Venous) 09/07/2024 1:54 PM CDT 09/08/2024 10:51 AM CDT Elizabeth Warner APRN, C.N.P., M.S. LAB BLOOD NON ADD-ON Final Result Performing Organization Address [facility] de Phone Number [facility] [address] [place] [address] [facility] [address] [place] [address] [place] [address] * Copper (09/07/2024 1:54 PM CDT) Copper, S 84 73 - 129 mcg/dL 09/08/2024 11:11 AM CDT [facility] Comment: ----ADDITIONAL INFORMATION---- This test was developed and its performance characteristics determined by [facility] in a manner consistent with CLIA requirements. This test has not been cleared or approved by the U.S. Food and Drug Administration. Blood (Blood, Venous) 09/07/2024 1:54 PM CDT 09/08/2024 7:32 AM CDT Elizabeth Warner APRN, C.N.P., M.S. LAB BLOOD NON ADD-ON Final Result Performing Organization Address [facility] de Phone Number [facility] [address] [place] [address] [facility] [address] [place] [address] [place] [address] * Zinc (09/07/2024 1:54 PM CDT) Zinc, S 68 60 - 106 mcg/dL 09/08/2024 11:11 AM CDT [facility] Comment: ----ADDITIONAL INFORMATION---- This test was developed and its performance characteristics determined by [facility] in a manner consistent with CLIA requirements. This test has not been cleared or approved by the U.S. Food and Drug Administration. Blood (Blood, Venous) 09/07/2024 1:54 PM CDT 09/08/2024 7:32 AM CDT us Elizabeth Warner APRN, C.N.P., M.S. LAB BLOOD NON ADD-ON Final Result Performing Organization Address [facility] Co de Phone Number [facility] [address] [place] [address] [facility] [address] [place] [address] [place] [address] * 25-Hydroxyvitamin D2 and D3 (09/07/2024 1:54 PM CDT) 25-Hydroxy D2 <4.0 ng/mL 09/12/2024 3:14 PM CDT SDSC 25-Hydroxy D3 30 ng/mL 09/12/2024 3:14 PM CDT [facility] 25-Hydroxy D Total 30 ng/mL 2024 3:14 PM CDT [facility] Comment: ----REFERENCE VALUE---- 25-HYDROXY D TOTAL (D2+D3) Optimum levels in the healthy population are 20-50. ----ADDITIONAL INFORMATION---- This test was developed and its performance characteristics determined by [facility] in a manner consistent with CLIA requirements. This test has not been cleared or approved by the U.S. Food and Drug Administration. Blood (Blood, Venous) 09/07/2024 1:54 PM CDT 09/08/2024 7:29 AM CDT us Elizabeth Warner APRN, C.N.P., M.S. LAB BLOOD ADD -ON Final Result Performing Organization Address City/[facility]/ZIP Co de Phone Number [facility] [address] [place] [address] [facility] [address] [place] [address] [place] [address] * Folate (09/07/2024 1:54 PM CDT) Folate, S 12.6 >=4.0 mcg/L 09/07/2024 5:19 PM CDT [facility] Comment: Biotin has been identified by the water commissioner as a potential interfering substance. Higher concentrations of biotin may be found in multivitamins, hair/nail supplements, and workout supplements. If the result does not match clinical observations, repeat testing after patient refrains from the use of supplements for at least 12 hours. Blood (Blood, Venous) 09/07/2024 1:54 PM CDT 09/07/2024 4:37 PM CDT Elizabeth Warner APRN, C.N.P., M.S. LAB BLOOD ADD -ON Final Result Performing Organization Address [facility] Co de Phone Number [facility] [address] [place] [address], [address] [address] * Vitamin B12 Assay (09/07/2024 1:54 PM CDT) Pathologist [facility] Vitamin B12 Assay, S 536 232 - 1245 ng/L 09/07/2024 5:19 PM CDT [facility] Comment: Biotin has been identified by the water commissioner as a potential interfering substance. Higher concentrations [...] Result Performing Organization Address [facility] Co de Phone Number [facility] [address] [place] [address], [facility] [address] [place] [address] * Celiac Disease Serology [place] (09/07/2024 1:53 PM CDT) Immunoglobulin A (IgA), S 104 61 - 356 mg/dL 09/08/2024 1:42 PM CDT [facility] Celiac Disease Interpretation See Comment: Negative serology. Celiac disease unlikely. However, approximately 10% of patients with celiac disease are seronegative. Also, patients who are already adhering to a gluten-free diet may be seronegative. If celiac disease is highly clinically suspected, consider HLA-DQ typing. 09/08/2024 10:41 PM CDT [facility] Blood (Blood, Venous) 09/07/2024 1:53 PM CDT 09/08/2024 6:27 AM CDT Narrative [facility] - 09/08/2024 10:41 PM CDT Specimen Information: Specimen ID: [id number] Specimen Type: Blood Specimen Collection Start Date: 09/07/2024 1:53 PM Specimen Received Date: 09/08/2024 6:27 AM Specimen ID: [id number] Specimen Type: Blood Specimen Collection Start Date: 09/07/2024 1:53 PM Specimen Received Date: 09/08/2024 6:29 AM Elizabeth Warner APRN C.N.P., M.S. LAB BLOOD ADD -ON Final Result [facility] [address] [place], [place] [phone] [place] [address] [place] [address] [place] [facility] [place] [address] * Celiac Disease Gluten-Free [place] (09/07/2024 1:53 PM CDT) [facility] HLA-DQA1 Locus Molecular 01:02, 02:01 Not Applicable [...] instructions. Its performance characteristics were determined by [facility] in a manner consistent with CLIA requirements. This test has not been cleared or approved by the U.S. Food and Drug Administration. CLIA: [id number] CLIA Cloth Trimmer Hand: MARILY KINSEY,Ph.D. Celiac Disease Interpretation See Comment: Celiac disease possible. Consider biopsy. 09/13/2024 10:38 PM CDT [facility] Blood (Blood, Venous) 09/07/2024 1:53 PM CDT 09/08/2024 8:08 AM CDT [facility] - 09/13/2024 10:38 PM CDT Specimen Information: Specimen ID: [id number] Specimen Type: Blood Specimen Collection Start Date: 09/07/2024 1:53 PM Specimen Received Date: 09/08/2024 8:08 AM Specimen ID: [id number] Specimen Type: Blood Specimen Collection Start Date: 09/07/2024 1:53 PM Specimen Received Date: 09/08/2024 6:27 AM Elizabeth Warner APRN, C.N.P., M.S. LAB BLOOD NON ADD-ON Final Result [facility] [address] [place] [address] [id number] [facility] [address] [place] [address] [facility] [address] [place] [address] [place] [address] * (ABNORMAL) Gliadin (Deamidated) Antibody, IgG (09/07/2024 1:53 PM CDT) Gliadin(Deamid ated) Ab, IgG, S 21.8(H) <20.0 (Negative) U 09/13/2024 8:13 PM CDT [facility] Comment:Interpretation: Weak Positive (20.0-30.0) Blood 09/07/2024 1:53 PM CDT 09/13/2024 12:49 PM CDT Itzel Subramanian APRN.N.Hilaria., M.S. LAB BLOOD ADD -ON Final Result Performing Organization Address [facility]/ZIP Co de Phone Number [facility] [address] [place] [address] [facility] [address] [place] [address] * Gliadin (Deamidated) Antibody, IgA (09/07/2024 1:53 PM CDT) Gliadin(Deamida saundra) Ab, IgA, S <10.0 <20.0 (Negative) U 09/13/2024 8:13 PM CDT [facility] Blood 09/07/2024 1:53 PM CDT 09/13/2024 12:49 PM CDT Itzel Subramanian APRN.N.P., M.S. LAB BLOOD ADD -ON Final Result Performing Organization Address [facility] Co de Phone Number [facility] [address] [place] [address] [place] [id number] [address] * (ABNORMAL) Iron and Total Iron-Binding Capacity [...] M.S. LAB BLOOD ADD -ON Final Result [facility] [address] [place] [address], [facility] [address] [place] [address] * tTG (Tissue Transglutaminase), Antibody, IgA (09/07/2024 1:53 PM CDT) Tissue Transglutaminase Ab, IgA, S 1.6 <4.0 (Negative ) U/mL 09/08/2024 7:42 PM CDT [facility] Blood 09/07/2024 1:53 PM CDT 09/08/2024 1:51 PM CDT us Itzel Subramanian APRN.N.Hilaria., M.S. LAB BLOOD ADD -ON Final Result Performing Organization Address [facility]/ZIP Co de Phone Number [facility] [address] [place], [place] [phone] [place] [address] [place] [address] * (ABNORMAL) tTG (Tissue Transglutaminase) Antibody, IgG (09/07/2024 1:53 PM CDT) Tissue Transglutaminase Ab, IgG, S 7.7(H) <6.0 (Negative ) U/mL 09/13/2024 5:04 PM CDT [facility] Comment:Interpretation: Weak Positive (6.0-9.0) Blood 09/07/2024 1:53 PM CDT 09/08/2024 1:51 PM CDT us Familia Subramanian APRNN.Hilaria., M.S. LAB BLOOD ADD -ON Final Result [facility] [address] [place] [address] [facility] [address] [place] [address] * Ferritin (09/07/2024 1:53 PM CDT) Ferritin, S 356 31 - 409 mcg/L 09/07/2024 5:07 PM CDT [facility] Comment: Biotin has been identified by the water commissioner as a potential interfering substance. Higher concentrations of biotin may be found in multivitamins, hair/nail supplements, and workout supplements. If the result does not match clinical observations, repeat testing after patient refrains from the use of supplements for at least 12 hours. Blood (Blood, Venous) 09/07/2024 1:53 PM CDT 09/07/2024 4:37 PM CDT Elizabeth Warner APRN, C.N.P., M.S. LAB BLOOD ADD -ON Final Result [facility] [address] [place] [address], [facility] [place] [address] * Surgical Pathology (08/30/2024 2:08 PM CDT) [...] submitted en toto in cassette A1.Grossed by AJRonaldo. B: Received in formalin labeled with the patient's name, medical record number, and esophagus, random sites are five pink-translucentir regular soft tissues, ranging from 0.3-0.5 cm in greatest dimension. The specimens are submitted en toto in cassette B1. Grossed byAJD. 08/31/2024 1:57 PM CDT DTL Interpretation FINAL [...] LAB SURG PATH ORDERABLES Fi nal Result [facility] [address] [place] [address], [facility] DTL [address] [place] [address] * Upper GI endoscopy-Gastroenterology Image Exam (08/30/2024 [...] IMAGING PROCE DURES Final Result IIMS NA * Upper GI Endoscopy (08/30/2024 12:51 PM CDT) 08/30/2024 12:5 1 PM CDT Impressions [facility] - 08/30/2024 2:25 PM CDT Post-op Diagnoses: - Erythematous and congested duodenal mucosa. Biopsied. - Normal stomach. - Normal esophagus, no clear areas of compression, obstruction or abnormal mucosa. Biopsied. Narrative [facility] - 08/30/2024 2:25 PM CDT Gonda 9 GI GI Patient Name: Carole Muñiz Date of : 1970 Age: 54 Procedure [...] signed electronically. Number of Addenda: 0 us Itzel Subramanian APRN.Eva., M.S. GI PROCEDURE ORDERABLES Final Result Performing Organization Address City/[facility] Co de Phone Number [place] [facility] NA * (ABNORMAL) T4 (Thyroxine), Free, Serum (08/26/2024 12:02 PM CDT) Only the most recent of2 resultswithin the time period is included. T4 (Thyroxine), Free, S 2.7(H) 0.9 - 1.7 ng/dL 08/26/2024 1:39 PM CDT DTL Blood 08/26/2024 12:0 2 PM CDT 08/26/2024 12:45 PM CDT us Itzel Subramanian APRN.N.Hilaria., M.S. LAB BLOOD ADD -ON Final Result Performing Organization Address City/[facility]/ZIP Co de Phone Number [facility] [address] [place] [address], [facility] DTL [facility] [address] [place] [address] * (ABNORMAL) Thyroid Function [place] (08/26/2024 12:02 PM CDT) Only the most recent of2 resultswithin the time period is included. TSH, Sensitive <0.01(L) 0.3 - 4.2 mIU/L 08/26/2024 1:20 PM CDT D[facility] Blood (Blood, Venous) 08/26/2024 12:02 PM CDT 08/26/2024 12:45 PM CDT Elizabeth Warner APRN, C.N.P., M.S. LAB BLOOD ADD -ON Final Result [facility] [address] [place] [address], [facility] DTL [facility] [address] [place] [address] * (ABNORMAL) CBC with Differential, Blood (08/26/2024 [...] M.S. LAB BLOOD ADD -ON Final Result [facility] [address] [place] [address], [facility] DTL [facility] [address] [place] [address] [facility] [address] [place] [address] * (ABNORMAL) Comprehensive Metabolic Panel (08/26/2024 12:02 PM CDT) Potassium, S 3.5(L) 3.6 - 5.2 mmol/L [...] CDT 08/26/2024 12:45 PM CDT Elizabeth Warner APRN C.N.P., M.S. LAB BLOOD ADD -ON Final Result [address] [address], [place] [address] * Thyrotropin Receptor Antibody (08/26/2024 12:00 PM CDT) Thyrotropin Receptor Ab, S <1.10 0.00 - 1.75 IU/L 08/27/2024 5:08 PM CDT [facility] Comment: ----ADDITIONAL INFORMATION---- At a decision [...] 12:00 PM CDT 08/27/2024 4:15 PM CDT us Shira Méndez M.D. LAB BLOOD ADD-ON Final Result [facility] [address] [place] [address] [facility] [address] [place] [address] * Cortisol (08/26/2024 12:00 PM CDT) [facility] Cortisol, Random, S 7.8 mcg/dL 08/26/2024 3:08 PM CDT DTL Comment: ----REFERENCE VALUE---- AM ([id number]): 4.8-20 PM ([phone]): 2.5-12 Blood (Blood, Venous) 08/26/2024 12:00 PM CDT 08/26/2024 2:32 PM CDT us Familia Subramanian APRNNMicaelaP., M.S. LAB BLOOD ADD -ON Final Result Performing Organization Address City/[facility]/ZIP Co de Phone Number [facility] [address] [place] [address], [facility] [address] [place] [address] * CT Chest without IV Contrast (08/26/2024 [...] radiation pneumonitis in the medial right lung. Elizabeth Warner APRN C.N.P., M.S. IMG CT PROCED URES Final Result * CT Neck Soft Tissue with IV [...] IMG CT PROCED URES Final Result * US Head Neck Soft Tissue (08/24/2024 [...] neck edema. Emperatriz Gonzales APRN, C.N.P., D.N.P. IMG US [place] OCEDURES Final Result * FL Esophagram Double Contrast (08/10/2024 9:49 AM CDT) Anatomical Region Laterality Modality Gastro Intestinal, Abdominal RST LOS, Abdominal ARZ LOS, Abdominal FLA LOS Digital Radiography Impressions 08/10/2024 10:42 AM CDT 1. Normal swallowing mechanism. Please see the speech pathology report for further details. 2. Moderate esophageal dysmotility. Narrative 08/10/2024 10:42 AM CDT EXAM: FL SWALLOW FUNCTION WITH VIDEO AND SPEECH OR OT FOR RST, FL ESOPHAGRAM DOUBLE CONTRAST COMPARISON: CT chest with IV contrast from 06/13/2024 FINDINGS: Video Swallow Study: A video swallow study was performed with speech pathology. The patient's swallowing was evaluated with barium preparations of thin liquid, mildly thick liquid puree solid and regular solid consistencies. Normal swallowing mechanism with all barium preparations. Esophagram: Moderate esophageal dysmotility, characterized by breakup of the primary peristaltic wave with proximal escape, and tertiary contractions of the distal half of the esophagus. Normal caliber esophagus. No hiatal hernia. No gastroesophageal reflux was witnessed during this examination. A 13 mm barium tablet passed promptly through the esophagus into the stomach. Procedure Note Kee Seaman M.D. - 08/10/2024 EXAM: FL SWALLOW FUNCTION WITH VIDEO AND SPEECH OR OT FOR RST, FLESOPHAGRAM DOUBLE CONTRAST COMPARISON: CT chest with IV contrast from 06/13/2024 FINDINGS: Video Swallow Study: A video swallow study was performed with speechpathology. The patient's swallowing was evaluated with barium preparationsof thin liquid, mildly thick liquid puree solid and regular solidconsistencies. Normal swallowing mechanism with all barium preparations. Esophagram: Moderate esophageal dysmotility, characterized by breakup ofthe primary peristaltic wave with proximal escape, and tertiarycontractions of the distal half of the esophagus. Normal caliber esophagus. No hiatal hernia. No gastroesophageal reflux waswitnessed during this examination. A 13 mm barium tablet passed promptlythrough the esophagus into the stomach. IMPRESSION: 1. Normal swallowing mechanism. Please see the speech pathology report forfurther details. 2. Moderate esophageal dysmotility. us Wilfrido CASTELLANOS FLUOROSCOPY PROCEDUR ES Final Result * FL Swallow Function with Video and Speech or OT (08/10/2024 9:49 AM CDT) Anatomical Region Laterality Modality Gastro Intestinal, Abdominal RST LOS, Abdominal ARZ LOS, Abdominal FLA LOS N/A Digital Radiography Impressions 08/10/2024 10:42 AM CDT 1. Normal swallowing mechanism. Please see the speech pathology report for further details. 2. Moderate esophageal dysmotility. Narrative 08/10/2024 10:42 AM CDT EXAM: FL SWALLOW FUNCTION WITH VIDEO AND SPEECH OR OT FOR RST, FL ESOPHAGRAM DOUBLE CONTRAST COMPARISON: CT chest with IV contrast from 06/13/2024 FINDINGS: Video Swallow Study: A video swallow study was performed with speech pathology. The patient's swallowing was evaluated with barium preparations of thin liquid, mildly thick liquid puree solid and regular solid consistencies. Normal swallowing mechanism with all barium preparations. Esophagram: Moderate esophageal dysmotility, characterized by breakup of the primary peristaltic wave with proximal escape, and tertiary contractions of the distal half of the esophagus. Normal caliber esophagus. No hiatal hernia. No gastroesophageal reflux was witnessed during this examination. A 13 mm barium tablet passed promptly through the esophagus into the stomach. Procedure Note Kee Seaman M.D. - 08/10/2024 EXAM: FL SWALLOW FUNCTION WITH VIDEO AND SPEECH OR OT FOR RST, FLESOPHAGRAM DOUBLE CONTRAST COMPARISON: CT chest with IV contrast from 06/13/2024 FINDINGS: Video Swallow Study: A video swallow study was performed with speechpathology. The patient's swallowing was evaluated with barium preparationsof thin liquid, mildly thick liquid puree solid and regular solidconsistencies. Normal swallowing mechanism with all barium preparations. Esophagram: Moderate esophageal dysmotility, characterized by breakup ofthe primary peristaltic wave with proximal escape, and tertiarycontractions of the distal half of the esophagus. Normal caliber esophagus. No hiatal hernia. No gastroesophageal reflux waswitnessed during this examination. A 13 mm barium tablet passed promptlythrough the esophagus into the stomach. IMPRESSION: 1. Normal swallowing mechanism. Please see the speech pathology report forfurther details. 2. Moderate esophageal dysmotility. Wilfrido Chua M.D. IMG FLUOROSCOPY PROCEDUR ES Final Result from Last 3 Months Additional Health Concerns Active Problems Noted Date Diagnosed Date Autogenerated Problem 09/20/[id number] [place] [id number] [facility] Advance Directives For more information, please contact: [phone] * Full Code (Latest Code Status on File) Date Activated Date Inactivated Comments 04/10/2024 2:38 AM 04/15/2024 1:16 PM Question Answer Comments Full Code: Not Discussed Due to: Patient not available
--- OUTSIDE RECORDS SUMMARY | 2024-09-26 06:48 | XMS_ITS | Encounter Summary ---
Author Organization [facility] Address [address] [place] [address] Care Team Providers Care Hydraulic Assembler Name Role Phone Unavailable Primary Care Provider Unavailabl e Encounter Details Date Type Department Care Team (Late st Contact Info) Description 09/02/2024 Orders Only Division of Gastroenterology in [place], [place] [address] [place] [phone] Zachary Farias M.D. 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 [address] [place] [phone] 10/18/2024 10:15 AM CDT Clinical Communication Virtual Review in [place], [place] 200 [place] [phone] 10/18/2024 11:45 AM CDT Appointment Division of Gastroenterology in [place], [place] [address] [place] [phone] Torres Estrella M.D., Ph.D. [address] [place] [phone] 10/20/2024 1:15 PM CDT Appointment Department of Radiology, [facility], in [place], [place] [address] [place] [phone] Elizabeth Warner APRN, C.N.P., M.S. [address] [place] [phone] 10/20/2024 3:00 PM CDT Office Visit Department of Palliative Care in [place], [place] [address] [place] [phone] Jacinda Cruz M.D. [address] [place] [phone] 10/21/2024 7:50 AM CDT Appointment Department of Laboratory Medicine and Pathology, [facility] in [place], [place] [address] [place] [phone] Elizabeth Warner APRN, C.N.P., M.S. [address] [place] [phone] 10/21/2024 10:20 AM CDT Office Visit Department of Oncology in [place], [place] [address] [place] [phone] Marquise Singh M.D. [address] [place] [phone] 10/25/2024 12:00 PM CDT Virtual Visit Division of Gastroenterology in [place], [place] [address] [place] [phone] Torres Estrella M.D., Ph.D. [address] [place] [phone] documented as of this encounter Visit Diagnoses Not on filedocumented in this encounter
--- OUTSIDE RECORDS SUMMARY | 2024-09-26 06:48 | XMS_ITS | Encounter Summary ---
Author Organization [facility] Address [address] [place] [address] Care Team Providers Care Direct Mail Coordinator Name Role Phone Unavailable Primary Care Provider Unavailabl e Encounter Details Date Type Department Care Team (Latest Contact Info) Description 04/09/2024 Intake [facility] Social History Tobacco Use Types Packs/Day Years Used Date Smoking Tobacco: Former Cigarettes 1 35 0 04/14/2023 - 01/20/2024 Smokeless Tobacco: Never Alcohol Use Standard Drinks/Week Comments Never 0 (1 standard drink = 0.6 oz pur e alcohol) [facility] Utilities Answer Date Recorded In the past 12 months has e electric, gas, oil, or water company threatened to shut off services in your home? No 04/10/2024 Humiliation, Afraid, Rape, and Kick questionnair e [...] by your partner or ex-partner? No 04/10/2024 Hunger Vital Sign Answer Date Recorded Within the past 12 months, y ou worried that your food would run out before you got the money to buy more. Never true 04/10/20 24 Within the past 12 months, t he food you bought just didn't last and you didn't have money to get more. Never true 04/10/2024 PRAPARE - Transportation Answer Date Re corded In the past 12 months, has l ack of transportation kept you from medical appointments or from getting medications? No 03/15 In the past 12 months, has l ack of transportation kept you from meetings, work, or from getting things needed for daily living? No 04/10/2024 Dental Answer Date Recorded Dental: Regular Dentist Unknown 01/20/20 Housing Stability Answer Date Recorded What is your living situation today? 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 [address] [place] [phone] 10/18/2024 10:15 AM CDT Clinical Communication Virtual Review in [place], [place] 200 [place] [address] 10/18/2024 11:45 AM CDT Appointment Division of Gastroenterology in [address] [phone] Torres Estrella M.D., Ph.D. [address] [place] [phone] 10/20/2024 1:15 PM CDT Appointment Department of Radiology, [facility], in [place], [place] [address] [place] [phone] Elizabeth Warner, ADRI, C.N.P., M.S. [address] [place] [phone] 10/20/2024 3:00 PM CDT Office Visit Department of Palliative Care in [place], [place] [address] [place] [address] Jacinda Cruz M.D. [address] [place] [phone] 10/21/2024 7:50 AM CDT Appointment Department of Laboratory Medicine and Pathology, [facility] in [place], [place] [address] [place] [address] Elizabeth Warner, ADRI, C.N.P., M.S. [address] [place] [phone] 10/21/2024 10:20 AM CDT Office Visit Department of Oncology in [place], [place] [address] [place] [address] Marquise Singh M.D. [address] [place] [phone] 10/25/2024 12:00 PM CDT Virtual Visit Division of Gastroenterology in [place], [place] [address] [place] [phone] Torres Estrella M.D., Ph.D. [address] [place] [phone] documented as of this encounter Visit Diagnoses Not on filedocumented in this encounter Additional Health Concerns Infection Onset Date Last Indicated Resolved Time Protective Environment 02/12/2024 02/12/202405/22 6:03 AM RECEPTIONIST SCHEDULER documented as of this encounter
--- OUTSIDE RECORDS SUMMARY | 2024-09-26 06:49 | XMS_ITS | Encounter Summary ---
Author Organization [facility] Address [address] [place] [address] Care Team Providers Care Rn Manager Name Role Phone Unavailable Primary Care Provider Unavailabl e Reason for Referral * Outpatient (Routine) - Closed Specialty Diagnoses / Procedures Referred By Cinthia t Referred To Contact Oncology Elizabeth Warner APRN, C.N.P., M.S. [address] [place] [phone] Phone: tel: fax: ONC NURSE LUNG RED 01 ROGO Referral ID Status Reason Start Date Expiration Date Visits Re quested Visits Authorized [id number] Closed 09/09/2024 03/11/2026 1 1 Scheduling Instructions Please keep hidden, thank you Reason for Visit * Reason Onset Date Comments Symptom Assessment 09/09/2024 Esophagitis / budesonide follow up Encounter Details Date Type Department Care Team (Latest Contact Info) Description 09/09/2024 Clinical Communication Department of Oncology in [place], [place] [address] [place] [phone] Cece Gr, Pharm.D., R.Ph., [facility] [address] [place] [phone] Symptom Assessment (Esophagitis / budesonide follow up ) Social History Tobacco Use Types Packs/Day Years Used Date Smoking Tobacco: Former Cigarettes 1 35 0 04/14/2023 - 01/20/2024 Passive Smoke Exposure: Never Smokeless Tobacco: Never Alcohol Use Standard Drinks/Week Comments Not Currently 0 (1 standard drink = 0.6 oz pur e alcohol) [facility] Utilities Answer Date Recorded In the past 12 months has th e electric, gas, oil, or water company [...] AM CDT 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 [address] [place] [phone] 10/18/2024 10:15 AM CDT Clinical Communication Virtual Review in [place], [place] 200 [place] [address] 10/18/2024 11:45 AM CDT Appointment Division of Gastroenterology in [address] [phone] Torres Estrella M.D., Ph.D. [address] [place] [phone] 10/20/2024 1:15 PM CDT Appointment Department of Radiology, [facility], in [place], [place] [address] [place] [phone] Elizabeth Warner, ADRI, C.N.P., M.S. [address] [place] [phone] 10/20/2024 3:00 PM CDT Office Visit Department of Palliative Care in [place], [place] [address] [place] [phone] Jacinda Cruz M.D. [address] [place] [phone] 10/21/2024 7:50 AM CDT Appointment Department of Laboratory Medicine and Pathology, [facility] in [place], [place] [address] [place] [phone] Elizabeth Warner, ADRI, C.N.P., M.S. [address] [place] [phone] 10/21/2024 10:20 AM CDT Office Visit Department of Oncology in [place], [place] [address] [place] [address] Marquise Singh M.D. [address] [place] [phone] 10/25/2024 12:00 PM CDT Virtual Visit Division of Gastroenterology in [place], [place] [address] [place] [phone] Torres Estrella M.D., Ph.D. [address] [place] [phone] Scheduled Referrals Name Type Priority Associated Diagnoses Orde r Schedule Oncology office visit (clinic) Outpatient Referral Routine Expected: 09/16/2024, Expires: 12/10/2025 documented as of this encounter Visit Diagnoses Not on filedocumented in this encounter
--- OUTSIDE RECORDS SUMMARY | 2024-09-26 06:49 | XMS_ITS ---
Author Organization [facility] Address [address] [place] [address] Care Team Providers Care Atg Architect Name Role Phone Unavailable Primary Care Provider Unavailabl e Active Problems * This document contains information received from the source organization and may not represent a complete record from that organization. 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 on 02/10/2024 Current Treatment and Therapy Plans Pembrolizumab ( Every 3 weeks ) ( Oncology )* Plan Start Date:06/13/2024 Plan Provider:Elizabeth Warner APRN, C.N.P., M.S. Linked Problems Medication Therapy Lunchroom Operator Not 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Malignant Neoplasm Of Lung Lower Lobe Or Bronchus Right (HCC)Medication Therapy Long-Term Not 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 Treatment Medications Current Day (Pre T reatment Tasks - Planned for 06/13/2024) Next Day (Day 1, Cycle 1 - Planned for 06/14/2024) pembrolizumab (Keytruda) No medications schedule d. pembrolizumab 200 mg in NaCl 0.9% 108 mL IVPB (Keytruda) Vascular Access Patency - Peripheral Intravenous Catheter and Rapid Infusion Catheter* Plan Start Date:02/12/2024 Plan Provider:Elizabeth Warner APRN C.N.P., M.S. Linked Problems Malignant Neoplasm Of Lung L ower Lobe Or Bronchus Right (HCC) Treatment Medications No medications scheduled. Past Treatment and Therapy Plans Hematology / Oncology Treatment 1 Plan Name Start Date Discontinue Date Treatment Medications Discontinue Reason Plan Provider Cycles CARBOplatin AUC 6 / PACLitaxel / Pembrolizumab (Lung) 02/11/20 24 04/20/2024 CARBOplatin (Paraplatin)CA RBOplatin (Paraplatin) IVPB (BY AUC) in 250 mL (Paraplatin)PA CLitaxel (TaxoL)PACLIta xeL (TaxoL) IVPB in 500 mL (TaxoL)pembrol izumab (Keytruda) Unlisted Elizabeth Warner APRN, C.N.P., M.S. 3 of 6 cycles started Hematology / Oncology Treatment 2 Plan Name Start Date Discontinue Date Treatment Medications Discontinue Reason Plan Provider Cycles CARBOplatin AUC 2 Weekly / PACLitaxel 50 mg/m2 ( with Radiation ) ( Lung ) 04/21/2024 06/03/2024 CARBOplatin (Paraplatin)CA RBOplatin (Paraplatin) IVPB (BY AUC) in 250 mL (Paraplatin)PA CLitaxel (TaxoL)PACLIta xeL (TaxoL) IVPB in 250 mL (TaxoL) Therapy Complete Elizabeth Warner APRN, C.N.P., M.S. 1 of 1 cycle started Past Radiation Episodes * IMRT: Midline LungOverview* First Treatment Date Last Treatment Date Treatment Site Technique Goal Episode Provider 04/20/2024 2024 Midline Lung IMRT Curative * Linked Problems Malignant Neoplasm Of Lung L ower Lobe Or Bronchus Right Treatment Courses* Course 1xLung 04/20/2024 - 2024 Treatment Period Fraction Dose Fractions Total Dose Plans Planned [id number] 04/20/2024 - 2024 220 cGy 30 30 6 ,600 cGy Reference Points Delivered [id number] 04/20/2024 - 2024 6,600 cGy Lifetime Dose Tracking * Chemical Lifetime Dose Automatic Entry Manual Entr y Radiation 58.8 mGy 58.8 mGy 0 mGy Fluoro Time 2.6 minutes 2.6 minutes 0 minutes
--- OUTSIDE RECORDS SUMMARY | 2024-09-26 06:49 | XMS_ITS | Encounter Summary ---
Author Organization [facility] Address [address] [place] [address] Care Team Providers Care Process Development Engineer Name Role Phone Unavailable Primary Care Provider Unavailabl e Encounter Details Date Type Department Care Team (Late st Contact Info) Description 09/07/2024 Clinical Communication Department of Oncology in [place], [place] [address] [place] [phone] Elizabeth Warner, ADRI, C.N.P., M.S. [address] [place] [phone] Social History Tobacco Use Types Packs/Day Years Used Date Smoking Tobacco: Former Cigarettes 1 35 0 04/14/2023 - 01/20/2024 Passive Smoke Exposure: Never Smokeless Tobacco: Never Alcohol Use Standard Drinks/Week Comments Not Currently 0 (1 standard drink = 0.6 oz pur e alcohol) [facility] Utilities Answer Date Recorded In the past 12 months [facility], oil, or water [employer] threatened to shut off services in your [...] your living situation today? I have a [facility] place to live 05/16/2024 Sex and Gender Information Value Date Recorded Sex Assigned at Male 01/28/2024 10:26 AM CDT Legal Sex Male 10:09 PM [facility] Gender Identity Male 01/28/2024 10:26 AM CDT Sexual Orientation Straight 01/28/2024 10 :26 AM CDT documented as of this encounter Plan of Treatment Upcoming Encounters Date Type Department Care Team (Latest Contact Info) Description 09/28/2024 3:20 PM CDT Office Visit Division of Gastroenterology in [place], [place] [address] [place] [address] Pratik Fishman M.D. [address] [place] [phone] 10/18/2024 10:15 AM CDT Clinical Communication Virtual Review in [place], [place] 200 [place] [phone] 10/18/2024 11:45 AM CDT Appointment Division of Gastroenterology in [place], [place] [address] [place] [phone] Torres Estrella M.D., Ph.D. [address] [place] [phone] 10/20/2024 1:15 PM CDT Appointment Department of Radiology, [facility], in [address] [phone] Elizabeth Warner APRN, C.N.P., M.S. [address] [place] [phone] 10/20/2024 3:00 PM CDT Office Visit Department of Palliative Care in [address] [phone] Jacinda Cruz M.D. [address] [place] [phone] 10/21/2024 7:50 AM CDT Appointment Department of Laboratory Medicine and Pathology, [facility] in [place], [place] [address] [place] [phone] Elizabeth Warner APRN, C.N.P., M.S. [address] [place] [phone] 10/21/2024 10:20 AM CDT Office Visit Department of Oncology in [address] [phone] Marquise Singh M.D. [address] [place] [phone] 10/25/2024 12:00 PM CDT Virtual Visit Division of Gastroenterology in [place], [place] [address] [place] [phone] Torres Estrella M.D., Ph.D. [address] [place] [phone] documented as of this encounter Visit Diagnoses Not on filedocumented in this encounter
--- NOTE | 2024-09-26 07:50 | ED.GENADULT ---
HPI - General Adult General Chief complaint: Shortness of Breath/Dyspnea Stated complaint: shortness of breath Time Seen by Provider: 09/26/24 07:27 History of Present Illness HPI narrative: patient with hx of radiation to a mass R neck in may. patient reports this AM he awoke around 0545 with severe SOB, tried his albuterol inhaler and thought it made the symptoms worse. symptoms had improved by the time EMS arrived, in triage patients ' symptoms have now resolved but he reports still feeling very anxious about the event . patient states he also has had a Twing in his left upper chest for the past 2 days. 54-year-old man presenting to the emergency department following waking with severe shortness of breath. Inquiry of spouse sounds like it might have been sound in like severe stridorous sounds. Did try an albuterol inhaler. Does have albuterol nebulizer available but did not use it. Albuterol inhaler did not help maybe even made it worse and then had some cold water to drink and then seemed to settle. Underlying history of non-small cell cancer of the right lung. They describe that this had been a mass in the right neck CT angio on review of record shows that there was a paratracheal mass causing some tracheal stenosis. Had presented at 1 point with stridor and difficulty breathing. Did receive radiation and chemo and now immunotherapy. Did seem to improve good deal with initial course of radiation per their report. Lately Mr. Miramontes has been feeling a tickle in his throat. Understandably following this event this morning was feeling quite anxious. Feels fine now he says. No actual chest pain was described. Underlying history also of anxiety. History of sleep apnea. Related Data Home Medications ?Medication ?Instructions ?Recorded ?Confirmed ondansetron 8 mg disintegrating 8 mg PO Q8H PRN 04/28/24 09/21/24 tablet prochlorperazine maleate 10 mg 10 mg PO Q6H PRN 04/28/24 09/21/24 tablet tiotropium bromide 2.5 2 inh inhalation DAILY 04/28/24 09/26/24 mcg/actuation mist for inhalation (Spiriva Respimat) atenolol 25 mg tablet 25 mg PO QDAY 09/21/24 09/26/24 Previous Rx's ?Medication ?Instructions ?Recorded albuterol sulfate 90 mcg/actuation 2 puff inhalation Q6H PRN 01/06/24 aerosol inhaler shortness of breath or wheezing #6.7 grams venlafaxine 150 mg 150 mg PO QDAY #90 caps 05/04/24 capsule,extended release 24 hr omeprazole 40 mg capsule,delayed 40 mg PO DAILY GERD #90 caps 07/07/24 release Allergies Allergy/AdvReac Type Severity Reaction Status Date / Time No Known Allergies Allergy Verified 09/21/24 14:39 Review of Systems Status of ROS: Reports: 6 or more systems reviewed and unremarkable except as noted in History and below [facility] Medical History Tobacco use (02/16/10) ?Z72.0 - Tobacco use (ICD-10) Non-small cell cancer of right lung (~01/2024) ?C34.91 - Malignant neoplasm of unspecified part of right bronchus or lung (ICD-10) Work related injury ?Y99.0 - Civilian activity done for income or pay (ICD-10) HTN (hypertension) ?I10 - Essential (primary) hypertension (ICD-10) Obstructive sleep apnea syndrome ?G47.33 - Obstructive sleep apnea (adult) (pediatric) (ICD-10) Obesity with body mass index greater than 30 ?E66.9 - Obesity, unspecified (ICD-10) Hyperlipidemia ?E78.5 - Hyperlipidemia, unspecified (ICD-10) Generalized anxiety disorder ?F41.1 - Generalized anxiety disorder (ICD-10) Gastroesophageal reflux disease (06/18/11) ?K21.9 - Gastro-esophageal reflux disease without esophagitis (ICD-10) Erectile dysfunction ?N52.9 - Male erectile dysfunction, unspecified (ICD-10) Depression ?F32.A - Depression, unspecified (ICD-10) Carpal tunnel syndrome ?G56.00 - Carpal tunnel syndrome, unspecified upper limb (ICD-10) Benign prostatic hyperplasia ?N40.0 - Benign prostatic hyperplasia without lower urinary tract symptoms (ICD-10) Adenomatous polyp of colon ?D12.6 - Benign neoplasm of colon, unspecified (ICD-10) Surgical History S/P arthroscopic partial medial meniscectomy (11/01/21) ?Z98.890 - Other specified postprocedural states (ICD-10) Status post hip surgery (02/21/22) ?Z98.890 - Other specified postprocedural states (ICD-10) Status post medial meniscus repair of right knee (12/12/22) ?Z98.890 - Other specified postprocedural states (ICD-10) History of hernia repair ?Z98.890 - Other specified postprocedural states (ICD-10) ?Z87.19 - Personal history of other diseases of the digestive system (ICD-10) History of cholecystectomy ?Z90.49 - Acquired absence of other specified parts of digestive tract (ICD-10) History of appendectomy ?Z90.49 - Acquired absence of other specified parts of digestive tract (ICD-10) Family History Mother Colon cancer Social History 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, 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, 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, 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, , 2 kids What is your current living situation?: I presently have a place to live Problems where you live: no known problems In the past 12 months, utilities in danger of being shut off: no In past 12 months, lack of transportation kept you from medical appts, meetings, work, or getting things needed for daily living: no In the past 12 mos, have been you worried that your food would run out before you had money to buy more?: never true In the past 12 mos, the food you bought just didn't last and you didn't have money to buy more?: never true Smoking Status: Former smoker What tobacco products do you use: cigarettes Smoking packs per day: 1.5 Smoking cigarettes per day: 30.0 Smoking quit date/years: <= 15 years ago Do you use any of these nicotine containing products: None Second hand tobacco smoke exposure: Yes How often do you have a drink containing alcohol: never AUDIT-C Alcohol total score: 0 Non-prescribed substance use: denies use Caffeine: Yes How often does anyone, including family, friends and others, physically hurt you: never How often does anyone, including family, friends and others, insult or talk down to you: never How often does anyone, including family, friends and others, threaten you with harm: never How often does anyone, including family, friends and others, scream or curse at you: never service: No Exam Narrative: Exam Narrative: Pleasant. NAD. Somewhat gravelly voice. There is no stridor. Lungs are clear. Oropharynx is difficult to visualize been posterior oropharynx as does not relax tongue. No asymmetry to what I am visualizing though. A little hyperemic. Heart in mildly elevated rate and regular rhythm. Distant. Extremities are without edema. Is well-perfused. Const: Vital Signs, click to edit/add: Vital Signs - 24 hr 09/26/24 06:59 09/26/24 07:15 09/26/24 07:47 Temperature 98 F Pulse Rate 85 Pulse Rate [Pulse Oximeter] 92 Respiratory Rate 15 16 Blood Pressure [Ri ght Upper Arm] 136/86 Pulse Oximetry 94 93 94 Oxygen Delivery Me thod Room Air 09/26/24 08:00 09/26/24 08:15 09/26/24 08:30 Temperature Pulse Rate 94 93 95 Pulse Rate [Pulse Oximeter] Respiratory Rate 15 14 Blood Pressure [Ri ght Upper Arm] Pulse Oximetry 93 93 94 Oxygen Delivery Me thod Documenting provider has reviewed patient's vital signs: yes Course Vital Signs Vital signs: Initial Vital Signs Temperature 98 F 09/26/24 06:59 Temperature Source Temporal Artery Scan 09/26/24 06:59 Pulse Rate 92 09/26/24 06:59 Respiratory Rate 15 09/26/24 06:59 Blood Pressure 136/86 09/26/24 06:59 Blood Pressure Mean 102 09/26/24 06:59 Blood Pressure Position Semi-Fowlers 09/26/24 06:59 Pulse Oximetry 94 09/26/24 06:59 Oxygen Delivery Method Room Air 09/26/24 06:59 Vital Signs Temperature 98 F 09/26/24 06:59 Pulse Rate 92 09/26/24 06:59 Respiratory Rate 15 09/26/24 06:59 Blood Pressure 136/86 09/26/24 06:59 Pulse Oximetry 94 09/26/24 06:59 Oxygen Delivery Method Room Air 09/26/24 06:59 Temperature 98 F 09/26/24 06:59 Pulse Rate 95 09/26/24 08:30 Respiratory Rate 14 09/26/24 08:30 Blood Pressure 136/86 09/26/24 06:59 Pulse Oximetry 94 09/26/24 08:30 Oxygen Delivery Method Room Air 09/26/24 06:59 Medical Decision Making MDM Narrative Medical decision making narrative: I suspect this was some discomfort associated with laryngospasm which is now resolved. Unlikely to have persistently encroaching mass without persistent/worsening symptoms. I would do basic chest x-ray. Might need CT imaging of the neck but with resolution of symptoms I think might be able to follow this up outpatient. Will check labs also looking for potentially ischemic cardiovascular event as would be at higher risk given smoking history. EKG is reassuring. Independently reviewed by me showing normal sinus rhythm and generally low voltage. Rate of 90. No ischemic changes. Chest x-ray independently reviewed by me one-view looks to show some mild cardiomegaly and some congestion. Radiology over-read below INDICATION: Shortness of breath, now improved, history of lung cancer COMPARISON: 12/09/2023 radiograph, 06/13/2024 CT TECHNIQUE: 1 view chest radiograph. FINDINGS: Devices: None. Lung volumes are moderate. Dense small nodules in the right mid and lower lung are similar to prior and are consistent with calcified granulomas. No new nodule seen. Central pulmonary vascular congestion with a few peripheral septal lines. No pleural effusion. No pneumothorax. No pneumomediastinum. Heart size is upper limits of normal. Mediastinal contours are mildly wide with a widened vascular pedicle compared to the prior radiographs. Bones: No acute findings. IMPRESSION: Mild pulmonary edema. Normal labs. Evaluation I think is overall reassuring. See patient discharge plan for further discussion As I said, I think what happened here was some spasming of your vocal cords/larynx. And then understandably further panic/anxiety. You might benefit from some pseudoephedrine for a little drying/decongestion if you think that you might have some mild sinus congestion occurring. This could be resulting in some postnasal drip irritation. If that is the case also might benefit from some longer-term nasal steroid spray which is also available [id number]. If occurs again I suppose you could try your nebulizer though that drink of cold water seem to maybe do the trick. If not improving/resolving please return. I would also follow-up as scheduled with your oncology team and discuss this event further. Might want also [place]inkie back around to re-evaluate for potential sleep apnea. Continue to take your omeprazole at this point as this episode could have been triggered by reflux as well. Medical Records Medical records reviewed: Yes I reviewed the patient's medical records Lab Data Lab results reviewed: Yes I reviewed the patient's lab results Labs: Lab Results 09/26/24 09/26/24 09/26/24 Range/Units 08:34 08:47 08:50 WBC 4.79 (4.50-11.00) K/uL RBC 4.79 (4.30-5.90) m/uL Hgb 13.8 (13.5-17.5) gm/dL Hct 41.4 (37.0-53.0) % MCV 86 (80-100) fL MCH 29 (26-34) pg MCHC 33 (32-36) gm/dL RDW Coeff of Negro 12.5 (11.5-15.5) % Plt Count 164 (140-440) K/uL Neut % (Auto) 62.0 (42.0-72.0) % Lymph % (Auto) 18.2 L (20-44) % [place] % (Auto) 8.6 (0.0-11.0) % Eos % (Auto) 10.2 H (0.0-7.0) % Baso % (Auto) 0.8 (0.0-3.0) % Neut # (Auto) 2.97 (1.7-7.0) K/uL Lymph # (Auto) 0.90 (0.90-2.90) K/uL [place] # (Auto) 0.40 (0.00-0.90) K/UL Eos # (Auto) 0.50 (0.00-0.50) K/uL Baso # (Auto) 0.04 (0.00-0.30) K/uL Abs Immat Gran (auto) 0.01 (0.00-0.30) K/uL Imm/Tot Granulo (auto) 0.2 % Sodium 139 (135-149) mmol/L Potassium 4.1 (3.6-5.1) mmol/L Chloride 104 (96-114) mmol/L Carbon Dioxide 27 (20-32) mmol/L Anion Gap 8 (7-15) mEq/L BUN 13 (7-30) mg/dL Creatinine 0.8 (0.5-1.5) mg/dL Estimated Creat Clear 122.07 Estimated GFR 106 ml/min Glucose 116 H (60-115) mg/dL Calcium 9.3 (8.4-10.6) mg/dL Troponin I < 0.01 (0.01-0.04) ng/mL NT-Pro-B Natriuret Pep < 20 (See Note) pg/mL Lab Acknowledgement Test Added POC Troponin I 0.01 (0.01-0.04) ng/ml Discharge Plan Discharge Clinical Impression: Laryngospasm, Shortness of breath Patient Disposition: Home w/ Parent or Adult Condition: Improved Instructions: Laryngospasm (DC) Additional Instructions: As I said, I think what happened here was some spasming of your vocal cords/larynx. And then understandably further panic/anxiety. You might benefit from some pseudoephedrine for a little drying/decongestion if you think that you might have some mild sinus congestion occurring. This could be resulting in some postnasal drip irritation. If that is the case also might benefit from some longer-term nasal steroid spray which is also available [id number]. If occurs again I suppose you could try your nebulizer though that drink of cold water seem to maybe do the trick. If not improving/resolving please return. I would also follow-up as scheduled with your oncology team and discuss this event further. Might want also o[place] back around to re-evaluate for potential sleep apnea. Continue to take your omeprazole at this point as this episode could have been triggered by reflux as well. Prescriptions: No Action albuterol sulfate 90 mcg/actuation HFA aerosol inhaler 2 puff inhalation Q6H PRN (Reason: shortness of breath or wheezing) Qty: 6.7 0RF atenolol 25 mg tablet 25 mg PO QDAY prochlorperazine maleate 10 mg tablet 10 mg PO Q6H PRN ondansetron 8 mg tablet,disintegrating 8 mg PO Q8H PRN Rx Instructions: 1st dose 1-2 hr before radiation Spiriva Respimat 2.5 mcg/actuation mist 2 inh inhalation DAILY venlafaxine 150 mg capsule,extended release 24hr 150 mg PO QDAY Qty: 90 1RF Rx Instructions: Take with venlafaxine 75mg to equal total daily dose of 225mg. omeprazole 40 mg capsule,delayed release(DR/EC) 40 mg PO DAILY Qty: 90 0RF Follow Up/Referrals: Mayo Lam MD [Primary Care Provider, Internal Medicine] Stand Alone Forms: CSID Info Instructions
--- NOTE | 2024-09-26 08:01 | CRLHL7_ITS ---
For Patients: As a result of the Century Cures Act, medical imaging exams and procedure reports are released immediately into your electronic medical record. You may view this report before your referring provider. If you have questions, please contact your health care provider. INDICATION: Shortness of breath, now improved, history of lung cancer COMPARISON: 12/09/2023 radiograph, 06/13/2024 CT TECHNIQUE: 1 view chest radiograph. FINDINGS: Devices: None. Lung volumes are moderate. Dense small nodules in the right mid and lower lung are similar to prior and are consistent with calcified granulomas. No new nodule seen. Central pulmonary vascular congestion with a few peripheral septal lines. No pleural effusion. No pneumothorax. No pneumomediastinum. Heart size is upper limits of normal. Mediastinal contours are mildly wide with a widened vascular pedicle compared to the prior radiographs. Bones: No acute findings. IMPRESSION: Mild pulmonary edema. Dictated by Samantha Domínguez MD @ 09/26/2024 8:40:10 AM (Electronically Signed)
[2024-09-26 08:53] LABS: Basophils Absolute Auto 0.04 K/uL (0.00-0.30); Basophils Percent Auto 0.8 % (0.0-3.0); Eosinophils Percent Auto 10.2 % (0.0-7.0); Hematocrit 41.4 % (37.0-53.0); Hemoglobin* 13.8 gm/dL (13.5-17.5); Immature Granulocytes Abs Auto 0.01 K/uL (0.00-0.30); Immature Granulocytes Pct Auto 0.2 %; Lymphocytes Percent Auto 18.2 % (20-44); Mean Corpuscular HGB Conc 33 gm/dL (32-36); Mean Corpuscular Hemoglobin 29 pg (26-34); Mean Corpuscular Volume 86 fL (80-100); Monocytes Percent Auto 8.6 % (0.0-11.0); Neutrophils Absolute Auto 2.97 K/uL (1.7-7.0); Platelet Count* 164 K/uL (140-440); RDW Coefficient of Variation % 12.5 % (11.5-15.5); Red Blood Count 4.79 m/uL (4.30-5.90); White Blood Count* 4.79 K/uL (4.50-11.00)
[2024-09-26 09:05] LABS: Chloride* 104 mmol/L (96-114); Potassium* 4.1 mmol/L (3.6-5.1); Sodium* 139 mmol/L (135-149)
[2024-09-26 09:07] LABS: Troponin, Point-of-Care* 0.01 ng/ml (0.01-0.04)
[2024-09-26 09:08] LABS: Anion Gap 8 mEq/L (7-15); Blood Urea Nitrogen* 13 mg/dL (7-30); Calcium* 9.3 mg/dL (8.4-10.6); Carbon Dioxide* 27 mmol/L (20-32); Creatinine* 0.8 mg/dL (0.5-1.5); Est. Creatinine Clearance* 122.07; Estimated Glomerular Filt Rate 106 ml/min; Glucose* 116 mg/dL (60-115)
[2024-09-26 09:21] LABS: NT Pro B Type NatriureticPept* < 20 pg/mL (See Note); Troponin I* < 0.01 ng/mL (0.01-0.04)
[2024-09-26 09:25] LABS: Slide Review Reflex No
== END 2024-09-26 10:25 | disposition home or self-care (01) ==
PROVIDERS: Emergency Provider Family Medicine; PCP Internal Medicine
DX: J38.5 Laryngeal spasm (principal); R06.02 Shortness of breath
CPT/HCPCS: 36415; 71045; 80048; 83880; 84484; 85025; 94761; 99284

== ENCOUNTER 2024-10-13 14:00 | Outpatient (RCR) | payer OTHER, SELFPAY ==
[2024-04-26 12:30] LABS: Hematocrit 33.6 % (37.0-53.0); Hemoglobin* 11.2 gm/dL (13.5-17.5); Immature Granulocytes Abs Auto 0.06 K/uL (0.00-0.30); Immature Granulocytes Pct Auto 0.9 %; Lymphocytes Absolute Auto 0.60 K/uL (0.90-2.90); Mean Corpuscular HGB Conc 33 gm/dL (32-36); Mean Corpuscular Hemoglobin 29 pg (26-34); Mean Corpuscular Volume 88 fL (80-100); RDW Coefficient of Variation % 16.4 % (11.5-15.5); Red Blood Count 3.81 m/uL (4.30-5.90); White Blood Count* 6.45 K/uL (4.50-11.00)
[2024-04-26 12:31] LABS: Slide Review Reflex No
[2024-04-26 12:35] LABS: Albumin* 4.2 g/dL (3.3-5.0)
[2024-04-26 12:38] LABS: Bilirubin Total* 0.7 mg/dL (0.1-1.5); Carbon Dioxide* 26 mmol/L (20-32); Creatinine* 0.7 mg/dL (0.5-1.5); Est. Creatinine Clearance* 141.09; Estimated Glomerular Filt Rate 112 ml/min
[2024-04-26 12:39] LABS: Alkaline Phosphatase* 61 U/L (40-150); Aspartate Amino Transferase* 16 U/L (12-35); Blood Urea Nitrogen* 12 mg/dL (7-30); Glucose* 124 mg/dL (60-115); Total Protein* 7.3 g/dL (6.0-8.3)
[2024-04-26 13:04] LABS: Anion Gap 9 mEq/L (7-15); Chloride* 101 mmol/L (96-114); Potassium* 4.1 mmol/L (3.6-5.1); Sodium* 136 mmol/L (135-149)
[2024-04-26 13:07] LABS: Alanine Aminotransferase* 18 U/L (4-50)
[2024-04-26 13:08] LABS: Calcium* 9.4 mg/dL (8.4-10.6)
--- NOTE | 2024-04-28 07:07 | URNOTE ---
Request received for authorization for Carboplatin ([id number]), Paclitaxel ([id number]). Prior authorization is approved per [facility] for date range:04/28/2024 to 07/26/2024, Ref#[id number].
--- NOTE | 2024-04-28 08:37 | ONC.NURNOTE ---
Diagnosis: Non Small Cell Lung Cancer
[2024-04-28 12:12] VITALS: BP 116/83; PULSE 108; RESP 16; TEMP 36.7; O2SAT 97
[2024-04-28 12:31] VITALS: BP 117/71; PULSE 76; RESP 16; TEMP 36.4; O2SAT 100
[2024-04-28] MEDS: CETIRIZINE HCL 10 MG TABLET PO (12:34)
[2024-04-28] MEDS: FAMOTIDINE 10 MG/ML inj 20 MG IVP (12:35)
[2024-04-28] MEDS: ONDANSETRON 2 MG/ML inj 8 MG IVP (12:40)
[2024-04-28] MEDS: PACLitaxeL 120 MG, TUBING PRIMARY 1 EACH, In-line 0.2 micron filter set 1 EACH in 0.9 %... 270 MG IV (13:17)
[2024-04-28] MEDS: CARBOplatin 300 MG, TUBING SECONDARY 1 EACH in 0.9 % SODIUM CHLORIDE 250 ml 250 ML 560 MG IVPB (14:24)
[2024-05-05 09:37] LABS: Hematocrit 33.2 % (37.0-53.0); Hemoglobin* 11.0 gm/dL (13.5-17.5); Immature Granulocytes Abs Auto 0.08 K/uL (0.00-0.30); Immature Granulocytes Pct Auto 1.8 %; Mean Corpuscular HGB Conc 33 gm/dL (32-36); Mean Corpuscular Hemoglobin 30 pg (26-34); Mean Corpuscular Volume 90 fL (80-100); RDW Coefficient of Variation % 17.4 % (11.5-15.5); Red Blood Count 3.68 m/uL (4.30-5.90); White Blood Count* 4.51 K/uL (4.50-11.00)
[2024-05-05 09:39] LABS: Lymphocytes Absolute Auto 0.50 K/uL (0.90-2.90); Slide Review Reflex No
[2024-05-05 09:54] LABS: Albumin* 4.2 g/dL (3.3-5.0); Chloride* 102 mmol/L (96-114)
[2024-05-05 09:55] LABS: Potassium* 4.0 mmol/L (3.6-5.1); Sodium* 136 mmol/L (135-149)
[2024-05-05 09:57] LABS: Alkaline Phosphatase* 56 U/L (40-150); Anion Gap 10 mEq/L (7-15); Aspartate Amino Transferase* 16 U/L (12-35); Bilirubin Total* 0.5 mg/dL (0.1-1.5); Blood Urea Nitrogen* 15 mg/dL (7-30); Carbon Dioxide* 24 mmol/L (20-32); Creatinine* 0.7 mg/dL (0.5-1.5); Est. Creatinine Clearance* 141.09; Estimated Glomerular Filt Rate 112 ml/min; Total Protein* 7.2 g/dL (6.0-8.3)
[2024-05-05 09:58] LABS: Alanine Aminotransferase* 19 U/L (4-50); Calcium* 8.7 mg/dL (8.4-10.6); Glucose* 121 mg/dL (60-115)
[2024-05-05 11:10] VITALS: BP 124/82; PULSE 99; RESP 16; TEMP 36.3; O2SAT 97
[2024-05-05] MEDS: 0.9 % SODIUM CHLORIDE 500 ML IV (11:40)
[2024-05-05] MEDS: CETIRIZINE HCL 10 MG TABLET PO (11:40)
[2024-05-05] MEDS: ONDANSETRON 2 MG/ML inj 8 MG IVP (11:40)
[2024-05-05] MEDS: FAMOTIDINE 10 MG/ML inj 20 MG IVP (11:40)
[2024-05-05] MEDS: SODIUM CHLORIDE 0.9 % (FLUSH) 10 ML SYRINGE IVF ×2 (11:40→14:07)
[2024-05-05] MEDS: PACLitaxeL 120 MG, TUBING PRIMARY 1 EACH, In-line 0.2 micron filter set 1 EACH in 0.9 %... 270 MG IV (12:16)
[2024-05-05] MEDS: CARBOplatin 300 MG, TUBING SECONDARY 1 EACH in 0.9 % SODIUM CHLORIDE 250 ml 250 ML 560 MG IVPB (13:22)
[2024-05-10 13:27] LABS: Hematocrit 33.4 % (37.0-53.0); Hemoglobin* 11.0 gm/dL (13.5-17.5); Immature Granulocytes Pct Auto 0.6 %; Mean Corpuscular HGB Conc 33 gm/dL (32-36); Mean Corpuscular Hemoglobin 30 pg (26-34); Mean Corpuscular Volume 92 fL (80-100); RDW Coefficient of Variation % 18.2 % (11.5-15.5); Red Blood Count 3.64 m/uL (4.30-5.90); White Blood Count* 3.20 K/uL (4.50-11.00)
[2024-05-10 13:37] LABS: Albumin* 4.2 g/dL (3.3-5.0); Chloride* 100 mmol/L (96-114)
[2024-05-10 13:38] LABS: Potassium* 4.1 mmol/L (3.6-5.1); Sodium* 137 mmol/L (135-149)
[2024-05-10 13:40] LABS: Anion Gap 10 mEq/L (7-15); Aspartate Amino Transferase* 16 U/L (12-35); Bilirubin Total* 0.9 mg/dL (0.1-1.5); Carbon Dioxide* 27 mmol/L (20-32); Creatinine* 0.8 mg/dL (0.5-1.5); Est. Creatinine Clearance* 123.46; Estimated Glomerular Filt Rate 107 ml/min; Total Protein* 7.4 g/dL (6.0-8.3)
[2024-05-10 13:41] LABS: Alanine Aminotransferase* 19 U/L (4-50); Alkaline Phosphatase* 51 U/L (40-150); Blood Urea Nitrogen* 17 mg/dL (7-30); Calcium* 8.8 mg/dL (8.4-10.6); Glucose* 141 mg/dL (60-115)
[2024-05-10 14:05] LABS: Immature Granulocytes Abs Auto 0.00 K/uL (0.00-0.30); Lymphocytes Absolute Auto 0.20 K/uL (0.90-2.90); Slide Review Reflex No
--- NOTE | 2024-05-11 09:37 | ONC.NURNOTE ---
Called pt with update re: Bactrim script and gave pt instruction to take one tab daily per Zoya Art PA-C. Pt verbalized understanding.
[2024-05-12 11:31] VITALS: BP 115/81; PULSE 106; RESP 21; TEMP 36.6; O2SAT 99
[2024-05-12] MEDS: CETIRIZINE HCL 10 MG TABLET PO (12:12)
[2024-05-12] MEDS: FAMOTIDINE 10 MG/ML inj 20 MG IVP (12:25)
[2024-05-12] MEDS: ONDANSETRON 2 MG/ML inj 8 MG IVP (12:36)
[2024-05-12] MEDS: PACLitaxeL 120 MG, TUBING PRIMARY 1 EACH, In-line 0.2 micron filter set 1 EACH in 0.9 %... 270 MG IV (12:53)
[2024-05-12] MEDS: SODIUM CHLORIDE 0.9 % (FLUSH) 10 ML SYRINGE IVF (13:30)
[2024-05-12] MEDS: 0.9 % SODIUM CHLORIDE 500 ML IV (13:30)
[2024-05-12] MEDS: CARBOplatin 300 MG, TUBING SECONDARY 1 EACH in 0.9 % SODIUM CHLORIDE 250 ml 250 ML 560 MG IVPB (13:56)
[2024-05-19 10:37] LABS: Hematocrit 32.3 % (37.0-53.0); Hemoglobin* 10.8 gm/dL (13.5-17.5); Immature Granulocytes Pct Auto 1.0 %; Mean Corpuscular HGB Conc 33 gm/dL (32-36); Mean Corpuscular Hemoglobin 31 pg (26-34); Mean Corpuscular Volume 93 fL (80-100); RDW Coefficient of Variation % 19.2 % (11.5-15.5); Red Blood Count 3.46 m/uL (4.30-5.90); White Blood Count* 2.91 K/uL (4.50-11.00)
[2024-05-19 10:41] LABS: Immature Granulocytes Abs Auto 0.00 K/uL (0.00-0.30); Lymphocytes Absolute Auto 0.30 K/uL (0.90-2.90); Slide Review Reflex No
[2024-05-19 10:50] LABS: Albumin* 4.0 g/dL (3.3-5.0); Chloride* 102 mmol/L (96-114); Sodium* 134 mmol/L (135-149)
[2024-05-19 10:51] LABS: Potassium* 4.0 mmol/L (3.6-5.1)
[2024-05-19 10:53] LABS: Alanine Aminotransferase* 21 U/L (4-50); Alkaline Phosphatase* 53 U/L (40-150); Anion Gap 8 mEq/L (7-15); Aspartate Amino Transferase* 18 U/L (12-35); Bilirubin Total* 0.6 mg/dL (0.1-1.5); Blood Urea Nitrogen* 10 mg/dL (7-30); Carbon Dioxide* 24 mmol/L (20-32); Creatinine* 0.7 mg/dL (0.5-1.5); Est. Creatinine Clearance* 141.09; Estimated Glomerular Filt Rate 112 ml/min; Glucose* 113 mg/dL (60-115); Total Protein* 6.8 g/dL (6.0-8.3)
[2024-05-19 10:54] LABS: Calcium* 8.9 mg/dL (8.4-10.6)
[2024-05-19 11:31] VITALS: BP 101/78; PULSE 101; RESP 16; TEMP 36.4; O2SAT 99
[2024-05-19] MEDS: 0.9 % SODIUM CHLORIDE 500 ML IV (12:02)
[2024-05-19] MEDS: SODIUM CHLORIDE 0.9 % (FLUSH) 10 ML SYRINGE IVF (12:02)
[2024-05-19] MEDS: ONDANSETRON 2 MG/ML inj 8 MG IVP (12:03)
[2024-05-19] MEDS: CETIRIZINE HCL 10 MG TABLET PO (12:09)
[2024-05-19] MEDS: FAMOTIDINE 10 MG/ML inj 20 MG IVP (12:09)
[2024-05-19] MEDS: PACLitaxeL 120 MG, TUBING PRIMARY 1 EACH, In-line 0.2 micron filter set 1 EACH in 0.9 %... 270 MG IV (12:47)
[2024-05-19] MEDS: CARBOplatin 300 MG, TUBING SECONDARY 1 EACH in 0.9 % SODIUM CHLORIDE 250 ml 250 ML 560 MG IVPB (13:52)
[2024-05-26 08:57] LABS: Hematocrit 31.3 % (37.0-53.0); Hemoglobin* 10.4 gm/dL (13.5-17.5); Immature Granulocytes Pct Auto 0.9 %; Mean Corpuscular HGB Conc 33 gm/dL (32-36); Mean Corpuscular Hemoglobin 32 pg (26-34); Mean Corpuscular Volume 95 fL (80-100); RDW Coefficient of Variation % 19.0 % (11.5-15.5); Red Blood Count 3.30 m/uL (4.30-5.90); White Blood Count* 2.13 K/uL (4.50-11.00)
[2024-05-26 08:59] LABS: Immature Granulocytes Abs Auto 0.00 K/uL (0.00-0.30); Lymphocytes Absolute Auto 0.30 K/uL (0.90-2.90); Slide Review Reflex No
[2024-05-26 09:06] LABS: Albumin* 4.3 g/dL (3.3-5.0); Chloride* 97 mmol/L (96-114); Potassium* 3.7 mmol/L (3.6-5.1); Sodium* 135 mmol/L (135-149)
[2024-05-26 09:09] LABS: Alanine Aminotransferase* 90 U/L (4-50); Alkaline Phosphatase* 98 U/L (40-150); Anion Gap 11 mEq/L (7-15); Aspartate Amino Transferase* 33 U/L (12-35); Bilirubin Total* 0.8 mg/dL (0.1-1.5); Blood Urea Nitrogen* 15 mg/dL (7-30); Carbon Dioxide* 27 mmol/L (20-32); Creatinine* 0.8 mg/dL (0.5-1.5); Est. Creatinine Clearance* 123.46; Estimated Glomerular Filt Rate 107 ml/min; Glucose* 143 mg/dL (60-115); Total Protein* 7.4 g/dL (6.0-8.3)
[2024-05-26 09:10] LABS: Calcium* 9.1 mg/dL (8.4-10.6)
[2024-05-26] MEDS: 0.9 % SODIUM CHLORIDE 500 ML IV (10:10)
[2024-05-26] MEDS: SODIUM CHLORIDE 0.9 % (FLUSH) 10 ML SYRINGE IVF (10:10)
[2024-05-26] MEDS: CETIRIZINE HCL 10 MG TABLET PO (10:11)
[2024-05-26] MEDS: ONDANSETRON 2 MG/ML inj 8 MG IVP (10:14)
[2024-05-26] MEDS: FAMOTIDINE 10 MG/ML inj 20 MG IVP (10:17)
[2024-05-26] MEDS: PACLitaxeL 120 MG, TUBING PRIMARY 1 EACH, In-line 0.2 micron filter set 1 EACH in 0.9 %... 270 MG IV (10:55)
[2024-05-26] MEDS: CARBOplatin 300 MG, TUBING SECONDARY 1 EACH in 0.9 % SODIUM CHLORIDE 250 ml 250 ML 560 MG IVPB (12:00)
--- NOTE | 2024-06-21 07:59 | URNOTE ---
Request received for authorization for Pembrolizumab ([id number]). Prior authorization is approved per [facility] date range: 06/16/2024 to 12/16/2024, Ref#[id number].
[2024-06-23 13:38] LABS: Hematocrit 35.5 % (37.0-53.0); Hemoglobin* 11.7 gm/dL (13.5-17.5); Immature Granulocytes Abs Auto 0.11 K/uL (0.00-0.30); Immature Granulocytes Pct Auto 2.3 %; Mean Corpuscular HGB Conc 33 gm/dL (32-36); Mean Corpuscular Hemoglobin 33 pg (26-34); Mean Corpuscular Volume 100 fL (80-100); RDW Coefficient of Variation % 18.3 % (11.5-15.5); Red Blood Count 3.54 m/uL (4.30-5.90); White Blood Count* 4.77 K/uL (4.50-11.00)
[2024-06-23 13:41] LABS: Lymphocytes Absolute Auto 0.50 K/uL (0.90-2.90); Slide Review Reflex No
[2024-06-23 13:46] VITALS: BP 148/93; PULSE 94; RESP 16; TEMP 36.2; O2SAT 97
[2024-06-23 13:49] LABS: Albumin* 4.3 g/dL (3.3-5.0); Chloride* 99 mmol/L (96-114); Potassium* 3.9 mmol/L (3.6-5.1); Sodium* 135 mmol/L (135-149)
[2024-06-23 13:52] LABS: Alanine Aminotransferase* 26 U/L (4-50); Alkaline Phosphatase* 45 U/L (40-150); Anion Gap 11 mEq/L (7-15); Aspartate Amino Transferase* 16 U/L (12-35); Bilirubin Total* 0.5 mg/dL (0.1-1.5); Blood Urea Nitrogen* 18 mg/dL (7-30); Calcium* 8.9 mg/dL (8.4-10.6); Carbon Dioxide* 25 mmol/L (20-32); Creatinine* 0.7 mg/dL (0.5-1.5); Est. Creatinine Clearance* 135.49; Estimated Glomerular Filt Rate 111 ml/min; Glucose* 97 mg/dL (60-115); Total Protein* 6.8 g/dL (6.0-8.3)
[2024-06-23] MEDS: PEMBROLIZUMAB 200 MG, TUBING PRIMARY 1 EACH, In-line 0.2 micron filter set 1 EACH in 0.... 216 MG IVPB (14:20)
[2024-06-23] MEDS: SODIUM CHLORIDE 0.9 % (FLUSH) 10 ML SYRINGE IVF (14:21)
--- NOTE | 2024-06-25 15:55 | ONC.NURNOTE ---
Called pt following up truda 06/23. Pt says he feels a little off today, just unwell but is overall manageable. Swallowing continues to be his biggest issue and he is working with that. Pt says he will contact us if any worsening of symptoms prior to 06/28 f/u appt.
[2024-07-15 13:15] LABS: Hematocrit 35.6 % (37.0-53.0); Hemoglobin* 11.8 gm/dL (13.5-17.5); Immature Granulocytes Pct Auto 0.3 %; Mean Corpuscular HGB Conc 33 gm/dL (32-36); Mean Corpuscular Hemoglobin 32 pg (26-34); Mean Corpuscular Volume 97 fL (80-100); RDW Coefficient of Variation % 14.7 % (11.5-15.5); Red Blood Count 3.68 m/uL (4.30-5.90); White Blood Count* 2.97 K/uL (4.50-11.00)
[2024-07-15 13:24] LABS: Albumin* 4.4 g/dL (3.3-5.0); Chloride* 101 mmol/L (96-114); Potassium* 3.3 mmol/L (3.6-5.1); Sodium* 135 mmol/L (135-149)
[2024-07-15 13:27] LABS: Alanine Aminotransferase* 27 U/L (4-50); Alkaline Phosphatase* 52 U/L (40-150); Anion Gap 7 mEq/L (7-15); Aspartate Amino Transferase* 34 U/L (12-35); Bilirubin Total* 0.7 mg/dL (0.1-1.5); Blood Urea Nitrogen* 8 mg/dL (7-30); Calcium* 9.1 mg/dL (8.4-10.6); Carbon Dioxide* 27 mmol/L (20-32); Creatinine* 0.8 mg/dL (0.5-1.5); Est. Creatinine Clearance* 118.56; Estimated Glomerular Filt Rate 106 ml/min; Glucose* 134 mg/dL (60-115); Total Protein* 7.1 g/dL (6.0-8.3)
[2024-07-15 13:39] LABS: Immature Granulocytes Abs Auto 0.00 K/uL (0.00-0.30); Lymphocytes Absolute Auto 0.60 K/uL (0.90-2.90); Slide Review Reflex No
[2024-07-15 14:00] VITALS: BP 119/56; PULSE 103; RESP 16; TEMP 36.4; O2SAT 96
[2024-07-15] MEDS: PEMBROLIZUMAB 200 MG, TUBING PRIMARY 1 EACH, In-line 0.2 micron filter set 1 EACH in 0.... 216 MG IVPB (15:14)
--- NOTE | 2024-07-16 15:36 | ONC.NURNOTE ---
Jackerman called pt to follow up loose stools yesterday and low potassium. Pt states he no longer has been having loose stools and plans to fruit picker the potassium at his pharmacy today.
[2024-08-03 13:06] LABS: Hematocrit 34.7 % (37.0-53.0); Hemoglobin* 11.5 gm/dL (13.5-17.5); Immature Granulocytes Abs Auto 0.00 K/uL (0.00-0.30); Immature Granulocytes Pct Auto 0.0 %; Mean Corpuscular HGB Conc 33 gm/dL (32-36); Mean Corpuscular Hemoglobin 32 pg (26-34); Mean Corpuscular Volume 95 fL (80-100); RDW Coefficient of Variation % 13.3 % (11.5-15.5); Red Blood Count 3.65 m/uL (4.30-5.90); White Blood Count* 3.12 K/uL (4.50-11.00)
[2024-08-03 13:10] LABS: Lymphocytes Absolute Auto 0.60 K/uL (0.90-2.90); Slide Review Reflex No
[2024-08-03 13:20] LABS: Albumin* 4.3 g/dL (3.3-5.0); Chloride* 104 mmol/L (96-114)
[2024-08-03 13:21] LABS: Potassium* 3.8 mmol/L (3.6-5.1); Sodium* 140 mmol/L (135-149)
[2024-08-03 13:23] LABS: Alanine Aminotransferase* 18 U/L (4-50); Anion Gap 7 mEq/L (7-15); Aspartate Amino Transferase* 28 U/L (12-35); Bilirubin Total* 0.8 mg/dL (0.1-1.5); Blood Urea Nitrogen* 12 mg/dL (7-30); Carbon Dioxide* 29 mmol/L (20-32); Creatinine* 0.8 mg/dL (0.5-1.5); Est. Creatinine Clearance* 118.56; Estimated Glomerular Filt Rate 106 ml/min; Total Protein* 7.0 g/dL (6.0-8.3)
[2024-08-03 13:24] LABS: Alkaline Phosphatase* 43 U/L (40-150); Calcium* 9.5 mg/dL (8.4-10.6); Glucose* 120 mg/dL (60-115)
[2024-08-04 15:29] LABS: Free T4 Free Thyroxine* 3.61 ng/dL (0.70-1.85)
[2024-08-16 11:11] LABS: Hematocrit 37.2 % (37.0-53.0); Hemoglobin* 12.3 gm/dL (13.5-17.5); Immature Granulocytes Abs Auto 0.00 K/uL (0.00-0.30); Immature Granulocytes Pct Auto 0.0 %; Mean Corpuscular HGB Conc 33 gm/dL (32-36); Mean Corpuscular Hemoglobin 30 pg (26-34); Mean Corpuscular Volume 92 fL (80-100); RDW Coefficient of Variation % 12.6 % (11.5-15.5); Red Blood Count 4.04 m/uL (4.30-5.90); White Blood Count* 3.82 K/uL (4.50-11.00)
[2024-08-16 11:17] LABS: Lymphocytes Absolute Auto 0.60 K/uL (0.90-2.90)
[2024-08-16 11:18] LABS: Slide Review Reflex No
[2024-08-16 11:27] LABS: Albumin* 4.4 g/dL (3.3-5.0); Chloride* 107 mmol/L (96-114); Potassium* 4.3 mmol/L (3.6-5.1); Sodium* 143 mmol/L (135-149)
[2024-08-16 11:30] LABS: Alanine Aminotransferase* 19 U/L (4-50); Alkaline Phosphatase* 53 U/L (40-150); Anion Gap 11 mEq/L (7-15); Aspartate Amino Transferase* 29 U/L (12-35); Bilirubin Total* 0.6 mg/dL (0.1-1.5); Blood Urea Nitrogen* 11 mg/dL (7-30); Carbon Dioxide* 25 mmol/L (20-32); Creatinine* 0.8 mg/dL (0.5-1.5); Est. Creatinine Clearance* 118.56; Estimated Glomerular Filt Rate 106 ml/min; Total Protein* 7.2 g/dL (6.0-8.3)
[2024-08-16 11:31] LABS: Calcium* 9.8 mg/dL (8.4-10.6); Glucose* 112 mg/dL (60-115)
--- NOTE | 2024-08-16 13:06 | ONC.NURNOTE ---
Patient in clinic today for recheck of TSH. Resulted at <0.[address] Perry Pembrolizumab held today and patient will need to follow up with endocrinology. RN called patient to update him that his level is the same and that treatment needs to be put on hold until he is seen by endocrinology. Advised patient that the order will be placed today and someone should be calling him in the next few days to get that appt scheduled. Patient verbalized understanding. RN updated pharmacy.
[2024-09-01 10:01] LABS: Hematocrit 36.8 % (37.0-53.0); Hemoglobin* 12.0 gm/dL (13.5-17.5); Immature Granulocytes Abs Auto 0.00 K/uL (0.00-0.30); Immature Granulocytes Pct Auto 0.0 %; Mean Corpuscular HGB Conc 33 gm/dL (32-36); Mean Corpuscular Hemoglobin 29 pg (26-34); Mean Corpuscular Volume 90 fL (80-100); RDW Coefficient of Variation % 12.2 % (11.5-15.5); Red Blood Count 4.08 m/uL (4.30-5.90); White Blood Count* 3.66 K/uL (4.50-11.00)
[2024-09-01 10:03] LABS: Lymphocytes Absolute Auto 0.70 K/uL (0.90-2.90)
[2024-09-01 10:04] LABS: Slide Review Reflex No
[2024-09-01 10:13] LABS: Albumin* 4.2 g/dL (3.3-5.0); Chloride* 106 mmol/L (96-114)
[2024-09-01 10:14] LABS: Potassium* 3.6 mmol/L (3.6-5.1); Sodium* 141 mmol/L (135-149)
[2024-09-01 10:16] LABS: Alanine Aminotransferase* 21 U/L (4-50); Anion Gap 8 mEq/L (7-15); Aspartate Amino Transferase* 26 U/L (12-35); Blood Urea Nitrogen* 10 mg/dL (7-30); Carbon Dioxide* 27 mmol/L (20-32); Creatinine* 0.8 mg/dL (0.5-1.5); Est. Creatinine Clearance* 118.56; Estimated Glomerular Filt Rate 106 ml/min
[2024-09-01 10:17] LABS: Alkaline Phosphatase* 46 U/L (40-150); Bilirubin Total* 0.5 mg/dL (0.1-1.5); Calcium* 9.5 mg/dL (8.4-10.6); Glucose* 120 mg/dL (60-115); Total Protein* 6.8 g/dL (6.0-8.3)
[2024-09-02 14:04] VITALS: BP 126/75; PULSE 98; RESP 16; TEMP 36.6; O2SAT 97
[2024-09-02] MEDS: PEMBROLIZUMAB 200 MG, TUBING PRIMARY 1 EACH, In-line 0.2 micron filter set 1 EACH in 0.... 216 MG IVPB (14:19)
[2024-09-02] MEDS: SODIUM CHLORIDE 0.9 % (FLUSH) 10 ML SYRINGE IVF (14:20)
[2024-09-21 14:30] LABS: Hematocrit 38.6 % (37.0-53.0); Hemoglobin* 13.0 gm/dL (13.5-17.5); Immature Granulocytes Abs Auto 0.01 K/uL (0.00-0.30); Immature Granulocytes Pct Auto 0.2 %; Mean Corpuscular HGB Conc 34 gm/dL (32-36); Mean Corpuscular Hemoglobin 29 pg (26-34); Mean Corpuscular Volume 87 fL (80-100); RDW Coefficient of Variation % 12.6 % (11.5-15.5); Red Blood Count 4.43 m/uL (4.30-5.90); White Blood Count* 4.53 K/uL (4.50-11.00)
[2024-09-21 14:35] LABS: Lymphocytes Absolute Auto 0.80 K/uL (0.90-2.90); Slide Review Reflex No
[2024-09-21 14:42] LABS: Albumin* 4.2 g/dL (3.3-5.0); Chloride* 105 mmol/L (96-114); Potassium* 4.0 mmol/L (3.6-5.1); Sodium* 140 mmol/L (135-149)
[2024-09-21 14:45] LABS: Alanine Aminotransferase* 22 U/L (4-50); Alkaline Phosphatase* 51 U/L (40-150); Anion Gap 7 mEq/L (7-15); Aspartate Amino Transferase* 31 U/L (12-35); Bilirubin Total* 0.5 mg/dL (0.1-1.5); Blood Urea Nitrogen* 11 mg/dL (7-30); Calcium* 9.4 mg/dL (8.4-10.6); Carbon Dioxide* 28 mmol/L (20-32); Creatinine* 1.0 mg/dL (0.5-1.5); Est. Creatinine Clearance* 94.84; Estimated Glomerular Filt Rate 91 ml/min; Glucose* 112 mg/dL (60-115); Total Protein* 7.2 g/dL (6.0-8.3)
[2024-09-22 13:09] VITALS: BP 145/83; PULSE 97; RESP 16; TEMP 36.7; O2SAT 97
[2024-09-22] MEDS: SODIUM CHLORIDE 0.9 % (FLUSH) 10 ML SYRINGE IVF (13:47)
[2024-09-22] MEDS: PEMBROLIZUMAB 200 MG, TUBING PRIMARY 1 EACH, In-line 0.2 micron filter set 1 EACH in 0.... 216 MG IVPB (13:49)
[2024-10-12 13:54] LABS: Hematocrit 41.6 % (37.0-53.0); Hemoglobin* 13.9 gm/dL (13.5-17.5); Immature Granulocytes Abs Auto 0.01 K/uL (0.00-0.30); Immature Granulocytes Pct Auto 0.2 %; Mean Corpuscular HGB Conc 33 gm/dL (32-36); Mean Corpuscular Hemoglobin 29 pg (26-34); Mean Corpuscular Volume 86 fL (80-100); RDW Coefficient of Variation % 13.1 % (11.5-15.5); Red Blood Count 4.85 m/uL (4.30-5.90); White Blood Count* 5.07 K/uL (4.50-11.00)
[2024-10-12 13:59] LABS: Lymphocytes Absolute Auto 1.00 K/uL (0.90-2.90)
[2024-10-12 14:00] LABS: Slide Review Reflex No
[2024-10-12 14:10] LABS: Albumin* 4.6 g/dL (3.3-5.0); Chloride* 105 mmol/L (96-114)
[2024-10-12 14:11] LABS: Potassium* 3.9 mmol/L (3.6-5.1); Sodium* 141 mmol/L (135-149)
[2024-10-12 14:13] LABS: Alanine Aminotransferase* 29 U/L (4-50); Anion Gap 10 mEq/L (7-15); Aspartate Amino Transferase* 38 U/L (12-35); Blood Urea Nitrogen* 15 mg/dL (7-30); Carbon Dioxide* 26 mmol/L (20-32); Creatinine* 0.9 mg/dL (0.5-1.5); Est. Creatinine Clearance* 105.38; Estimated Glomerular Filt Rate 103 ml/min
[2024-10-12 14:14] LABS: Alkaline Phosphatase* 59 U/L (40-150); Bilirubin Total* 0.4 mg/dL (0.1-1.5); Calcium* 9.8 mg/dL (8.4-10.6); Glucose* 137 mg/dL (60-115); Total Protein* 7.7 g/dL (6.0-8.3)
--- NOTE | 2024-10-12 15:42 | ONC.NURNOTE ---
Patient's TSH resulted high. This was discussed between providers, patient okay to be treated tomorrow but started on levothyroxine. Patient called and notified that he can be treated tomorrow, and that a prescription for levothyroxine was sent to [facility].
[2024-10-13 13:56] VITALS: BP 124/82; PULSE 95; RESP 20; TEMP 36.7; O2SAT 94
[2024-10-13] MEDS: PEMBROLIZUMAB 200 MG, TUBING PRIMARY 1 EACH, In-line 0.2 micron filter set 1 EACH in 0.... 216 MG IVPB (14:13)
[2024-10-13] MEDS: SODIUM CHLORIDE 0.9 % (FLUSH) 10 ML SYRINGE IVF (14:14)
--- NOTE | 2024-10-13 14:53 | ONC.NURNOTE ---
Reviewed increasing weight with pt. He notes he's been feeling better and eating more, making comments about how he needs to get that under control again. He notes his baseline weight was >300 lb; at his lowest appetite during chemo his wt was ~ 240 lb. Denies swelling in his ankles or trouble breathing; is using Spiriva as ordered. Reviewed to watch for these symptoms and call with concerns; he verbalizes understanding.
== END 2024-10-23 23:59 | disposition home or self-care (01) ==
LOC: CCIC 14:00
PROVIDERS: Clinical Nurse Specialist; Physician Assistant; PCP Internal Medicine; Referring Provider Internal Medicine; Visit Provider Internal Medicine Hematology & Oncology
DX: Z51.12 Encounter for antineoplastic immunotherapy (principal); C34.91 Malignant neoplasm of unspecified part of right bronchus or lung
CPT/HCPCS: 36415; 80053; 84439; 84443; 84480; 85025; 96375; 96413; 96417; 99202; 99205; 99211; 99214; 99215; G0463; A9270; J1100; J2405; J7030; J7050; J9045; J9267; J9271; S0028

== ENCOUNTER 2024-11-06 23:10 | Emergency (ER) | payer OTHER, SELFPAY ==
--- OUTSIDE RECORDS SUMMARY | 2024-09-28 15:20 | XMS_ITS | Encounter Summary ---
Author Organization [facility] Address [address] [place] [id number] Care Team Providers Care Material Mixer Name Role Phone Unavailable Primary Care Provider Unavailabl e Reason for Visit * Outpatient (Routine) - Closed Specialty Diagnoses / Procedures Referred By Contact Referred To Contact Gastroenterology and Hepatology Diagnoses Malignant Neoplasm Of Lung Lower Lobe Or Bronchus Right (HCC) Medication Therapy City Plant Supervisor Not 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 Esophagitis Eosinophilic Toxicity Drug Initial Dysphagia Elizabeth Warner APRN, C.N.P., M.S. [address] [place] [phone] Phone: tel: fax: [facility] Referral ID Status Reason Start Date Expiration Date Visits Re quested Visits Authorized [id number] Closed 09/02/2024 03/04/2026 1 1 Encounter Details Date Type Department Care Team (Latest Contact Info) Description 09/28/2024 3:20 PM CDT Virtual Visit Division of Gastroenterology in [place], [place] [address] [place] [phone] Pratik Fishman M.D. [address] [place] [phone] Malignant Neoplasm Of Lung Lower Lobe Or Bronchus Right (HCC); Medication Therapy Halfway Not 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; Esophagitis Eosinophilic; Toxicity Drug Initial; Dysphagia Social History Tobacco Use Types Packs/Day Years Used Date Smoking Tobacco: Former Cigarettes 1 35 0 04/14/2023 - 01/20/2024 Passive Smoke Exposure: Never Smokeless Tobacco: Never Alcohol Use Standard Drinks/Week Comments Not Currently 0 (1 standard drink = 0.6 oz pur e alcohol) [facility] Utilities Answer Date Recorded In [...] things needed for daily living? No 05/16/2024 Housing Stability Answer Date Recorded What is your living situation today? I have a [facility] place to live 05/16/2024 Sex and Gender Information Value Date Recorded Sex Assigned at Male 01/28/2024 10:26 AM CDT Legal Sex Male 10:09 PM [employer] Gender Identity Male 01/28/2024 10:26 AM CDT Sexual Orientation Straight 01/28/2024 10 :26 AM CDT documented as of this encounter Consult Notes * Pratik Fishman M.D. - 09/28/2024 3:20 PM CDT [facility] SUBJECTIVE CHIEF CONCERN / REASON FOR VISIT Abnormal small bowel biopsy REFERRING PROVIDER: Elizabeth Warner, ADRI, * PRIMARY PROVIDER: No primary care provider on file. 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 Mr. Miramontes was diagnosed with lung cancer in 2023 after presenting initially with acute dysphonia and being found to have bilateral pulmonary nodules and associated bulky thoracic lymphadenopathy. Biopsy from a lymph node revealed squamous cell carcinoma, with stage IIIB (cT4, cN2, cM0). Beginningin January of 2024 he was treated with carboplatin, paclitaxel, and pembrolizumab. From April to May of 2024 he received radiation therapy, 30 fractions of 6600 cGy and continued carboplatin and paclitaxel. In June of 2024 he was resumed on pembrolizumab. He then developed dysphagia and was referred for esophagogastroduodenoscopy which I performed on 08/30/24. The esophagus itself appeared normal and there was no evidence of extrinsic compression. However, there was erythema and congestion in the duodenum. Esophageal biopsies showed 20 eosinophils per high-power field. Duodenal biopsies showed partial villous blunting with intraepithelial lymphocytosis (40 lymphocytes per 100 epithelial cells). In light of these duodenal findings, I had recommended to the referring Oncology team to obtain celiac serologies and haplotyping. Haplotypeing revealedthe presence of HLA-DQA1 01:02, 02:01 and HLA-DQB1 02:02, 06:02, which is equivocal. IgA-based serologies (anti-tissue transglutaminase and anti-deamidated gliadin) were normal, as was total IgA level. However, the IgG-based counter parts were both slightly abnormal, with anti-tissue transglutaminase IgG 7.7 and anti-deamidated gliadin 21.8. These findings were initially discussed with the GI storage management consultant of the day who recommended budesonide. He was subsequently seen in the Esophageal Clinic by Drs. Douglas Maloney and Torres Estrella. His insurance did not cover budesonide oral suspension, so he is recommended to start on swallowed budesonide inhaler (Pulmicort). They suspected that the eosinophilia was most likely related to previous treatments for his cancer. Immune checkpoint inhibitor-associated esophagitis was thought to be much less likely. He was also told during this visit that he most likely has celiac disease and was recommended to start a strict gluten-free diet. He presents today for further evaluation of the duodenal findings. He reports that his dysphagia has significantly improved, but he continues to experience diarrhea. He is having 2-3 watery bowel movements per day. He is not having any weight loss. There is no one in the family known to have celiacdisease. Current Outpatient Medications: albuterol 90 mcg/actuation inhaler, Inhale 2 puffs every 6 (six) hours as needed for wheezing., Disp: 8 g, Rfl: 3 atenoloL (Tenormin) 25 mg tablet, Take 1 tablet (25 mg total) by mouth daily., Disp: 90 tablet, Rfl: 3 budesonide (Pulmicort) 1 mg/2 mL nebulizer solution, Inhale 2 mL (1 mg total) by nebulization 2 (two) times a day. Rinse mouth with water after use to reduce aftertaste and incidence of candidiasis. Do not swallow., Disp: 120 mL, Rfl: 0 budesonide 3 mg/10 mL (0.03%) oral suspension, Swish and swallow 10 mL 2 (two) times a day. Lkgsbza20 ml slowly by mouth two times a day (after breakfast and at bedtime).Rinse with water and spit.Donot eat/drink for 2 hours., Disp: 280 mL, Rfl: 2 OLANZapine (ZyPREXA) 5 mg tablet, Take 1 tablet (5 mg total) by mouth as directed. Take daily starting at bedtime first day of chemotherapy continuing for 4 days after each chemotherapy dose. May take as needed at bedtime after fourth day if nausea/vomiting persists. If you experience nausea/vomiting during Cycle 1, start the night prior to chemotherapy for Cycle 2 and beyond. (Patient not taking: Reported on 09/15/2024), Disp: 30 tablet, Rfl: 3 omeprazole (PriLOSEC) [address] capsule, Take 40 mg by mouth 2 (two) times a day before morning and evening meals., Disp: , Rfl: ondansetron (Zofran) 8 mg tablet, Take 1 tablet (8 mg total) by mouth every 8 (eight) hours as needed for nausea or vomiting (use second for nausea). (Patient not taking: Reported on 09/15/2024), Disp:30 tablet, Rfl: 3 prochlorperazine (Compazine) 10 mg tablet, Take 1 tablet (10 mg total) by mouth every 6 (six) hoursas needed for nausea or vomiting (use first nausea). (Patient not taking: Reported on 09/15/2024), Disp: 30 tablet, Rfl: 3 sodium chloride (NebuSaL) 3 % nebulizer solution, Inhale 4 mL by nebulization 3 (three) times a day., Disp: 750 mL, Rfl: 11 tiotropium (Spiriva Respimat) 2.5 mcg/actuation inhaler, Inhale 2 puffs daily., Disp: 4 g, Rfl: 3 venlafaxine XR (Effexor-XR) 150 mg 24 hr capsule, Take 150 mg by mouth daily with morning meal., Disp: , Rfl: Patient Active Problem List Diagnosis Date Noted Odynophagia 09/15/2024 Medication Therapy Halfway Not 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 06/03/2024 Respiratory Failure With Hypoxia (HCC) 04/10/2024 Medication Therapy Halfway Not 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 02/02/2024 Malignant Neoplasm Of Lung Lower Lobe Or Bronchus Right (HCC) 01/28/2024 Past Medical History: Diagnosis Date Anxiety Gastroesophageal Reflux Disease Hyperlipidemia Past Surgical History: Procedure Laterality Date ARTHROSCOPY [...] Location: [facility] OR OTHER SURGICAL HISTORY Prior to Admission medications Medication Sig Start [...] on 09/15/2024 02/10/24 02/09/25 Elizabeth Warner APRN, C.N.P., M.S. sodium chloride (NebuSaL) 3 % nebulizer solution Inhale 4 mL by nebulization 3 (three) times a day.04/15/24 Brent Iqbal M.D. tiotropium (Spiriva Respimat) 2.5 mcg/actuation inhaler Inhale 2 puffs daily. 01/23/24 Leroy Coreas APRN, C.N.PMicaela, Ronaldo.N.P. venlafaxine XR (Effexor-XR) 150 mg 24 hr capsule Take 150 mg by mouth daily with morning meal. 10/05/22 Provider, Historical Social History[1] The following portions of the patient's history were reviewed and updated as appropriate: allergies, current medications, family history, medical history, social history, surgical history, and problem list. REVIEW OF SYSTEMS As per HPI. OBJECTIVE DIAGNOSTICS Labs: Gliadin(Deamidated) Ab, IgG, S <20.0 (Negative) U 21.8 High Gliadin(Deamidated) Ab, IgA, S <20.0 (Negative) U <10.0 Tissue Transglutaminase Ab, IgG, S <6.0 (Negative) U/mL 7.7 High Tissue Transglutaminase Ab, IgA, S <4.0 (Negative) U/mL 1.6 Procedures: Esophagogastroduodenoscopy 08/30/24 Findings: Patchy mildly erythematous and congested/edematous mucosa [...] forceps for histology from the entire esophagus. Post-op Diagnoses: - Erythematous and congested duodenal mucosa. Biopsied. - Normal stomach. - Normal esophagus, no clear areas of compression, obstruction or abnormal mucosa. Biopsied. Pathology: A. Duodenum, 2nd part, Duodenal bulb, endoscopic [...] 4 are likely to be in remission. ASSESSMENT / PLAN IMPRESSION AND RECOMMENDATIONS Diagnoses/Problems Addressed #1 Chronic diarrhea #2 Duodenal villous atrophy with intraepithelial lymphocytosis #3 Negative IgA-based celiac serologies but weakly positive IgG-based celiac serologies and equivocal haplotype #3 Esophageal eosinophilia #4 History of lung cancer treated with chemotherapy, radiation therapy, and immunotherapy; currently on immunotherapy with pembrolizumab This is a 54-year-old man with a history of stage III lung cancer treated with chemotherapy, radiation therapy and immunotherapy (currently on pembrolizumab monotherapy) referred for the evaluation of incidentally identified duodenal a villous atrophy and intraepithelial lymphocytosis. These findings raise concern for celiac sprue; however, his IgA-based serologic markers are negative. Interestingly, his IgG-based serologic markers for both tissue transglutaminase and deaminated gliadin our weakly positive. Furthermore, his haplotype is equivocal. Since his IgA-based serologies are negative, I am inclined to think that these findings do not reflects celiac sprue. The IgG-based serologies which are only weakly positive to begin with can be falsely elevated from other etiologies. 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 There have been case reports in the literature of de daren celiac disease identified after starting an immune checkpoint inhibitor (this is distinguish from ICI duodenitis by the presence of abnormal celiac serologies and response to a gluten-free diet). However, ICI duodenitis ismuch more common, and the immune checkpoint inhibitor in and of itself can cause derangements in IgG and potentially explain his a positive IgG-based celiac serologies. Ultimately, he is experiencing diarrhea related to this enteropathy. I have recommended oral budesonide to be taken in the triple phase release protocol, as documented below. He is scheduled for repeat EGD to follow up on his esophageal eosinophilia; I will reach out to Dr. Estrella who ordered this study in order to request the addition of duodenal biopsy (separate bulb and D2) at this time as well. If he continues to havemucosal injury, we may need to revisit the possibility of celiac sprue and do a trial of a strict gluten-free diet. We may also need to weigh the risks and benefits of continuing pembrolizumab, whichwe can discuss at that time with his Oncology team. Finally, if he continues to have diarrhea, we may need to obtain colonoscopies to assess for immune checkpoint inhibitor colitis (although this could be effectively treated with the budesonide). I will follow up with him after the biopsies return and he will let me know how he is doing in the meantime. Plan - oral budesonide 3?mg, 3 times a day. (i) first daily capsule: open the capsule, empty contents into applesauce and stir, grind the medicine between the teeth, rinse and swallow with a glass of water; (ii) second daily capsule: open the capsule, empty contents into applesauce, stir, rinse and swallow with a glass of water; (iii) third daily capsule: swallow the whole capsule. - repeat EGD with duodenal biopsies Case discussed with storage management consultant Dr. Child. Pratik Fishman MD [facility] Gastroenterology and Hepatology PGY-5 [1] Social History Socioeconomic History Marital status: Tobacco [...] Sexual activity: Yes Partners: Female control/protection: I.U.D. Social Drivers of Health Food Insecurity: No Food Insecurity (05/16/2024) Hunger Vital Sign Worried About Running Out of Food in the Last Year: Never true Ran Out of Food in the Last Year: Never true Transportation Needs: No Transportation Needs (05/16/2024) PRAPARE - Transportation Lack of Transportation (Medical): No Lack of Transportation (Non-Medical): No Physical Activity: Insufficiently Active (05/16/2024) Exercise Vital Sign Days of Exercise per Week: 3 days Minutes of Exercise per Session: 30 min Intimate Partner Violence: Not At Risk (04/10/2024) Humiliation, Afraid, Rape, and Kick questionnaire Fear of Current or Ex-Partner: No Emotionally Abused: No Physically Abused: No Sexually Abused: No Housing Stability: Low Risk (05/16/2024) Housing Stability Housing: Living Situation: I have a steady place to live documented in this encounter Plan of Treatment Not on file documented as of this encounter Visit Diagnoses Diagnosis Malignant Neoplasm Of Lung Lower Lobe Or Bronchus Right (HCC) Medication Therapy City Plant Supervisor Not 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 Esophagitis Eosinophilic Toxicity Drug Initial Dysphagia documented in this encounter
--- OUTSIDE RECORDS SUMMARY | 2024-10-18 10:15 | XMS_ITS | Encounter Summary ---
Author Organization [facility] Address [address] [place] [address] Care Team Providers Care Allied Health Teacher Name Role Phone Unavailable Primary Care Provider Unavailabl e Reason for Visit * Reason Onset Date Comments Pre-visit Intake 10/18/2024 Encounter Details Date Type Department Care Team (Latest Contact Info) Description 10/18/2024 10:15 AM CDT Clinical Communication Virtual Review in [place], [place] [address] [place] [phone] Pre-visit Intake Social History Tobacco Use Types Packs/Day Years Used Date Smoking Tobacco: Former Cigarettes 1 35 0 04/14/2023 - 01/20/2024 Passive Smoke Exposure: Never Smokeless Tobacco: Never Tobacco Cessation:Counseling Given: Not Answered Alcohol Use Standard Drinks/Week Comments Not Currently 0 (1 standard drink = 0.6 oz pur e alcohol) [facility] Utilities Answer Date Recorded In the past 12 months has [facility] [employer], gas, oil, or water [employer] threatened to shut off services in your [...] your living situation today? I have a [facility] place to live 05/16/2024 Sex and Gender Information Value Date Recorded Sex Assigned at Male 01/28/2024 10:26 AM CDT Legal Sex Male 10:09 PM SAFETY LEAD Gender Identity Male 01/28/2024 10:26 AM CDT Sexual Orientation Straight 01/28/2024 10 :26 AM CDT documented as of this encounter Plan of Treatment Not on file documented as of this encounter Visit Diagnoses Not on filedocumented in this encounter
--- OUTSIDE RECORDS SUMMARY | 2024-10-18 10:36 | XMS_ITS | Encounter Summary ---
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 [address] [place] [phone] Phone: tel: fax: [facility] Referral ID Status Reason Start Date Expiration Date Visits Re quested Visits Authorized [id number] Closed 09/29/2024 12/30/2025 1 1 Reason for Visit * Gastrointestinal (Routine) - Closed Specialty Diagnoses / Procedures Referred By Cinthia trinidad Referred To Contact Diagnoses Dysphagia Procedures EGD (EsophagoGastroDuodenoscopy) Restricted Torres Estrella M.D., Ph.D. [address] [place] [phone] Phone: tel: fax: [facility] Referral ID Status Reason Start Date Expiration Date Visits Re quested Visits Authorized [id number] Closed 09/29/2024 12/30/2025 1 1 Encounter Details Date Type Department Care Team (Latest Contact Info) Description 10/18/2024 10:36 AM CDT - 10/18/2024 11:59 PM CDT Hospital Encounter Division of Gastroenterology in [place], [place] 200 [place] [address] Torres Estrella M.D., Ph.D. 200 [place] [address] Dysphagia Discharge Disposition: Home or Self Care Social History Tobacco Use Types Packs/Day Years Used Date Smoking Tobacco: Former Cigarettes 1 35 0 04/14/2023 - 01/20/2024 Passive Smoke Exposure: Never Smokeless Tobacco: Never Alcohol Use Standard Drinks/Week Comments Not Currently 0 (1 standard drink = 0.6 oz pur e alcohol) [facility] Utilities Answer Date Recorded In the past 12 months has e [employer], oil, or water [employer] threatened to shut off services in [...] your living situation today? I have a [facility] place to live 05/16/2024 Sex and Gender Information Value Date Recorded Sex Assigned at Male 01/28/2024 10:26 AM CDT Legal Sex Male 10:09 PM [employer] Gender Identity Male 01/28/2024 10:26 AM CDT Sexual Orientation Straight 01/28/2024 10 :26 AM CDT documented as of this encounter Last Filed Vital Signs Vital Sign Reading Time Taken Comments Blood Pressure 146/109 10/18/2024 12:45 PM CDT Pulse 84 10/18/2024 12:55 PM CDT Temperature 36.6 C (97.9 F) 10/18/2024 12:19 PM CDT Respiratory Rate 12 10/18/2024 12:55 PM CDT Oxygen Saturation 95% 10/18/2024 12:55 PM CDT Inhaled Oxygen Concentration - - Weight - - Height 183.4 cm (6' 0.21) 10/18/2024 10:50 AM C DT Body Mass Index - - documented in [...] not swallow. 120 mL 09/03/2024 budesonide 3 mg capsule for patient mixing Take 1 capsule by mouth 3 (three) times a day. (i) first daily capsule: open the capsule, empty contents into applesauce and stir, grind the medicine between the teeth, rinse and swallow with a glass of water; (ii) second daily capsule: open the capsule, empty contents into applesauce, stir, rinse and swallow with a glass of water; (iii) third daily capsule: swallow the whole capsule. 60 capsule 11 09/28/2024 budesonide 3 mg/10 mL (0.03%) oral suspension Swish and swallow 10 mL 2 (two) times a day. Swallow 10 ml slowly by mouth two times a day (after breakfast and at bedtime).Rinse with water and spit.Do not eat/drink for 2 hours. 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 - 10/18/2024 11:45 AM CDT ASSESSMENT / PLAN Patient Name: Rene Miramontes Upper Endoscopy Procedure Department : DIVISION OF GASTROENTEROLOGY IN [place], [place] SUBJECTIVE Medical History[1] Surgical History[2] Social [...] Review of systems: pertinent ROS negative Mallampati: IV - only hard palate visible Heart: normal Lung: normal General / Constitutional: normal ASA physical exam: Class 2 - patient with mild systemic disease Patient seen, evaluated and approved for sedation Sedation plan: moderate sedation Baseline Behavior: Psychosocial (WDL): Within Defined Limits Abdominal Exam: Gastrointestinal (WDL): Within Defined Limits [1] Past Medical History: Diagnosis Date Anxiety [...] date: 04/14/2023 Quit date: 01/20/2024 Years since quittin.7 Passive exposure: Never Smokeless tobacco: Never Vaping Use Vaping status: never used Substance and Sexual Activity Alcohol use: Not Currently Drug use: Not Currently Sexual activity: Yes Partners: Female control/protection: I.U.D. documented in this encounter Plan of Treatment Not on file documented as of this encounter Procedures Procedure Name Priority Date/Time Associated Diagnosis Comments SURGICAL PATHOLOGY Routine 10/18/2024 12 :02 PM CDT EGD (ESOPHAGOGASTRODUODE NOSCOPY) RESTRICTED Routine 10/18/2024 11:23 AM CDT Dysphagia UPPER GI ENDOSCOPY Routine 10/18/2024 11 :23 AM CDT Dysphagia documented in this encounter Results * Surgical Pathology (10/18/2024 12:02 PM CDT) 10/20/2024 8:44 AM CDT DTL Report electronically signed by Celestina Aponte M.D. I verify that I have examined all relevant slides/materials for the specimen(s) and rendered or confirmed the diagnosis. 10/20/2024 8:44 AM CDT DTL Gross Description A: Received in formalin labeled with the patient's name, medical record number, and duodenum-second part duodenum are five pale isaacs-pink irregular soft tissues, ranging from 0.2-0.5 cm in greatest dimension. The specimens are submitted en toto in cassette A1. Grossedby AJB. B: Received in formalin labeled with the patient's name, medical record number, and duodenum-duodenal bulb are six pale isaacs-pinkirregular soft tissues, ranging from 0.1-0.5 cm in greatest dimension. The specimens are submitted en toto in cassette B1. Grossed byATAMARA. C: Received in formalin labeled with the patient's name, medical record number, and stomach-body of stomach, antrum, incisura are sixpale isaacs-pink irregular soft tissues, ranging from 0.1-0.6 cm in greatest dimension. The specimens are submitted en toto in cassette C1.Grossed by AJB. D: Received in formalin labeled with the patient's name, medical record number, and esophagus-middle third esophagus, lower thirdesophagus are nine pale irb-juxe-xhcchojxpcv irregular soft tissues, ranging from 0.1-0.6 cm in greatest dimension. The specimens aresubmitted en toto in cassette D1. Grossed by AJB. 10/20/2024 8:44 AM CDT DTL Interpretation FINAL DIAGNOSIS A. Duodenum, 2nd part, endoscopic biopsy: Duodenal mucosa with increased lamina propria eosinophils (up to 55/high power field). No evidence of celiac disease, Whipple's disease, or Giardia identified. B. Duodenum, Duodenal bulb, endoscopic biopsy: Duodenal mucosa with increased lamina propria eosinophils (up to 66/high power field).No evidence of celiac disease, Whipple's disease, or Giardia identified. C. Stomach, Body, Antrum, Incisura, endoscopic biopsy: Gastric mucosa with increased lamina propria eosinophils (>90/high power field). An immunohistochemical stain for Helicobacter pylori is pending and will be reported in an addendum. COMMENT: Differential diagnosis includes a reaction to foods, drugs, or parasites, hypereosinophilic syndromes, and idiopathic eosinophilic gastroenteritis. D. Esophagus, Middle third, Lower third, endoscopic biopsy: Hyperplastic squamous esophageal mucosa with intraepithelial eosinophils (76 per high power field). Synoptic Report Peak eosinophil count: Grade 3 Stage 3 Basal hyperplasia: Grade 3 Stage 3 Dilated intercellular spaces: Grade 2 Stage 3 Lamina propria fibrosis: No or insufficient tissue for evaluation Eosinophilic abscesses: Present Surface layering: Absent Sum of EoEHSS 17/24 Additional Information Remission is achieved for Index Scores < 0.125 and Peak eosinophil count of < 15/hpf EoEHSS Index Scores less than 4 are likely to be in remission. Digital imaging was used in the diagnostic assessment of this case. 10/20/2024 8:44 AM CDT DTL Biopsy (Duodenum) 10/18/2024 12:02 PM CDT Biopsy (Duodenum) 10/18/2024 12:05 PM CDT Biopsy (Stomach) 10/18/2024 12:08 PM CDT Biopsy (Esophagus) 10/18/2024 12:08 PM CDT us Rene Jeffrey Jr., M.D. LAB SURG PATH ORDERAB LES Final Result Performing Organization Address City/State/[facility] Co de Phone Number [facility] [address] [place] [address], [facility] [address] [facility] [address] [place] [address] * Upper GI Endoscopy (10/18/2024 11:23 AM CDT) 10/18/2024 11:2 3 AM CDT Impressions [facility] - 10/18/2024 12:14 PM CDT Post-op Diagnoses: - Esophagogastric landmarks identified. - Normal esophagus. - Erythematous mucosa in the antrum. Biopsied. - Normal examined duodenum. Biopsied. - Biopsies were taken with a cold forceps for evaluation of eosinophilic esophagitis. Narrative [facility] - 10/18/2024 12:14 PM CDT Gonda 9 GI GI Patient Name: Rene Miramontes Date of : 1970 Age: 54 Procedure Date: 10/18/2024 Procedure: Upper GI endoscopy Providers: Rene Jeffrey MD Referring Provider: Torres Estrella MD Pre-op Diagnoses: Dysphagia Recommendation: - Await pathology results. - Return to referring physician as previously scheduled. - Patient tolerance of endoscopic procedure under moderate sedation was poor. Please order anesthesia-assisted sedation for future endoscopic procedures on this patient. Ordering future procedures for this patient without anesthesia support may result in procedure cancellation or the need to reschedule. Findings: Esophagogastric landmarks were identified: the Z-line was found at 45 cm, the gastroesophageal junction was found at 45 cm and the site of the diaphragmatic hiatus was found at 45 cm from the incisors. The examined esophagus was normal. Biopsies were obtained from the proximal and distal esophagus with cold forceps for histology of suspected eosinophilic esophagitis. Estimated blood loss was minimal. Patchy mildly erythematous mucosa without bleeding was found in the gastric antrum. Biopsies were taken with a cold forceps for Helicobacter pylori testing. Estimated blood loss was minimal. The examined duodenum was normal. Biopsies for histology were taken with a cold forceps for evaluation of celiac disease. Estimated blood loss was minimal. Procedural Details: The patient was seen, evaluated, [...] of duodenum. The upper GI endoscopy was somewhat difficult due to the patient's discomfort during the procedure. Successful completion of the procedure was aided by increasing the dose of sedation medication. The patient tolerated the procedure fairly well. Estimated Blood Loss: Estimated blood loss was minimal. Complications: No immediate complications. Estimated blood loss: Minimal. Sedation: Moderate (conscious) sedation was administered by the nurse and supervised by the endoscopist. The following parameters were monitored: oxygen saturation, heart rate, blood pressure, and response to care. Total physician intraservice time was 20 minutes. Attending Participation: I personally performed the entire procedure. Rene Jeffrey MD 10/18/2024 12:14:23 PM This report has been signed electronically. Number of Addenda: 0 Torres Estrella M.D., Ph.D. GI PROCEDURE ORDER JAJA Final Result Performing Organization Address City/State/ZIP [place] Phone Number [facility] documented in this encounter Visit Diagnoses Diagnosis Dysphagia documented in this encounter Administered Medications Inactive Administered Medications - up to 3 most recent administrations Medication Order MAR Action Action Date Dose Rate Site fentaNYL injection (Sublimaze) intravenous, As needed, Starting on Fri10/18/24 at 1150, Intra-Op Given 10/18/2024 11:50 AM CDT 50 mcg fentaNYL injection (Sublimaze) intravenous, As needed, Starting on Fri10/18/24 at 1153, Intra-Op Given 10/18/2024 11:53 AM CDT 50 mcg fentaNYL injection (Sublimaze) intravenous, As needed, Starting on Fri10/18/24 at 1156, Intra-Op Given 10/18/2024 11:56 AM CDT 50 mcg fentaNYL injection (Sublimaze) intravenous, As needed, Starting on Fri10/18/24 at 1159, Intra-Op Given 10/18/2024 11:59 AM CDT 25 mcg fentaNYL injection (Sublimaze) intravenous, As needed, Starting on Fri10/18/24 at 1201, Intra-Op Given 10/18/2024 12:01 PM CDT 25 mcg Lactated Ringer's Continuous Infusion: Per Instructions PRN, Starting on Fri10/18/24 at 1150, Intra-Op New Bag 10/18/2024 11:50 AM CDT 75 mL/hr 75 mL/hr midazolam (PF) injection (Versed) As needed, Starting on Fri10/18/24 at 1146, Intra-Op Given 10/18/2024 11:46 AM CDT 2 mg midazolam (PF) injection (Versed) As needed, Starting on Fri10/18/24 at 1150, Intra-Op Given 10/18/2024 11:50 AM CDT 2 mg midazolam (PF) injection (Versed) As needed, Starting on Fri10/18/24 at 1153, Intra-Op Given 10/18/2024 11:53 AM CDT 1 mg midazolam (PF) injection (Versed) As needed, Starting on Fri10/18/24 at 1156, Intra-Op Given 10/18/2024 11:56 AM CDT 2 mg midazolam (PF) injection (Versed) As needed, Starting on Fri10/18/24 at 1159, Intra-Op Given 10/18/2024 11:59 AM CDT 2 mg midazolam (PF) injection (Versed) As needed, Starting on Fri10/18/24 at 1201, Intra-Op Given 10/18/2024 12:01 PM CDT 1 mg documented in this encounter
--- OUTSIDE RECORDS SUMMARY | 2024-10-18 11:25 | XMS_ITS | Encounter Summary ---
Author Organization [facility] [place] [facility] Address [address] [place] [address] Care Team Providers Care Senior Drafter Name Role Phone Unavailable Primary Care Provider Unavailabl e Encounter Details Date Type Department Care Team (Latest Contact Info) Description 10/18/2024 11:25 AM CDT Ancillary Procedure Department of Gastroenterology Social History Tobacco Use Types Packs/Day Years Used Date Smoking Tobacco: Former Cigarettes 1 35 0 04/14/2023 - 01/20/2024 Passive Smoke Exposure: Never Smokeless Tobacco: Never Alcohol Use Standard Drinks/Week Comments Not Currently 0 (1 standard drink = 0.6 oz pur e alcohol) [facility] Utilities Answer Date Recorded In the [...] the money to buy more. Never true 02/02/20 25 Within the past 12 months, t [...] your living situation today? 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
--- OUTSIDE RECORDS SUMMARY | 2024-10-20 12:37 | XMS_ITS | Encounter Summary ---
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 [address] [place] [phone] Phone: tel: fax: [facility] Referral ID Status Reason Start Date Expiration Date Visits Re quested Visits Authorized [id number] Closed 09/07/2024 12/08/2025 1 1 * MRI/CAT/PET Scan (Routine) - Closed Specialty Diagnoses / Procedures Referred By Contac t Referred To Contact Radiology Diagnoses Malignant Neoplasm Of Lung Lower Lobe Or Bronchus Right (HCC) Nodules Pulmonary Multiple Procedures CT Chest with IV Contrast Elizabeth Warner APRN, C.N.P., M.S. [address] [place] [phone] Phone: tel: fax: [facility] Referral ID Status Reason Start Date Expiration Date Visits Re quested Visits Authorized [id number] Closed 09/07/2024 12/08/2025 1 1 Reason for Visit * MRI/CAT/PET Scan (Routine) - Closed Specialty Diagnoses / Procedures Referred By Cinthia trinidad Referred To Contact Radiology Diagnoses Malignant Neoplasm Of Lung Lower Lobe Or Bronchus Right (HCC) Nodules Pulmonary Multiple Procedures CT Abdomen Pelvis with IV Contrast Elizabeth Warner APRN, C.N.P., M.S. [address] [place] [phone] Phone: tel: fax: [facility] Referral ID Status Reason Start Date Expiration Date Visits Re quested Visits Authorized [id number] Closed 09/07/2024 12/08/2025 1 1 Encounter Details Date Type Department Care Team (Latest Contact Info) Description 10/20/2024 12:37 PM CDT - 10/20/2024 3:33 PM CDT Hospital Encounter Department of Radiology, [facility], in [place], [place] [address] [place] [phone] Elizabeth Warner APRN, C.N.P., M.S. [address] [place] [phone] Malignant Neoplasm Of Lung Lower Lobe Or Bronchus Right (HCC); Nodules Pulmonary Multiple Discharge Disposition: Home or Self Care Social History Tobacco Use Types Packs/Day Years Used Date Smoking Tobacco: Former Cigarettes 1 35 0 04/14/2023 - 01/20/2024 Passive Smoke Exposure: Never Smokeless Tobacco: Never Alcohol Use Standard Drinks/Week Comments Not Currently 0 (1 standard drink = 0.6 oz pur e alcohol) [facility] Utilities Answer Date Recorded In the past 12 months has e [employer], gas, oil, or water [employer] threatened to shut off services in your [...] your living situation today? 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 Narrative 10/20/2024 3:38 PM CDT EXAM: CT ABDOMEN PELVIS WITH IV CONTRAST COMPARISON: PET/CT 04/13/2024 FINDINGS: Diffuse hepatic steatosis. No worrisome liver lesion. Cholecystectomy. The spleen, pancreas, adrenal glands and kidneys are normal in appearance. No enlarged lymph nodes in the abdomen or pelvis. Normal caliber aorta with moderate atherosclerotic calcification. The mesenteric arteries and veins are widely patent. Colonic diverticulosis. The small bowel and colon are normal caliber. The prostate gland is normal size. The seminal vesicles are symmetric. The urinary bladder is decompressed. Fat-containing left inguinal hernia. No ascites. No worrisome bone lesion. This examination was performed in conjunction with a CT of the chest, which will be reported separately. Procedure Note Kee Seaman M.D. - 10/20/2024 EXAM: CT ABDOMEN PELVIS WITH IV CONTRAST COMPARISON: PET/CT 04/13/2024 FINDINGS: Diffuse hepatic steatosis. No worrisome liver lesion. Cholecystectomy. The spleen, pancreas, adrenal glands and kidneys arenormal in appearance. No enlarged lymph nodes in the abdomen or pelvis. Normal caliber aorta with moderate atherosclerotic calcification. Themesenteric arteries and veins are widely patent. Colonic diverticulosis. The small bowel and colon are normal caliber. The prostate gland is normal size. The seminal vesicles are symmetric. Theurinary bladder is decompressed. Fat-containing left inguinal hernia. Noascites. No worrisome bone lesion. This examination was performed in conjunction with a CT of the chest,which will be reported separately. IMPRESSION: No evidence of metastatic disease in the abdomen or pelvis. us Familia Subramanian APRNNMiley., M.S. IMG CT PROCED URES Final Result * CT Chest with IV Contrast (10/20/2024 2:14 PM CDT) Anatomical Region Laterality Modality Chest, Thoracic RST LOS, Tho racic ARZ LOS, Thoracic ARZ LOS, Thoracic FLA LOS N/A Computed Tomography 10/20/2024 1:53 PM CDT Impressions 10/21/2024 8:51 AM CDT 1. Decrease in the prominent right paratracheal adenopathy. 2. Multiple bilateral pulmonary nodules a few of which have decreased slightly in size. 3. Enlarging pericardial effusion. 4. Resolution of the right pleural effusion. Narrative 10/21/2024 8:51 AM CDT EXAM: CT CHEST WITH IV CONTRAST COMPARISON: CT chest 08/26/2024 FINDINGS: Multiple pulmonary nodules. A few of these have decreased in size since 08/26/2024. For example, the 6 mm nodule in the right upper lobe posteromedially (series 3, image 225) measured 7 mm previously and the 3 mm nodule in the right upper lobe laterally (image 239) measured 4 mm previously. No definite new nodules. Increasing right perihilar radiation pneumonitis with developing fibrosis and volume loss. Calcified granulomas right lower lobe. Emphysematous changes bilaterally. Scattered mild scarring in the lower lungs. Prominent right paratracheal adenopathy has decreased. For example, the dominant 38 x 37 mm right paratracheal node (image 131) measured 41 x 39 mm previously. No new adenopathy in the chest. Calcified right hilar and mediastinal nodes. Small/moderate pericardial effusion has increased in size. Previously noted right pleural effusion has resolved. Mild hypertrophic changes in the spine. This examination was performed in conjunction with a CT of the abdomen, which will be reported separately. 3D maximum intensity projection (MIP) images were created on a dependent workstation as ordered by the treating provider and reviewed by the radiologist to increase sensitivity for detection of pulmonary nodules. Procedure Note Finesse Glaser M.D. - 10/21/2024 EXAM: CT CHEST WITH IV CONTRAST COMPARISON: CT chest 08/26/2024 FINDINGS: Multiple pulmonary nodules. A few of these have decreased in size since08/26/2024. For example, the 6 mm nodule in the right upper lobeposteromedially (series 3, image 225) measured 7 mm previously and the 3mm nodule in the right upper lobe laterally (image 239) measured 4 mm previously. No definite new nodules. Increasingright perihilar radiation pneumonitis with developing fibrosis and volumeloss. Calcified granulomas right lower lobe. Emphysematous changesbilaterally. Scattered mild scarring in the lower lungs. Prominent right paratracheal adenopathy has decreased. For example, thedominant 38 x 37 mm right paratracheal node (image 131) measured 41 x 39mm previously. No new adenopathy in the chest. Calcified right hilar andmediastinal nodes. Small/moderate pericardial effusion has increased in size. Previouslynoted right pleural effusion has resolved. Mild hypertrophic changes in the spine. This examination was performed in conjunction with a CT of the abdomen,which will be reported separately. 3D maximum intensity projection (MIP) images were created on a dependentworkstation as ordered by the treating provider and reviewed by theradiologist to increase sensitivity for detection of pulmonary nodules. IMPRESSION: 1. Decrease in the prominent right paratracheal adenopathy. 2. Multiple bilateral pulmonary nodules a few of which have decreasedslightly in size. 3. Enlarging pericardial effusion. 4. Resolution of the right pleural effusion. us Elizabeth Warner APRN C.N.P., M.S. 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) Nodules Pulmonary Multiple documented in this encounter Administered Medications Inactive Administered Medications - up to 3 most recent administrations Medication Order MAR Action Action Date Dose Rate Site iohexoL 350 mg iodine/mL solution 1-200 mL (Omnipaque) 1-200 mL, intravenous, Once in imaging, contrast, Starting on Fri10/20/24 at 1337, For 1 dose Given 10/20/2024 1:38 PM CDT 170 mL sodium chloride (PF) 0.9 % injection 1-100 mL 1-100 mL, intravenous, Once, On Fri10/20/24 at 1330, For 1 dose, Imaging Protocol Orders, Dose per Radiant Medication Guidelines Given 10/20/2024 1:38 PM CDT 50 mL documented in this encounter
--- OUTSIDE RECORDS SUMMARY | 2024-10-20 15:00 | XMS_ITS | Encounter Summary ---
Author Organization [facility] Address [address] [place] [address] Care Team Providers Care Botany Teacher Name Role Phone Unavailable Primary Care Provider Unavailabl e Reason for Visit * Outpatient (Routine) - Closed Specialty Diagnoses / Procedures Referred By Cinthia t Referred To Contact Palliative Medicine Ana Gupta B.M.BMicaelaS., BAryan, B.Ch. [address] [place] [phone] Phone: tel: fax: [facility] Referral ID Status Reason Start Date Expiration Date Visits Re quested Visits Authorized [id number] Closed 09/15/2024 03/17/2026 1 1 Encounter Details Date Type Department Care Team (Late st Contact Info) Description 10/20/2024 3:00 PM CDT Office Visit Department of Palliative Care in [place], [place] [address] [place] [phone] Jacinda Cruz M.D. 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 - 10/20/2024 3:00 PM CDT [facility] Outpatient Palliative [facility] Progress Note The patient verbally consented to an audio recording of their visit to assist with the completion of documentation. Patient: Rene Griffin Fe; 54 y.o.male LOCATION Palliative Care Clinic SUBJECTIVE Rene Miramontes is a 54 y.o. male with at least stage IIIB lung cancer treated with chemotherapy, radiation therapy and immunotherapy (currently on pembrolizumab monotherapy). He is followed in the outpatient Palliative Care Clinic for non-pain and pain symptoms and providing support for pt/family. Date of Last Visit: 09/15 Interval History: Last visit's discussion centered primarily around odynophagia and dysphagia due to esophagitis and enteritis, thought likely immunotherapy related. Budesonide inhaled and oral was started, and he hasbeen following closely with GI for further workup to rule out other etiologies. Depending on his treatment response to local steroids, discussion was had at last visit about starting an agent like transdermal Butrans patch. Recall that Tylenol and oxycodone have not been hopeful in the past. He underwent CT chest/abdomen/pelvis today for restaging, awaiting results History of Present Illness Mr. Rene Miramontes is a 54 year old male with cancer who presents for a follow-up visit forsymptom management during his cancer treatment journey. He is accompanied by his daughter, Iona, and his , Marilyn. Previously had severe pain with swallowing, which has improved now after starting budesonide. He initially did not identify any concerns to be addressed today, however family then brought up concerns about mood changes. His family notes he is exhausted by social interactions and sleeps more than usual. They feel like his personality has changed and he does not enjoy the things that he used to. Rene does recognize that this may be true but does not see an issue with it. He does feel likehe has been feeling worse since after his father's in May. They were very close and he feels his loss every day. He is gradually returning to work, currently working six and a half hours a day, but feels tired atthe end of the day. He does not endorse many hobbies, focuses on spending time with his family. Palliative Medicine Symptom Assessment: Pain: None Dyspnea: None Bowels: No constipation Nausea/Vomiting: None Fatigue: Mild, cancer-related Sleep: Normal Mood: Per above The following portions of the patient's history were reviewed and updated as appropriate: Allergies, Current Medications, Medical History, Surgical History, Family History, and Social History Additionally, if completed, NCCN Distress Thermometer Reviewed as relevant to current encounter. OBJECTIVE Objective Physical Exam: Physical Exam General: Fatigued; no acute distress Eyes: Conjunctiva clear, sclera non-icteric Mouth: Mucous membranes moist, no mucosal lesions. Lungs: No use of accessory muscles of respiration, non-labored breathing pattern. Extremities: No lower extremity edema noted. Skin: no rash Psychiatric: Oriented X3, intact recent and remote memory, judgment and insight, congruent mood andaffect. Palliative Functional Assessment 90%- Full ambulation, Normal activity and work with some evidence of disease, Full self-care, Normal intake, Full level of consciousness Medications/Diagnostics: 10/18 EGD: The examined esophagus was normal. Biopsies were [...] celiac disease. Estimated blood loss was minimal. ASSESSMENT / PLAN Rene Miramontes is a 54 y.o. male with at least stage IIIB lung cancer treated with chemotherapy, radiation therapy and immunotherapy (currently on pembrolizumab monotherapy). He is followed in the outpatient Palliative Care Clinic for non-pain and pain symptoms and providing support for pt/family. 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 We discussed the differences between grief, adjustment disorder, and clinical depression and tools for managing which encompass pharmacologic and nonpharmacologic therapies. I offered a visit with our web content & social media manager, particularly given his grief due to his dad'srecent passing. He declined this at this time but was open to a phone check-in in 1 month. Recommendations Patient declines referral to SW to assistance with coping and grief therapy, knows this is available in the future OK with a phone call in 1 month to check in, but otherwise does not feel further follow-up and palliative care is needed Thank you for the opportunity to see this patient. Patient has our contact information and understands to call with new/worsening symptoms or concerns. No additional follow-up needed at this time The palliative care nursing team has been directed to provide ongoing assessment, education, and therapy for symptom management according to the plan of care I have outlined. Follow up visit: prn Total time spent was 20 minutes. Jerrica Sharma M.D. documented in this encounter Plan of Treatment Not on file documented as of this encounter Visit Diagnoses Diagnosis Malignant Neoplasm Of Lung Lower Lobe Or Bronchus Right (HCC)- Primary Odynophagia documented in this encounter
--- OUTSIDE RECORDS SUMMARY | 2024-10-20 15:34 | XMS_ITS | Encounter Summary ---
Author Organization [facility] Address [address] [place] [id number] Care Team Providers Care Fish Cake Maker Name Role Phone Unavailable Primary Care Provider Unavailabl e Encounter Details Date Type Department Care Team (Latest Contact Info) Description 10/20/2024 3:34 PM CDT - 10/20/2024 11:59 PM CDT Hospital Encounter Department of Laboratory Medicine and Pathology, [facility] [place], [place] [address] [place] [phone] Elizabeth Warner, ADRI, C.N.P., M.S. [address] [place] [phone] Malignant Neoplasm Of Lung Lower Lobe Or Bronchus Right (HCC); Nodules Pulmonary Multiple; Medication Therapy Manager Flight Operations Not 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 Discharge Disposition: Home or Self [...] your living situation today? 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 30 tablet 3 02/10/2024 5 prochlorperazine (Compazine) 10 mg tabletIndication s:Medication Therapy Manager Flight Operations Not 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,Ma lignant Neoplasm Of Lung Lower [...] Procedure Name Priority Date/Time Associated Diagnosis Comments CBC WITH DIFFERENTIAL, B Routine 10/20/2024 3:52 PM CDT Malignant Neoplasm Of Lung Lower Lobe Or Bronchus Right (HCC) Nodules Pulmonary Multiple NM T4 FREE Routine 10/20/2024 3:51 PM CDT THYROID FUNCTION CASCADE, S Routine 10/20/2024 3:51 PM CDT Malignant Neoplasm Of Lung Lower Lobe Or Bronchus Right (HCC) Nodules Pulmonary Multiple Medication Therapy Manager Flight Operations Not 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 THYROPEROXIDASE (TPO) ABS, S Routine 10/20/2024 3:51 PM CDT COMPREHENSIVE METABOLIC PANEL, S/P Routine 10/20/2024 3:51 PM CDT Malignant Neoplasm Of Lung Lower Lobe Or Bronchus Right (HCC) Nodules Pulmonary Multiple documented in this encounter Results * (ABNORMAL) CBC with Differential, Blood (10/20/2024 3:52 PM CDT) Hemoglobin 13.9 13.2 - 16.6 g/dL 10/20/2024 4:23 PM CDT DTL Hematocrit 41.3 38.3 - 48.6 % 10/20/2024 4:23 PM CDT DTL Erythrocytes 4.79 4.35 - 5.65 x10(12)/L 10/20/2024 4:23 PM CDT DTL MCV 86.2 78.2 - 97.9 fL 10/20/2024 4:23 PM CDT DTL RBC Distrib Width 14.0 11.8 - 14.5 % 10/20/2024 4:23 PM CDT DTL Platelet Count 169 135 - 317 x10(9)/L 10/20/2024 4:23 PM CDT DTL Leukocytes 5.5 3.4 - 9.6 x10(9)/L 10/20/2024 4:23 PM CDT DTL Neutrophils 3.62 1.56 - 6.45 x10(9)/L 10/20/2024 4:23 PM CDT DHPM Lymphocytes 0.90(L) 0.95 - 3.07 x10(9)/L 10/20/2024 4:23 PM CDT DTL Monocytes 0.42 0.26 - 0.81 x10(9)/L 10/20/2024 4:23 PM CDT DTL Eosinophils 0.50(H) 0.03 - 0.48 x10(9)/L 10/20/2024 4:23 PM CDT DTL Basophils 0.05 0.01 - 0.08 x10(9)/L 10/20/2024 4:23 PM CDT DTL Blood (Blood, Venous) 10/20/2024 3:52 PM CDT 10/20/2024 4:13 PM CDT Elizabeth Warner APRN, C.N.P., M.S. LAB BLOOD ADD -ON Final Result [facility] [address] [place] [address], [facility] DTL [facility] [address] [place] [address] [facility] 200 [place] [address] * (ABNORMAL) T4 (Thyroxine), Free, Serum (10/20/2024 3:51 PM CDT) T4 (Thyroxine), Free, S <0.3(L) 0.9 - 1.7 ng/dL 10/20/2024 5:13 PM CDT DTL Blood 10/20/2024 3:51 PM CDT 10/20/2024 4:11 PM CDT Itzel Subramanian APRN.N.Hilaria., M.S. LAB BLOOD ADD -ON Final Result [facility] [address] 200 [place] [address] * Thyroperoxidase (TPO) Antibodies (10/20/2024 3:51 PM CDT) Thyroperoxidase Ab, S <15.0 <34.0 IU/mL 10/20/2024 5:13 PM CDT DTL Blood 10/20/2024 3:51 PM CDT 10/20/2024 4:11 PM CDT Itzel Subramanian APRN.N.Hilaria., M.S. LAB BLOOD ADD -ON Final Result Performing Organization Address City/[facility]/ZIP Co de Phone Number [facility] [address] [place], [place] [id number] [place] [address] [address] [place] [address] * (ABNORMAL) Thyroid Function [place] (10/20/2024 3:51 PM CDT) TSH, Sensitive 34.0(H) 0.3 - 4.2 mIU/L 10/20/2024 4:53 PM CDT DTL Blood (Blood, Venous) 10/20/2024 3:51 PM CDT 10/20/2024 4:11 PM CDT Itzel Subramanian APRN.N.P., M.S. LAB BLOOD ADD -ON Final Result Performing Organization Address City/[facility]/ZIP Co de Phone Number [facility] [address] [place] [address], [facility] [address] [place] [address] * Comprehensive Metabolic Panel (10/20/2024 3:51 PM CDT) [facility] Potassium, S 3.8 3.6 - 5.2 mmol/L 10/20/2024 4:53 PM CDT DTL Sodium, S 137 135 - 145 mmol/L 10/20/2024 4:53 PM CDT DTL Chloride, S 99 98 - 107 mmol/L 10/20/2024 4:53 PM CDT DTL Bicarbonate, S 25 22 - 29 mmol/L 10/20/2024 4:53 PM CDT DTL Anion Gap 13 7 - 15 10/20/2024 4:53 PM CDT DTL BUN (Blood Urea Nitrogen), S 11 8 - 24 mg/dL 10/20/2024 4:53 PM CDT DTL Creatinine 1.12 0.74 - 1.35 mg/dL 10/20/2024 4:53 PM CDT DTL Estimated GFR (eGFR) 79 >=60 mL/min/BS A 10/20/2024 4:53 PM CDT DTL Comment: Estimated GFR calculated using the 2020 CKD_EPI creatinine equation. Calcium, Total, S 9.4 8.6 - 10.0 mg/dL 10/20/2024 4:53 PM CDT DTL Glucose, S 102 70 - 140 mg/dL 10/20/2024 4:53 PM CDT DTL Protein, Total, S 7.1 6.3 - 7.9 g/dL 10/20/2024 4:53 PM CDT DTL Albumin, S 4.5 3.5 - 5.0 g/dL 10/20/2024 4:53 PM CDT DTL Aspartate Aminotransferase (AST), S 29 8 - 48 U/L 10/20/2024 4:53 PM CDT DTL Alkaline Phosphatase, S 72 40 - 129 U/L 10/20/2024 4:53 PM CDT DTL Alanine Aminotransferase (ALT), S 25 7 - 55 U/L 10/20/2024 4:53 PM CDT DTL Bilirubin, Total, S 0.3 0.0 - 1.2 mg/dL 10/20/2024 4:53 PM CDT DTL Blood (Blood, Venous) 10/20/2024 3:51 PM CDT 10/20/2024 4:11 PM CDT Elizabeth Warner APRN, C.N.P., M.S. LAB BLOOD ADD -ON Final Result [facility] [address] [place] [address], [facility] [address] [place] [address] documented in this encounter Visit Diagnoses Diagnosis Malignant Neoplasm Of Lung Lower Lobe Or Bronchus Right (HCC) Nodules Pulmonary Multiple Medication Therapy Manager Flight Operations Not 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 documented in this encounter
--- OUTSIDE RECORDS SUMMARY | 2024-10-21 10:20 | XMS_ITS | Encounter Summary ---
Author Organization [facility] Address [address] [place] [address] Care Team Providers Care Safety Clothing And Equipment Developer Name Role Phone Unavailable Primary Care Provider Unavailabl e Reason for Referral * Outpatient (Routine) - Authorized Specialty Diagnoses / Procedures Referred By Cinthia t Referred To Contact Oncology Marquise Singh M.D. [address] [place] [address] Phone: tel: fax: [facility] Referral ID Status Reason Start Date Expiration Date V isits Requested Visits Authorized [id number] Authorized 10/21/2024 04/22/2026 1 1 * MRI/CAT/PET Scan (Routine) - Pending Review Specialty Diagnoses / Procedures Referred By Lyleac t Referred To Contact Radiology Diagnoses Malignant Neoplasm Of Lung Lower Lobe Or Bronchus Right (HCC) Procedures CT Chest with IV Contrast Marquise Singh M.D. [address] [place] [address] Phone: tel: fax: [facility] Referral ID Status Reason Start Date Expiration Date V isits Requested Visits Authorized [id number] Pending Review 10/21/2024 01/21/2026 1 1 * MRI/CAT/PET Scan (Routine) - Pending Review Specialty Diagnoses / Procedures Referred By Contac t Referred To Contact Radiology Diagnoses Malignant Neoplasm Of Lung Lower Lobe Or Bronchus Right (HCC) Procedures CT Abdomen Pelvis with IV Contrast Marquise Singh M.D. [address] [place] [phone] Phone: tel: fax: [facility] Referral ID Status Reason Start Date Expiration Date V isits Requested Visits Authorized [id number] Pending Review 10/21/2024 01/21/2026 1 1 * Cardiovascular-Diagnostic (Routine) - Closed Specialty Diagnoses / Procedures Referred By Cinthia trinidad Referred To Contact Diagnoses Effusion Pericardial Acute (HCC) Procedures Echo Transthoracic (TTE) Marquise Singh M.D. [address] [place] [phone] Phone: tel: fax: [facility] Referral ID Status Reason Start Date Expiration Date Visits Re quested Visits Authorized [id number] Closed 10/21/2024 01/21/2026 1 1 Reason for Visit * Outpatient (Routine) - Closed Specialty Diagnoses / Procedures Referred By Cinthia trinidad Referred To Contact Oncology Elizabeth Warner APRN, C.N.P., M.S. [address] [place] [phone] Phone: tel: fax: Elizabeth Warner APRN, C.N.P., M.S. [address] [place] [phone] Phone: tel: fax: Referral ID Status Reason Start Date Expiration Date Visits Re quested Visits Authorized [id number] Closed 09/07/2024 03/09/2026 1 1 Encounter Details Date Type Department Care Team (Late st Contact Info) Description 10/21/2024 10:20 AM CDT Virtual Visit Department of Oncology in [place], [place] [address] [place] [phone] Marquise Singh M.D. [address] [place] [address] Effusion Pericardial Acute (HCC) (Primary Dx); Malignant Neoplasm Of Lung Lower Lobe Or Bronchus Right (HCC) Social History Tobacco Use Types Packs/Day Years Used Date Smoking Tobacco: Former Cigarettes 1 35 0 04/14/2023 - 01/20/2024 Passive Smoke Exposure: Never Smokeless Tobacco: Never Alcohol Use Standard Drinks/Week Comments Not Currently 0 (1 standard drink = 0.6 oz pur e alcohol) [facility] Utilities Answer Date Recorded In the past 12 months has e [employer], gas, oil, or water [employer] threatened to shut off services in your [...] AM CDT Legal 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 - 10/21/2024 10:20 AM CDT SUBJECTIVE CHIEF COMPLAINT/REASON FOR VISIT Lung cancer HISTORY OF PRESENT ILLNESS Mr. Miramontes is 54 y.o. male. Oncology history is as follows: Oncology History [...] palliation. 02/02/2024 Genetic Testing and Tumor Genotyping [id number]: TP53 R158L, CDKN2A A100P, TS 02/11/2024 - [...] Scanty cellularity. Immunohistochemical stains were performed at [facility] (block A1). p40 highlights predominately benign elements [...] cell carcinoma. Immunohistochemical stains were performed at [facility] (block A1). p40 is immunoreactive in neoplastic cells. TTF1 is negative. 04/13/2024 Genetic Testing and Tumor Genotyping Insufficient tissue for [employer]us. 04/20/2024 - 2024 Radiation Therapy Radiation Therapy Treatment Details (04/20/2024 - 2024) Site: Right Lung Fractions: 30 Technique: IMRT Dose: 6600 cGy Goal: Curative 04/21/2024 - 05/27/2024 Chemotherapy CARBOplatin AUC 2 Weekly / PACLitaxel 50 mg/m2 ( with Radiation ) ( Lung ) Start Date: 04/21/2024 Under the care of Dr. Perry. 06/13/[address] Chest IMPRESSION: 1. Slight decrease in the extensive right paratracheal adenopathy is since prior exam. 2. Overall stable pulmonary nodules with decrease in the right lower lobe endobronchial lesion. 3. Resolution of the previously noted subtle hazy groundglass opacities in both lungs. 06/14/2024 - Chemotherapy Pembrolizumab ( Every 3 weeks ) ( Oncology ) Start Date: 06/14/2024 (Planned) 08/10/2024 Critical Imaging Esophagram and Swallow Function Studies IMPRESSION: 1. Normal swallowing mechanism. Please see the speech pathology report for further details. 2. Moderate esophageal dysmotility. 08/26/[address] Chest IMPRESSION: 1. Multiple bilateral pulmonary nodules two of which have increased in size. 2. Extensive right paratracheal adenopathy has not changed significantly. 3. New small right pleural effusion and small pericardial effusion. 4. New radiation pneumonitis in the medial right lung. CT Neck Soft Tissue IMPRESSION: 1. No new cervical mass lesions or cervical adenopathy. No venous thrombosis or external compression of the veins of the neck. 2. The previously seen right paratracheal mass has decreased in size compared to PET/CT 04/13/2024.The trachea is displaced to the left without significant narrowing. 08/30/2024 Surgery and Procedures EGD was performed. Post-op Diagnoses: - Erythematous and congested duodenal mucosa. Biopsied. - Normal stomach. - Normal esophagus, no clear areas of compression, obstruction or abnormal mucosa. Biopsied. FINAL DIAGNOSIS A. Duodenum, 2nd part, Duodenal bulb, endoscopic biopsy: Partially blunted duodenal mucosa with patchy increased intraepithelial lymphocytes (40 lymphocytes per 100 epithelial cells). Plasma cells are present. See comment. COMMENT These changes are not entirely specific, but suggest celiac sprue in the appropriate clinical context after exclusion of other possibilities including; medication induced (including NSAIDS and immunecheck point inhibitors), hypersensitivity reaction to non-gluten proteins, tropical sprue, or protein calorie malnutrition among others. B. Esophagus, Random sites, Lower third, Middle third, endoscopic biopsy: Hyperplastic squamous esophageal mucosa with intraepithelial eosinophils (28 per high power field). This pattern is somewhat nonspecific and could represent eosinophilic esophagitis, reflux esophagitis, or other forms of esophageal injury.See synoptic report Synoptic Report Peak eosinophil count: Grade 2 Stage 1 Basal hyperplasia: Grade 2 Stage 1 Dilated intercellular spaces: Grade 1 Stage 1 Lamina propria fibrosis: Grade 0 Stage 0 Eosinophilic abscesses: Not identified Surface layering: Not identified Sum of EoEHSS 10/05 INTERVAL HISTORY: Mr. Miramontes presents for a telephone visit since there were difficulties downloading the are application for the scheduled video visit. He tells me that he has been doing well overall with no new significant concerns. The hypothyroidism has been diagnosed locally as well and is being managed with t hyroid replacement. He feels like he is tolerating immunotherapy well without significant issues. REVIEW OF SYSTEMS Pertinent items are noted in HPI; all other review of systems were negative. OBJECTIVE VITAL SIGNS BP Readings from Last 1 Encounters: 10/18/24 (!) 146/109 Pulse Readings from Last 1 Encounters: 10/18/24 84 Temp Readings from Last 1 Encounters: 10/18/24 36.6 ??C (Oral) No data recorded PHYSICAL EXAMINATION General: Alert, oriented. Responds appropriately to questions. DIAGNOSTICS Recent Results (from the past 72 hours) Surgical Pathology Collection Time: 10/18/24 12:02 PM Result Value Report electronically signed by Celestina Aponte M.D. I verify that I have examined all relevant slides/materials for the specimen(s) and rendered or confirmed the diagnosis. Gross Description A: Received in formalin labeled with the patient's name, medical record number, and duodenum-second part duodenum are five pale isaacs-pink irregular soft tissues, ranging from 0.2-0.5 cm in greatest dimension. The specimens are submitted en toto in cassette A1. Grossedby JULIANNA. B: Received in formalin labeled with the patient's name, medical record number, and duodenum-duodenal bulb are six pale isaacs-pinkirregular soft tissues, ranging from 0.1-0.5 cm in greatest dimension. The specimens are submitted en toto in cassette B1. Grossed byJULIANNA. C: Received in formalin labeled with the patient's name, medical record number, and stomach-body of stomach, antrum, incisura are sixpale isaacs-pink irregular soft tissues, ranging from 0.1-0.6 cm in greatest dimension. The specimens are submitted en toto in cassette C1.Grossed by JULIANNA. D: Received in formalin labeled with the patient's name, medical record number, and esophagus-middle third esophagus, lower thirdesophagus are nine pale eqx-elxa-sgjgaivbypj irregular soft tissues, ranging from 0.1-0.6 cm in greatest dimension. The specimens aresubmitted en toto in cassette D1. Grossed by AJB. Interpretation FINAL DIAGNOSIS A. Duodenum, 2nd part, [...] mucosa with intraepithelial eosinophils (76 per high augustine r field). Synoptic Report Peak eosinophil count: Grade [...] in the diagnostic assessment of this case. Comprehensive Metabolic Panel Collection Time: 10/20/24 3:51 PM Result Value Potassium, S 3.8 Sodium, S 137 Chloride, S 99 Bicarbonate, S 25 Anion Gap 13 BUN (Blood Urea Nitrogen), S 11 Creatinine 1.12 Estimated GFR (eGFR) 79 Calcium, Total, S 9.4 Glucose, S 102 Protein, Total, S 7.1 Albumin, S 4.5 Aspartate Aminotransferase (AST), S 29 Alkaline Phosphatase, S 72 Alanine Aminotransferase (ALT), S 25 Bilirubin, Total, S 0.3 Thyroid Function [place] Collection Time: 10/20/24 3:51 PM Result Value TSH, Sensitive 34.0 (H) Thyroperoxidase (TPO) Antibodies Collection Time: 10/20/24 3:51 PM Result Value Thyroperoxidase Ab, S <15.0 T4 (Thyroxine), Free, Serum Collection Time: 10/20/24 3:51 PM Result Value T4 (Thyroxine), Free, S <0.3 (L) CBC with Differential, Blood Collection Time: 10/20/24 3:52 PM Result Value Hemoglobin 13.9 Hematocrit 41.3 Erythrocytes 4.79 MCV 86.2 RBC Distrib Width 14.0 Platelet Count 169 Leukocytes 5.5 Neutrophils 3.62 Lymphocytes 0.90 (L) Monocytes 0.42 Eosinophils 0.50 (H) Basophils 0.05 CT Chest with IV Contrast Result Date: 10/21/2024 Impression: 1. Decrease in the prominent right paratracheal adenopathy. 2. Multiple bilateral pulmonary nodules a few of which have decreased slightly in size. 3. Enlarging pericardial effusion. 4. Resolution of the right pleural effusion. CT Abdomen Pelvis with IV Contrast Result Date: 10/20/2024 Impression: No evidence of metastatic disease in the abdomen or pelvis. ASSESSMENT / PLAN #1 Lung cancer #2 Effusion Pericardial Acute (HCC) We reviewed the imaging studies. These are consistent with a response to therapy. I have suggested that he continue with immunotherapy locally given his tolerance of therapy and ongoing response. We discussed the pericardial effusion and how it is larger. I counseled him on symptoms that would prompt him calling our team or being evaluated in the emergency room. As I explained that some of the symptoms can be subtle, we discussed the option of a thoracic echocardiogram to make sure there isno functional component from this effusion. He would like to proceed with that and I have placed orders to have it scheduled. His hypothyroidism which is very likely related to immunotherapy is being managed locally. I have asked him to share the recent results with his team there. 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 PATIENT EDUCATION Ready to learn, no apparent learning barriers were identified; learning preferences include listening. Explained diagnosis and treatment plan; patient expressed understanding of the content. documented in this encounter Plan of Treatment Scheduled Orders Name Type Priority Associated Diagnoses Order Schedule CT Abdomen Pelvis with IV Contrast Imaging RAD - Routine (most inpatients and all outpatients) Malignant Neoplasm Of Lung Lower Lobe Or Bronchus Right (HCC) Expected: 01/21/2025 (Approximate), Expires: 10/21/2025 CBC with Differential, Blood Lab Routine Malignant Neoplasm Of Lung Lower Lobe Or Bronchus Right (HCC) Expected: 01/21/2025 (Approximate), Expires: 10/21/2025 Comprehensive Metabolic Panel Lab Routine Malignant Neoplasm Of Lung Lower Lobe Or Bronchus Right (HCC) Expected: 01/21/2025 (Approximate), Expires: 10/21/2025 CT Chest with IV Contrast Imaging RAD - Routine (most inpatients and all outpatients) Malignant Neoplasm Of Lung Lower Lobe Or Bronchus Right (HCC) Expected: 01/21/2025 (Approximate), Expires: 10/21/2025 Scheduled Referrals Name Type Priority Associated Diagnoses Orde r Schedule Oncology office visit (clinic) Outpatient Referral Routine Expected: 01/21/2025 (Approximate), Expires: 10/21/2025 documented as of this encounter Results * (TTE) 2D ECHO DOPPLER COLOR (11/03/2024 3:51 PM CDT) Ejection Fraction 60 MC CV EIMS Mid-Ascending Aorta 36 MC CV EIMS LV Mass Index 108 MC CV EIMS LV End-Diastolic Diameter 53 MC CV EIMS LV End-Systolic Diameter 36 MC CV EIMS MV E Velocity 0.4 MC CV EIMS MV A Velocity 0.5 MC CV EIMS MV E/A 0.8 MC CV EIMS MV e' Velocity Medial 0.08 MC CV EIMS MV e' Velocity Lateral 0.08 MC CV EIMS MV E/e' Medial 5 MC CV EIMS MV E/e' Lateral 5 MC CV EIMS Left ventricular stroke volume index 31 MC CV EIMS Cardiac Output 6.87 MC CV EIMS Cardiac Index 2.74 MC CV EIMS LV Interventricular Septal Wall Thickness 13 MC CV EIMS LV Posterior Wall Thickness 12 MC CV EIMS LV Relative Wall Thickness 45 MC CV EIMS Tricuspid Annular S 0.14 MC CV EIMS Estimated RA Pressure (Echo RAP) 5 MC CV EIMS Pulmonary Artery Diastolic Pressure (with Echo RAP) 10 MC CV EIMS AV mean gradient 2 MC CV EIMS Aortic valve area 5.24 MC CV EIMS Aortic Valve Dimensionless Index 0.99 MC CV EIMS LA Volume Index 21 MC CV EIMS Aortic Valve Systolic Peak Velocity 0.8 MC CV EIMS Anatomical Region Laterality Modality Other 11/03/2024 3:13 PM CDT Impressions 11/03/2024 4:27 PM CDT There are no previous [facility] echocardiograms available for comparison. LEFT VENTRICLE:Normal left ventricular chamber size. Abnormal left ventricular geometry with concentric remodeling (increased wall thickness to cavity ratio). Calculated 2-D monoplane volumetric left ventricular ejection fraction 60% without the use of ultrasound enhancing agent. No regional wall motion abnormalities. Normal left ventricular filling pressure. RIGHT VENTRICLE:Normal right ventricular chamber size. Normal right ventricular systolic function. Unable to detect peak tricuspid regurgitation velocity for pulmonary artery systolic pressure calculation. ATRIA:Normal left atrial size. Left atrial volume index 21 ml/m2. Normal right atrial size. CARDIAC VALVES:Trileaflet aortic valve. Mildly thickened aortic valve. No aortic valve regurgitation. Thickened mitral valve. Trivial mitral valve regurgitation. Normal pulmonary valve. Normal pulmonary valve systolic velocities. Trivial pulmonary valve regurgitation. Normal tricuspid valve. Trivial tricuspid valve regurgitation. OTHER ECHO FINDINGS:Normal inferior vena cava size with normal inspiratory collapse (>50%). Normal mid ascending aorta diameter of 36 mm. Abdominal aorta incompletely visualized. Normal abdominal aorta Doppler flow pattern. Positive for atrial level shunt by color flow imaging. No intracardiac mass or thrombus, but the left atrial appendage cannot be visualized adequately with transthoracic echo to exclude thrombus in this location. Small circumferential pericardial effusion. For the complete report, see the Order-Level Documents. Narrative 11/03/2024 4:27 PM CDT For the complete report, see the Order-Level Documents. Hemodynamics Heart Rate: 74 BPM Blood Pressure: 152 / 94 mmHg ECG: Sinus rhythm Final Impressions 1. Small circumferential pericardial effusion. No echocardiographic findings for constrictive or tamponade physiology. 2. Normal left ventricular chamber size, no regional wall motion abnormalities, calculated 2-D monoplane volumetric ejection fraction 60%. 3. Normal left ventricular filling pressure. 4. Normal right ventricular chamber size, normal systolic function, unable to detect peak tricuspid regurgitation velocity for pulmonary artery systolic pressure calculation. 5. Normal inferior vena cava size with normal inspiratory collapse (>50%). 6. Positive for atrial level shunt by color flow imaging. 7. No significant valvular heart disease. Procedure Note Finesse Dent M.D. - 11/03/2024 For the complete report, see the Order-Level Documents. Hemodynamics Heart Rate: 74 BPM Blood Pressure: 152 / 94 mmHg ECG: Sinus rhythm Final Impressions 1. Small circumferential pericardial effusion. No echocardiographicfindings for constrictive or tamponade physiology. 2. Normal left ventricular chamber size, no regional wall motionabnormalities, calculated 2-D monoplane volumetric ejection cowiicxc17%. 3. Normal left ventricular filling pressure. 4. Normal right ventricular chamber size, normal systolic function, unableto detect peak tricuspid regurgitation velocity for pulmonary arterysystolic pressure calculation. 5. Normal inferior vena cava size with normal inspiratory collapse(>50%). 6. Positive for atrial level shunt by color flow imaging. 7. No significant valvular heart disease. Findings There are no previous [facility] echocardiograms available forcomparison. LEFT VENTRICLE:Normal left ventricular chamber size. Abnormal leftventricular geometry with concentric remodeling (increased wall thicknessto cavity ratio). Calculated 2-D monoplane volumetric left ventricularejection fraction 60% without the use of ultrasound enhancing agent. Noregional wall motion abnormalities. Normal left ventricular fillingpressure. RIGHT VENTRICLE:Normal right ventricular chamber size. Normal rightventricular systolic function. Unable to detect peak tricuspidregurgitation velocity for pulmonary artery systolic pressurecalculation. ATRIA:Normal left atrial size. Left atrial volume index 21 ml/m2. Normalright atrial size. CARDIAC VALVES:Trileaflet aortic valve. Mildly thickened aortic valve. Noaortic valve regurgitation. Thickened mitral valve. Trivial mitral valveregurgitation. Normal pulmonary valve. Normal pulmonary valve systolicvelocities. Trivial pulmonary valve regurgitation. Normal tricuspid valve.Trivial tricuspid valve regurgitation. OTHER ECHO FINDINGS:Normal inferior vena cava size with normal inspiratorycollapse (>50%). Normal mid ascending aorta diameter of 36 mm. Abdominalaorta incompletely visualized. Normal abdominal aorta Doppler flowpattern. Positive for atrial level shunt by color flow imaging. Nointracardiac mass or thrombus, but the left atrial appendage cannot bevisualized adequately with transthoracic echo to exclude thrombus in thislocation. Small circumferential pericardial effusion. For the complete report, see the Order-Level Documents. us Marquise Singh M.D. CV ECHO PROCEDURES Final Result documented in this encounter Visit Diagnoses Diagnosis Effusion Pericardial Acute (HCC)- Primary Malignant Neoplasm Of Lung Lower Lobe Or Bronchus Right (HCC) Effusion Pericardial Acute (HCC) documented in this encounter
--- OUTSIDE RECORDS SUMMARY | 2024-10-25 12:00 | XMS_ITS | Encounter Summary ---
Author Organization [facility] Address [address] [place] [address] Care Team Providers Care Web Publisher Name Role Phone Unavailable Primary Care Provider Unavailabl e Reason for Visit * Outpatient (Routine) - Closed Specialty Diagnoses / Procedures Referred By Contact Referred To Contact Gastroenterology and Hepatology Torres Estrella M.D., Ph.D. [address] [place] [phone] Phone: tel: fax: [facility] Referral ID Status Reason Start Date Expiration Date Visits Re quested Visits Authorized [id number] Closed 09/20/2024 03/22/2026 1 1 Encounter Details Date Type Department Care Team (Latest Contact Info) Description 10/25/2024 12:00 PM CDT Virtual Visit Division of Gastroenterology in [place], [place] [address] [place] [phone] Torres Estrella M.D., Ph.D. [address] [place] [phone] Odynophagia [R13.10] (Primary Dx) Social History Tobacco Use Types Packs/Day Years Used Date Smoking Tobacco: Former Cigarettes 1 35 0 04/14/2023 - 01/20/2024 Passive Smoke Exposure: Never Smokeless Tobacco: Never Alcohol Use Standard Drinks/Week Comments Not Currently 0 (1 standard drink = 0.6 oz pur e alcohol) [facility] Utilities Answer Date Recorded In the past 12 months has [employer], gas, oil, or water [employer] threatened to shut off services in your [...] your living situation today? I have a [facility] place to live 05/16/2024 Sex and Gender Information Value Date Recorded Sex Assigned at Male 01/28/2024 10:26 AM CDT Legal Sex Male 10:09 PM [employer]FORMING [employer] Gender Identity Male 01/28/2024 10:26 AM CDT Sexual Orientation Straight 01/28/2024 10 :26 AM CDT documented as of this encounter Progress Notes * Torres Estrella M.D., Ph.D. - 10/25/2024 12:00 PM CDT SUBJECTIVE Patient ID: Rene Mriamontes is a 54 y.o. male who presents for evaluation of No chief complaint on file.. Issue Eosinophillic gastrointestinal disease - 10/18/24: Esophagus: 76 eos/hopf, Stomach: 90 eos/hpf, Duodenum: 55-66 eos/hpf - 08/30/24: 2. Odynophagia 3. Duodenal villous atrophy with intra-epithelial lymphocytosis 4. 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 An upper GI endoscopy was performed on 10/18/2024 for evaluation of dysphagia. The esophagus and duodenum appeared normal, while patchy erythematous mucosa was noted in the gastric antrum; biopsies were taken from the esophagus, stomach, and duodenum. Biopsies from the duodenum, stomach, and esophagus show marked eosinophilic infiltration, with peak counts up to 66/hpf in the duodenum and over 90/hpf in the gastric mucosa. Esophageal biopsies reveal 76 eosinophils/hpf with associated features of eosinophilic esophagitis (EoE), including basal hyperplasia, eosinophilic abscesses, and a high EoEHSS score (17/24), indicating active disease. There is no histologic evidence of celiac disease, Whipple???s disease, Giardia, or H. 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 The raised eosinophils are likely secondary to immunotherapy. Of note his most recent albumin is 4.5 performed on the 10/20/24. Most recent Hb is 13.9 performed on 10/20/24. At initial presentation, the patient reported significant odynophagia, which prompted further investigation. However, he now reports marked improvement in symptoms, with resolution of odynophagia. His weight has remained stable. Bowel habits are regular, with 1-2 formed bowel movements per day and only occasional episodes of diarrhea. I discussed the case with Dr. Villalobos, who has been informed of the elevated eosinophil counts. In light of the patient???s current asymptomatic status, we agree that systemic therapy is not indicatedat this time. While there remains a theoretical risk of complications such as protein-losing enteropathy and anemia, there is no clinical evidence of these presently. Should symptoms recur or worsen--such as odynophagia, abdominal pain, persistent diarrhea, weight loss, hypoalbuminemia, or anemia--it would be reasonable to consider a trial of corticosteroids, starting with a weaning dose of prednisone (30-40 mg daily). ASSESSMENT / PLAN Will update his oncologist No need for treatment currently given that he is asymptomatic If he were to develop symptoms of concerns such as odyophagia, abdominal pain, diarrhoea, weight loss, hypoalbuminemia and anaemia would need to consider weaning dose of Prednisone for EGID Have also updated the celiac care team documented in this encounter Plan of Treatment Not on file documented as of this encounter Visit Diagnoses Diagnosis Odynophagia [R13.10]- Primary documented in this encounter
--- OUTSIDE RECORDS SUMMARY | 2024-11-03 14:20 | XMS_ITS | Encounter Summary ---
Author Organization [facility] Address [address] [place] [address] Care Team Providers Care Customer Counter Representative Name Role Phone Unavailable Primary Care Provider Unavailabl e Reason for Referral * Cardiovascular-Diagnostic (Routine) - Closed Specialty Diagnoses / Procedures Referred By Contac t Referred To Contact Diagnoses Effusion Pericardial Acute (HCC) Procedures Echo Transthoracic (TTE) Marquise Singh M.D. 200 [place] [phone] Phone: tel: fax: [facility] Referral ID Status Reason Start Date Expiration Date Visits Re quested Visits Authorized [id number] Closed 10/21/2024 01/21/2026 1 1 Reason for Visit * Cardiovascular-Diagnostic (Routine) - Closed Specialty Diagnoses / Procedures Referred By Contac t Referred To Contact Diagnoses Effusion Pericardial Acute (HCC) Procedures Echo Transthoracic (TTE) Marquise Singh M.D. 200 [place] [phone] Phone: tel: fax: [facility] Referral ID Status Reason Start Date Expiration Date Visits Re quested Visits Authorized [id number] Closed 10/21/2024 01/21/2026 1 1 Encounter Details Date Type Department Care Team (Latest Contact Info) Description 11/03/2024 2:20 PM CDT - 11/03/2024 11:59 PM CDT Hospital Encounter Department of Cardiovascular Diseases in [place], [place] 200 [place] [phone] Marquise Singh M.D. [address] [place] [phone] Effusion Pericardial Acute (HCC) Discharge Disposition: Home or Self Care Social History Tobacco Use Types Packs/Day Years Used Date Smoking Tobacco: Former Cigarettes 1 35 0 04/14/2023 - 01/20/2024 Passive Smoke Exposure: Never Smokeless Tobacco: Never Alcohol Use Standard Drinks/Week Comments Not Currently 0 (1 standard drink = 0.6 oz pur e alcohol) [facility] Utilities Answer Date Recorded In the [...] your living situation today? 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 30 tablet 3 02/10/2024 5 prochlorperazine (Compazine) 10 mg tabletIndication s:Medication Therapy Cardiovascular Lab Director Not 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,Ma lignant Neoplasm Of Lung Lower [...] Procedure Name Priority Date/Time Associated Diagnosis Comments (TTE) 2D ECHO DOPPLER COLOR Routine 11/03/2024 3:51 PM CDT Effusion Pericardial Acute (HCC) documented in this encounter Results * (TTE) 2D ECHO [...] 4:27 PM CDT There are no previous [facility] echocardiograms available for comparison. LEFT VENTRICLE:Normal left [...] wall motionabnormalities, calculated 2-D monoplane volumetric ejection [id number]%. 3. Normal left ventricular filling pressure. 4. Normal right ventricular chamber size, normal systolic function, unableto detect peak tricuspid regurgitation velocity for pulmonary arterysystolic pressure calculation. 5. Normal inferior vena cava size with normal inspiratory collapse(>50%). 6. Positive for atrial level shunt by color flow imaging. 7. No significant valvular heart disease. Findings There are no previous [facility] echocardiograms available forcomparison. LEFT VENTRICLE:Normal left ventricular [...] encounter Visit Diagnoses Diagnosis Effusion Pericardial Acute (HCC) documented in this encounter
--- OUTSIDE RECORDS SUMMARY | 2024-11-06 23:12 | XMS_ITS | Encounter Summary ---
Author Organization 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 [address] [place] [phone] Phone: tel: fax: [facility] Referral ID Status Reason Start Date Expiration Date Visits Re quested Visits Authorized [id number] Closed 08/25/2024 11/25/2025 1 1 Encounter Details Date Type Department Care Team (Late st Contact Info) Description 08/25/2024 Clinical Communication Department of Oncology in [place], [place] [address] [place] [phone] Elizabeth Warner APRN, C.N.P., M.S. [address] [place] [phone] Social History Tobacco Use Types Packs/Day Years Used Date Smoking Tobacco: Former Cigarettes 1 35 0 04/14/2023 - 01/20/2024 Passive Smoke Exposure: Never Smokeless Tobacco: Never Alcohol Use Standard Drinks/Week Comments Not Currently 0 (1 standard drink = 0.6 oz pur e alcohol) [facility] Utilities Answer Date Recorded In the past [...] your living situation today? I have a [facility] place to live 05/16/2024 Sex and Gender Information Value Date Recorded Sex Assigned at Male 01/28/2024 10:26 AM CDT Legal Sex Male 10:09 PM [employer] Gender Identity Male 01/28/2024 10:26 AM CDT Sexual Orientation Straight 01/28/2024 10 :26 AM CDT documented as of this encounter Plan of Treatment Not on file documented as of this encounter Results * [...] is displaced to the leftwithout significant narrowing. us Elizabeth Warner APRN, C.N.P., M.S. 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
--- OUTSIDE RECORDS SUMMARY | 2024-11-06 23:12 | XMS_ITS | Clinical Summary ---
Author Organization [facility] Address [address] [place] [address] Care Team Providers Care Sales Estimator Name Role Phone Unavailable Primary Care Provider Unavailabl e Source Comments Patient records contain information from all sites at [facility]. For routine questions regarding patient records, call [phone] during business hours, M-F 8:00 AM - 5:00 PM Central Time. 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 30 tablet 3 4 02/10/20 25 Active Additional Information Patient not taking.Reported on 09/15/2024 ondansetron (Zofran) 8 mg tabletIndicatio ns:Medication Therapy Custodial Not 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,M alignant Neoplasm Of Lung Lower Lobe Or Bronchus Right (HCC) Take 1 tablet (8 mg total) by mouth every 8 (eight) hours as needed for nausea or vomiting (use second for nausea). 30 tablet 3 4 02/10/20 Active Additional Information Patient not taking.Reported on [...] swallow. 120 mL 5 Active budesonide 3 mg capsule for patient mixing [...] swallow the whole capsule. 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 on 02/10/2024 Encounters * This document contains information received from the source organization and may not represent a complete record from that organization. Date Type Department Care Team Description 11/03/2024 2:20 PM CDT - 11/03/2024 11:59 PM CDT Hospital Encounter Department of Cardiovascular Diseases in [place], [place] [address] [place] [address] Marquise Singh M.D. Effusion Pericardial Acute (HCC) Discharge Disposition: Home or Self Care 11/03/2024 Orders Only Department of Oncology in [place], [place] [address] [place] [address] Marquise Singh M.D. 10/25/2024 12:00 PM CDT Virtual Visit Division of Gastroenterology in [place], [place] [address] [place] [address] Torres Estrlela M.D., Ph.D. Odynophagia [R13.10] (Primary Dx) 10/21/2024 10:20 AM CDT Virtual Visit Department of Oncology in [place], [place] [address] [place] [address] Marquise Singh M.D. Effusion Pericardial Acute (HCC) (Primary Dx); Malignant Neoplasm Of Lung Lower Lobe Or Bronchus Right (HCC) 10/20/2024 3:34 PM CDT - 10/20/2024 11:59 PM CDT Hospital Encounter Department of Laboratory Medicine and Pathology, [facility] in [place], [place] [address] [place] [phone] Elizabeth Warner APRN, C.N.P., M.S. Malignant Neoplasm Of Lung Lower Lobe Or Bronchus Right (HCC); Nodules Pulmonary Multiple; Medication Therapy Custodial Not 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 Discharge Disposition: Home or Self Care 10/20/2024 3:00 PM CDT Office Visit Department of Palliative Care in [address] [phone] Jacinda Cruz M.D. Malignant Neoplasm Of Lung Lower Lobe Or Bronchus Right (HCC) (Primary Dx); Odynophagia 10/20/2024 12:37 PM CDT - 10/20/2024 3:33 PM CDT Hospital Encounter Department of Radiology, [facility] in [address] [phone] Elizabeth Warner APRN, C.N.P., M.S. Malignant Neoplasm Of Lung Lower Lobe Or Bronchus Right (HCC); Nodules Pulmonary Multiple Discharge Disposition: Home or Self Care 10/18/2024 11:25 AM CDT Ancillary Procedure Department of Gastroenterology 10/18/2024 10:36 AM CDT - 10/18/2024 11:59 PM CDT Hospital Encounter Division of Gastroenterology in [address] [phone] Torres Estrella M.D., Ph.D. Dysphagia Discharge Disposition: Home or Self Care 10/18/2024 10:15 AM CDT Clinical Communication Virtual Review in [address] [phone] Pre-visit Intake 10/18/2024 Clinical Communication Department of Oncology in [address] [phone] Marquise Singh M.D. 10/18/2024 Clinical Communication Department of Palliative Care in [address] [phone] Hoa Katz P.A.-C. Appointment 09/29/2024 Orders Only Division of Gastroenterology in [address] [phone] Torres Estrella M.D., Ph.D. Dysphagia (Primary Dx) 09/28/2024 3:20 PM CDT Virtual Visit Division of Gastroenterology in [address] [phone] Pratik Fishman M.D. 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 Torres Estrella M.D., Ph.D. 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 Karina Chavarria, R.N. 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 Malignant Neoplasm Of Lung Lower Lobe Or Bronchus Right (HCC) (Primary Dx); Odynophagia 09/09/2024 Clinical Communication Department of Oncology in [address] [phone] Cece Gr, Pharm.D., R.Ph., BCOP Symptom Assessment (Esophagitis / budesonide follow up ) 09/07/2024 1:42 PM CDT - 09/07/2024 11:59 PM CDT Hospital Encounter Department of Laboratory Medicine in [place], [place] [address] [place] [address] Elizabeth Warner APRN, C.N.P., M.S. Malignant Neoplasm Of Lung Lower Lobe Or Bronchus Right (HCC); Medication Therapy Custodial Not 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; Esophagitis Eosinophilic; Toxicity Drug Initial; Dysphagia Discharge Disposition: Home or Self Care 09/07/2024 Clinical Communication Department of Oncology in [place], [place] [address] [place] [phone] Elizabeth Warner APRN, C.N.P., M.S. 09/03/2024 Orders Only Department of Oncology in [place], [place] [address] [place] [phone] Cece Gr Pharm.D., R.Ph., [facility] 09/03/2024 Orders Only Department of Oncology in [place], [place] [address] [place] [phone] Cece Gr Pharm.D., R.Ph., OP 09/02/2024 2:00 PM CDT Virtual Visit Department of Oncology in [place], [place] [address] [place] [phone] Elizabeth Warner APRN, C.N.P., M.S. 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 09/02/2024 Orders Only Division of Gastroenterology in [place], [place] [address] [place] [phone] Zachary Farias M.D. 09/02/2024 Clinical Communication Department of Oncology in [place], [place] [address] [place] [phone] Elizabeth Warner APRN, C.N.P., M.S. 08/31/2024 9:30 AM CDT Comprehensive Visit Division of Endocrinology in [place], [place] [address] [place] [phone] Svetlana Perry M.D. Paknikar, Sujaytha S, M.D. Malignant Neoplasm Of Lung Lower Lobe Or Bronchus Right (HCC); Hyperthyroidism 08/30/2024 12:55 PM CDT Ancillary Procedure Department of Gastroenterology 08/30/2024 12:13 PM CDT - 08/30/2024 11:59 PM CDT Hospital Encounter Division of Gastroenterology in [place], [place] [address] [place] [phone] Elizabeth Warner APRN, C.N.P., M.S. Dysphagia Discharge Disposition: Home or Self Care 08/26/2024 1:40 PM CDT Office Visit Department of Oncology in [place], [place] [address] [place] [phone] Elizabeth Warner APRN, C.N.P., M.S. 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 Malignant Neoplasm Of Lung Lower Lobe Or Bronchus Right (HCC) Discharge Disposition: Home or Self Care 08/25/2024 Orders Only Division of Endocrinology in [place], [place] [address] [place] [phone] Shira Méndez M.D. Hyperthyroidism (Primary Dx) 08/25/2024 Clinical Communication Department of Oncology in [place], [place] [address] [place] [phone] Elizabeth Warner APRN C.N.P., M.S. 08/24/2024 8:21 AM CDT - 08/24/2024 11:59 PM CDT Hospital Encounter Department of Radiology, [address] [phone] Emperatriz Gonzales APRN C.N.PMicaela, D.N.P. Malignant Neoplasm Of Lung Lower Lobe Or Bronchus Right (HCC); Edema Discharge Disposition: Home or Self Care 08/24/2024 Results Follow-Up Department of Palliative Care in [address] [phone] Emperatriz Gonzales APRN, FamiliaN.P., D.N.P. US Head Neck Soft Tissue, Thyroid Function [place] 08/23/2024 2:27 PM CDT - 08/23/2024 11:59 PM CDT Hospital Encounter Department of Laboratory Medicine and Pathology, [facility] in [place], [place] [address] [place] [phone] Emperatriz Gonzales APRN C.N.P., D.N.P. Malignant Neoplasm Of Lung Lower Lobe Or Bronchus Right (HCC); Hyperthyroidism Discharge Disposition: Home or Self Care 08/23/2024 1:00 PM CDT Comprehensive Visit Department of Palliative Care in [place], [place] [address] [place] [phone] Emperatriz Gonzales APRN, C.N.PMicaela, D.N.P. Olivares, Zoe A, R.N. Odynophagia; Edema; Malignant Neoplasm Of Lung Lower Lobe Or Bronchus Right (HCC); Palliative Care; Hyperthyroidism; Anxiety 08/23/2024 Clinical Communication Department of Palliative Care in [address] [phone] Emperatriz Gonzales APRN, C.NEmilee, D.N.PMicaela 08/23/2024 Clinical Communication Department of Oncology in [address] [phone] Svetlana Perry M.D. After Visit Question 08/19/2024 3:30 PM CDT Clinical Communication Virtual Review in [address] [phone] Pre-visit Intake 08/17/2024 Orders Only Department of Oncology in [address] [phone] Svetlana Perry M.D. Malignant Neoplasm Of Lung Lower Lobe Or Bronchus Right (HCC) (Primary Dx); Hyperthyroidism 08/10/2024 9:09 AM CDT - 08/10/2024 11:59 PM CDT Hospital Encounter Department of Radiology, [facility], in [address] [phone] Wilfrido Chua M.D. Meverden, Julia K, M.S., CCC-DOLLYMAN Malignant Neoplasm Of Lung Lower Lobe Or Bronchus Right (HCC); Odynophagia Discharge Disposition: Home or Self Care 08/10/2024 9:00 AM CDT Comprehensive Visit Department of Neurology in [address] [phone] Wilfrido Chua M.D. Meverden, Julia K, M.S., CCC-DOLLYMAN Dysphagia Oropharyngeal Phase (Primary Dx); Malignant Neoplasm Of Lung Lower Lobe Or Bronchus Right (HCC); Odynophagia from Last 3 Months Family History Medical History Relation Name Comments Colon cancer Mother sirek Relation Name Status Comments Mother sirek Alive Social History Tobacco Use Types Packs/Day Years Used Date Smoking Tobacco: Former Cigarettes 1 35 0 04/14/2023 - 01/20/2024 Passive Smoke Exposure: Never Smokeless Tobacco: Never Tobacco Cessation:Counseling Given: Not Answered Alcohol Use Standard Drinks/Week Comments Not Currently 0 (1 standard drink = 0.6 oz pur e alcohol) [facility] Utilities Answer Date Recorded In the [...] your living situation today? I have a [facility] place to live 05/16/2024 Sex and Gender Information Value Date Recorded Sex Assigned at Male 01/28/2024 10:26 AM CDT Legal Sex Male 10:09 PM DISPATCH COORDINATOR Gender Identity Male 01/28/2024 10:26 AM [...] PM CDT Height 183.4 cm (6' 0.21) 10/18/2024 10:50 AM C DT Body Mass Index 35.11 04/20/2024 10:49 AM DISPATCH COORDINATOR Plan of Treatment Health Maintenance Due Date [...] - Pfizer risk series) 09/22/2020 08/25/2020, 08/04/2020 Depression Screening (Annual PHQ-2) 04/14/2024 Influenza Vaccine (#1) 2025 9, 06/04/2018, 01/24/2016, Additional history exists Fasting Glucose for Diabetes Screening 10/21/2027 10/20/2024, 08/26/2024, 06/14/2024, Additional history exists HPV Vaccines Aged Out No longer eligi ble based on patient's age to complete this topic IPV Vaccines Aged Out No longer eligi ble based on patient's age to complete this topic Medical Devices Explanted Type Area Senior Test Analyst Device Identifier Shelf Expiration Date Model / Serial / Lot Alizat Implanted: (Quantity not on file) Explanted:Qty : 1 on 04/13/2024 by Mac Coreas M.D. at [facility] Respiratory Stent Trachea Description:MRI Conditional 1.5 or 3T. Normal operating mode. Consult physicist prior to scanning due to low JESSICA limits. Benita Aldrich 04/13/24 [email or web address] 04/13/2024 Explanted due to stent migration. Bonastent [id number] Implanted:Qty : 1 on 04/12/2024 by Mac Coreas M.D. at [facility] Stent Other N/A: Trachea [facility] [id number] 08/30/2026 [id number] Procedures Procedure Name Priority Date/Time Associated Diagnosis Comments (TTE) 2D ECHO DOPPLER COLOR Routine 11/03/2024 3:51 PM CDT Effusion Pericardial Acute (HCC) CBC WITH DIFFERENTIAL, B Routine 10/20/2024 3:52 PM CDT Malignant Neoplasm Of Lung Lower Lobe Or Bronchus Right (HCC) Nodules Pulmonary Multiple OK T4 FREE Routine 10/20/2024 3:51 PM CDT THYROPEROXIDASE (TPO) ABS, S Routine 10/20/2024 3:51 PM CDT THYROID FUNCTION CASCADE, S Routine 10/20/2024 3:51 PM CDT Malignant Neoplasm Of Lung Lower Lobe Or Bronchus Right (HCC) Nodules Pulmonary Multiple 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 Therapy 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 COMPREHENSIVE METABOLIC PANEL, S/P Routine 10/20/2024 3:51 PM CDT Malignant Neoplasm Of Lung Lower Lobe Or Bronchus Right (HCC) Nodules Pulmonary Multiple CT ABDOMEN PELVIS WITH IV CONTRAST RAD - Routine (most inpatients and all outpatients) 10/20/2024 2:14 PM CDT Malignant Neoplasm Of Lung Lower Lobe Or Bronchus Right (HCC) Nodules Pulmonary Multiple CT CHEST WITH IV CONTRAST RAD - Routine (most inpatients and all outpatients) 10/20/2024 2:14 PM CDT Malignant Neoplasm Of Lung Lower Lobe Or Bronchus Right (HCC) Nodules Pulmonary Multiple SURGICAL PATHOLOGY Routine 10/18/2024 12:02 PM CDT GASTROENTEROLOGY IMAGE EXAM Routine 10/18/2024 11:25 AM CDT UPPER GI ENDOSCOPY Routine 10/18/2024 11:23 AM CDT Dysphagia EGD (ESOPHAGOGASTRODUODENO SCOPY) RESTRICTED Routine 10/18/2024 11:23 AM CDT Dysphagia ZINC, S Routine 09/07/2024 1:54 PM CDT Malignant Neoplasm Of Lung Lower Lobe Or Bronchus Right (HCC) Medication Therapy 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 Esophagitis Eosinophilic Toxicity Drug Initial Dysphagia VITAMIN B12 ASSAY, S Routine 09/07/2024 1:54 PM CDT Malignant Neoplasm Of Lung Lower Lobe Or Bronchus Right (HCC) Medication Therapy 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 Esophagitis Eosinophilic Toxicity Drug Initial Dysphagia VITAMIN A AND VITAMIN E, S Routine 09/07/2024 1:54 PM CDT Malignant Neoplasm Of Lung Lower Lobe Or Bronchus Right (HCC) Medication Therapy 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 Esophagitis Eosinophilic Toxicity Drug Initial Dysphagia FOLATE, S Routine 09/07/2024 1:54 PM CDT Malignant Neoplasm Of Lung Lower Lobe Or Bronchus Right (HCC) Medication Therapy Custodial Not 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 Esophagitis Eosinophilic Toxicity Drug Initial Dysphagia COPPER, S Routine 09/07/2024 1:54 PM CDT Malignant Neoplasm Of Lung Lower Lobe Or Bronchus Right (HCC) Medication Therapy 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 Esophagitis Eosinophilic Toxicity Drug Initial Dysphagia 25-HYDROXYVITAMIN D2 AND D3, S Routine 09/07/2024 1:54 PM CDT Malignant Neoplasm Of Lung Lower Lobe Or Bronchus Right (HCC) Medication Therapy Custodial Not 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 Esophagitis Eosinophilic Toxicity Drug Initial [...] Lobe Or Bronchus Right (HCC) Medication Therapy Custodial Not 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 Esophagitis Eosinophilic Toxicity Drug Initial Dysphagia FERRITIN, S Routine 09/07/2024 1:53 PM CDT Malignant Neoplasm Of Lung Lower Lobe Or Bronchus Right (HCC) Medication Therapy 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 Esophagitis Eosinophilic Toxicity Drug Initial Dysphagia CELIAC DISEASE GLUTEN-FREE CASCADE Routine 09/07/2024 1:53 PM CDT Malignant Neoplasm Of Lung Lower Lobe Or Bronchus Right (HCC) Medication Therapy Custodial Not 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 Esophagitis Eosinophilic Toxicity Drug Initial Dysphagia CELIAC DISEASE SEROLOGY CASCADE, S Routine 09/07/2024 1:53 PM CDT Malignant Neoplasm Of Lung Lower Lobe Or Bronchus Right (HCC) Medication Therapy 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 Esophagitis Eosinophilic Toxicity Drug Initial Dysphagia SURGICAL PATHOLOGY Routine 08/30/2024 2:08 PM CDT GASTROENTEROLOGY IMAGE EXAM Routine 08/30/2024 12:55 PM CDT UPPER GI ENDOSCOPY Routine 08/30/2024 12:51 PM CDT Dysphagia EGD (ESOPHAGOGASTRODUODENO SCOPY) Routine 08/30/2024 12:51 PM CDT Dysphagia OK T4 FREE Routine 08/26/2024 12:02 PM CDT THYROID FUNCTION CASCADE, S Routine 08/26/2024 12:02 PM CDT Malignant Neoplasm Of Lung Lower Lobe Or Bronchus Right (HCC) Medication Therapy 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 LEFT VENTRICLE:Normal left [...] wall motionabnormalities, calculated 2-D monoplane volumetric ejection btshaptn68%. 3. Normal left ventricular filling pressure. 4. Normal right ventricular chamber size, normal systolic function, unableto detect peak tricuspid regurgitation velocity for pulmonary arterysystolic pressure calculation. 5. Normal inferior vena cava size with normal inspiratory collapse(>50%). 6. Positive for atrial level shunt by color flow imaging. 7. No significant valvular heart disease. Findings There are no previous [facility] echocardiograms available forcomparison. LEFT VENTRICLE:Normal left ventricular [...] Singh M.D. CV ECHO PROCEDURES Final Result * (ABNORMAL) CBC with Differential, Blood (10/20/2024 3:52 PM CDT) Only the most recent of2 resultswithin the time period is included. Hemoglobin 13.9 13.2 - 16.6 g/dL 10/20/2024 [...] M.S. LAB BLOOD ADD -ON Final Result [facility] [address] [place] [address], [place] DTL [facility] [address] [place] [address] [facility] [address] [place] [address] * (ABNORMAL) T4 (Thyroxine), Free, Serum (10/20/2024 3:51 PM CDT) Only the most recent of3 resultswithin the time period is included. Pathologist [facility] T4 (Thyroxine), Free, S <0.3(L) 0.9 - 1.7 ng/dL 10/20/2024 5:13 PM CDT DT Blood 10/20/2024 3:51 PM CDT 10/20/2024 4:11 PM CDT Itzel Subramanian APRN.N.Hilaria., M.S. LAB BLOOD ADD -ON Final Result Performing Organization Address City/[facility] Co de Phone Number [facility] [address] [place] [address] * (ABNORMAL) Thyroid Function [place] (10/20/2024 3:51 PM CDT) Only the most recent of3 resultswithin the time period is included. Pathologist [facility] TSH, Sensitive 34.0(H) 0.3 - 4.2 mIU/L 10/20/2024 4:53 PM CDT DT Blood (Blood, Venous) 10/20/2024 3:51 PM CDT 10/20/2024 4:11 PM CDT Itzel Subramanian APRN.N.P., M.S. LAB BLOOD ADD -ON Final Result Performing Organization Address City/[facility]/ZIP Co de Phone Number [facility] [address] [place] [address] * Thyroperoxidase (TPO) Antibodies (10/20/2024 3:51 PM CDT) Pathologist [facility] Thyroperoxidase Ab, S <15.0 <34.0 IU/mL 10/20/2024 5:13 PM CDT DT Blood 10/20/2024 3:51 PM CDT 10/20/2024 4:11 PM CDT Elizabeth Warner APRN, C.N.P., M.S. LAB BLOOD ADD -ON Final Result [facility] [address] [place] [address], [place] DTL [facility] [address] [place] [address] * Comprehensive Metabolic Panel (10/20/2024 3:51 PM CDT) Only the most recent of2 resultswithin the time period is included. [facility] Potassium, S 3.8 3.6 - 5.2 mmol/L [...] 3:51 PM CDT 10/20/2024 4:11 PM CDT us Elizabeth Warner APRN C.N.P., M.S. LAB BLOOD ADD -ON Final Result [facility] [address] [place] [address], [facility] DTL [facility] [address] [place] [address] * CT Abdomen Pelvis with IV Contrast [...] disease in the abdomen or pelvis. us Elizabeth Warner APRN, C.N.P., M.S. IMG [...] the right pleural effusion. us Elizabeth Warner APRN, C.N.P., M.S. IMG CT PROCED URES Final Result * Surgical Pathology (10/18/2024 12:02 PM CDT) Only the most recent of2 resultswithin the time period is included. 10/20/2024 8:44 AM CDT DTL Report electronically [...] submitted en toto in cassette A1. Grossedby SIMEONB. B: Received in formalin labeled with the patient's name, medical record number, and duodenum-duodenal bulb are six pale isaacs-pinkirregular soft tissues, ranging from 0.1-0.5 cm in greatest dimension. The specimens are submitted en toto in cassette B1. Grossed byAVeniceB. C: Received in formalin labeled with the patient's name, medical record number, and stomach-body of stomach, antrum, incisura are sixpale isaacs-pink irregular soft tissues, ranging from 0.1-0.6 cm in greatest dimension. The specimens are submitted en toto in cassette C1.Grossed by SIMEONB. D: Received in formalin labeled with the patient's name, medical record number, and esophagus-middle third esophagus, lower thirdesophagus are nine pale ley-fmeh-wbtefxbaqhg irregular soft tissues, ranging from 0.1-0.6 cm in greatest dimension. The specimens aresubmitted en toto in cassette D1. Grossed by SIMEONB. 10/20/2024 8:44 AM CDT DTL Interpretation FINAL [...] CDT Biopsy (Esophagus) 10/18/2024 12:08 PM CDT Rene Jeffrey Jr., M.D. LAB SURG PATH ORDERAB LES Final Result [facility] [address] [place] [address], [facility] [address] [place] [address] * Upper GI endoscopy-Gastroenterology Image Exam (10/18/2024 11:25 AM CDT) Only the most recent of2 resultswithin the time period is included. 10/18/2024 11:2 3 AM CDT Narrative [facility] - 10/18/2024 12:24 PM CDT This order has been created and auto-finalized to support the import of images acquired without order. The clinical documentation to support these images can be found on the encounter that produced images. us Provider Not In System IMG NON RAD IMAGING PROCE DURES Final Result [facility] NA * Upper GI Endoscopy (10/18/2024 11:23 AM CDT) 10/18/2024 11:2 3 AM CDT Impressions [facility] - 10/18/2024 12:14 PM CDT Post-op Diagnoses: - Esophagogastric landmarks identified. - Normal esophagus. - Erythematous mucosa in the antrum. Biopsied. - Normal examined duodenum. Biopsied. - Biopsies were taken with a cold forceps for evaluation of eosinophilic esophagitis. Narrative [facility] - 10/18/2024 12:14 PM CDT Gonda 9 GI GI Patient Name: Rene Muñiz Date of : 1970 Age: 54 [...] signed electronically. Number of Addenda: 0 us Torres Estrella M.D., Ph.D. GI PROCEDURE ORDER JAJA Final Result [facility] NA * (ABNORMAL) Vitamin A and Vitamin E (09/07/2024 1:54 PM CDT) Vitamin A 41.7 32.5 - 78.0 mcg/dL 09/09/2024 7:59 PM CDT [facility] Comment: ----ADDITIONAL INFORMATION---- This test was developed and its performance characteristics determined by [facility] in a manner consistent with CLIA requirements. This test has not been cleared or approved by the U.S. Food and Drug Administration. A-Tocopherol, Vitamin E 20.7(H) 5.5 - 17.0 mg/L 09/09/2024 10:54 AM T [facility] Blood (Blood, Venous) 09/07/2024 1:54 PM CDT 09/08/2024 10:51 AM CDT Elizabeth Warner APRN, C.N.P., M.S. LAB BLOOD NON ADD-ON Final Result Performing Organization Address City/[facility] Co de Phone Number [facility] [address] [place] [address] [facility] [address] [place] [address] [place] [address] * Copper (09/07/2024 1:54 PM CDT) Copper, S 84 73 - 129 mcg/dL 09/08/2024 11:11 AM CDT [facility] Comment: ----ADDITIONAL INFORMATION---- This test was developed and its performance characteristics determined by [facility] in a manner consistent with CLIA requirements. This test has not been cleared or approved by the U.S. Food and Drug Administration. Blood (Blood, Venous) 09/07/2024 1:54 PM CDT 09/08/2024 7:32 AM CDT Elizabeth Warner APRN, C.N.P., M.S. LAB BLOOD NON ADD-ON Final Result Performing Organization Address City/[facility] Co de Phone Number [facility] [address] [place] [address] [facility] [address] [place] [address] [place] [address] * Zinc (09/07/2024 1:54 PM CDT) Zinc, S 68 60 - 106 mcg/dL 09/08/2024 11:11 AM CDT [facility] Comment: ----ADDITIONAL INFORMATION---- This test was developed and its performance characteristics determined by [facility] in a manner consistent with CLIA requirements. This test has not been cleared or approved by the U.S. Food and Drug Administration. Blood (Blood, Venous) 09/07/2024 1:54 PM CDT 09/08/2024 7:32 AM CDT Elizabeth J Schwecke COUNSELOR EDUCATION PROFESSOR, C.N.P., M.S. LAB BLOOD NON ADD-ON Final Result Performing Organization Address City/[facility] Co de Phone Number [facility] [address] [place] [address] [facility] [address] [place] [address] [place] [address] * 25-Hydroxyvitamin D2 and D3 (09/07/2024 1:54 PM CDT) 25-Hydroxy D2 <4.0 ng/mL 09/12/2024 3:14 PM CDT SDS 25-Hydroxy D3 30 ng/mL 09/12/2024 3:14 PM CDT SDS 25-Hydroxy D Total 30 ng/mL 2024 3:14 PM CDT [facility] Comment: ----REFERENCE VALUE---- 25-HYDROXY D TOTAL (D2+D3) Optimum levels in the healthy population are 20-50. ----ADDITIONAL INFORMATION---- This test was developed and its performance characteristics determined by [facility] in a manner consistent with CLIA requirements. This test has not been cleared or approved by the U.S. Food and Drug Administration. Blood (Blood, Venous) 09/07/2024 1:54 PM CDT 09/08/2024 7:29 AM CDT Elizabeth Warner APRN, C.N.P., M.S. LAB BLOOD ADD -ON Final Result Performing Organization Address City/[facility] Co de Phone Number [facility] [address] [place] [address] [facility] [address] [place] [address] [place] [address] * Folate (09/07/2024 1:54 PM CDT) Folate, S 12.6 >=4.0 mcg/L 09/07/2024 5:19 PM CDT [facility] Comment: Biotin has been identified by the senior solutions consultant as a potential interfering substance. Higher concentrations [...] ADD -ON Final Result Performing Organization Address [facility] Co de Phone Number [facility] [address] [place] [address], [address] [address] * Vitamin B12 Assay (09/07/2024 1:54 PM CDT) Pathologist [facility] Vitamin B12 Assay, S 536 232 - 1245 ng/L 09/07/2024 5:19 PM CDT [facility] Comment: Biotin has been identified by the senior solutions consultant as a potential interfering substance. Higher concentrations [...] ADD -ON Final Result Performing Organization Address [facility] Co de Phone Number [facility] [address] [place] [address], [facility] [address] [place] [address] * Celiac Disease Serology [place] (09/07/2024 1:53 PM CDT) Immunoglobulin A (IgA), S 104 61 - 356 mg/dL 09/08/2024 1:42 PM CDT [facility] Celiac Disease Interpretation See Comment: Negative serology. Celiac disease unlikely. However, approximately 10% of patients with celiac disease are seronegative. Also, patients who are already adhering to a gluten-free diet may be seronegative. If celiac disease is highly clinically suspected, consider HLA-DQ typing. 09/08/2024 10:41 PM CDT [facility] Blood (Blood, Venous) 09/07/2024 1:53 PM CDT 09/08/2024 6:27 AM CDT Narrative [facility] - 09/08/2024 10:41 PM CDT Specimen Information: Specimen ID: [id number] Specimen Type: Blood Specimen Collection Start Date: 09/07/2024 1:53 PM Specimen Received Date: 09/08/2024 6:27 AM Specimen ID: [id number] Specimen Type: Blood Specimen Collection Start Date: 09/07/2024 1:53 PM Specimen Received Date: 09/08/2024 6:29 AM Elizabeth Warner APRN, C.N.P., M.S. LAB BLOOD ADD -ON Final Result Performing Organization Address City/State/[facility] Co de Phone Number [facility] [address] [place], [place] [phone] [place] [address] [place] [address] [place] [facility] [place] [address] * Celiac Disease Gluten-Free [place] (09/07/2024 1:53 PM CDT) [facility] HLA-DQA1 Locus Molecular 01:02, 02:01 Not [...] instructions. Its performance characteristics were determined by [facility] in a manner consistent with CLIA requirements. This test has not been cleared or approved by the U.S. Food and Drug Administration. CLIA: [id number] CLIA Fitting Room Maintenance Mechanic: MARILY KINSEY,Ph.D. Celiac Disease Interpretation See Comment: Celiac disease possible. Consider biopsy. 09/13/2024 10:38 PM CDT [facility] Blood (Blood, Venous) 09/07/2024 1:53 PM CDT 09/08/2024 8:08 AM CDT Narrative [facility] - 09/13/2024 10:38 PM CDT Specimen Information: Specimen ID: [id number] Specimen Type: Blood Specimen Collection Start Date: 09/07/2024 1:53 PM Specimen Received Date: 09/08/2024 8:08 AM Specimen ID: [id number] Specimen Type: Blood Specimen Collection Start Date: 09/07/2024 1:53 PM Specimen Received Date: 09/08/2024 6:27 AM Elizabeth Warner APRN, C.N.P., M.S. LAB BLOOD NON ADD-ON Final Result [facility] [address] [place] [address] DBB8 [facility] [address] [place] [address] [facility] [address] [place] [address] [place] [address] * (ABNORMAL) Gliadin (Deamidated) Antibody, IgG (09/07/2024 1:53 PM CDT) Gliadin(Deamid ated) Ab, IgG, S 21.8(H) <20.0 (Negative) U 09/13/2024 8:13 PM CDT [facility] Comment:Interpretation: Weak Positive (20.0-30.0) Blood 09/07/2024 1:53 PM CDT 09/13/2024 12:49 PM CDT Familia Subramanian APRNN.Hilaria., M.S. LAB BLOOD ADD -ON Final Result [facility] [address] [place], [place] [id number] [place] [address] [place] [address] * Gliadin (Deamidated) Antibody, IgA (09/07/2024 1:53 PM CDT) Gliadin(Deamida saundra) Ab, IgA, S <10.0 <20.0 (Negative) U 09/13/2024 8:13 PM CDT [facility] Blood 09/07/2024 1:53 PM CDT 09/13/2024 12:49 PM CDT Itzel Subramanian APRN.N.Hilaria., M.S. LAB BLOOD ADD -ON Final Result Performing Organization Address [facility]/ZIP Co de Phone Number [facility] [address] [place], [place] [phone] [place] [address] [place] [address] * (ABNORMAL) Iron and Total Iron-Binding Capacity (09/07/2024 1:53 PM CDT) Iron 40(L) 50 - 150 mcg/dL 09/07/2024 5:07 PM CDT [facility] Total Iron Binding Capacity 270 250 - 400 mcg/dL 09/07/2024 5:07 PM CDT [facility] Percent Saturation 15 14 - 50 % 09/07/2024 5:07 PM CDT [facility] Blood (Blood, Venous) 09/07/2024 1:53 PM CDT 09/07/2024 4:37 PM CDT Itzel Subramanian APRN.N.P., M.S. LAB BLOOD ADD -ON Final Result [facility] [address] [place] [address], [place] [facility] [place] [address] [place] [address] * tTG (Tissue Transglutaminase), Antibody, IgA (09/07/2024 1:53 PM CDT) Tissue Transglutaminase Ab, IgA, S 1.6 <4.0 (Negative ) U/mL 09/08/2024 7:42 PM CDT [facility] Blood 09/07/2024 1:53 PM CDT 09/08/2024 1:51 PM CDT Susan Subramanian APRN.Hilaria., M.S. LAB BLOOD ADD -ON Final Result Performing Organization Address City/[facility]/ZIP Co de Phone Number [facility] [address] [place] [address] [facility] [address] [place] [address] * (ABNORMAL) tTG (Tissue Transglutaminase) Antibody, IgG (09/07/2024 1:53 PM CDT) Tissue Transglutaminase Ab, IgG, S 7.7(H) <6.0 (Negative ) U/mL 09/13/2024 5:04 PM CDT [facility] Comment:Interpretation: Weak Positive (6.0-9.0) Blood 09/07/2024 1:53 PM CDT 09/08/2024 1:51 PM CDT us Itzel Subramanian APRN.N.P., M.S. LAB BLOOD ADD -ON Final Result [facility] [address] [place] [address] [facility] [address] [place] [address] * Ferritin (09/07/2024 1:53 PM CDT) Ferritin, S 356 31 - 409 mcg/L 09/07/2024 5:07 PM CDT TO Comment: Biotin has been identified by the senior solutions consultant as a potential interfering substance. Higher concentrations of biotin may be found in multivitamins, hair/nail supplements, and workout supplements. If the result does not match clinical observations, repeat testing after patient refrains from the use of supplements for at least 12 hours. Blood (Blood, Venous) 09/07/2024 1:53 PM CDT 09/07/2024 4:37 PM CDT us Elizabeth Warenr APRN, C.N.P., M.S. LAB BLOOD ADD -ON Final Result Performing Organization Address City/State/[facility] Co de Phone Number [facility] [address] [place] [address], [facility] [place] [address] * Upper GI Endoscopy (08/30/2024 12:51 PM CDT) 08/30/2024 12:5 1 PM CDT Impressions [facility] - 08/30/2024 2:25 PM CDT Post-op Diagnoses: - Erythematous and congested duodenal mucosa. Biopsied. - Normal stomach. - Normal esophagus, no clear areas of compression, obstruction or abnormal mucosa. Biopsied. Narrative [facility] - 08/30/2024 2:25 PM CDT Gonda 9 GI GI Patient Name: Rene Muñiz Date of : 1970 Age: 54 [...] been signed electronically. Number of Addenda: 0 Elizabeth Warner APRN C.N.P., M.S. GI PROCEDURE ORDERABLES Final Result Performing Organization Address City/State/[facility] Phone Number [facility] * Thyrotropin Receptor Antibody (08/26/2024 12:00 PM CDT) Thyrotropin Receptor Ab, S <1.10 0.00 - 1.75 IU/L 08/27/2024 5:08 PM CDT [facility] Comment: ----ADDITIONAL INFORMATION---- At a decision limit [...] Méndez M.D. LAB BLOOD ADD-ON Final Result Performing Organization Address City/[facility]/ZIP Co de Phone Number [facility] [address] [place] [address] [facility] [address] [place] [address] * Cortisol (08/26/2024 12:00 PM CDT) [facility] Cortisol, Random, S 7.8 mcg/dL 08/26/2024 3:08 PM CDT DT Comment: ----REFERENCE VALUE---- AM ([id number]): 4.8-20 PM ([id number]): 2.5-12 Blood (Blood, Venous) 08/26/2024 12:00 PM CDT 08/26/2024 2:32 PM CDT Elizabeth Warner APRN C.N.P., M.S. LAB BLOOD ADD -ON Final Result Performing Organization Address [facility] Co de Phone Number [facility] [address] [place] [address], [facility] [address] [place] [address] * CT Chest without IV Contrast (08/26/2024 [...] the medial right lung. Elizabeth Warner APRN C.NMicaelaPMicaela, M.S. IMG CT PROCED URES Final Result [...] Emperatriz Gonzales APRN, C.N.P., D.N.P. IMG US OK OCEDURES Final Result * [place] Esophagram Double [...] M.D. IMG FLUOROSCOPY PROCEDUR ES Final Result * [place] [...] forfurther details. 2. Moderate esophageal dysmotility. Wilfrido [place] M.D. IMG FLUOROSCOPY PROCEDUR ES Final Result from Last 3 Months Insurance [facility] Advance Directives For more information, please contact: [phone] * Full Code (Latest Code Status on File) Date Activated Date Inactivated Comments 04/10/2024 2:38 AM 04/15/2024 1:16 PM Question Answer Comments Full Code: Not Discussed Due to: Patient not available
--- OUTSIDE RECORDS SUMMARY | 2024-11-06 23:12 | XMS_ITS | Clinical Summary ---
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 CARD TENDER Gender Identity Not on file Sexual Orientation Not on file Obstetrics History Last Filed Vital Signs Vital Sign Reading Time Taken Comments Blood Pressure 139/89 07/03/2023 10:03 AM CDT Pulse 96 07/03/2023 10:03 AM CDT Temperature 36.6 C (97.8 F) 05/07/2023 10:28 AM NUB CARD TENDER Respiratory Rate 14 05/23/2008 1:05 PM NUB CARD TENDER Oxygen Saturation 98% 07/03/2023 10:03 AM CDT Inhaled Oxygen Concentration - - Weight 138.3 kg (305 lb) 07/03/2023 10:03 AM CDT Height 187 cm (6' 1.62) 05/23/2008 5:00 AM NUB CARD TENDER Body Mass Index - - Plan of Treatment Health Maintenance Due Date Last Done Comments Tetanus booster 1983 Depression screening for age 12+ 1984 HIV for age 15-65 1987 BMI (ht and wt on same day) for age 18+ 1990 Hepatitis C screening for age 18-79 1990 Hepatitis B series for 19+ ( 1 of 3 - 19+ 3-dose series) 1991 Pneumococcal series for age 50+ (1 of 2 - PCV) 1991 Colonoscopy through age 75 2017 Lipids for age 45-75 2017 02/16/2010 Zoster (shingles) series for age 50+ (1 of 2) 2022 COVID-19 vaccine series (2023- season) 2023 08/25/2020, 08/04/2020 Influenza Vaccine (#1) 2024 Medical Devices Implanted Type Area Spacer Type Bar And Segment Device Identifier Shelf Expiration Date Model / Serial / Lot Peek Tenodesis Screw 8x12 [[id number] Implanted:Qty: 1 on 05/23/[address] [facility] Right: Shoulder [id number] / / [id number] Description:PEEK TENODESIS S CREW 8X12 Procedures Procedure Name Priority Date/Time Associated Diagnosis Comments LDL CHOLESTEROL,DIRECT Timed 02/16/2010 9:50 AM CDT from Last 3 Months or Most Recently Relevant to Health Maintenance Results * LDL CHOLESTEROL,DIRECT (02/16/2010 9:50 AM CDT) LDL CHOLESTEROL,D IRECT 56 Undefined mg/dL [facility] Comment: RISK CATEGORY LDL GOAL (mg/dL) Vascular disease and/or diabetes (<100) Multiple (2+) risk factors (<130) 0-1 risk factor (<160) 02/16/2010 9:50 AM CDT 02/16/2010 7:47 PM CDT Wing Kohli MD CHEMISTRY Final Result [facility] INTERNAL ZIP [address] [address] from Last 3 Months or Most Recently Relevant to Health Maintenance Insurance [employer] Member Subscriber Plan / Payer (Ef fective 2006-Present) Name:Rene Miramontes Relation to Subscriber:Self Name:Rene Miramontes Payer ID:Not on file Group ID:[id number] Type:Not on file [phone] Address: [address] [address] [employer] * Guarantor: LEO BAILEY DS & BAT ONLY Account Type Relation to Patient Date of Phone Billing Address [facility] [address] DEPT [id number] [address] [place] [address] Advance Directives * Full Code (Latest Code Status on File) Date Activated Date Inactivated Comments 05/23/2008 5:20 AM 05/23/2008 3:37 PM Care Teams Collar Baster Jumpbasting Relationship Specialty Start Date End Date Mayo Lam MD [address] [place] [address] PCP - General Internal Medicine 10/09/22
--- OUTSIDE RECORDS SUMMARY | 2024-11-06 23:12 | XMS_ITS | Encounter Summary ---
Author Organization [facility] Address [address] [place] [address] Care Team Providers Care Mechanical Design Drafter Name Role Phone Unavailable Primary Care Provider Unavailabl e Encounter Details Date Type Department Care Team (Late st Contact Info) Description 11/03/2024 Orders Only Department of Oncology in [place], [place] [address] [place] [phone] Marquise Singh M.D. [address] [place] [address] Social History Tobacco Use Types Packs/Day Years Used Date Smoking Tobacco: Former Cigarettes 1 35 0 04/14/2023 - 01/20/2024 Passive Smoke Exposure: Never Smokeless Tobacco: Never Alcohol Use Standard Drinks/Week Comments Not Currently 0 (1 standard drink = 0.6 oz pur e alcohol) [facility] Utilities Answer Date Recorded In the past 12 months has [facility] [employer], gas, oil, or water [employer] threatened to shut off services in your [...] your living situation today? 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 - 11/03/2024 5:16 PM CDT I called and shared the results of the echocardiogram. No significant impact on cardiac function was identified. Follow up has been arranged for a few months from now but we remain available sooner if needed. documented in this encounter Plan of Treatment Not on file documented as of this encounter Visit Diagnoses Not on filedocumented in this encounter
--- OUTSIDE RECORDS SUMMARY | 2024-11-06 23:12 | XMS_ITS | Encounter Summary ---
Author Organization [facility] Address [address] [place] [address] Care Team Providers Care Traffic Administrator Name Role Phone Unavailable Primary Care Provider Unavailabl e Encounter Details Date Type Department Care Team (Late st Contact Info) Description 08/24/2024 Results Follow-Up Department of Palliative Care in [place], [place] [address] [place] [phone] Emperatriz Gonzales, ADRI, C.N.P., D.N.P. [address] [place] [phone] Head Neck Soft Tissue, Thyroid Function [place] Social History Tobacco Use Types Packs/Day Years Used Date Smoking Tobacco: Former Cigarettes 1 35 0 04/14/2023 - 01/20/2024 Passive Smoke Exposure: Never Smokeless Tobacco: Never Alcohol Use Standard Drinks/Week Comments Not Currently 0 (1 standard drink = 0.6 oz pur e alcohol) [facility] Utilities Answer Date Recorded In the past 12 months has [employer], gas, oil, or water [employer] threatened to shut off services in your [...] your living situation today? I have a [facility] place to live 05/16/2024 Sex and Gender Information Value Date Recorded Sex Assigned at Male 01/28/2024 10:26 AM CDT Legal Sex Male 10:09 PM NEWS INTERNS[employer]IP Gender Identity Male 01/28/2024 10:26 AM CDT Sexual Orientation Straight 01/28/2024 10 :26 AM CDT documented as of this encounter Plan of Treatment Not on file documented as of this encounter Visit Diagnoses Not on filedocumented in this encounter
--- OUTSIDE RECORDS SUMMARY | 2024-11-06 23:12 | XMS_ITS | Encounter Summary ---
Author Organization [facility] Address [address] [place] [address] Care Team Providers Care Stone Unloader Name Role Phone Unavailable Primary Care Provider Unavailabl e Reason for Visit * Reason Onset Date Comments After Visit Question 08/23/2024 Encounter Details Date Type Department Care Team (Latest Contact Info) Description 08/23/2024 Clinical Communication Department of Oncology in [place], [place] [address] [place] [phone] Svetlana Perry M.D. [address] [place] [phone] After Visit Question Social History Tobacco Use Types Packs/Day Years Used Date Smoking Tobacco: Former Cigarettes 1 35 0 04/14/2023 - 01/20/2024 Passive Smoke Exposure: Never Smokeless Tobacco: Never Alcohol Use Standard Drinks/Week Comments Not Currently 0 (1 standard drink = 0.6 oz pur e alcohol) [facility] Utilities Answer Date Recorded In the past 12 months has [employer] [facility] [employer], gas, oil, or water [employer] threatened to shut off services in your [...] your living situation today? 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 He is asking for the endocrinology order to be for [facility]. Emperatriz would like to discuss the swelling in his mid to left neck. Please call [phone] and have her paged. documented in this encounter Plan of Treatment Not on file documented as of this encounter Visit Diagnoses Not on filedocumented in this encounter
--- OUTSIDE RECORDS SUMMARY | 2024-11-06 23:12 | XMS_ITS | Encounter Summary ---
Author Organization [facility] Address [address] [place] [address] Care Team Providers Care Assistant Women'S Rowing Coach Name Role Phone Unavailable Primary Care Provider Unavailabl e Encounter Details Date Type Department Care Team (Latest Contact Info) Description 04/09/2024 Intake [facility] Social History Tobacco Use Types Packs/Day Years Used Date Smoking Tobacco: Former Cigarettes 1 35 0 04/14/2023 - 01/20/2024 Smokeless Tobacco: Never Alcohol Use Standard Drinks/Week Comments Never 0 (1 standard drink = 0.6 oz pur e alcohol) [facility] Utilities Answer Date Recorded In [...] your living situation today? I have a [facility] place to live 05/16/2024 Sex and Gender Information Value Date Recorded Sex Assigned at Male 01/28/2024 10:26 AM CDT Legal Sex Male 10:09 PM MEDICAL SUPERINTENDENT Gender Identity Male 01/28/2024 10:26 AM CDT Sexual Orientation Straight 01/28/2024 10 :26 AM CDT documented as of this encounter Plan of Treatment Not on file documented as of this encounter Visit Diagnoses Not on filedocumented in this encounter Additional Health Concerns Infection Onset Date Last Indicated Resolved Time Protective Environment 02/12/2024 02/12/202405/22 6:03 AM MEDICAL SUPERINTENDENT documented as of this encounter
--- OUTSIDE RECORDS SUMMARY | 2024-11-06 23:12 | XMS_ITS | Encounter Summary ---
Author Organization [facility] Address [address] [place] [phone] Care Team Providers Care Warehouse Operations Associate Name Role Phone Unavailable Primary Care Provider Unavailabl e Encounter Details Date Type Department Care Team (Late st Contact Info) Description 08/23/2024 Clinical Communication Department of Palliative Care in [place], [place] [address] [place] [phone] Emperatriz Gonzales, CHECK WEIGHER, C.N.P., D.N.P. [address] [place] [phone] Social History Tobacco Use Types Packs/Day Years Used Date Smoking Tobacco: Former Cigarettes 1 35 0 04/14/2023 - 01/20/2024 Passive Smoke Exposure: Never Smokeless Tobacco: Never Alcohol Use Standard Drinks/Week Comments Not Currently 0 (1 standard drink = 0.6 oz pur e alcohol) [facility] Utilities Answer Date Recorded In the past 12 months has [facility] [employer], oil, or water [employer] threatened to shut off services in your [...] your living situation today? 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
--- OUTSIDE RECORDS SUMMARY | 2024-11-06 23:13 | XMS_ITS ---
Author Organization [facility] Address [address] [place] [address] Care Team Providers Care Laborer Name Role Phone Unavailable Primary Care Provider Unavailabl e Active Problems * This document contains information received from the source organization and may not represent a complete record from that organization. 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 on 02/10/2024 Current Treatment and Therapy Plans Pembrolizumab ( Every 3 weeks ) ( Oncology )* Plan Start Date:06/13/2024 Plan Provider:Elizabeth Warner APRN, C.N.P., M.S. Linked Problems Medication Therapy Deckhand Shrimp [employer] Not 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Malignant Neoplasm Of Lung Lower Lobe Or Bronchus Right (HCC)Medication Therapy Mcfp Not 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 Treatment Medications Current Day (Pre [...] Fraction Dose Fractions Total Dose Plans Planned [id number] 04/20/2024 - 2024 220 cGy 30 30 6 ,600 cGy Reference Points Delivered [id number] 04/20/2024 - 2024 6,600 cGy Lifetime Dose Tracking * Chemical Lifetime Dose Automatic Entry Manual Entr y Radiation 58.8 mGy 58.8 mGy 0 mGy Fluoro Time 2.6 minutes 2.6 minutes 0 minutes
--- OUTSIDE RECORDS SUMMARY | 2024-11-06 23:13 | XMS_ITS | Encounter Summary ---
Author Organization [facility] Address [address] [place] [phone] Care Team Providers Care Application Release Manager Name Role Phone Unavailable Primary Care Provider Unavailabl e Encounter Details Date Type Department Care Team (Late st Contact Info) Description 09/07/2024 Clinical Communication Department of Oncology in [place], [place] [address] [place] [phone] Elizabeth Warner, ADRI, C.N.P., M.S. [address] [place] [phone] Social History Tobacco Use Types Packs/Day Years Used Date Smoking Tobacco: Former Cigarettes 1 35 0 04/14/2023 - 01/20/2024 Passive Smoke Exposure: Never Smokeless Tobacco: Never Alcohol Use Standard Drinks/Week Comments Not Currently 0 (1 standard drink = 0.6 oz pur e alcohol) [facility] Utilities Answer Date Recorded In the past 12 months has [facility] [employer], gas, oil, or water [employer] threatened to shut off services in your [...] your living situation today? 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
--- OUTSIDE RECORDS SUMMARY | 2024-11-06 23:13 | XMS_ITS | Encounter Summary ---
Author Organization [facility] Address [address] [place] [address] Care Team Providers Care Food Prep Worker Name Role Phone Unavailable Primary Care Provider Unavailabl e Encounter Details Date Type Department Care Team (Late st Contact Info) Description 10/18/2024 Clinical Communication Department of Oncology in [place], [place] [address] [place] [phone] Marquise Singh M.D. [address] [place] [phone] Social History Tobacco Use Types Packs/Day Years Used Date Smoking Tobacco: Former Cigarettes 1 35 0 04/14/2023 - 01/20/2024 Passive Smoke Exposure: Never Smokeless Tobacco: Never Alcohol Use Standard Drinks/Week Comments Not Currently 0 (1 standard drink = 0.6 oz pur e alcohol) [facility] Utilities Answer Date Recorded In the past 12 months has [facility] [employer], gas, oil, or water [employer] threatened to shut off services in your [...] living situation today? 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
--- OUTSIDE RECORDS SUMMARY | 2024-11-06 23:13 | XMS_ITS | Encounter Summary ---
Author Organization [facility] Address [address] [place] [address] Care Team Providers Care Flight Service Specialist Name Role Phone Unavailable Primary Care Provider Unavailabl e Reason for Referral * Gastrointestinal (Routine) - Closed Specialty Diagnoses / Procedures Referred By Cinthia t Referred To Contact Diagnoses Dysphagia Procedures EGD (EsophagoGastroDuodenoscopy) Restricted Torres Estrella M.D., Ph.D. [address] [place] [phone] Phone: tel: fax: [facility] Referral ID Status Reason Start Date Expiration Date Visits Re quested Visits Authorized [id number] Closed 09/29/2024 12/30/2025 1 1 Encounter Details Date Type Department Care Team (Latest Contact Info) Description 09/29/2024 Orders Only Division of Gastroenterology in [place], [place] [address] [place] [phone] Torres Estrella M.D., Ph.D. 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
--- OUTSIDE RECORDS SUMMARY | 2024-11-06 23:13 | XMS_ITS | Encounter Summary ---
Author Organization [facility] Address [address] [place] [address] Care Team Providers Care Electronics Teacher Name Role Phone Unavailable Primary Care Provider Unavailabl e Reason for Visit * Reason Onset Date Comments Appointment 10/18/2024 Encounter Details Date Type Department Care Team (Late st Contact Info) Description 10/18/2024 Clinical Communication Department of Palliative Care in [place], [place] [address] [place] [phone] Hoa Katz, P.A.-C. [address] [place] [phone] Appointment Social History Tobacco Use Types Packs/Day Years Used Date Smoking Tobacco: Former Cigarettes 1 35 0 04/14/2023 - 01/20/2024 Passive Smoke Exposure: Never Smokeless Tobacco: Never Alcohol Use Standard Drinks/Week Comments Not Currently 0 (1 standard drink = 0.6 oz pur e alcohol) [facility] Utilities Answer Date Recorded In the past 12 months has [employer], gas, oil, or water [employer] threatened to shut off services in your [...] your living situation today? 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
[2024-11-06 23:20] VITALS: BP 128/90; PULSE 89; RESP 24; TEMP 35.9; O2SAT 98
[2024-11-06 23:30] VITALS: PULSE 82; O2SAT 96; O2SAT 98
--- NOTE | 2024-11-06 23:32 | CRLHL7_ITS ---
For Patients: As a result of the Century Cures Act, medical imaging exams and procedure reports are released immediately into your electronic medical record. You may view this report before your referring provider. If you have questions, please contact your health care provider. INDICATION: Dyspnea. Chest pain. History of lung cancer. TECHNIQUE: Multiplanar CT pulmonary angiogram was performed after the administration of 95 mL of Isovue 370 intravenous contrast. COMPARISON: CTA chest 04/09/2024. FINDINGS: Lower neck: The visualized thyroid is unremarkable. Cardiovascular: Contrast opacification of the pulmonary arterial tree is adequate. Heart size is normal. Thoracic aorta and pulmonary artery are normal in caliber. Mild atherosclerotic calcifications of the aortic arch. Coronary arterial calcifications. No large central pulmonary embolus. Mediastinum and lymph nodes: Interval decrease in the size of the large right paratracheal mass, measuring approximately 4.9 x 4.0 cm on today`s examination. This mass abuts and is indistinct from the thoracic esophagus. Small pericardial effusion. Lungs: No focal consolidation. Stable 1.0 cm right upper lobe nodule (5:42). 1.7 cm right upper lobe nodule medially, not definitively seen on the prior CT (5:53). Linear bandlike opacification of the lung bases bilaterally, likely subsegmental atelectasis and/or scarring. Mild pulmonary emphysema. Trachea: Patent and midline. Mild diffuse peribronchial wall thickening. Pleura: No pleural effusions or pneumothorax. Chest wall: Unremarkable. Prominent axillary lymph nodes that do not meet size criteria for lymphadenopathy. Bones: No acute osseous abnormalities. Mild degenerative changes of the thoracic spine. Upper abdomen: Cholecystectomy. No acute findings within the visualized upper abdomen. No reflux of contrast material into the IVC. IMPRESSION: 1. No pulmonary embolus. No CT evidence of right heart strain. 2. Interval decrease in the size of the large right paratracheal mass, now measuring approximately 4.9 x 4.0 cm. This mass abuts and is indistinct from the thoracic esophagus, local invasion can not be excluded. 3. New right upper lobe nodule measuring 1.7 cm, malignancy can not be excluded. Previously visualized pulmonary nodules appear grossly unchanged. 4. Small pericardial effusion. A malignant effusion can not be excluded. Please note that all CT scans at this facility use dose modulation, iterative reconstruction, and/or weight-based dosing when appropriate to reduce radiation dose to as low as reasonably achievable. Dictated by Steve Medina MD @ 11/07/2024 1:08:03 AM (Electronically Signed)
[2024-11-06] MEDS: diazePAM 5 MG/ML inj IV (23:41)
[2024-11-07 00:03] VITALS: PULSE 86; O2SAT 94
--- NOTE | 2024-11-07 00:04 | ED.GENADULT ---
HPI - General Adult General Date Seen: 11/07/24 <Rina Skinner MD - Last Filed: 11/08/24 16:09> Chief complaint: Shortness of Breath/Dyspnea <Rina Skinner MD - Last Filed: 11/08/24 16:09> Stated complaint: difficulty breathing <Rina Skinner MD - Last Filed: 11/08/24 16:09> Time Seen by Provider: 11/06/24 23:25 <Rina Skinner MD - Last Filed: 11/08/24 16:09> History of Present Illness HPI narrative: Patient is a 54-year-old male with a history of non-small cell cancer of the right lung with surrounding adenopathy, history of significant tracheal narrowing secondary to this mass. He has been followed at [facility], I saw him back in March, at which time I transferred him to [facility] secondary to severe narrowing of the trachea. Looking through what I can piece together from his outside records, it looks like he had a tracheal stent, he has had treatment with radiation and chemotherapy and overall size of the mass has decreased and he has improvement in his tracheal compression. More recently, he was here in September with an episode of difficulty breathing related to seeming upper airway constriction/stridor, improved without really any treatment. He does have some underlying anxiety and notes this may be contributing. He says tonight he developed a sensation like he could not catch his breath, he feels short of breath particularly when he lays down and gets very very panicky. He says that he has had a CT scan at [facility] he thinks about a month ago, and it did not look concerning. He does not have chest pain, has not had fevers or cough. <Rina Skinner MD - Last Filed: 11/08/24 16:09> Related Data Home medications: Home Medications ?Medication ?Instructions ?Recorded ?Confirmed ondansetron 8 mg disintegrating 8 mg PO Q8H PRN 04/28/24 09/21/24 tablet prochlorperazine maleate 10 mg 10 mg PO Q6H PRN 04/28/24 09/21/24 tablet tiotropium bromide 2.5 2 inh inhalation DAILY 04/28/24 09/26/24 mcg/actuation mist for inhalation (Spiriva Respimat) Previous Rx's ?Medication ?Instructions ?Recorded albuterol sulfate 90 mcg/actuation 2 puff inhalation Q6H PRN 01/06/24 aerosol inhaler shortness of breath or wheezing #6.7 grams venlafaxine 150 mg 150 mg PO QDAY #90 caps 10/22/24 capsule,extended release 24 hr omeprazole 40 mg capsule,delayed 40 mg PO DAILY GERD #30 caps 10/26/24 release levothyroxine 25 mcg tablet 37.5 mcg (1.5 x 25 mcg) PO QDAY 11/08/24 hypothyroidism #60 tabs <Rina Skinner MD - Last Filed: 11/08/24 16:09> Allergies/adverse reactions: Allergies Allergy/AdvReac Type Severity Reaction Status Date / Time No Known Allergies Allergy Verified 11/07/24 00:09 <Rina Skinner MD - Last Filed: 11/08/24 16:09> Review of Systems Status of ROS: Reports: 10 or more systems reviewed and unremarkable except as noted in History and below <Rina Skinner MD - Last Filed: 11/08/24 16:09> [facility] Medical History: Medical History Tobacco use (02/16/10) ?Z72.0 - Tobacco use (ICD-10) Non-small cell cancer of right lung (~01/2024) ?C34.91 - Malignant neoplasm of unspecified part of right bronchus or lung (ICD-10) Work related injury ?Y99.0 - Civilian activity done for income or pay (ICD-10) HTN (hypertension) ?I10 - Essential (primary) hypertension (ICD-10) Obstructive sleep apnea syndrome ?G47.33 - Obstructive sleep apnea (adult) (pediatric) (ICD-10) Obesity with body mass index greater than 30 ?E66.9 - Obesity, unspecified (ICD-10) Hyperlipidemia ?E78.5 - Hyperlipidemia, unspecified (ICD-10) Generalized anxiety disorder ?F41.1 - Generalized anxiety disorder (ICD-10) Gastroesophageal reflux disease (06/18/11) ?K21.9 - Gastro-esophageal reflux disease without esophagitis (ICD-10) Erectile dysfunction ?N52.9 - Male erectile dysfunction, unspecified (ICD-10) Depression ?F32.A - Depression, unspecified (ICD-10) Carpal tunnel syndrome ?G56.00 - Carpal tunnel syndrome, unspecified upper limb (ICD-10) Benign prostatic hyperplasia ?N40.0 - Benign prostatic hyperplasia without lower urinary tract symptoms (ICD-10) Adenomatous polyp of colon ?D12.6 - Benign neoplasm of colon, unspecified (ICD-10) <Rina Skinner MD - Last Filed: 11/08/24 16:09> Surgical History: Surgical History S/P arthroscopic partial medial meniscectomy (11/01/21) ?Z98.890 - Other specified postprocedural states (ICD-10) Status post hip surgery (02/21/22) ?Z98.890 - Other specified postprocedural states (ICD-10) Status post medial meniscus repair of right knee (12/12/22) ?Z98.890 - Other specified postprocedural states (ICD-10) History of hernia repair ?Z98.890 - Other specified postprocedural states (ICD-10) ?Z87.19 - Personal history of other diseases of the digestive system (ICD-10) History of cholecystectomy ?Z90.49 - Acquired absence of other specified parts of digestive tract (ICD-10) History of appendectomy ?Z90.49 - Acquired absence of other specified parts of digestive tract (ICD-10) <Rina Skinner MD - Last Filed: 11/08/24 16:09> Family History: Family History Mother Colon cancer <Rina Skinner MD - Last Filed: 11/08/24 16:09> Social History: Social History 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, 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, 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, no 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, , 2 kids What is your current living situation?: I presently have a place to live Problems where you live: no known problems In the past 12 months, utilities in danger of being shut off: no In past 12 months, lack of transportation kept you from medical appts, meetings, work, or getting things needed for daily living: no In the past 12 mos, have been you worried that your food would run out before you had money to buy more?: never true In the past 12 mos, the food you bought just didn't last and you didn't have money to buy more?: never true Smoking Status: Former smoker What tobacco products do you use: cigarettes Smoking packs per day: 1.5 Smoking cigarettes per day: 30.0 Smoking quit date/years: <= 15 years ago Do you use any of these nicotine containing products: None Second hand tobacco smoke exposure: Yes How often do you have a drink containing alcohol: never AUDIT-C Alcohol total score: 0 Non-prescribed substance use: denies use Caffeine: Yes How often does anyone, including family, friends and others, physically hurt you: never How often does anyone, including family, friends and others, insult or talk down to you: never How often does anyone, including family, friends and others, threaten you with harm: never How often does anyone, including family, friends and others, scream or curse at you: never service: No <Rina Skinner MD - Last Filed: 11/08/24 16:09> Exam Narrative: Exam Narrative: Vital signs reviewed In general, alert, nontoxic middle-aged male. He is speaking full sentences without any difficulty, it does seem that he may have a little bit of restriction with inspiration, though he does not have stridor. He does seem anxious. Head: Normocephalic, atraumatic. Eyes: Sclera clear. Pupils equal and reactive. ENT: Mucous membranes moist. Airways patent. Neck: Supple, nontender, no obvious masses. Heart: Regular rate and rhythm without murmur. No stridor. Lungs: Clear. No increased work of breathing, crackles or wheezes. Abdomen: Soft, nontender to palpation. Extremities: Well perfused, pulses intact. No significant edema. Neurologic: Alert, conversant. Speech fluent, face symmetric. Moves all extremities equally. Skin: Warm, dry well perfused. Affect: Anxious <Rina Skinner MD - Last Filed: 11/08/24 16:09> Const: Vital Signs, click to edit/add: Vital Signs - 24 hr 11/06/24 23:20 11/06/24 23:30 11/06/24 23:30 Temperature 96.7 F L Pulse Rate 82 Pulse Rate [Right Pulse Oximeter] 89 Respiratory Rate 24 Blood Pressure Blood Pressure [Le ft Upper Arm] 128/90 H Pulse Oximetry 98 98 96 Oxygen Delivery Me thod Room Air 11/07/24 00:03 11/07/24 00:30 11/07/24 00:33 Temperature Pulse Rate 86 87 Pulse Rate [Right Pulse Oximeter] 87 Respiratory Rate Blood Pressure Blood Pressure [Le ft Upper Arm] Pulse Oximetry 94 95 94 Oxygen Delivery Me thod Room Air 11/07/24 00:45 11/07/24 00:51 Temperature Pulse Rate 87 86 Pulse Rate [Right Pulse Oximeter] Respiratory Rate Blood Pressure 139/91 H Blood Pressure [Le ft Upper Arm] Pulse Oximetry 95 92 Oxygen Delivery Me thod <Rina Skinner MD - Last Filed: 11/08/24 16:09> Vital Signs, click to edit/add: Vital Signs - 24 hr 11/06/24 23:20 11/06/24 23:30 11/06/24 23:30 Temperature 96.7 F L Pulse Rate 82 Pulse Rate [Right Pulse Oximeter] 89 Respiratory Rate 24 Blood Pressure Blood Pressure [Le ft Upper Arm] 128/90 H Pulse Oximetry 98 98 96 Oxygen Delivery Me thod Room Air 11/07/24 00:03 11/07/24 00:30 11/07/24 00:33 Temperature Pulse Rate 86 87 Pulse Rate [Right Pulse Oximeter] 87 Respiratory Rate Blood Pressure Blood Pressure [Le ft Upper Arm] Pulse Oximetry 94 95 94 Oxygen Delivery Me thod Room Air 11/07/24 00:45 11/07/24 00:51 Temperature Pulse Rate 87 86 Pulse Rate [Right Pulse Oximeter] Respiratory Rate Blood Pressure 139/91 H Blood Pressure [Le ft Upper Arm] Pulse Oximetry 95 92 Oxygen Delivery Me thod <Belgica Harden MD - Last Filed: 11/07/24 01:25> Course Course ED Course: I reviewed the outside imaging that we have scanned into our system, most recent CT scan we have in our system was from June at which time things were improved. I do not see 1 more recent than that although he says he had 1 done. Overall, his exam is not overly concerning, but given his history I think that reimaging his chest is a good idea. I do think it is worthwhile trying something for anxiety because if his CT scan looks okay, there may be more of a contribution from anxiety. I am going to do a CT scan PE protocol and look for other potential causes of shortness of breath such as PE, pneumonia, pleural effusion, pulmonary edema etcetera. However, he does not really have any chest complaints per se, tolerance has you normal O2 sats, and my suspicion for these diagnoses is somewhat lower. I am still waiting on the CT scan formal read, I reviewed it and I did not see evidence of pulmonary embolism or infiltrate, pleural effusion or pulmonary edema. His trachea appears much improved from March when I saw it, definitely no significant narrowing but I am waiting for Radiology to review images. He feels significantly better at this time, it seems like the Valium was very helpful for him. Decadron I do not think he has had enough time to make any difference. We talked about possibly anxiety contributing to the symptoms given these 2 most recent episodes in which she recovered without really any medical intervention. He would like to have access to something at home if this happens again, assuming the CT scan does not show any concerning findings. I wrote a prescription for Ativan. I have also recommended that he get an oximeter, because I discussed with him I certainly do not want him to use Ativan if he is feeling short of breath and his oxygen levels are low. However, if he has episodes that are identical to last month and tonight, and his oxygenation is okay, I think it is reasonable to try a dose of Ativan and see if he feels improved. Imaging is signed out to oncoming physician for final review and patient disposition thereafter. <Rina Skinner MD - Last Filed: 11/08/24 16:09> Reevaluation(s) Time of Reevaluation #1: 01:22 <Belgica Harden MD - Last Filed: 11/07/24 01:25> Reevaluation #1: Dr. Harden- I assumed care from outgoing evening provider. Patient is feeling better after the benzodiazepine given. We discussed to CT findings. I reminded him that we only have a comparison from our most recent study, it may not be the most up-to-date. Interval shrinkage of the throat lesion compared to our previous studies noted, right upper chest mass noted. A copy of the report is given for patient to follow-up with his primary cancer managing team. We discussed having access to an oximeter at home to help give him more data if he is truly short of breath. Lorazepam if everything else is checking out okay and his oxygen levels are normal. Remainder CT is overall reassuring. Written instructions and prescription provided. <Belgica Harden MD - Last Filed: 11/07/24 01:25> Vital Signs Vital signs: Initial Vital Signs Temperature 96.7 F L 11/06/24 23:20 Temperature Source Temporal Artery Scan 11/06/24 23:20 Pulse Rate 89 11/06/24 23:20 Pulse Rhythm Regular 11/06/24 23:20 Respiratory Rate 24 11/06/24 23:20 Blood Pressure 128/90 H 11/06/24 23:20 Blood Pressure Mean 102 11/06/24 23:20 Blood Pressure Position Sitting 11/06/24 23:20 Pulse Oximetry 98 11/06/24 23:20 Oxygen Delivery Method Room Air 11/06/24 23:20 Vital Signs Temperature 96.7 F L 11/06/24 23:20 Pulse Rate 89 11/06/24 23:20 Respiratory Rate 24 11/06/24 23:20 Blood Pressure 128/90 H 11/06/24 23:20 Pulse Oximetry 98 11/06/24 23:20 Oxygen Delivery Method Room Air 11/06/24 23:20 Temperature 96.7 F L 11/06/24 23:20 Pulse Rate 86 11/07/24 00:51 Respiratory Rate 24 11/06/24 23:20 Blood Pressure 139/91 H 11/07/24 00:51 Pulse Oximetry 92 11/07/24 00:51 Oxygen Delivery Method Room Air 11/07/24 00:33 <Rina Skinner MD - Last Filed: 11/08/24 16:09> Initial Vital Signs Temperature 96.7 F L 11/06/24 23:20 Temperature Source Temporal Artery Scan 11/06/24 23:20 Pulse Rate 89 11/06/24 23:20 Pulse Rhythm Regular 11/06/24 23:20 Respiratory Rate 24 11/06/24 23:20 Blood Pressure 128/90 H 11/06/24 23:20 Blood Pressure Mean 102 11/06/24 23:20 Blood Pressure Position Sitting 11/06/24 23:20 Pulse Oximetry 98 11/06/24 23:20 Oxygen Delivery Method Room Air 11/06/24 23:20 Vital Signs Temperature 96.7 F L 11/06/24 23:20 Pulse Rate 89 11/06/24 23:20 Respiratory Rate 24 11/06/24 23:20 Blood Pressure 128/90 H 11/06/24 23:20 Pulse Oximetry 98 11/06/24 23:20 Oxygen Delivery Method Room Air 11/06/24 23:20 Temperature 96.7 F L 11/06/24 23:20 Pulse Rate 86 11/07/24 00:51 Respiratory Rate 24 11/06/24 23:20 Blood Pressure 139/91 H 11/07/24 00:51 Pulse Oximetry 92 11/07/24 00:51 Oxygen Delivery Method Room Air 11/07/24 00:33 <Belgica Harden MD - Last Filed: 11/07/24 01:25> Medications Administered Medications: Discontinued Medications Generic Name Dose Route Start Last Admin Trade Name Freq PRN Reason Stop Dose Admin Dexamethasone 4 mg 11/06/24 23:27 11/06/24 23:37 Dexamethasone 4 Mg/Ml Vial IVP 11/06/24 23:28 4 mg ONCE ONE Administration Diazepam 5 mg 11/06/24 23:27 11/06/24 23:41 Diazepam 5 Mg/Ml Inj IV 11/06/24 23:28 5 mg ONCE ONE Administration <Rina Skinner MD - Last Filed: 11/08/24 16:09> Discontinued Medications Generic Name Dose Route Start Last Admin Trade Name Freq PRN Reason Stop Dose Admin Dexamethasone 4 mg 11/06/24 23:27 11/06/24 23:37 Dexamethasone 4 Mg/Ml Vial IVP 11/06/24 23:28 4 mg ONCE ONE Administration Diazepam 5 mg 11/06/24 23:27 11/06/24 23:41 Diazepam 5 Mg/Ml Inj IV 11/06/24 23:28 5 mg ONCE ONE Administration <Belgica Harden MD - Last Filed: 11/07/24 01:25> Medical Decision Making Imaging Data CT scan - chest: Attestation: I have reviewed the pertinent imaging results. <Belgica Harden MD - Last Filed: 11/07/24 01:25> My impression: No obvious tracheal stenosis Or obstruction from mass. Certainly signs of malignant disease. <Belgica Harden MD - Last Filed: 11/07/24 01:25> Radiologist's impression: IMPRESSION: 1. No pulmonary embolus. No CT evidence of right heart strain. 2. Interval decrease in the size of the large right paratracheal mass, now measuring approximately 4.9 x 4.0 cm. This mass abuts and is indistinct from the thoracic esophagus, local invasion can not be excluded. 3. New right upper lobe nodule measuring 1.7 cm, malignancy can not be excluded. Previously visualized pulmonary nodules appear grossly unchanged. 4. Small pericardial effusion. A malignant effusion can not be excluded. Please note that all CT scans at this facility use dose modulation, iterative reconstruction, and/or weight-based dosing when appropriate to reduce radiation dose to as low as reasonably achievable. Dictated by Steve Medina MD @ 11/07/2024 1:08:03 AM <Belgica Harden MD - Last Filed: 11/07/24 01:25> Discharge Plan Discharge Clinical Impression: Anxiety, Non-small cell cancer of right lung <Rina Skinner MD - Last Filed: 11/08/24 16:09> Patient Disposition: Home, Self-Care <Rina Skinner MD - Last Filed: 11/08/24 16:09> Condition: Improved <Rina Skinner MD - Last Filed: 11/08/24 16:09> Instructions: Anxiety (ED) <Rina Skinner MD - Last Filed: 11/08/24 16:09> Additional Instructions: Your CT scan looks Stable at the level of the throat, I am unsure if the findings in the right chest are actually new but suspect that they are not. Please take the report given to you today to your next cancer team follow-up. Remember that our comparison CT may not be the most recent study.. There is no evidence narrowing of your trachea tonight, and no evidence of other problems which might contribute to shortness of breath such as fluid collection in your lung, blood clot, pneumonia etc.. As we discussed, I think there is some component of anxiety that contributes to the symptoms for you. It is reasonable to try Ativan at home, but I would like you to have a O2 sat monitor. As long as your oxygen saturations are 92% or greater, it is okay to try dose of Ativan at home if these types of symptoms recur. However, if your oxygen levels are lower than that, you should come back to the ER to be re-evaluated. Otherwise, follow-up with [facility] as previously scheduled. If you find that you are having more frequent/regular episodes of what seems to be anxiety, please talk with your primary care doctor about better long-term management that. <Rina Skinner MD - Last Filed: 11/08/24 16:09> Prescriptions: No Action albuterol sulfate 90 mcg/actuation HFA aerosol inhaler 2 puff inhalation Q6H PRN (Reason: shortness of breath or wheezing) Qty: 6.7 0RF prochlorperazine maleate 10 mg tablet 10 mg PO Q6H PRN ondansetron 8 mg tablet,disintegrating 8 mg PO Q8H PRN Rx Instructions: 1st dose 1-2 hr before radiation Spiriva Respimat 2.5 mcg/actuation mist 2 inh inhalation DAILY venlafaxine 150 mg capsule,extended release 24hr 150 mg PO QDAY Qty: 90 0RF Rx Instructions: Take with venlafaxine 75mg to equal total daily dose of 225mg. omeprazole 40 mg capsule,delayed release(DR/EC) 40 mg PO DAILY Qty: 30 0RF levothyroxine 25 mcg tablet 37.5 mcg PO QDAY Qty: 60 1RF Rx Instructions: Take 1.5 tablet on an empty stomach, 30-60 minutes before breakfast daily. <Rina Skinner MD - Last Filed: 11/08/24 16:09> Follow Up/Referrals: Mayo Lam MD [Primary Care Provider, Internal Medicine] <Rina Skinner MD - Last Filed: 11/08/24 16:09> Stand Alone Forms: [employer] Info Instructions <Rina Skinner MD - Last Filed: 11/08/24 16:09>
[2024-11-07 00:30] VITALS: PULSE 87; O2SAT 95
[2024-11-07 00:33] VITALS: PULSE 87; O2SAT 94
[2024-11-07 00:45] VITALS: PULSE 87; O2SAT 95
[2024-11-07 00:51] VITALS: BP 139/91; PULSE 86; O2SAT 92
== END 2024-11-07 01:31 | disposition home or self-care (01) ==
PROVIDERS: Emergency Provider Family Medicine; PCP Internal Medicine
DX: C34.91 Malignant neoplasm of unspecified part of right bronchus or lung (principal); F41.9 Anxiety disorder, unspecified
CPT/HCPCS: 71275; 94761; 96374; 96375; 99284; J1100; J3360; Q9967